=== PATIENT | male | born 1950 | race Hispanic/Latino ===

== ENCOUNTER 2017-02-20 15:41 | Emergency (ER) | payer MEDICARE | END 2017-02-20 16:15 | disposition home or self-care (01) | LOC: ERS 15:41 | DX: M62.830 Muscle spasm of back (principal); E78.5 Hyperlipidemia, unspecified; E11.9 Type 2 diabetes mellitus without complications; I10 Essential (primary) hypertension; J45.909 Unspecified asthma, uncomplicated; F32.9 Major depressive disorder, single episode, unspecified | CPT/HCPCS: 99283 ==

== ENCOUNTER 2017-02-25 09:20 | Emergency (ER) | payer MEDICARE ==
[2017-02-25 10:00] LABS: #Eosinphils 0.4 thou/uL (0.0-0.7); #Lymphocytes 1.4 thou/uL (1.20-3.40); #Monocytes 0.5 thou/uL (0.11-0.59); %Basophils 0.5 % (0.0-1.0); %Eosinophils 6.8 % (0.0-10.0); %Lymphocytes 21.5 % (21.0-51.0); %Monocytes 8.3 % (0.0-10.0); Hematocrit 37.9 % (42.0-52.0); Mean Platelet Volume 6.2 fL (7.4-10.4); Red Blood Cell (RBC) Count 4.01 mill/uL (4.70-6.10); White Blood Cell (WBC) Count 6.4 thou/uL (4.8-10.8)
[2017-02-25 10:22] LABS: ALT (SGPT) 13 U/L (8-55); AST (SGOT) 13 U/L (5-34); Alkaline Phosphatase 75 U/L (40-150); Anion Gap 18 mmol/L (10-20); BUN (Urea Nitrogen) 37 mg/dL (8.4-25.7); Bilirubin, Total 0.8 mg/dL (0.2-1.2); CK (CPK) 151 U/L (30-200); Calc. Creatinine Clearance 0 mL/min (70-130); Calcium 9.3 mg/dL (7.8-10.44); Carbon Dioxide 23 mmol/L (23-31); Chloride 96 mmol/L (98-107); Estimated GFR-MDRD 6; Globulin 2.8 g/dL (2.4-3.5); Lipase 51 U/L (8-78)
[2017-02-25 10:24] LABS: Troponin I 0.068 ng/mL (< 0.028)
--- NOTE | 2017-02-25 10:25 | RAD ---
RADIOGRAPH CHEST 1 VIEW: HISTORY: 67-year-old male with acute chest pain and dyspnea. FINDINGS: There is no air space density, pulmonary edema, or pneumothorax. The lateral costophrenic angles ar e sharp. IMPRESSION: No acute pulmonary findings. jn [] POS: MARANDA
[2017-02-25] MEDS ORDERED: ALPRAZolam 0.5 MG TAB ONE (11:00)
[2017-02-25 12:16] LABS: Troponin I 0.069 ng/mL (< 0.028)
== END 2017-02-25 15:12 | disposition home or self-care (01) ==
LOC: ERS 09:20 → MERGE 09:20 → ERS 15:12
DX: I12.0 Hypertensive chronic kidney disease with stage 5 chronic kidney disease or end stage renal disease (principal); N18.6 End stage renal disease; F41.9 Anxiety disorder, unspecified; E11.22 Type 2 diabetes mellitus with diabetic chronic kidney disease; E78.5 Hyperlipidemia, unspecified; Z86.73 Personal history of transient ischemic attack (TIA), and cerebral infarction without residual deficits
CPT/HCPCS: 36415; 71010; 80053; 82553; 83690; 84484; 85025; 93005; 94760

== ENCOUNTER 2017-05-16 00:54 | Inpatient (IN) | payer MEDICARE ==
[2017-05-16] MEDS ORDERED: Lidocaine 1% w/Epinephrine 1:100K 20 ML VIAL ONE (01:36)
[2017-05-16 01:40] LABS: #Eosinphils 0.2 thou/uL (0.0-0.7); #Lymphocytes 1.3 thou/uL (1.20-3.40); #Monocytes 0.8 thou/uL (0.11-0.59); %Basophils 0.2 % (0.0-1.0); %Eosinophils 1.6 % (0.0-10.0); %Lymphocytes 11.2 % (21.0-51.0); %Monocytes 6.9 % (0.0-10.0); Hematocrit 27.3 % (42.0-52.0); Mean Platelet Volume 5.6 fL (7.4-10.4); Red Blood Cell (RBC) Count 3.01 mill/uL (4.70-6.10); White Blood Cell (WBC) Count 11.3 thou/uL (4.8-10.8)
[2017-05-16 01:47] LABS: PTT 37.5 SEC (22.9-36.1); Prothrombin Time 13.9 SEC (12.0-14.7)
[2017-05-16 02:03] LABS: ALT (SGPT) 9 U/L (8-55); AST (SGOT) 15 U/L (5-34); Alkaline Phosphatase 88 U/L (40-150); Anion Gap 20 mmol/L (10-20); BUN (Urea Nitrogen) 54 mg/dL (8.4-25.7); Bilirubin, Total 0.7 mg/dL (0.2-1.2); CK (CPK) 188 U/L (30-200); Calc. Creatinine Clearance 0 mL/min (70-130); Calcium 9.8 mg/dL (7.8-10.44); Carbon Dioxide 26 mmol/L (23-31); Chloride 97 mmol/L (98-107); Estimated GFR-MDRD 5; Globulin 3.5 g/dL (2.4-3.5); Lipase 87 U/L (8-78); Protein, Total 7.4 g/dL (5.8-8.1)
[2017-05-16 02:12] LABS: Troponin I 0.711 ng/mL (< 0.028)
[2017-05-16] MEDS ORDERED: Nitroglycerin 2% Ointment 1 INCH/1 GM Packet ONE (03:04)
[2017-05-16] MEDS ORDERED: Enoxaparin Sodium 80 MG/0.8 ML SYRINGE ONE (03:04)
[2017-05-16 04:44] LABS: Troponin I 0.744 ng/mL (< 0.028)
[2017-05-16] MEDS ORDERED: Acetaminophen 500 MG TAB ONE (05:20)
[2017-05-16] MEDS ORDERED: Senokot 8.6 MG TAB PO PRN (07:26)
[2017-05-16] MEDS ORDERED: Labetalol HCl 100 MG/20 ML VIAL SLOW IVP PRN (07:26)
[2017-05-16] MEDS ORDERED: Loperamide HCl 2 MG CAP PO PRN (07:26)
[2017-05-16] MEDS ORDERED: Nitroglycerin 0.4 MG TAB (25 Tab Bottle) SL PRN (07:26)
[2017-05-16] MEDS ORDERED: Eucerin (Mineral Oil/Petrolatum,White) 30 gm Jar TOP PRN (07:26)
[2017-05-16] MEDS ORDERED: Milk Of Magnesia 30 ML UDCUP PO PRN (07:26)
[2017-05-16] MEDS ORDERED: Acetaminophen 325 MG TAB PO PRN (07:26)
[2017-05-16] MEDS ORDERED: Ondansetron HCl/PF 4 MG/2 ML Vial IVP PRN (07:26)
[2017-05-16] MEDS ORDERED: Artificial Tears 18 DROP/0.9 ML EA EYE PRN (07:26)
[2017-05-16] MEDS ORDERED: Loratadine 10 MG TAB PO PRN (07:26)
[2017-05-16] MEDS ORDERED: Chloraseptic Spray 180 ml Bottle PO PRN (07:26)
[2017-05-16] MEDS ORDERED: Mag-Al 1200 mg/1200 mg/30 ML UDCUP PO PRN (07:26)
[2017-05-16] MEDS ORDERED: hydrALAZINE 20 MG/ML VIAL SLOW IVP PRN (07:26)
[2017-05-16] MEDS ORDERED: Sodium Chloride 0.65% Nasal 44 ML BOT EA NARE PRN (07:26)
[2017-05-16] MEDS ORDERED: Diabetic Tussin 200 MG/10 ML UDCUP PO PRN (07:26)
[2017-05-16] MEDS ORDERED: Ondansetron ODT 4 MG TAB PO PRN (07:26)
--- NOTE | 2017-05-16 07:31 | RAD ---
1 VIEW CHEST: Date: 05/16/17 HISTORY: Chest pain. COMPARISON: 02/25/17. FINDINGS: Portable upright chest radiograph demonstrates a normal cardiac silhouette. Pulmonary vessels are sli ghtly prominent. Costophrenic angles are clear. Patchy interstitial opacities, superimposed upon clinical nursing intern patrica change. No consolidation. No pneumothorax. IMPRESSION: Patchy interstitial opacities superimposed upon chronic change. Edema or infiltrate cannot be complet manny excluded. POS: PPP
[2017-05-16 08:06] LABS: Troponin I 0.964 ng/mL (< 0.028)
[2017-05-16] MEDS ORDERED: Heparin 5,000 UNITS/ML VIAL SC SCH (09:00)
--- NOTE | 2017-05-16 10:09 | CON ---
DATE OF CONSULTATION: 05/16/2017 NEPHROLOGY CONSULTATION REASON FOR CONSULTATION: End-stage renal disease, on maintenance hemodialysis. HISTORY OF PRESENT ILLNESS: This is a very pleasant 67-year-old gentleman with a history of noncompl iance and missing dialysis who presented to the hospital this morning with weakness and dyspnea. Aga in, the patient misses his dialysis on regular basis. The patient's potassium was 5. PAST MEDICAL HISTORY: Significant for end-stage renal disease, diabetes mellitus, hemodialysis, hist ory of CVA, depression, history of noncompliance, history of AV fistula placement, history of coronar y artery disease. ALLERGIES: Reviewed. SOCIAL HISTORY: No alcohol or drug use. FAMILY HISTORY: Negative for ESRD. REVIEW OF SYSTEMS: Fifteen point review of systems was performed and negative except positives noted above. General: Weakness-. Head: Headache-. Neck: No swelling or lumps. NOSE: No epistaxis o r discharge. Eyes: No diplopia or pain. Respiratory: Dyspnea-. Cardiovascular: Chest pain-. Ga strointestinal: Nausea-. Genitourinary/Gynecologic: Hematuria-. Musculoskeletal: No joint pain. Neuropsychiatric Systems: No suicidal ideation. No ideation. SKIN: Denies any rash or ulcer. Co nstitutional: No fever or chills. PHYSICAL EXAMINATION: GENERAL: Patient was awake, alert. VITAL SIGNS: Reviewed. GENERAL APPEARANCE AND MENTAL STATUS: Fair. HEAD/NECK: Normocephalic. Atraumatic. EYES: EOMI. No deformity. EARS: Clear. No ulcers. NOSE: Intact. No lesions. MOUTH: Clear. No discharge. THROAT: Clear. No exudate. LUNGS: Clear. No crackles. CARDIAC: S1, S2. No rub. ABDOMEN: Benign. BS+. GENITALIA/RECTUM: Singer absent. BACK/EXTREMITIES: Edema 0+ Ulcer-. NEUROLOGICAL: Alert and motor intact. SKIN: Rash- Bruise-. LYMPHATICS: Edema- Ulcer-. LABORATORY DATA: Potassium is 5. ASSESSMENT AND RECOMMENDATIONS: 1. Stage 6 chronic kidney disease with volume overload. We will plan hemodialysis. 2. Anemia, stable. 3. Hypertension, stable. 4. Medications based on glomerular filtration rate are appropriate. Overall, prognosis is extremely poor.
--- NOTE | 2017-05-16 13:49 | HP ---
PRIMARY CARE PHYSICIAN: [facility] in [place]. REASON FOR ADMISSION: [id number] myocardial infarction. HISTORY OF PRESENT ILLNESS: A 67-year-old male who has underlying history of end-stage renal disease on hemodialysis, who came to the emergency room last night with complaint of chest pain and generalized weakness. The patient reports that he missed dialysis on Monday as well as last Monday due to lack of transportation. His last dialysis was on last Monday. Patient was feeling more weak and yesterday evening, patient was having acute onset of chest pressure as if somebody seated on his chest, about 7/10 in intensity, without any radiation, without any association of palpitation, but he was feeling nausea, diaphoresis, and shortness of breath. He denies any vomiting. Patient's pain was very severe and pressure-like sensation and that is why he decided to come to the emergency room, because it was not improving at home. Patient denies any fever or chills. He denies any UTI symptoms. He denies any constipation, diarrhea, melena or hematochezia. The patient also reported that he got boil on his buttocks. This patient was evaluated in the Emergency Room and he was found with leukocytosis with a left shift and his troponin was significantly abnormal and his BNP was also very high. In the emergency room, he was given Tylenol 1 gram , nitropatch 1 inch, Lovenox 1 mg/kg and aspirin 325 mg. PAST MEDICAL HISTORY: End-stage renal disease, on hemodialysis Monday, Monday, Monday; diabetes type 2, hypertension, dyslipidemia, coronary artery disease, history of CVA, benign enlargement of prostate. PAST PSYCHIATRIC HISTORY: Anxiety and depression. PAST SURGICAL HISTORY: Left upper extremity AV fistula, cardiac catheterization , vascular access placement. SOCIAL HISTORY: Patient is and lives at home with his . No history of tobacco, alcohol or illicit drug abuse. FAMILY HISTORY: No strong family history of CAD, CVA or cancer. ALLERGIES: No known drug allergies. CURRENT HOME MEDICATIONS: Zoloft 50 mg p.o. daily, Lipitor 40 mg p.o. daily, methocarbamol 750 mg twice daily, hydralazine 50 mg 3 times daily, trazodone 100 mg p.o. at bedtime p.r.n., amlodipine 10 mg p.o. daily, lisinopril 5 mg p.o. b.i.d., clonidine 0.1 mg twice daily, sodium bicarbonate 650 mg twice daily , tramadol 50 mg twice daily, metoprolol 100 mg twice daily, Flomax 0.4 mg p.o. daily, Prozac 20 mg p.o. daily. REVIEW OF SYSTEMS: The following complete review of systems was negative, unless otherwise mentioned in the HPI or below: Constitutional: Weight loss or gain, ability to conduct usual activities. Skin: Rash, itching. Eyes: Double vision, pain. ENT/Mouth: Nose bleeding, neck stiffness, pain, tenderness. Cardiovascular: Palpitations, dyspnea on exertion, orthopnea. Respiratory: Shortness of breath, wheezing, cough, hemoptysis, fever or night sweats. Gastrointestinal: Poor appetite, abdominal pain, heartburn, nausea, vomiting, constipation, or diarrhea. Genitourinary: Urgency, frequency, dysuria, nocturia. Musculoskeletal: Pain, swelling. Neurologic/Psychiatric: Anxiety, depression. Allergy/Immunologic: Skin rash, bleeding tendency. Please see my HPI for pertinent positives and negative. All other review of systems reviewed and negative except as mentioned in the HPI. EMERGENCY ROOM COURSE: The patient is given Tylenol 1 gram, nitropatch 1 inch with Lovenox 1 mg/kg and aspirin 325 mg. PHYSICAL EXAMINATION: VITAL SIGNS: On arrival, blood pressure 181/106, pulse 110, respiratory rate 18 , temperature 98.4, saturation 95% on room air, weight 77.1 kilograms. GENERAL: Patient is currently alert, awake, no obvious acute distress. HEAD: Normocephalic, atraumatic. EYES: Pupils round, reactive to light. Extraocular muscles intact. ENT: Oropharynx within normal limits. Moist mucous membranes. No oral lesions. No pharyngeal erythema, no exudate. NECK: Supple, no JVD, no thyromegaly, no carotid bruits. No jugular venous distention. LUNGS: Clear to auscultation. Has coarse sound noted, but no obvious rales, wheezing or rhonchi. CARDIAC: S1, S2 regular, tachycardia, no murmur, no gallop, no rub. ABDOMEN: Soft, bowel sounds present, nontender, nondistended. No organomegaly , no mass, no suprapubic tenderness. BACK: Unremarkable, no CVA tenderness. EXTREMITIES: Upper extremity, passive movement of all joints are normal. Lower extremity, no edema, good peripheral pulsation. AV fistula in left upper extremity with palpable thrill. NEUROLOGIC: Nonfocal examination. SIGNIFICANT LABORATORY DATA AND IMAGIN. EKG based on my review, sinus tachycardia, LVH with repolarization changes. Chest x-ray based on my review, no acute cardiopulmonary process. 2. CBC: WBC 11.3, hemoglobin 9.2, platelet 223 with left shift. INR 1.1. BMP : Sodium 138, potassium 5.0, chloride 97, carbon dioxide 26, BUN 54, creatinine 10.96, glucose 182, calcium 9.8. 3. LFT: AST 15, ALT 9, alkaline phosphatase 88, albumin 3.9. CK 188, CK-MB 3.7, troponin I 0.711, lipase 87. BNP 51367.5. ASSESSMENT AND PLAN: 1. Non-ST elevation myocardial infarction. This patient has anginal pain yesterday and his troponin is significantly abnormal and his troponin is going up from 0.711-0.964. At this point, the patient's clinical picture is consistent with a non-ST elevation myocardial infarction. The patient will require cardiology consultation. We will continue with nitro patch 0.5 inch q.8 hours. We will give him Lovenox 1 mg per kg subcutaneous daily based on renal dose. We will continue aspirin 325 mg p.o. daily, Lipitor 40 mg p.o. at bedtime and Coreg 25 mg twice daily along with better blood pressure control. Further decisions will be deferred to Cardiology. 2. End-stage renal disease, on hemodialysis Monday, Monday, and Monday. The patient missed two hemodialysis session, because of lack of transportation. Nephrology will be consulted and patient will need dialysis today. 3. Hypertension. At this point, we will continue with amlodipine 10 mg p.o. daily, Coreg 25 mg twice daily, hydralazine 50 mg 3 times daily along with nitro patch q.8 hourly and we will titrate blood pressure medication as needed. 4. Anxiety and depression. We will continue Prozac 20 mg p.o. daily and Zoloft 50 mg p.o. daily. 5. Benign enlargement of prostate. We will continue Flomax 0.4 mg p.o. daily. 6. Anemia of renal disease. We will continue ferrous sulfate 325 mg p.o. daily and Nephro-Rigo one tablet p.o. daily. 7. Dyslipidemia. We will continue Lipitor 40 mg p.o. at bedtime and check lipid profile tomorrow morning. 8. Elevated BNP, likely related with renal failure. Patient already had echocardiography in the recent past, which showed systolic and diastolic dysfunction. No need of repeating echocardiography at this point. 9. Chronic systolic and diastolic dysfunction. The patient is not on ELISEO inhibitor or ARB with systolic and diastolic dysfunction, because of renal failure and risk of hyperkalemia, but instead the patient is on hydralazine and mononitrate regimen. 10. Deep venous thrombosis prophylaxis. Patient is already on Lovenox therapy. 11. Gastrointestinal prophylaxis. Pepcid 20 mg p.o. daily. 12. The patient has buttock abscess and required minor I&D in the emergency room. At this point, I will continue doxycycline 100 mg p.o. b.i.d. and Keflex 500 mg p.o. b.i.d. and will consider Wound Care team for evaluation if needed. CODE STATUS: The patient is FULL CODE. The patient's is surrogate decision maker. Disposition and plan based on clinical course and cardiology recommendation. We are expecting patient's stay in the hospital more than 2 midnights. Plan of care discussed with the patient and family member at bedside in the emergency room in detail. ARABELLA
[2017-05-16] MEDS: Nitroglycerin 2% Ointment 1 INCH/1 GM Packet TOP SCH ×4 (14:00→21:16)
[2017-05-16] MEDS: Carvedilol 25 MG TAB PO SCH ×2 (14:00→17:00)
[2017-05-16] MEDS: hydrALAZINE 25 MG TAB PO SCH ×2 (16:06→16:07)
[2017-05-16] MEDS: FLUoxetine HCl 20 MG CAP PO SCH (18:11)
[2017-05-16] MEDS: Amlodipine 10 MG TAB PO SCH (18:14)
[2017-05-16] MEDS: Tamsulosin HCl 0.4 MG CAP PO SCH (18:14)
[2017-05-16] MEDS: Famotidine 20 MG TAB PO SCH (18:14)
[2017-05-16] MEDS ORDERED: Carvedilol 25 MG TAB PO SCH (18:30)
[2017-05-16] MEDS: HYDROcodone/Acetaminophen 5/325 mg Tablet PO PRN (19:58)
--- NOTE | 2017-05-16 20:44 | CON ---
DATE OF CONSULTATION: 05/16/2017 REASON FOR CONSULTATION: Unstable angina, severe coronary disease. HISTORY OF PRESENT ILLNESS: Mr. Ramirez is a 67-year-old gentleman previously seen and underwent cardi ac catheterization by Dr. Anguiano. The patient now is admitted with unstable angina. The patient states for about the last month, he has had recurrent chest pain and pressure and low lev el activity in the evening at rest and finally came here to the emergency room where he has been admi tted. He is feeling progressively weaker and less energetic. Patient has also had infection of his left lower extremity and also a buttock abscess, which has been drained. PAST MEDICAL HISTORY: 1. End-stage renal disease. 2. Coronary artery disease, see below. PAST PSYCHIATRIC HISTORY: Anxiety and depression. PAST SURGICAL HISTORY: Previous left upper extremity AV fistula. SOCIAL HISTORY: He is , lives at home. No tobacco or alcohol. FAMILY HISTORY: No strong family history of coronary disease. MEDICATIONS AT HOME: 1. Lipitor 40 mg a day. 2. Lisinopril 5 mg twice daily. 3. Amlodipine 10 mg a day. 4. Clonidine. With some confusion about whether his cardiac medicines are the listed one is metoprolol, but there i s another list that says carvedilol. REVIEW OF SYSTEMS: CONSTITUTIONAL: No significant weight gain or loss. VISION: No changes. HEARING: No changes. PULMONARY: No cough or wheezing. GASTROINTESTINAL: No nausea, vomiting, diarrhea. SKIN: No rashes. NEUROLOGIC: No unilateral weakness or numbness. PSYCHIATRIC: No unusual depression or anxiety. HEMATOLOGIC: No unusual bruising. GENITOURINARY: No burning with urination. PHYSICAL EXAMINATION: GENERAL: It is a pleasant gentleman, currently pain free. VITAL SIGNS: Blood pressure 160/98, pulse 108, sinus tachycardia on the monitor. HEENT: Eyes: Sclerae nonicteric. Mouth mucous membranes moist. NECK: Supple, no lymphadenopathy. LUNGS: Clear, no wheezing, rales or rhonchi. CARDIAC: Tachycardic. There is no murmur, rub, or gallop. ABDOMEN: Soft, nontender. EXTREMITIES: There is no clubbing or cyanosis. There is no edema. SKIN: Warm and dry. Peripheral pulses has palpable, dorsalis pedis pulses bilaterally. PERTINENT LABORATORY DATA: Troponin level 0.964. X-RAY FINDINGS: EKG sinus rhythm with ST depression in the lateral leads. ASSESSMENT: 1. Unstable angina. 2. Coronary artery disease, severe, I reviewed the cardiac catheterization from 2015. He has a jeimy re stenosis and an ostial location just after diagonal branch and LAD beyond that looks nonbypassable , diffusely diseased, there is also disease in multiple other vessels distally, which do not look dre nable to percutaneous therapy. The right coronary is a calcified vessel, but no obstructive stenosis in the main segment. There is also calcified lesions in the circumflex. 3. End-stage renal disease. 4. Severe diffuse coronary artery disease, most recent ejection fraction 45% to 50%. PLAN: 1. Increase beta blockers. 2. Stop hydralazine for now, just continue him to follow with you, did not look like there would be any other intervention feasible in the clinical laboratory service teacher or for bypass surgery as the vessels are small distal ly. This LAD did not look bypassable, circumflex did not have a critical lesion in the main segment nor did the right coronary, this is just distal disease.
[2017-05-16] MEDS: Doxycycline 100 MG CAP PO SCH (21:13)
[2017-05-16] MEDS: Atorvastatin Calcium 40 MG TAB PO SCH (21:13)
[2017-05-16] MEDS: Zolpidem Tartrate 5 MG TAB PO PRN (21:13)
[2017-05-16] MEDS: Cephalexin 250 MG CAP PO SCH (21:13)
[2017-05-17] MEDS: Nitroglycerin 2% Ointment 1 INCH/1 GM Packet TOP SCH ×2 (05:32→14:00)
[2017-05-17 05:41] LABS: #Eosinphils 0.2 thou/uL (0.0-0.7); #Lymphocytes 1.6 thou/uL (1.20-3.40); #Monocytes 0.8 thou/uL (0.11-0.59); #Neutrophils 4.2 thou/uL (1.40-6.50); %Basophils 0.5 % (0.0-1.0); %Eosinophils 2.8 % (0.0-10.0); %Lymphocytes 23.2 % (21.0-51.0); %Monocytes 11.6 % (0.0-10.0); Red Blood Cell (RBC) Count 3.05 mill/uL (4.70-6.10); White Blood Cell (WBC) Count 6.7 thou/uL (4.8-10.8)
[2017-05-17 06:20] LABS: ALT (SGPT) 8 U/L (8-55); AST (SGOT) 19 U/L (5-34); Alkaline Phosphatase 72 U/L (40-150); Anion Gap 17 mmol/L (10-20); BUN (Urea Nitrogen) 22 mg/dL (8.4-25.7); Bilirubin, Total 0.8 mg/dL (0.2-1.2); Calc. Creatinine Clearance 11 mL/min (70-130); Calcium 9.6 mg/dL (7.8-10.44); Carbon Dioxide 31 mmol/L (23-31); Chloride 97 mmol/L (98-107); Cholesterol 153 mg/dl (< 200 Desired); Estimated GFR-MDRD 10; Globulin 3.3 g/dL (2.4-3.5); LDL Cholesterol, Calculated 83 mg/dL; Protein, Total 6.9 g/dL (5.8-8.1)
[2017-05-17] MEDS: Enoxaparin Sodium 60 MG/0.6 ML SYRINGE SC SCH (10:27)
[2017-05-17] MEDS: Amlodipine 10 MG TAB PO SCH (10:28)
[2017-05-17] MEDS: Doxycycline 100 MG CAP PO SCH ×2 (10:28→21:35)
[2017-05-17] MEDS: Ferrous Sulfate 325 MG TAB PO SCH (10:29)
[2017-05-17] MEDS: Tamsulosin HCl 0.4 MG CAP PO SCH (10:29)
[2017-05-17] MEDS: Folic Acid/Vit B Comp W-C PO SCH (10:30)
[2017-05-17] MEDS: Aspirin 325 MG TAB PO SCH (10:30)
[2017-05-17] MEDS: Carvedilol 25 MG TAB PO SCH ×2 (10:30→21:35)
[2017-05-17] MEDS: Cephalexin 250 MG CAP PO SCH ×2 (10:30→21:35)
[2017-05-17] MEDS: Famotidine 20 MG TAB PO SCH (10:30)
[2017-05-17] MEDS: FLUoxetine HCl 20 MG CAP PO SCH (10:30)
--- NOTE | 2017-05-17 12:20 | PDOC.PN ---
- Subjective Encounter Start Date: 05/17/17 Encounter Start Time: 09:30 -: old records requested/rev Patient seen and examined. No new complaints. No overnight events, no chest pain , no dyspnea - Objective Resuscitation Status: Resuscitation Status FULL:Full Resuscitation MAR Reviewed: Yes Vital Signs & Weight: Vital Signs (12 hours) Temp Pulse Resp BP BP Pulse Ox 05/17/17 12:00 97.9 F 78 18 143/70 H 94 L 05/17/17 10:28 75 121/57 L 05/17/17 08:00 97.7 F 75 18 121/57 L 96 05/17/17 04:00 98.1 F 88 18 146/72 H 94 L Weight Weight 144 lb 9.6 oz I&O: 05/16/17 05/17/17 05/18/17 06:59 06:59 06:59 Intake Total 960 360 Output Total 3000 Balance -2040 360 Result Diagrams: 05/17/17 04:30 05/17/17 04:30 Additional Labs: Accuchecks 05/17/17 05/16/17 06:09 20:41 POC Glucose 159 H 241 H EKG Reviewed by me: Yes (NSR) Phys Exam - Physical Examination Constitutional: NAD HEENT: PERRLA, moist MMs, sclera anicteric Neck: no JVD, supple Respiratory: no wheezing, no rales, no rhonchi Cardiovascular: RRR, no significant murmur, no rub Gastrointestinal: soft, non-tender, no distention, positive bowel sounds Musculoskeletal: no edema, pulses present Neurological: non-focal, normal sensation Psychiatric: normal affect Skin: no rash, normal turgor Dx/Plan (1) NSTEMI (non-ST elevated myocardial infarction) Code(s): I21.4 - NON-ST ELEVATION (NSTEMI) MYOCARDIAL INFARCTION Status: Acute (2) Abscess of buttock Code(s): L02.31 - CUTANEOUS ABSCESS OF BUTTOCK Status: Acute (3) Anemia of renal disease Code(s): D63.1 - ANEMIA IN CHRONIC KIDNEY DISEASE Status: Chronic (4) Anxiety and depression Code(s): F41.8 - OTHER SPECIFIED ANXIETY DISORDERS Status: Chronic (5) Asthma Code(s): J45.909 - UNSPECIFIED ASTHMA, UNCOMPLICATED Status: Chronic (6) BPH (benign prostatic hyperplasia) Code(s): N40.0 - BENIGN PROSTATIC HYPERPLASIA WITHOUT LOWER URINRY TRACT SYMP Status: Chronic (7) CAD (coronary artery disease), [place] coronary artery Code(s): I25.10 - ATHSCL HEART DISEASE OF [place] CORONARY ARTERY W/O ANG PCTRS Status: Chronic Qualifiers: (8) Chronic combined systolic and diastolic CHF (congestive heart failure) Code(s): I50.42 - CHRONIC COMBINED SYSTOLIC AND DIASTOLIC HRT FAIL Status: Chronic (9) Chronic low back pain Code(s): M54.5 - LOW BACK PAIN; G89.29 - OTHER CHRONIC PAIN Status: Chronic (10) Diabetes type 2, controlled Code(s): E11.9 - TYPE 2 DIABETES MELLITUS WITHOUT COMPLICATIONS Status: Chronic (11) ESRD (end stage renal disease) on dialysis Code(s): N18.6 - END STAGE RENAL DISEASE; Z99.2 - DEPENDENCE ON RENAL DIALYSIS Status: Chronic (12) Hyperlipidemia Code(s): E78.5 - HYPERLIPIDEMIA, UNSPECIFIED Status: Chronic Qualifiers: (13) Hypertension Code(s): I10 - ESSENTIAL (PRIMARY) HYPERTENSION Status: Chronic Qualifiers: (14) Noncompliance of patient with renal dialysis Code(s): Z91.15 - PATIENT'S NONCOMPLIANCE WITH RENAL DIALYSIS Status: Chronic (15) Secondary hyperparathyroidism of renal origin Code(s): N25.81 - SECONDARY HYPERPARATHYROIDISM OF RENAL ORIGIN Status: Chronic - Plan cont current plan of care, continue antibiotics * as per cardiology, only medical therapy is option * will add ranexa * continue keflex and doxy * HD as per nephrology * today will monitor and adjust his meds * will consider discharge tomorrow if he remains chest pain free with current medical treatment * medication reviewed as below * symptomatic treatment. Review of Systems - Review of Systems ENT: negative: Ear Pain, Ear Discharge, Nose Pain, Nose Discharge, Nose Congestion, Mouth Pain, Mouth Swelling, Throat Pain, Throat Swelling, Other Respiratory: negative: Cough, Dry, Shortness of Breath, Hemoptysis, SOB with Excertion, Pleuritic Pain, Sputum, Wheezing Cardiovascular: negative: chest pain, palpitations, orthopnea, paroxysmal nocturnal dyspnea, edema, light headedness, other Gastrointestinal: negative: Nausea, Vomiting, Abdominal Pain, Diarrhea, Constipation, Melena, Hematochezia, Other Genitourinary: negative: Dysuria, Frequency, Incontinence, Hematuria, Retention , Other Musculoskeletal: negative: Neck Pain, Shoulder Pain, Arm Pain, Back Pain, Hand Pain, Leg Pain, Foot Pain, Other Skin: negative: Rash, Lesions, Yov[place], Bruising, Other - Medications/Allergies Allergies/Adverse Reactions: Allergies Allergy/AdvReac Type Severity Reaction Status Date / Time No Known Drug Allergies Allergy Verified 02/03/17 00:56 Medications: Current Medications Acetaminophen (Tylenol) 650 mg PO Q4H PRN PRN Reason: Headache/Fever or Pain Hydrocodone Bitart/Acetaminophen ([place] 5/325) 1 tab PO Q4H PRN PRN Reason: Moderate Pain (4-6) Last Admin: 05/16/17 19:58 Dose: 1 tab Al Hydroxide/Mg Hydroxide (Maalox) 30 ml PO Q6H PRN PRN Reason: Heartburn or Indigestion Amlodipine Besylate (Norvasc) 10 mg PO DAILY [facility] Last Admin: 05/17/17 10:28 Dose: 10 mg Artificial Tears (Tears Naturale) 0 drop EA EYE PRN PRN PRN Reason: Dry Eyes Aspirin (Aspirin) 325 mg PO DAILY [facility] Last Admin: 05/17/17 10:30 Dose: 325 mg Atorvastatin Calcium (Lipitor) 40 mg PO HS [facility] Last Admin: 05/16/17 21:13 Dose: 40 mg Carvedilol (Coreg) 50 mg PO BID [facility] Last Admin: 05/17/17 10:30 Dose: 50 mg Cephalexin (Keflex) 500 mg PO BID [facility] Last Admin: 05/17/17 10:30 Dose: 500 mg Doxycycline Hyclate (Vibramycin) 100 mg PO BID [facility] Last Admin: 05/17/17 10:28 Dose: 100 mg Enoxaparin Sodium (Lovenox) 0 mg SC DAILY [facility] Last Admin: 05/17/17 10:27 Dose: 60 mg Famotidine (Pepcid) 20 mg PO DAILY [facility] Last Admin: 05/17/17 10:30 Dose: 20 mg Ferrous Sulfate (Feosol) 325 mg PO QA-[facility] Last Admin: 05/17/17 10:29 Dose: 325 mg Fluoxetine HCl (Prozac) 20 mg PO DAILY [facility] Last Admin: 05/17/17 10:30 Dose: 20 mg Guaifenesin (Robitussin Sf) 200 mg PO Q4H PRN PRN Reason: Cough Hydralazine HCl (Apresoline) 10 mg SLOW IVP Q4H PRN PRN Reason: Systolic BP > 180 Labetalol HCl (Normodyne) 20 mg SLOW IVP Q4H PRN PRN Reason: Systolic BP > 180 Loperamide HCl (Imodium) 2 mg PO PRN PRN PRN Reason: Diarrhea/Loose Stools Loratadine (Claritin) 10 mg PO DAILYPRN PRN PRN Reason: Sinus Symptoms Magnesium Hydroxide (Milk Of Magnesium) 30 ml PO DAILYPRN PRN PRN Reason: Constipation Mineral Oil/White Petrolatum (Eucerin Cream) 0 gm TOP BIDPRN PRN PRN Reason: Dry Skin Nitroglycerin (Nitrostat) 0.4 mg SL Q5MIN PRN PRN Reason: Chest Pain Nitroglycerin (Nitro-Bid 2% Ointment) 0.5 inch TOP Q8HR [facility] Last Admin: 05/17/17 05:32 Dose: 0.5 inch Ondansetron HCl (Zofran Odt) 4 mg PO Q6H PRN PRN Reason: Nausea/Vomiting Ondansetron HCl (Zofran) 4 mg IVP Q6H PRN PRN Reason: Nausea/Vomiting Phenol (Chloraseptic [place] 180 Ml Bot) 0 ml PO PRN PRN PRN Reason: Sore Throat Senna (Senokot) 2 tab PO HSPRN PRN PRN Reason: Constipation Sertraline HCl (Zoloft) 50 mg PO DAILY [facility] Last Admin: 05/17/17 10:29 Dose: 50 mg Sodium Chloride ([place] Nasal [place] 0.65%) 0 ml EA NARE QIDPRN PRN PRN Reason: Nasal Congestion Tamsulosin HCl (Flomax) 0.4 mg PO DAILY [facility] Last Admin: 05/17/17 10:29 Dose: 0.4 mg Vitamin B Complex/Vit C/Folic Acid (Nephro-Rigo Tablet) 1 tab PO DAILY [facility] Last Admin: 05/17/17 10:30 Dose: 1 tab Zolpidem Tartrate (Ambien) 5 mg PO HSPRN PRN PRN Reason: Insomnia Last Admin: 05/16/17 21:13 Dose: 5 mg
--- NOTE | 2017-05-17 14:14 | PRG ---
DATE OF SERVICE: 05/17/2017 SUBJECTIVE: This is a 67-year-old gentleman being seen for end-stage renal disease. Patient denies any nausea, vomiting or chest pain. PHYSICAL EXAMINATION: GENERAL: Patient is awake, alert. VITAL SIGNS: Afebrile, pulse 69, breathing at 16, blood pressure 143/70. HEAD/NECK: Normocephalic. Atraumatic. EYES: EOMI. No deformity. EARS: Clear. No ulcers. NOSE: Intact. No lesions. MOUTH: Clear. No discharge. THROAT: Clear. No exudate. LUNGS: Clear. No crackles. CARDIAC: S1, S2. No rub. ABDOMEN: Benign. BS+. GENITALIA/RECTUM: Singer absent. BACK/EXTREMITIES: Edema 0+ Ulcer- NEUROLOGICAL: Alert and motor intact. SKIN: Rash- Bruise- LYMPHATICS: Edema- Ulcer- LABORATORY DATA: Show potassium 4.6. ASSESSMENT AND RECOMMENDATIONS: 1. Stage 6 chronic kidney disease, continue hemodialysis. 2. Hypertension, stable. 3. Anemia, stable, noncompliance with dialysis is a major issue.
[2017-05-17] MEDS: HYDROcodone/Acetaminophen 5/325 mg Tablet PO PRN (18:37)
[2017-05-17] MEDS ORDERED: Dextrose 5% in Water 1,000 ML IV PRN (21:13)
[2017-05-17] MEDS ORDERED: Dextrose 50% Abboject 50 ML SYRINGE SLOW IVP PRN (21:13)
[2017-05-17] MEDS ORDERED: Insulin Regular 300 UNITS/3 ML VIAL SC PRN ×2 (21:13)
[2017-05-17] MEDS: Atorvastatin Calcium 40 MG TAB PO SCH (21:35)
[2017-05-17] MEDS: Zolpidem Tartrate 5 MG TAB PO PRN (21:35)
--- NOTE | 2017-05-17 22:56 | PRG ---
DATE OF SERVICE: 05/17/2017 SUBJECTIVE: Mr. Ramirez is feeling better today. He is improved. OBJECTIVE: VITAL SIGNS: Blood pressure is 143/70, pulse 78. GENERAL: He is having no chest pain or pressure. LUNGS: Clear. CARDIAC: Normal S1, normal S2. ASSESSMENT: 1. Coronary artery disease, inoperable distal atherosclerotic heart disease. 2. End-stage renal disease. 3. Tachycardia, better. PLAN: Okay to be released home on current medicine Carvedilol 50 mg twice a day, aspirin, atorvastat in, amlodipine, to try to keep his heart rate controlled as that is what seems to provoke his angina.
[2017-05-18 06:26] VITALS: BMI 23.1
[2017-05-18 07:39] VITALS: TEMP 98.4
[2017-05-18] MEDS: Amlodipine 10 MG TAB PO SCH (09:27)
[2017-05-18] MEDS: Ferrous Sulfate 325 MG TAB PO SCH (09:27)
[2017-05-18] MEDS: FLUoxetine HCl 20 MG CAP PO SCH (09:28)
[2017-05-18] MEDS: Carvedilol 25 MG TAB PO SCH (09:28)
[2017-05-18] MEDS: Tamsulosin HCl 0.4 MG CAP PO SCH (09:28)
[2017-05-18] MEDS: Famotidine 20 MG TAB PO SCH (09:28)
[2017-05-18] MEDS: Doxycycline 100 MG CAP PO SCH (09:28)
[2017-05-18] MEDS: Folic Acid/Vit B Comp W-C PO SCH (09:28)
[2017-05-18] MEDS: Aspirin 325 MG TAB PO SCH (09:28)
[2017-05-18] MEDS: Cephalexin 250 MG CAP PO SCH (09:28)
[2017-05-18] MEDS: Enoxaparin Sodium 60 MG/0.6 ML SYRINGE SC SCH (09:29)
--- NOTE | 2017-05-18 10:48 | PRG ---
DATE OF SERVICE: 05/18/2017. SUBJECTIVE: This 67-year-old male being seen for end-stage renal disease. Patient denies any nausea , vomiting or chest pain. PHYSICAL EXAMINATION: GENERAL: Patient is awake, alert. VITAL SIGNS: Afebrile, pulse 72, breathing at 16, blood pressure 144/64. OBJECTIVE: See above. Awake, alert, in no acute distress. GENERAL APPEARANCE AND MENTAL STATUS: Fair. HEAD/NECK: Normocephalic. Atraumatic. EYES: EOMI. No deformity. EARS: Clear. No ulcers. NOSE: Intact. No lesions. MOUTH: Clear. No discharge. THROAT: Clear. No exudate. LUNGS: Clear. No crackles. CARDIAC: S1, S2. No rub. ABDOMEN: Benign. BS+. GENITALIA/RECTUM: Singer absent. BACK/EXTREMITIES: Edema 0+ Ulcer- NEUROLOGICAL: Alert and motor intact. SKIN: Rash- Bruise- LYMPHATICS: Edema- Ulcer- LABORATORY: Reviewed. IMPRESSION AND PLAN: 1. Stage 6 chronic kidney disease. Continue dialysis. 2. Hypertension, stable. 3. Anemia, stable. 4. Medications based on glomerular filtration rate are appropriate.
--- NOTE | 2017-05-18 10:56 | DIS ---
PRIMARY CARE PHYSICIAN: [facility]. DATE OF ADMISSION: 05/16/2017 DATE OF DISCHARGE: 05/18/2017 DISCHARGE DISPOSITION: Home. PRIMARY DISCHARGE DIAGNOSES: 1. Non-ST elevation myocardial infarction. 2. Left buttock abscess, status post incision and drainage. SECONDARY DISCHARGE DIAGNOSES: Anemia of renal disease, anxiety and depression , asthma, benign prostatic hyperplasia, coronary artery disease, chronic combined systolic and diastolic heart failure, chronic low back pain, diabetes type 2, end-stage renal disease on hemodialysis, hypertension, dyslipidemia, secondary hyperparathyroidism of renal origin, noncompliance with medical treatment. PRIMARY PROCEDURE/OPERATION: Dialysis. RADIOLOGICAL INVESTIGATION: Chest x-ray on admission showed patchy interstitial opacity consistent with edema. SIGNIFICANT LABORATORY DATA: WBC 6.7, hemoglobin 9.3, and platelets 242. INR 1.1. Sodium 140, potassium 4.6, BUN 22, creatinine 5.79, glucose 156, calcium 9.6. Liver enzymes normal. LDL 83, triglyceride 125, cholesterol 153, HDL 45, troponin 0.964, and lipase 87. DISCHARGE MEDICATIONS: Proventil HFA 2 puffs q.4 hourly p.r.n., amlodipine 10 mg p.o. daily, aspirin 325 mg p.o. daily, Lipitor 20 mg p.o. daily, Coreg 50 mg p.o. b.i.d., Keflex 250 mg p.o. t.i.d. for 7 days, clonidine 0.1 mg p.o. b.i.d. , doxycycline 100 mg p.o. b.i.d. for 7 days, Pepcid 20 mg p.o. daily, ferrous sulfate 325 mg p.o. daily, Prozac 40 mg p.o. daily, Nephro-Rigo 1 tablet p.o. daily, hydralazine 50 mg t.i.d., Imdur 30 mg p.o. daily, lisinopril 5 mg p.o. b.i.d., methocarbamol 750 mg p.o. b.i.d., Ranexa 500 mg p.o. b.i.d., Flomax 0.4 mg p.o. daily, tramadol 50 mg p.o. b.i.d., and trazodone 200 mg p.o. at bedtime p.r.n. CONTRAINDICATIONS: None. CODE STATUS: FULL CODE. INPATIENT CONSULTANTS: Dr. Thorpe was consulted for non-STEMI and based on his assessment, this patient has pretty much nonoperable coronary artery disease and distal disease, and he recommended medical therapy. Dr. Morales was consulted for dialysis. TEST RESULTS PENDING ON DISCHARGE: None. ALLERGIES: No known drug allergy. DISCHARGE PLAN: Post hospital, the patient will follow up with primary care physician as well as Dr. Thorpe on 06/15/2017 at 1:30 p.m. HOSPITAL COURSE: A 67-year-old male with above-mentioned medical problem, who missed couple of hemodialysis and he came to the emergency room because he was having chest pain and shortness of breath. His history was consistent with angina and he has pretty much advanced coronary artery disease, which is nonoperable. The patient had significantly abnormal troponin and he was diagnosed with non-ST elevation NM. He was given Lovenox 1 mg per kg in the emergency room. The patient was admitted to telemetry floor. We did not do echocardiography during this admission because the patient had recently echocardiography done. We consulted Cardiology and Cardiology recommended to treat medically. During this admission, we increased Coreg to 50 mg twice daily. The rest of medication was continued as per previous. In the emergency room, the patient also had minor left buttock abscess that was done I&D in the emergency room, and we prescribed Keflex and doxycycline while in hospital. On discharge, we prescribed 7 more days of antibiotic therapy. The patient is medically stable. He is given above-mentioned new medication prescription to his pharmacy. Cardiology cleared him for discharge. PHYSICAL EXAMINATION: The patient is seen and examined at bedside today. VITAL SIGNS: Currently, temperature 98.4, pulse 72, respiratory rate 18, saturation 96% on room air, blood pressure 148/71, and weight 147 pounds. GENERAL: The patient is currently alert, oriented, in no acute distress. HEAD: Normocephalic, atraumatic. LUNGS: Clear to auscultation without any rhonchi or rales. CARDIAC: S1 and S2 regular. No murmur, no gallop, no rub. ABDOMEN: Soft and benign without any tenderness. EXTREMITIES: No edema. NEUROLOGIC: Nonfocal examination. All other review of systems was reviewed with him and negative. All new medication prescriptions sent to his pharmacy. Dr. Morales was doing maintenance hemodialysis while in hospital. Total time spent on discharge day more than 30 minutes ARABELLA
[2017-05-18 11:55] VITALS: BP 136/62
--- NOTE | 2017-05-18 12:16 | PDOC.PN ---
- Subjective Encounter Start Date: 05/18/17 Encounter Start Time: 10:20 Patient seen and examined. No new complaints. No overnight events - Objective Resuscitation Status: Resuscitation Status FULL:Full Resuscitation MAR Reviewed: Yes Vital Signs & Weight: Vital Signs (12 hours) Temp Pulse Resp BP BP BP Pulse Ox 05/18/17 10:50 98.4 F 69 12 136/62 96 05/18/17 09:27 72 148/71 H 05/18/17 07:37 98.4 F 72 18 148/71 H 96 05/18/17 07:25 98.4 F 72 18 96 05/18/17 04:00 98.1 F 70 18 144/64 H 96 05/18/17 01:32 97 Weight Weight 147 lb 7.828 oz I&O: 05/17/17 05/18/17 05/19/17 06:59 06:59 06:59 Intake Total 960 840 Output Total 3000 1000 Balance -2040 -160 Result Diagrams: 05/17/17 04:30 05/17/17 04:30 Additional Labs: Accuchecks 05/18/17 05/18/17 05/17/17 11:36 05:47 20:51 POC Glucose 266 H 185 H 336 H 05/17/17 05/17/17 05/17/17 17:21 12:52 11:16 POC Glucose 181 H 175 H 243 H EKG Reviewed by me: Yes (nsr) Phys Exam - Physical Examination Constitutional: NAD HEENT: PERRLA, moist MMs, sclera anicteric Neck: no JVD, supple Respiratory: no wheezing, no rales, no rhonchi Cardiovascular: RRR, no significant murmur, no rub Gastrointestinal: soft, non-tender, no distention, positive bowel sounds Musculoskeletal: no edema, pulses present Neurological: non-focal, normal sensation, moves all 4 limbs Psychiatric: normal affect, A&O x 3 Skin: no rash, normal turgor Dx/Plan (1) NSTEMI (non-ST elevated myocardial infarction) Code(s): I21.4 - NON-ST ELEVATION (NSTEMI) MYOCARDIAL INFARCTION Status: Acute (2) Abscess of buttock Code(s): L02.31 - CUTANEOUS ABSCESS OF BUTTOCK Status: Acute (3) Anemia of renal disease Code(s): D63.1 - ANEMIA IN CHRONIC KIDNEY DISEASE Status: Chronic (4) Anxiety and depression Code(s): F41.8 - OTHER SPECIFIED ANXIETY DISORDERS Status: Chronic (5) Asthma Code(s): J45.909 - UNSPECIFIED ASTHMA, UNCOMPLICATED Status: Chronic (6) BPH (benign prostatic hyperplasia) Code(s): N40.0 - BENIGN PROSTATIC HYPERPLASIA WITHOUT LOWER URINRY TRACT SYMP Status: Chronic (7) CAD (coronary artery disease), [place] coronary artery Code(s): I25.10 - ATHSCL HEART DISEASE OF [place] CORONARY ARTERY W/O ANG PCTRS Status: Chronic Qualifiers: (8) Chronic combined systolic and diastolic CHF (congestive heart failure) Code(s): I50.42 - CHRONIC COMBINED SYSTOLIC AND DIASTOLIC HRT FAIL Status: Chronic (9) Chronic low back pain Code(s): M54.5 - LOW BACK PAIN; G89.29 - OTHER CHRONIC PAIN Status: Chronic (10) Diabetes type 2, controlled Code(s): E11.9 - TYPE 2 DIABETES MELLITUS WITHOUT COMPLICATIONS Status: Chronic (11) ESRD (end stage renal disease) on dialysis Code(s): N18.6 - END STAGE RENAL DISEASE; Z99.2 - DEPENDENCE ON RENAL DIALYSIS Status: Chronic (12) Hyperlipidemia Code(s): E78.5 - HYPERLIPIDEMIA, UNSPECIFIED Status: Chronic Qualifiers: (13) Hypertension Code(s): I10 - ESSENTIAL (PRIMARY) HYPERTENSION Status: Chronic Qualifiers: (14) Noncompliance of patient with renal dialysis Code(s): Z91.15 - PATIENT'S NONCOMPLIANCE WITH RENAL DIALYSIS Status: Chronic (15) Secondary hyperparathyroidism of renal origin Code(s): N25.81 - SECONDARY HYPERPARATHYROIDISM OF RENAL ORIGIN Status: Chronic - Plan cont current plan of care * medication reviewed as below * symptomatic treatment * see discharge summery * medically stable for discharge.. Review of Systems - Review of Systems ENT: negative: Ear Pain, Ear Discharge, Nose Pain, Nose Discharge, Nose Congestion, Mouth Pain, Mouth Swelling, Throat Pain, Throat Swelling, Other Respiratory: negative: Cough, Dry, Shortness of Breath, Hemoptysis, SOB with Excertion, Pleuritic Pain, Sputum, Wheezing Cardiovascular: negative: chest pain, palpitations, orthopnea, paroxysmal nocturnal dyspnea, edema, light headedness, other Gastrointestinal: negative: Nausea, Vomiting, Abdominal Pain, Diarrhea, Constipation, Melena, Hematochezia, Other Genitourinary: negative: Dysuria, Frequency, Incontinence, Hematuria, Retention , Other Musculoskeletal: negative: Neck Pain, Shoulder Pain, Arm Pain, Back Pain, Hand Pain, Leg Pain, Foot Pain, Other Skin: negative: Rash, Lesions, Yovani, Bruising, Other - Medications/Allergies Allergies/Adverse Reactions: Allergies Allergy/AdvReac Type Severity Reaction Status Date / Time No Known Drug Allergies Allergy Verified 02/03/17 00:56 Medications: Current Medications Acetaminophen (Tylenol) 650 mg PO Q4H PRN PRN Reason: Headache/Fever or Pain Hydrocodone Bitart/Acetaminophen ([place] 5/325) 1 tab PO Q4H PRN PRN Reason: Moderate Pain (4-6) Last Admin: 05/17/17 18:37 Dose: 1 tab Al Hydroxide/Mg Hydroxide (Maalox) 30 ml PO Q6H PRN PRN Reason: Heartburn or Indigestion Amlodipine Besylate (Norvasc) 10 mg PO DAILY [facility] Last Admin: 05/18/17 09:27 Dose: 10 mg Artificial Tears (Tears Naturale) 0 drop EA EYE PRN PRN PRN Reason: Dry Eyes Aspirin (Aspirin) 325 mg PO DAILY [facility] Last Admin: 05/18/17 09:28 Dose: 325 mg Atorvastatin Calcium (Lipitor) 40 mg PO HS [facility] Last Admin: 05/17/17 21:35 Dose: 40 mg Carvedilol (Coreg) 50 mg PO BID [facility] Last Admin: 05/18/17 09:28 Dose: 50 mg Cephalexin (Keflex) 500 mg PO BID [facility] Last Admin: 05/18/17 09:28 Dose: 500 mg Dextrose/Water (Dextrose 50%) 25 gm SLOW IVP PRN PRN PRN Reason: Hypoglycemia Doxycycline Hyclate (Vibramycin) 100 mg PO BID [facility] Last Admin: 05/18/17 09:28 Dose: 100 mg Enoxaparin Sodium (Lovenox) 0 mg SC DAILY [facility] Last Admin: 05/18/17 09:29 Dose: 60 mg Famotidine (Pepcid) 20 mg PO DAILY [facility] Last Admin: 05/18/17 09:28 Dose: 20 mg Ferrous Sulfate (Feosol) 325 mg PO [facility] Last Admin: 05/18/17 09:27 Dose: 325 mg Fluoxetine HCl (Prozac) 20 mg PO DAILY [facility] Last Admin: 05/18/17 09:28 Dose: 20 mg Glucagon (Glucagon) 1 mg IM PRN PRN PRN Reason: Hypoglycemia Guaifenesin (Robitussin Sf) 200 mg PO Q4H PRN PRN Reason: Cough Hydralazine HCl (Apresoline) 10 mg SLOW IVP Q4H PRN PRN Reason: Systolic BP > 180 Dextrose/Water (D5w) 1,000 mls @ 0 mls/hr IV .Q0M PRN; As Directed PRN Reason: Hypoglycemia Insulin Human Regular (Humulin R) 0 units SC .MILD SLIDING SCALE PRN PRN Reason: Mild Correctional Scale Insulin Human Regular (Humulin R) 0 units SC .BEDTIME SLIDING SC PRN PRN Reason: Bedtime Correctional Scale Last Admin: 05/17/17 21:36 Dose: 4 unit Labetalol HCl (Normodyne) 20 mg SLOW IVP Q4H PRN PRN Reason: Systolic BP > 180 Loperamide HCl (Imodium) 2 mg PO PRN PRN PRN Reason: Diarrhea/Loose Stools Loratadine (Claritin) 10 mg PO DAILYPRN PRN PRN Reason: Sinus Symptoms Magnesium Hydroxide (Milk Of Magnesium) 30 ml PO DAILYPRN PRN PRN Reason: Constipation Mineral Oil/White Petrolatum (Eucerin Cream) 0 gm TOP BIDPRN PRN PRN Reason: Dry Skin Nitroglycerin (Nitrostat) 0.4 mg SL Q5MIN PRN PRN Reason: Chest Pain Ondansetron HCl (Zofran Odt) 4 mg PO Q6H PRN PRN Reason: Nausea/Vomiting Ondansetron HCl (Zofran) 4 mg IVP Q6H PRN PRN Reason: Nausea/Vomiting Phenol (Chloraseptic [place] 180 Ml Bot) 0 ml PO PRN PRN PRN Reason: Sore Throat Senna (Senokot) 2 tab PO HSPRN PRN PRN Reason: Constipation Sertraline HCl (Zoloft) 50 mg PO DAILY [facility] Last Admin: 05/18/17 09:28 Dose: 50 mg Sodium Chloride ([place] Nasal [place] 0.65%) 0 ml EA NARE QIDPRN PRN PRN Reason: Nasal Congestion Tamsulosin HCl (Flomax) 0.4 mg PO DAILY [facility] Last Admin: 05/18/17 09:28 Dose: 0.4 mg Vitamin B Complex/Vit C/Folic Acid (Nephro-Rigo Tablet) 1 tab PO DAILY [facility] Last Admin: 05/18/17 09:28 Dose: 1 tab Zolpidem Tartrate (Ambien) 5 mg PO HSPRN PRN PRN Reason: Insomnia Last Admin: 05/17/17 21:35 Dose: 5 mg
== END 2017-05-18 12:25 | disposition home or self-care (01) | DRG 987 ==
LOC: ERS 00:54 → ERHOLD 02:41 → 2NO 12:58
PROVIDERS: ADMIT Internal Medicine Addiction Medicine; ATTEND Internal Medicine Addiction Medicine
PROC: 0J990ZZ Drainage of Buttock Subcutaneous Tissue and Fascia, Open Approach (ICD-10-PCS; principal; 2017-05-16)
PROC: 5A1D70Z Performance of Urinary Filtration, Intermittent, Less than 6 Hours Per Day (ICD-10-PCS; 2017-05-16)
DX: I21.4 Non-ST elevation (NSTEMI) myocardial infarction (principal); N18.6 End stage renal disease; I13.2 Hypertensive heart and chronic kidney disease with heart failure and with stage 5 chronic kidney disease, or end stage renal disease; E11.22 Type 2 diabetes mellitus with diabetic chronic kidney disease; L02.31 Cutaneous abscess of buttock; N25.81 Secondary hyperparathyroidism of renal origin; I50.42 Chronic combined systolic (congestive) and diastolic (congestive) heart failure; E78.5 Hyperlipidemia, unspecified; D63.1 Anemia in chronic kidney disease; F41.8 Other specified anxiety disorders; L02.32 Furuncle of buttock; Z86.73 Personal history of transient ischemic attack (TIA), and cerebral infarction without residual deficits; N40.0 Benign prostatic hyperplasia without lower urinary tract symptoms; R00.0 Tachycardia, unspecified; J45.909 Unspecified asthma, uncomplicated; G89.29 Other chronic pain; M54.5 Low back pain; Z91.19 Patient's noncompliance with other medical treatment and regimen; I25.110 Atherosclerotic heart disease of native coronary artery with unstable angina pectoris; E87.70 Fluid overload, unspecified; Z91.15 Patient's noncompliance with renal dialysis; Z99.2 Dependence on renal dialysis
CPT/HCPCS: 10060; 36415; 36416; 71010; 80053; 80061; 82553; 83690; 83880; 84484; 85025; 85610; 85730; 90935; 93005; 96372; G0257; J1650; J1815; J2001

== ENCOUNTER 2017-05-29 14:56 | Inpatient (IN) | payer MEDICARE ==
[2017-05-29] MEDS ORDERED: Nitroglycerin 0.4 MG TAB (25 Tab Bottle) ONE (16:26)
[2017-05-29 16:50] LABS: #Lymphocytes 0.8 thou/uL (1.20-3.40); #Monocytes 0.4 thou/uL (0.11-0.59); #Neutrophils 7.6 thou/uL (1.40-6.50); %Basophils 0.2 % (0.0-1.0); %Eosinophils 0.5 % (0.0-10.0); %Lymphocytes 9.5 % (21.0-51.0); %Monocytes 4.1 % (0.0-10.0); %Neutrophils 85.7 % (42.0-75.0); Mean Corpuscular HGB CONC 33.4 g/dL (32.0-36.0); Mean Corpuscular Volume 92.8 fl (80.0-94.0); Mean Platelet Volume 7.5 fL (7.4-10.4); Platelet Count 266 thou/uL (130-400); RBC Distribution Width 14.5 % (11.5-14.5); White Blood Cell (WBC) Count 8.8 thou/uL (4.8-10.8)
[2017-05-29 17:13] LABS: ALT (SGPT) 10 U/L (8-55); AST (SGOT) 17 U/L (5-34); Albumin 3.8 g/dL (3.4-4.8); Alkaline Phosphatase 68 U/L (40-150); Anion Gap 24 mmol/L (10-20); BUN (Urea Nitrogen) 72 mg/dL (8.4-25.7); Bilirubin, Total 0.6 mg/dL (0.2-1.2); CK (CPK) 75 U/L (30-200); Calc. Creatinine Clearance 0 mL/min (70-130); Calcium 9.3 mg/dL (7.8-10.44); Carbon Dioxide 22 mmol/L (23-31); Chloride 93 mmol/L (98-107); Estimated GFR-MDRD 5; Globulin 3.8 g/dL (2.4-3.5); Glucose 243 mg/dL (80-115); Potassium 5.3 mmol/L (3.5-5.1); Protein, Total 7.6 g/dL (5.8-8.1); Sodium 134 mmol/L (136-145)
[2017-05-29 17:21] LABS: CKMB 2.1 ng/mL (0-6.6); Troponin I 0.213 ng/mL (< 0.028)
--- NOTE | 2017-05-29 17:49 | RAD ---
RADIOGRAPH CHEST 1 VIEW: Date: 05-29-2017 Time: 4:26 p.m. HISTORY: 67-year-old male with dyspnea. COMPARISON: 05-16-17 FINDINGS: There are new bilateral interstitial densities, predominately centrally located and at the bases, pro bably representing pulmonary interstitial edema. The cardiac size appears to be slightly larger on th e current study compared to the previous. New finding of mild blunting of the lateral costophrenic an gles bilaterally representing small pleural effusions. No pneumothorax. IMPRESSION: Evidence for congestive heart failure: pulmonary interstitial edema, cardiomegaly, and small bilatera l pleural effusions. BRADLEY POS: MARANDA
[2017-05-29] MEDS ORDERED: Furosemide 40 MG/4 ML VIAL ONE (19:08)
[2017-05-29] MEDS ORDERED: Acetaminophen 325 MG TAB PO PRN (19:48)
[2017-05-29] MEDS ORDERED: Guaifenesin DM 100-10/5 ML UDCUP PO PRN (19:48)
[2017-05-29] MEDS ORDERED: PROVENTIL INHALER 6.7 G (200 INHALATIONS) INH PRN (19:48)
[2017-05-29] MEDS ORDERED: Dextrose 5% in Water 1,000 ML IV PRN (19:48)
[2017-05-29] MEDS ORDERED: Dextrose 50% Abboject 50 ML SYRINGE SLOW IVP PRN (19:48)
--- NOTE | 2017-05-29 21:30 | HP ---
REASON FOR ADMISSION: Volume overload, hyperkalemia and congestive heart failure exacerbation. HISTORY OF PRESENTING ILLNESS: The patient gives history of waking up with chest pain this morning. He is also complaining of low back pain. His last dialysis was on Monday. His dialysis center was closed today. He gets dialyzed on Monday, Monday, and Monday. He complains of cough with expecto ration of white sputum. Mr. Ramirez states he ambulates only inside the house as he gets exertional sh ortness of breath. Looking at prior records, the patient has had recurrent hospitalizations here. PAST MEDICAL AND SURGICAL HISTORY: End-stage renal disease on hemodialysis, history of CHF with ejec tion fraction of around 45%, hypertension, dyslipidemia, depression, insomnia, left upper extremity h emodialysis access procedures, history of CVA, benign enlargement of prostate. CURRENT MEDICATIONS: The patient is on Norvasc 10 mg p.o. daily, Lipitor 40 mg p.o. daily, clonidine 0.1 mg p.o. twice daily, fluoxetine 20 mg daily, lisinopril 5 mg p.o. twice daily, Soma 750 mg p.o. twice daily, Lopressor 100 mg p.o. twice daily, sertraline 50 mg p.o. daily, sodium bicarbonate 650 m g p.o. twice daily, Flomax 0.4 mg p.o. daily, trazodone 100 mg p.o. at bedtime, Ultram p.r.n. for amy n. ALLERGIES: No known drug allergies. PERSONAL HISTORY: Denies substance abuse or alcohol abuse. No history of smoking. Lives with his w alondra. FAMILY HISTORY: Mom in her 70s. She did not have any renal failure or heart disease that he kn ows of. He did not know much about his father. Code status is FULL. Power of estate planning attorney is his , Ms. Bravo. REVIEW OF SYSTEMS: The following complete review of systems was negative, unless otherwise mentioned in the HPI or below: Constitutional: Weight loss or gain, ability to conduct usual activities. Sk in: Rash, itching. Eyes: Double vision, pain. ENT/Mouth: Nose bleeding, neck stiffness, pain, te nderness. Cardiovascular: Palpitations, dyspnea on exertion, orthopnea. Respiratory: Shortness of breath, wheezing, cough, hemoptysis, fever or night sweats. Gastrointestinal: Poor appetite, abdom inal pain, heartburn, nausea, vomiting, constipation, or diarrhea. Genitourinary: Urgency, frequenc y, dysuria, nocturia. Musculoskeletal: Pain, swelling. Neurologic/Psychiatric: Anxiety, depressio n. Allergy/Immunologic: Skin rash, bleeding tendency. PHYSICAL EXAMINATION: GENERAL: The patient is a 67-year-old male who is currently in mild respiratory distress from volume overload. VITAL SIGNS: Blood pressure 160/68, pulse 90 per minute, respiratory rate 20 per minute, temperature 97.9 degrees Fahrenheit, saturating 89% on room air and 92% on 2 L nasal cannula. NECK: Supple. There is elevated JVD. HEENT: Eyes, extraocular muscles intact. Pupils are reacting to light. Oral cavity, mucous membran es are moist. No exudates or congestion. CARDIOVASCULAR SYSTEM: S1, S2 heard. S3 plus. Regular rhythm. RESPIRATORY SYSTEM: Air entry 1+ bilateral. Scattered rales in the infrascapular area. Rhonchi plu s bilateral. ABDOMEN: Soft, bowel sounds heard. No tenderness, rigidity or guarding. EXTREMITIES: No peripheral edema or calf tenderness. VASCULAR SYSTEM: Peripheral pulses 1+ bilateral, no ischemic ulcerations or gangrene. CENTRAL NERVOUS SYSTEM: No gross focal deficits seen. The patient is alert, awake, oriented well. PSYCHIATRIC SYSTEM: The patient's mood is euthymic. No hallucinations or delusions. LABORATORY AND X-RAY FINDINGS: White count of 8.8, H and H 8 and 24, platelet count 266, MCV is 92 w ith 85% neutrophils. Sodium 134, potassium 5.3, serum bicarbonate 22, BUN 72, creatinine 11.2, serum glucose 243. Liver enzymes are within normal limits. BNP is 10,969. Troponin I 0.2. CK-MB is 2.1 , albumin is 3.8. Chest x-ray done shows pulmonary vascular congestion with cardiomegaly. EKG shows normal sinus rhythm at 95 beats per minute. There is poor R-wave progression. There is also T-wave inversions seen in V4, V5, V6. CLINICAL IMPRESSION AND PLAN: The patient will be admitted to telemetry for volume overload with end -stage renal disease on hemodialysis. I spoke to Dr. Anna, who will be emergently dialyzing patiyulisa nt for a 4-hour session now. He will also need a 2-hour session in the morning. The patient has ext remely elevated BNP, which is more than 10,000. He will be on aspirin, Norvasc, Lipitor, clonidine, ferrous sulfate, Prozac, hydralazine, Imdur, lisinopril, trazodone, Flomax and Soma as before. The p lux is to get him dialyzed tonight and in the morning. We will trend his troponin and most likely th e indeterminate range is due to his end-stage renal disease. He will be on oxygen until he gets dial yzed. The patient also has known history of mild systolic dysfunction with ejection fraction of arou nd 45%. When I spoke to Dr. Anna, he did mention that the patient is not very compliant with his hemodialysis either.
[2017-05-29 22:09] LABS: Troponin I 0.241 ng/mL (< 0.028)
[2017-05-29] MEDS ORDERED: Epoetin (ESRD) 10,000 UNITS/ML VIAL IVP SCH (22:15)
--- NOTE | 2017-05-29 22:41 | CON ---
DATE OF CONSULTATION: 05/29/2017 CONSULTING PHYSICIAN: David Huang M.D. REASON FOR CONSULTATION: End-stage renal disease and volume overload. REASON FOR ADMISSION: Shortness of breath. HISTORY OF PRESENT ILLNESS: A 67-year-old male with history of end-stage renal disease, CHF, hyperte nsion, hyperlipidemia, depression, came to the hospital with shortness of breath. He missed his dial ysis a lot, but had one session of dialysis last week and he started having shortness of breath, he i s noncompliant with fluid restriction and also no fever or chills, no cough reported. No skin rash. PAST MEDICAL HISTORY: Positive for end-stage renal disease, CHF, hypertension, hyperlipidemia, depre ssion, insomnia, CVA, and BPH. PAST SURGICAL HISTORY: Hemodialysis access placement. HOME MEDICATIONS: Norvasc, Lipitor, clonidine, fluoxetine, lisinopril, Soma, Lopressor, sertraline, sodium bicarbonate, Flomax, trazodone, and Ultram. ALLERGIES: No known drug allergies. SOCIAL HISTORY: No smoking, alcohol or illicit drug abuse. FAMILY HISTORY: Positive for heart disease. REVIEW OF SYSTEMS: The following complete review of systems was negative, unless otherwise mentioned in the HPI or below: Constitutional: Weight loss or gain, ability to conduct usual activities. Skin: Rash, itching. Eyes: Double vision, pain. ENT/Mouth: Nose bleeding, neck stiffness, pain, tenderness. Cardiovascular: Palpitations, dyspnea on exertion, orthopnea. Respiratory: Shortness of breath, wheezing, cough, hemoptysis, fever or night sweats. Gastrointestinal: Poor appetite, abdominal pain, heartburn, nausea, vomiting, constipation, or diarr hea. Genitourinary: Urgency, frequency, dysuria, nocturia. Musculoskeletal: Pain, swelling. Neurologic/Psychiatric: Anxiety, depression. Allergy/Immunologic: Skin rash, bleeding tendency. PHYSICAL EXAMINATION: GENERAL: This is a thin well-built male in no apparent distress. VITAL SIGNS: Temperature 97.9, pulse 90, respiratory rate 20, blood pressure 160/60. HEENT: Atraumatic, normocephalic. Oral mucosa moist. NECK: Supple, no masses. CARDIOVASCULAR: S1, S2 heard. Rate and rhythm regular. RESPIRATORY: Clear. GASTROINTESTINAL: Abdomen is soft. MUSCULOSKELETAL: 1+ edema. DERMATOLOGIC: No skin rash. NEUROLOGIC: Alert and awake. PSYCHIATRIC: Mood and affect normal. LABORATORY DATA: Hemoglobin is 8.0, potassium is 5.3, BUN is 22, and creatinine is 11.23. ASSESSMENT AND PLAN: 1. End-stage renal disease. Plan is to have emergent dialysis. 2. Hyperkalemia. We will have dialysis and the patient was seen and evaluated during dialysis. 3. Hyponatremia, limit fluid intake. 4. Acidosis. 5. Hypoalbuminemia. 6. Anemia. We will give Epogen with dialysis. Plan is to have dialysis and remove fluid with dialysis. The patient was counseled to be compliant w ith dialysis. Thank you for the consultation.
[2017-05-29 23:32] LABS: Hep B Surf Ag Non-Reactive S/CO (NonReactive)
[2017-05-29 23:58] LABS: Troponin I 0.263 ng/mL (< 0.028)
[2017-05-30] MEDS: Atorvastatin Calcium 20 MG TAB PO SCH ×2 (00:52→20:01)
[2017-05-30] MEDS: Docusate 100 MG CAP PO SCH ×3 (00:56→20:02)
[2017-05-30] MEDS: cloNIDine 0.1 MG TAB PO SCH ×3 (00:56→20:03)
[2017-05-30] MEDS: hydrALAZINE 25 MG TAB PO SCH ×3 (00:57→15:17)
[2017-05-30] MEDS: Heparin 5,000 UNITS/ML VIAL SC SCH ×3 (00:57→20:02)
[2017-05-30] MEDS: Famotidine 20 MG TAB PO SCH ×2 (00:57→20:02)
[2017-05-30] MEDS: Lisinopril 5 MG TAB PO SCH ×2 (00:58→09:22)
[2017-05-30] MEDS: Methocarbamol 500 MG TAB PO SCH ×3 (00:58→20:02)
[2017-05-30] MEDS: traMADol HCl 50 MG TAB PO SCH ×3 (00:59→20:03)
[2017-05-30 05:30] LABS: #Eosinphils 0.2 thou/uL (0.0-0.7); #Monocytes 0.4 thou/uL (0.11-0.59); #Neutrophils 5.7 thou/uL (1.40-6.50); %Basophils 0.5 % (0.0-1.0); %Eosinophils 2.6 % (0.0-10.0); %Lymphocytes 13.2 % (21.0-51.0); %Neutrophils 77.7 % (42.0-75.0); Hemoglobin 7.8 g/dL (14.0-18.0); Mean Corpuscular HGB CONC 33.6 g/dL (32.0-36.0); Mean Corpuscular Volume 92.5 fl (80.0-94.0); Mean Platelet Volume 6.5 fL (7.4-10.4); Platelet Count 253 thou/uL (130-400); RBC Distribution Width 14.7 % (11.5-14.5); Red Blood Cell (RBC) Count 2.52 mill/uL (4.70-6.10); White Blood Cell (WBC) Count 7.3 thou/uL (4.8-10.8)
[2017-05-30 05:45] LABS: Albumin 3.6 g/dL (3.4-4.8); Anion Gap 17 mmol/L (10-20); BUN (Urea Nitrogen) 32 mg/dL (8.4-25.7); BUN/Creatinine Ratio 5.04; Calc. Creatinine Clearance 0 mL/min (70-130); Calcium 9.4 mg/dL (7.8-10.44); Carbon Dioxide 31 mmol/L (23-31); Chloride 94 mmol/L (98-107); Estimated GFR-MDRD 9; Glucose 203 mg/dL (80-115); Phosphorus 4.5 mg/dL (2.3-4.7); Sodium 138 mmol/L (136-145)
[2017-05-30] MEDS ORDERED: Nitroglycerin 0.4 MG TAB (25 Tab Bottle) ONE (06:14)
[2017-05-30 06:20] VITALS: BMI 24.7
[2017-05-30] MEDS ORDERED: Lorazepam 2 MG/ML VIAL SLOW IVP SCH (06:40)
[2017-05-30] MEDS ORDERED: Lorazepam 2 MG/ML VIAL ONE (06:41)
[2017-05-30] MEDS ORDERED: Amlodipine 10 MG TAB PO SCH (09:00)
[2017-05-30] MEDS: Ferrous Sulfate 325 MG TAB PO SCH (09:21)
[2017-05-30] MEDS: FLUoxetine HCl 20 MG CAP PO SCH (09:21)
[2017-05-30] MEDS: Tamsulosin HCl 0.4 MG CAP PO SCH (09:22)
[2017-05-30] MEDS: HumaLOG 300 UNITS/3 ML VIAL SC PRN (13:12)
[2017-05-30] MEDS ORDERED: Labetalol HCl 100 MG/20 ML VIAL SLOW IVP PRN (16:20)
[2017-05-30] MEDS: Carvedilol 6.25 MG TAB PO SCH (17:34)
--- NOTE | 2017-05-30 18:51 | PRG ---
DATE OF SERVICE: 05/30/2017 SUBJECTIVE: Patient was seen and examined at bedside and overnight events noted. Patient denies any shortness of breath or chest pain or palpitation. No history of nausea or vomiting or diarrhea or f ever or chills or cramps. OBJECTIVE: GENERAL: This is a well-built male in no apparent distress. VITAL SIGNS: Temperature 98.4, pulse 84, respirations 17, and blood pressure 103/59. HEENT: Atraumatic, normocephalic. Oral mucosa is moist. NECK: Supple. CARDIOVASCULAR: S1, S2 heard. Rate and rhythm regular. RESPIRATORY: Clear to auscultation. GASTROINTESTINAL: Abdomen is soft. MUSCULOSKELETAL: No tenderness. No edema. DERMATOLOGIC: No skin rash. NEUROLOGIC: Alert and awake and oriented x3. No focal neurologic deficits. Moving all the extremiti es. PSYCHIATRIC: Mood and affect normal. LABORATORY DATA: Potassium is 4.7, BUN is 32, creatinine is 6.3. ASSESSMENT AND PLAN: 1. End-stage renal disease, continue on dialysis Monday, Monday, and Monday. 2. Hyperkalemia, better. 3. Acidosis. 4. Hypoalbuminemia. 5. Anemia. 6. Hyponatremia, limit fluid intake. Plan is to continue on dialysis as tolerated.
--- NOTE | 2017-05-30 22:21 | PDOC.PN ---
- Subjective Encounter Start Date: 05/30/17 Encounter Start Time: 12:00 Patient seen and examined. No new complaints. No overnight events. SOB improving. - Objective Resuscitation Status: Resuscitation Status FULL:Full Resuscitation MAR Reviewed: Yes Vital Signs & Weight: Vital Signs (12 hours) Temp Pulse Resp BP BP Pulse Ox 05/30/17 20:03 100/55 L 05/30/17 17:34 122/63 05/30/17 15:58 98.4 F 84 17 103/59 L 91 L 05/30/17 15:17 84 103/59 L 05/30/17 12:00 97.9 F 81 16 94/53 L 90 L I&O: 05/29/17 05/30/17 05/31/17 06:59 06:59 06:59 Intake Total 1210 Output Total 720 Balance 490 Result Diagrams: 05/31/17 07:05 05/31/17 04:24 Additional Labs: Accuchecks 05/30/17 05/30/17 05/30/17 20:21 16:48 11:40 POC Glucose 266 H 109 263 H 05/30/17 06:03 POC Glucose 186 H EKG Reviewed by me: Yes (Tele SR) Phys Exam - Physical Examination Constitutional: NAD Respiratory: no wheezing, no rhonchi Cardiovascular: RRR, no rub Gastrointestinal: soft, non-tender, positive bowel sounds Neurological: moves all 4 limbs Dx/Plan - Plan DVT proph w/heparin, DVT proph w/SCDs IMPRESSION: 1. 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 Hyperkalemia 3. Chronic Anemia due to renal disease 4. HTN 5. ESRD on HD - noncompliant/Elevated troponins due to demand ischemia 6. Other issues per H&P PLAN: * Dialysis per Nephrology * Minimize home BP meds - BP running low on his home meds * AM labs * Nephrology following Review of Systems - Review of Systems Respiratory: negative: Cough, Dry, Shortness of Breath, Hemoptysis, SOB with Excertion, Pleuritic Pain, Sputum, Wheezing Cardiovascular: negative: chest pain, palpitations, orthopnea, paroxysmal nocturnal dyspnea, edema, light headedness - Medications/Allergies Allergies/Adverse Reactions: Allergies Allergy/AdvReac Type Severity Reaction Status Date / Time No Known Drug Allergies Allergy Verified 05/30/17 03:42 Medications: Current Medications Acetaminophen (Tylenol) 650 mg PO Q4H PRN PRN Reason: Headache/Fever or Pain Albuterol Sulfate (Proventil Hfa) 2 puff INH Q4H PRN PRN Reason: SOB &/or Wheezing Last Admin: 05/30/17 04:45 Dose: 2 puff Alprazolam (Xanax) 0.25 mg PO BIDPRN PRN PRN Reason: Anxiety Aspirin (Aspirin Chewable) 81 mg PO DAILY [facility] Last Admin: 05/30/17 09:22 Dose: 81 mg Atorvastatin Calcium (Lipitor) 20 mg PO HS [facility] Last Admin: 05/30/17 20:01 Dose: 20 mg Carvedilol (Coreg) 6.25 mg PO BID-[facility] Last Admin: 05/30/17 17:34 Dose: 6.25 mg Clonidine (Catapres) 0.1 mg PO BID [facility] Last Admin: 05/30/17 20:03 Dose: Not Given Dextrose/Water (Dextrose 50%) 25 gm SLOW IVP PRN PRN PRN Reason: Hypoglycemia Docusate Sodium (Colace) 100 mg PO BID [facility] Last Admin: 05/30/17 20:02 Dose: 100 mg Epoetin Arthur (Procrit) [facility] Famotidine (Pepcid) 20 mg PO QPM [facility] Last Admin: 05/30/17 20:02 Dose: 20 mg Ferrous Sulfate (Feosol) 325 mg PO QAM-[facility] Last Admin: 05/30/17 09:21 Dose: 325 mg Fluoxetine HCl (Prozac) 40 mg PO DAILY [facility] Last Admin: 05/30/17 09:21 Dose: 40 mg Glucagon (Glucagon) 1 mg IM PRN PRN PRN Reason: Hypoglycemia Guaifenesin/Dextromethorphan (Robitussin Dm) 15 ml PO Q4H PRN PRN Reason: Cough Heparin Sodium (Porcine) (Heparin) 5,000 units SC BID [facility] Last Admin: 05/30/17 20:02 Dose: 5,000 units Dextrose/Water (D5w) 1,000 mls @ 0 mls/hr IV .Q0M PRN; As Directed PRN Reason: Hypoglycemia Insulin Human Lispro (Humalog) 0 units SC .MODERATE SLIDING SC PRN PRN Reason: Moderate Correctional Scale Last Admin: 05/30/17 13:12 Dose: 6 unit Isosorbide Mononitrate (Imdur Er) 30 mg PO DAILY [facility] Last Admin: 05/30/17 09:20 Dose: 30 mg Labetalol HCl (Normodyne) 10 mg SLOW IVP Q4H PRN PRN Reason: Systolic BP > 180 Methocarbamol (Robaxin) 750 mg PO BID [facility] Last Admin: 05/30/17 20:02 Dose: 750 mg Tamsulosin HCl (Flomax) 0.4 mg PO DAILY [facility] Last Admin: 05/30/17 09:22 Dose: 0.4 mg Tramadol HCl (Ultram) 50 mg PO BID [facility] Last Admin: 05/30/17 20:03 Dose: 50 mg Trazodone HCl (Desyrel) 100 mg PO HS PRN PRN Reason: Insomnia
[2017-05-31] MEDS: traZODone HCl 50 MG TAB PO PRN (02:11)
[2017-05-31 05:28] LABS: #Eosinphils 0.4 thou/uL (0.0-0.7); #Lymphocytes 1.4 thou/uL (1.20-3.40); #Monocytes 0.6 thou/uL (0.11-0.59); #Neutrophils 3.1 thou/uL (1.40-6.50); %Basophils 0.6 % (0.0-1.0); %Eosinophils 7.7 % (0.0-10.0); %Lymphocytes 25.1 % (21.0-51.0); %Monocytes 10.4 % (0.0-10.0); %Neutrophils 56.3 % (42.0-75.0); Hemoglobin 6.4 g/dL (14.0-18.0); Mean Corpuscular HGB CONC 32.6 g/dL (32.0-36.0); Mean Corpuscular Volume 94.9 fl (80.0-94.0); Mean Platelet Volume 6.3 fL (7.4-10.4); Platelet Count 212 thou/uL (130-400); RBC Distribution Width 15.3 % (11.5-14.5); Red Blood Cell (RBC) Count 2.07 mill/uL (4.70-6.10); White Blood Cell (WBC) Count 5.4 thou/uL (4.8-10.8)
[2017-05-31 05:29] LABS: Albumin 3.1 g/dL (3.4-4.8); Anion Gap 16 mmol/L (10-20); BUN (Urea Nitrogen) 46 mg/dL (8.4-25.7); BUN/Creatinine Ratio 5.87; Calc. Creatinine Clearance 9 mL/min (70-130); Calcium 8.4 mg/dL (7.8-10.44); Carbon Dioxide 29 mmol/L (23-31); Chloride 96 mmol/L (98-107); Estimated GFR-MDRD 7; Glucose 182 mg/dL (80-115); Phosphorus 5.8 mg/dL (2.3-4.7); Potassium 4.2 mmol/L (3.5-5.1); Sodium 137 mmol/L (136-145)
[2017-05-31 07:33] LABS: Hemoglobin 7.5 g/dL (14.0-18.0)
[2017-05-31 07:34] LABS: Reticulocyte Count 4.8 % (0.5-1.5)
[2017-05-31] MEDS: Carvedilol 6.25 MG TAB PO SCH ×2 (09:10→17:45)
[2017-05-31] MEDS: cloNIDine 0.1 MG TAB PO SCH ×2 (09:10→20:16)
[2017-05-31] MEDS: Docusate 100 MG CAP PO SCH ×2 (09:10→20:16)
[2017-05-31] MEDS: FLUoxetine HCl 20 MG CAP PO SCH (09:10)
[2017-05-31] MEDS: Ferrous Sulfate 325 MG TAB PO SCH (09:11)
[2017-05-31] MEDS: Aspirin 81 mg Enteric Coated Tablet PO SCH (09:11)
[2017-05-31] MEDS: traMADol HCl 50 MG TAB PO SCH ×2 (09:11→20:16)
[2017-05-31] MEDS: Methocarbamol 500 MG TAB PO SCH ×2 (09:11→20:16)
[2017-05-31] MEDS: Tamsulosin HCl 0.4 MG CAP PO SCH (09:11)
[2017-05-31] MEDS: Epoetin (ESRD) 10,000 UNITS/ML VIAL IVP SCH (10:19)
[2017-05-31] MEDS: HumaLOG 300 UNITS/3 ML VIAL SC PRN (11:45)
[2017-05-31] MEDS: Atorvastatin Calcium 20 MG TAB PO SCH (20:17)
--- NOTE | 2017-05-31 20:43 | PRG ---
DATE OF SERVICE: 05/31/2017 SUBJECTIVE: Patient was seen and examined at bedside and overnight events noted. Patient denies any shortness of breath or chest pain or palpitation. No history of nausea or vomitin g or diarrhea or fever or chills or cramps. OBJECTIVE: GENERAL: This is a well-built male, in no apparent distress. VITAL SIGNS: Temperature 97.5, pulse 80, respiratory rate 16, blood pressure 116/61. HEENT: Atraumatic, normocephalic. Oral mucosa is moist NECK: Supple. CARDIOVASCULAR: S1 and S2 heard. Rate and rhythm regular. RESPIRATORY: Clear to auscultation. GASTROINTESTINAL: Abdomen is soft. MUSCULOSKELETAL: No tenderness. No edema. DERMATOLOGIC: No skin rash. NEUROLOGIC: Alert and awake and oriented X3, No focal neurologic deficits. Moving all the extremitie s. PSYCHIATRIC: Mood and affect normal. LABORATORY DATA: Potassium is 4.2, BUN 46, creatinine 7.8. ASSESSMENT AND PLAN: 1. End-stage renal disease, currently on hemodialysis. 2. Hyperkalemia, better. 3. Acidosis. 4. Hypoalbuminemia. 5. Anemia. 6. Hyponatremia. Plan is to continue on dialysis as tolerated.
--- NOTE | 2017-05-31 21:06 | PDOC.PN ---
- Subjective Encounter Start Date: 05/31/17 Encounter Start Time: 11:15 Patient seen and examined. No new complaints. No overnight events. Feels weak. - Objective Resuscitation Status: Resuscitation Status FULL:Full Resuscitation MAR Reviewed: Yes Vital Signs & Weight: Vital Signs (12 hours) Temp Pulse Pulse Pulse Resp BP BP 05/31/17 20:16 130/68 05/31/17 16:00 97.4 F L 84 17 05/31/17 12:21 97.5 F L 80 16 05/31/17 11:39 82 90 137/69 BP BP Pulse Ox Pulse Ox Pulse Ox 05/31/17 20:16 05/31/17 16:00 147/83 H 92 L 05/31/17 12:21 116/61 94 L 05/31/17 11:39 155/75 H 92 L 92 L Weight Weight 159 lb 12.8 oz I&O: 05/30/17 05/31/17 06/01/17 06:59 06:59 06:59 Intake Total 1570 1200 Output Total 720 2100 Balance 850 -900 Result Diagrams: 06/01/17 08:39 05/31/17 04:24 Additional Labs: Accuchecks 05/31/17 05/31/17 05/31/17 17:48 11:42 05:59 POC Glucose 127 H 231 H 167 H EKG Reviewed by me: Yes (Tele SR) Phys Exam - Physical Examination Constitutional: NAD Respiratory: no wheezing, no rhonchi Cardiovascular: RRR, no rub Gastrointestinal: soft, non-tender, positive bowel sounds Neurological: moves all 4 limbs Dx/Plan - Plan DVT proph w/SCDs IMPRESSION: 1. 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 Hyperkalemia 3. Chronic Anemia due to renal disease 4. HTN 5. ESRD on HD - noncompliant/Elevated troponins due to demand ischemia 6. Other issues per H&P PLAN: * 1 unit PRBC * No melena/hematochezia * DC Heparin due to anemia * Cont current meds as below * Dialysis per Nephrology. * DC planning in 24 hr if stable Review of Systems - Review of Systems Respiratory: SOB with Excertion. negative: Cough, Dry, Shortness of Breath, Hemoptysis, Pleuritic Pain, Sputum, Wheezing Cardiovascular: negative: chest pain, palpitations, orthopnea, paroxysmal nocturnal dyspnea, edema, light headedness Gastrointestinal: negative: Nausea, Vomiting, Abdominal Pain, Diarrhea, Constipation, Melena, Hematochezia - Medications/Allergies Allergies/Adverse Reactions: Allergies Allergy/AdvReac Type Severity Reaction Status Date / Time No Known Drug Allergies Allergy Verified 05/30/17 03:42 Medications: Current Medications Acetaminophen (Tylenol) 650 mg PO Q4H PRN PRN Reason: Headache/Fever or Pain Albuterol Sulfate (Proventil Hfa) 2 puff INH Q4H PRN PRN Reason: SOB &/or Wheezing Last Admin: 05/30/17 04:45 Dose: 2 puff Alprazolam (Xanax) 0.25 mg PO BIDPRN PRN PRN Reason: Anxiety Aspirin (Ecotrin) 81 mg PO DAILY [facility] Last Admin: 05/31/17 09:11 Dose: 81 mg Atorvastatin Calcium (Lipitor) 20 mg PO [facility] Last Admin: 05/31/17 20:17 Dose: 20 mg Carvedilol (Coreg) 6.25 mg PO BID-[facility] Last Admin: 05/31/17 17:45 Dose: 6.25 mg Clonidine (Catapres) 0.1 mg PO BID [facility] Last Admin: 05/31/17 20:16 Dose: 0.1 mg Dextrose/Water (Dextrose 50%) 25 gm SLOW IVP PRN PRN PRN Reason: Hypoglycemia Docusate Sodium (Colace) 100 mg PO BID [facility] Last Admin: 05/31/17 20:16 Dose: 100 mg Epoetin Arthur (Procrit) 10,000 units IVP MoWe[facility] Last Admin: 05/31/17 10:19 Dose: 10,000 units Ferrous Sulfate (Feosol) 325 mg PO QAM-[facility] Last Admin: 05/31/17 09:11 Dose: 325 mg Fluoxetine HCl (Prozac) 40 mg PO DAILY [facility] Last Admin: 05/31/17 09:10 Dose: 40 mg Glucagon (Glucagon) 1 mg IM PRN PRN PRN Reason: Hypoglycemia Guaifenesin/Dextromethorphan (Robitussin Dm) 15 ml PO Q4H PRN PRN Reason: Cough Last Admin: 05/31/17 02:13 Dose: 15 ml Dextrose/Water (D5w) 1,000 mls @ 0 mls/hr IV .Q0M PRN; As Directed PRN Reason: Hypoglycemia Insulin Human Lispro (Humalog) 0 units SC .MODERATE SLIDING SC PRN PRN Reason: Moderate Correctional Scale Last Admin: 05/31/17 11:45 Dose: 4 unit Isosorbide Mononitrate (Imdur Er) 30 mg PO DAILY [facility] Last Admin: 05/31/17 09:10 Dose: 30 mg Labetalol HCl (Normodyne) 10 mg SLOW IVP Q4H PRN PRN Reason: Systolic BP > 180 Methocarbamol (Robaxin) 750 mg PO BID [facility] Last Admin: 05/31/17 20:16 Dose: 750 mg Pantoprazole Sodium (Protonix) 40 mg PO DAILY [facility] Last Admin: 05/31/17 09:10 Dose: 40 mg Tamsulosin HCl (Flomax) 0.4 mg PO DAILY [facility] Last Admin: 05/31/17 09:11 Dose: 0.4 mg Tramadol HCl (Ultram) 50 mg PO BID [facility] Last Admin: 05/31/17 20:16 Dose: 50 mg Trazodone HCl (Desyrel) 100 mg PO HS PRN PRN Reason: Insomnia Last Admin: 05/31/17 02:11 Dose: 100 mg
[2017-06-01] MEDS: Nitroglycerin 0.4 MG TAB (25 Tab Bottle) PO PRN ×2 (08:50→09:00)
[2017-06-01 09:01] LABS: Hemoglobin 7.5 g/dL (14.0-18.0); Platelet Count 212 thou/uL (130-400)
[2017-06-01] MEDS: ALPRAZolam 0.25 MG TAB PO PRN (09:02)
[2017-06-01] MEDS: Docusate 100 MG CAP PO SCH ×2 (09:03→20:40)
[2017-06-01] MEDS: Tamsulosin HCl 0.4 MG CAP PO SCH (09:03)
[2017-06-01] MEDS: FLUoxetine HCl 20 MG CAP PO SCH (09:03)
[2017-06-01] MEDS: Aspirin 81 mg Enteric Coated Tablet PO SCH (09:03)
[2017-06-01] MEDS: Carvedilol 6.25 MG TAB PO SCH ×2 (09:03→16:32)
[2017-06-01] MEDS: Methocarbamol 500 MG TAB PO SCH (09:03)
[2017-06-01] MEDS: cloNIDine 0.1 MG TAB PO SCH ×2 (09:04→20:39)
[2017-06-01] MEDS: Ferrous Sulfate 325 MG TAB PO SCH (09:04)
[2017-06-01] MEDS: traMADol HCl 50 MG TAB PO SCH ×2 (09:04→20:39)
[2017-06-01 09:21] LABS: Anion Gap 15 mmol/L (10-20); BUN (Urea Nitrogen) 24 mg/dL (8.4-25.7); Calc. Creatinine Clearance 13 mL/min (70-130); Calcium 8.6 mg/dL (7.8-10.44); Carbon Dioxide 28 mmol/L (23-31); Chloride 97 mmol/L (98-107); Estimated GFR-MDRD 10; Glucose 258 mg/dL (80-115); Potassium 3.8 mmol/L (3.5-5.1); Sodium 136 mmol/L (136-145)
[2017-06-01 09:27] LABS: Troponin I 0.266 ng/mL (< 0.028)
--- NOTE | 2017-06-01 10:42 | PDOC.PN ---
- Subjective Encounter Start Date: 06/01/17 Encounter Start Time: 10:00 Patient seen and examined. Substernal PC with diaphoresis earlier today. No overnight events - Objective Resuscitation Status: Resuscitation Status FULL:Full Resuscitation MAR Reviewed: Yes Vital Signs & Weight: Vital Signs (12 hours) Temp Pulse Resp BP BP Pulse Ox 06/01/17 09:03 144/69 H 06/01/17 08:00 97.9 F 75 17 147/71 H 94 L 06/01/17 04:00 98.7 F 80 18 131/60 93 L Weight Weight 157 lb 3.033 oz I&O: 05/31/17 06/01/17 06/02/17 06:59 06:59 06:59 Intake Total 1570 1320 Output Total 720 2100 Balance 850 -780 Result Diagrams: 06/01/17 08:39 06/01/17 08:39 Additional Labs: Accuchecks 06/01/17 05/31/17 05/31/17 06:14 20:51 17:48 POC Glucose 190 H 279 H 127 H 05/31/17 11:42 POC Glucose 231 H EKG Reviewed by me: Yes (Tele SR, EKG - T wave inversion in lat leads) Phys Exam - Physical Examination Constitutional: NAD Respiratory: no wheezing, no rhonchi Cardiovascular: RRR, no rub Gastrointestinal: soft, non-tender, positive bowel sounds Musculoskeletal: no edema Neurological: moves all 4 limbs Psychiatric: A&O x 3 Dx/Plan - Plan cont current plan of care, DVT proph w/SCDs IMPRESSION: 1. 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 Chest pain/Diffuse CAD - Cath in 2014 3. Chronic Anemia due to renal disease 4. HTN 5. ESRD on HD - noncompliant/Elevated troponins due to demand ischemia/ Hyperkalemia - resolved. 6. Other issues per H&P PLAN: * Consult Cardiology due to CP * Repeat troponins * Cont low dose ASA * s/p 1 unit PRBC * Cont current meds as below * Dialysis per Nephro Review of Systems - Review of Systems Respiratory: negative: Cough, Dry, Shortness of Breath, Hemoptysis, SOB with Excertion, Pleuritic Pain, Sputum, Wheezing Gastrointestinal: negative: Nausea, Vomiting, Abdominal Pain, Diarrhea, Constipation, Melena, Hematochezia - Medications/Allergies Allergies/Adverse Reactions: Allergies Allergy/AdvReac Type Severity Reaction Status Date / Time No Known Drug Allergies Allergy Verified 05/30/17 03:42 Medications: Current Medications Acetaminophen (Tylenol) 650 mg PO Q4H PRN PRN Reason: Headache/Fever or Pain Albuterol Sulfate (Proventil Hfa) 2 puff INH Q4H PRN PRN Reason: SOB &/or Wheezing Last Admin: 05/30/17 04:45 Dose: 2 puff Alprazolam (Xanax) 0.25 mg PO BIDPRN PRN PRN Reason: Anxiety Last Admin: 06/01/17 09:02 Dose: 0.25 mg Aspirin (Ecotrin) 81 mg PO DAILY [facility] Last Admin: 06/01/17 09:03 Dose: 81 mg Atorvastatin Calcium (Lipitor) 20 mg PO [facility] Last Admin: 05/31/17 20:17 Dose: 20 mg Carvedilol (Coreg) 6.25 mg PO BID-[facility] Last Admin: 06/01/17 09:03 Dose: 6.25 mg Clonidine (Catapres) 0.1 mg PO BID [facility] Last Admin: 06/01/17 09:04 Dose: 0.1 mg Dextrose/Water (Dextrose 50%) 25 gm SLOW IVP PRN PRN PRN Reason: Hypoglycemia Docusate Sodium (Colace) 100 mg PO BID [facility] Last Admin: 06/01/17 09:03 Dose: 100 mg Epoetin Arthur (Procrit) 10,000 units IVP MoWeFr [facility] Last Admin: 05/31/17 10:19 Dose: 10,000 units Ferrous Sulfate (Feosol) 325 mg PO QAM-[facility] Last Admin: 06/01/17 09:04 Dose: 325 mg Glucagon (Glucagon) 1 mg IM PRN PRN PRN Reason: Hypoglycemia Guaifenesin/Dextromethorphan (Robitussin Dm) 15 ml PO Q4H PRN PRN Reason: Cough Last Admin: 05/31/17 02:13 Dose: 15 ml Dextrose/Water (D5w) 1,000 mls @ 0 mls/hr IV .Q0M PRN; As Directed PRN Reason: Hypoglycemia Insulin Human Lispro (Humalog) 0 units SC .MODERATE SLIDING SC PRN PRN Reason: Moderate Correctional Scale Last Admin: 05/31/17 11:45 Dose: 4 unit Isosorbide Mononitrate (Imdur Er) 30 mg PO DAILY [facility] Last Admin: 06/01/17 09:04 Dose: 30 mg Labetalol HCl (Normodyne) 10 mg SLOW IVP Q4H PRN PRN Reason: Systolic BP > 180 Nitroglycerin (Nitrostat) 0.4 mg PO Q5MIN PRN PRN Reason: Chest Pain Last Admin: 06/01/17 09:00 Dose: 0.4 mg Pantoprazole Sodium (Protonix) 40 mg PO DAILY [facility] Last Admin: 06/01/17 09:03 Dose: 40 mg Sodium Chloride (Flush - Normal Saline) 10 ml IVF PRN PRN PRN Reason: Saline Flush Tamsulosin HCl (Flomax) 0.4 mg PO DAILY [facility] Last Admin: 06/01/17 09:03 Dose: 0.4 mg Tramadol HCl (Ultram) 50 mg PO BID [facility] Last Admin: 06/01/17 09:04 Dose: 50 mg Trazodone HCl (Desyrel) 100 mg PO HS PRN PRN Reason: Insomnia Last Admin: 05/31/17 02:11 Dose: 100 mg
[2017-06-01 13:01] LABS: Troponin I 0.322 ng/mL (< 0.028)
[2017-06-01] MEDS: HumaLOG 300 UNITS/3 ML VIAL SC PRN (13:24)
[2017-06-01 16:39] LABS: Troponin I 0.341 ng/mL (< 0.028)
--- NOTE | 2017-06-01 18:35 | CON ---
DATE OF CONSULTATION: 06/01/2017 REASON FOR CONSULTATION: Heart failure. [employer] HELPER: Edilson Thorpe MD HISTORY OF PRESENT ILLNESS: Mr. Ramirez is a very pleasant 67-year-old gentleman who comes t o the hospital for shortness of breath and chest tightness. He apparently missed the day of dialysis , came in for increased shortness of breath and tightness. He was dialyzed emergently and his sympto ms got much better. He does have a significant history of coronary disease with severely diffused LA D, which is not amenable to intervention. He also has several diseased OM branches, which were also not amenable to any intervention. This is from a heart catheterization back in [address] Anguiano . He currently is pain-free, his breathing is much better, and he is lying comfortably on the bed. PAST MEDICAL HISTORY: 1. End-stage renal disease; on hemodialysis Monday, Monday, Monday. 2. Ischemic systolic heart failure with an EF around 45%. 3. Hypertension. 4. Hyperlipidemia. 5. Insomnia. 6. Hemodialysis access on the left upper extremity. 7. Cerebrovascular accident. 8. Benign prostatic hypertrophy. OUTPATIENT MEDICATIONS: 1. Norvasc 10 mg daily. 2. Lipitor 40 mg at bedtime. 3. Clonidine. 4. Fluoxetine. 5. Lisinopril 5 mg twice a day. 6. Soma. 7. Lopressor 100 mg twice a day. 8. Sertraline. 9. Sodium bicarbonate. 10. Flomax. 11. Trazodone. 12. Ultram p.r.n. ALLERGIES: No known drug allergies. SOCIAL HISTORY: No alcohol, tobacco, or drugs. FAMILY HISTORY: Noncontributory. REVIEW OF SYSTEMS: Twelve-point review of systems was done and is all negative unless stated in the history of present illness. PHYSICAL EXAMINATION: VITAL SIGNS: Temperature 98, pulse 68, respiratory rate 16, saturating 94% on room air, blood pressu re 96/52. GENERAL: Awake, alert, oriented x3, in no distress. HEENT: Normocephalic, atraumatic. NECK: Supple. LUNGS: Clear. CARDIOVASCULAR: S1, S2. There is a grade 3/6 systolic murmur in the right upper sternal border. ABDOMEN: Soft with positive bowel sounds. EXTREMITIES: No edema. SKIN: Warm and dry. LABORATORY WORK: Reviewed. CBC with a hemoglobin of 6.4, this was yesterday, up to 7.5 today; white count of 5.4; platelets of 212. Chemistry showed a creatinine of 5.5, a BUN of 24, glucose was 258. Lactic acid was normal on admission. Troponin has been 0.2, 0.2, 0.2, and 0.3. BNP was 10,969. A lbumin of 3.6. EKG was reviewed. Chest x-ray was reviewed. ASSESSMENT: 1. Acute on chronic systolic heart failure. 2. Coronary artery disease. 3. Ischemic cardiomyopathy. 4. End-stage renal disease. 5. Noncompliance. PLAN: 1. Already more euvolemic after emergent dialysis. 2. No evidence of an acute ACS. Most likely his mild troponin bump is from his end-stage renal dise ase as well as his chronic coronary disease and chronic angina. Continue medical therapy for now as there were no good revascularization options on his last angiogram 2 years ago. 3. We will repeat echocardiogram. 4. Thank you for letting us participate in the care of your patient. We will follow.
[2017-06-01] MEDS: Atorvastatin Calcium 20 MG TAB PO SCH (20:39)
[2017-06-02 05:41] LABS: Critical Call Chem Troponin I RESULT DECREASING; Troponin I 0.303 ng/mL (< 0.028)
--- NOTE | 2017-06-02 05:52 | PRG ---
DATE OF SERVICE: 06/01/2017 SUBJECTIVE: Patient was seen and examined at bedside and overnight events noted. Patient denies any shortness of breath or chest pain or palpitation. No history of nausea or vomitin g or diarrhea or fever or chills or cramps. OBJECTIVE: GENERAL: This is a well-built male, in no apparent distress. VITAL SIGNS: Temperature 97.7, pulse 74, respiratory rate , blood pressure 121/67. HEENT: Atraumatic, normocephalic. Oral mucosa is moist NECK: Supple. CARDIOVASCULAR: S1 and S2 heard. Rate and rhythm regular. RESPIRATORY: Clear to auscultation. GASTROINTESTINAL: Abdomen is soft. MUSCULOSKELETAL: No tenderness. No edema. DERMATOLOGIC: No skin rash. NEUROLOGIC: Alert and awake and oriented X3, No focal neurologic deficits. Moving all the extremitie s. PSYCHIATRIC: Mood and affect normal. LABORATORY DATA: Potassium is 3.8, BUN 24, creatinine is 5.5. ASSESSMENT AND PLAN: 1. End-stage renal disease. We will continue on dialysis Monday, Monday, and Monday. 2. Edema, controlled. 3. Hypertension. 4. Anemia. Plan is to continue on dialysis as tolerated.
[2017-06-02] MEDS: Epoetin (ESRD) 10,000 UNITS/ML VIAL IVP SCH (09:13)
--- NOTE | 2017-06-02 09:21 | PRG ---
DATE OF SERVICE: 06/02/2017 SUBJECTIVE: This 67-year-old gentleman being seen for end-stage renal disease. Patient denies any n ausea, vomiting or chest pain. PHYSICAL EXAMINATION: GENERAL: Patient is awake, alert. GENERAL APPEARANCE AND MENTAL STATUS: Fair. HEAD/NECK: Normocephalic. Atraumatic. EYES: EOMI. No deformity. EARS: Clear. No ulcers. NOSE: Intact. No lesions. MOUTH: Clear. No discharge. THROAT: Clear. No exudate. LUNGS: Clear. No crackles. CARDIAC: S1, S2. No rub. ABDOMEN: Benign. BS+. GENITALIA/RECTUM: Singer absent. BACK/EXTREMITIES: Edema 0+ Ulcer- NEUROLOGICAL: Alert and motor intact. SKIN: Rash- Bruise- LYMPHATICS: Edema- Ulcer- LABORATORY DATA: Show hemoglobin 7.5. ASSESSMENT AND PLAN: 1. Stage 6 chronic kidney disease, continue hemodialysis. 2. Hypertension, stable. 3. Anemia, would recommend transfusion. 4. Medications based on glomerular filtration rate are appropriate.
[2017-06-02] MEDS: traMADol HCl 50 MG TAB PO SCH ×2 (11:22→20:30)
[2017-06-02] MEDS: Aspirin 81 mg Enteric Coated Tablet PO SCH (11:22)
[2017-06-02] MEDS: Docusate 100 MG CAP PO SCH ×2 (11:23→20:30)
[2017-06-02] MEDS: Tamsulosin HCl 0.4 MG CAP PO SCH (11:24)
[2017-06-02] MEDS: cloNIDine 0.1 MG TAB PO SCH ×2 (11:24→20:30)
[2017-06-02] MEDS: Carvedilol 6.25 MG TAB PO SCH ×2 (11:27→17:06)
[2017-06-02] MEDS: Ferrous Sulfate 325 MG TAB PO SCH (11:27)
[2017-06-02] MEDS: HumaLOG 300 UNITS/3 ML VIAL SC PRN ×2 (12:38→18:03)
--- NOTE | 2017-06-02 16:08 | PDOC.CTH ---
Cardiology Progress Note - Subjective He continues to feel very weak. His breathing is at baseline and he is lying flat on his bed comfortably. - Objective Vital Signs Temp Pulse Resp BP Pulse Ox 06/02/17 12:00 97.7 F 79 18 96 06/02/17 11:20 97.7 F 79 18 129/61 96 Weight 157 lb 3 oz 06/01/17 06/02/17 06/03/17 06:59 06:59 06:59 Intake Total 1320 1210 Output Total 2100 2940 Balance -780 -1730 - Physical Examination General/Neuro: alert & oriented x3 Neck: no JVD present Lungs: unlabored respirations Heart: RRR Abdomen: NT/ND Extremities: other: (no edema.) - Telemetry Telemetry Rhythm: NSR - Labs Result Diagrams: 06/01/17 08:39 06/01/17 08:39 Troponin/CKMB CK-MB (CK-2) 2.1 ng/mL (0-6.6) 05/29/17 16:41 Troponin I 0.303 ng/mL (< 0.028) H* 06/02/17 04:21 - Assessment/Plan 1. Acute on chronic systolic heart failure 2. Severely reduced LV function. 3. Ischemic CM 4. Non revascularizable CAD. 5. ESRD PLAN: - Continue medical therapy. - Will start low dose Entresto - Will need lifevest before discharge.
[2017-06-02] MEDS: Atorvastatin Calcium 20 MG TAB PO SCH (20:30)
[2017-06-02] MEDS: Sacubitril 24.5 MG/Valsartan 25.5 MG TABLET PO SCH (20:30)
--- NOTE | 2017-06-02 21:47 | PDOC.PN ---
- Subjective Encounter Start Date: 06/02/17 Encounter Start Time: 17:30 Patient seen and examined. No new complaints. No overnight events - Objective Resuscitation Status: Resuscitation Status FULL:Full Resuscitation MAR Reviewed: Yes Vital Signs & Weight: Vital Signs (12 hours) Temp Pulse Resp BP Pulse Ox 06/02/17 19:00 97.8 F 81 18 100/62 97 06/02/17 17:03 98 F 73 16 125/69 97 06/02/17 12:00 97.7 F 79 18 96 06/02/17 11:20 97.7 F 79 18 129/61 96 Weight Weight 157 lb 3 oz I&O: 06/01/17 06/02/17 06/03/17 06:59 06:59 06:59 Intake Total 1320 1210 480 Output Total 2100 2940 Balance -780 -1730 480 Result Diagrams: 06/01/17 08:39 06/01/17 08:39 Additional Labs: Accuchecks 06/02/17 06/02/17 06/02/17 20:14 17:37 11:28 POC Glucose 155 H 221 H 183 H 06/02/17 06:02 POC Glucose 179 H EKG Reviewed by me: Yes (Tele SR) Phys Exam - Physical Examination Constitutional: NAD Respiratory: no wheezing, no rhonchi Cardiovascular: RRR, no rub Gastrointestinal: soft, non-tender, positive bowel sounds Musculoskeletal: no edema Neurological: moves all 4 limbs Dx/Plan - Plan DVT proph w/SCDs IMPRESSION: 1. 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 Chest pain/Diffuse CAD - Cath in 2014 - no new episodes of CP 3. Chronic Anemia due to renal disease 4. HTN 5. ESRD on HD - noncompliant/Elevated troponins due to demand ischemia/ Hyperkalemia - resolved. 6. Other issues per H&P PLAN: * Cardiology following * on low dose ASA * s/p 1 unit PRBC * Cont current meds as below * Dialysis per Nephro * DC in 1-2 days if stable Review of Systems - Review of Systems Cardiovascular: negative: chest pain, palpitations, orthopnea, paroxysmal nocturnal dyspnea, edema, light headedness Gastrointestinal: negative: Nausea, Vomiting, Abdominal Pain, Diarrhea, Constipation, Melena, Hematochezia - Medications/Allergies Allergies/Adverse Reactions: Allergies Allergy/AdvReac Type Severity Reaction Status Date / Time No Known Drug Allergies Allergy Verified 05/30/17 03:42 Medications: Current Medications Acetaminophen (Tylenol) 650 mg PO Q4H PRN PRN Reason: Headache/Fever or Pain Albuterol Sulfate (Proventil Hfa) 2 puff INH Q4H PRN PRN Reason: SOB &/or Wheezing Last Admin: 05/30/17 04:45 Dose: 2 puff Alprazolam (Xanax) 0.25 mg PO BIDPRN PRN PRN Reason: Anxiety Last Admin: 06/01/17 09:02 Dose: 0.25 mg Aspirin (Ecotrin) 81 mg PO DAILY [facility] Last Admin: 06/02/17 11:22 Dose: 81 mg Atorvastatin Calcium (Lipitor) 20 mg PO [facility] Last Admin: 06/02/17 20:30 Dose: 20 mg Carvedilol (Coreg) 6.25 mg PO BID-[facility] Last Admin: 06/02/17 17:06 Dose: 6.25 mg Clonidine (Catapres) 0.1 mg PO BID [facility] Last Admin: 06/02/17 20:30 Dose: Not Given Dextrose/Water (Dextrose 50%) 25 gm SLOW IVP PRN PRN PRN Reason: Hypoglycemia Docusate Sodium (Colace) 100 mg PO BID [facility] Last Admin: 06/02/17 20:30 Dose: 100 mg Epoetin Arthur (Procrit) 10,000 units IVP MoWeFr [facility] Last Admin: 06/02/17 09:13 Dose: 10,000 units Ferrous Sulfate (Feosol) 325 mg PO QAM-[facility] Last Admin: 06/02/17 11:27 Dose: 325 mg Glucagon (Glucagon) 1 mg IM PRN PRN PRN Reason: Hypoglycemia Guaifenesin/Dextromethorphan (Robitussin Dm) 15 ml PO Q4H PRN PRN Reason: Cough Last Admin: 05/31/17 02:13 Dose: 15 ml Dextrose/Water (D5w) 1,000 mls @ 0 mls/hr IV .Q0M PRN; As Directed PRN Reason: Hypoglycemia Insulin Human Lispro (Humalog) 0 units SC .MODERATE SLIDING SC PRN PRN Reason: Moderate Correctional Scale Last Admin: 06/02/17 18:03 Dose: 4 unit Isosorbide Mononitrate (Imdur Er) 30 mg PO DAILY [facility] Last Admin: 06/02/17 11:23 Dose: 30 mg Labetalol HCl (Normodyne) 10 mg SLOW IVP Q4H PRN PRN Reason: Systolic BP > 180 Nitroglycerin (Nitrostat) 0.4 mg PO Q5MIN PRN PRN Reason: Chest Pain Last Admin: 06/01/17 09:00 Dose: 0.4 mg Pantoprazole Sodium (Protonix) 40 mg PO DAILY [facility] Last Admin: 06/02/17 11:23 Dose: 40 mg Sacubitril/Valsartan (Entresto 24.5 Mg-25.5 Mg Tablet) 1 tab PO BID [facility] Last Admin: 06/02/17 20:30 Dose: 1 tab Sodium Chloride (Flush - Normal Saline) 10 ml IVF PRN PRN PRN Reason: Saline Flush Tamsulosin HCl (Flomax) 0.4 mg PO DAILY [facility] Last Admin: 06/02/17 11:24 Dose: 0.4 mg Tramadol HCl (Ultram) 50 mg PO BID [facility] Last Admin: 06/02/17 20:30 Dose: 50 mg Trazodone HCl (Desyrel) 100 mg PO HS PRN PRN Reason: Insomnia Last Admin: 05/31/17 02:11 Dose: 100 mg
[2017-06-03] MEDS: ALPRAZolam 0.25 MG TAB PO PRN (01:05)
[2017-06-03] MEDS: cloNIDine 0.1 MG TAB PO SCH (09:03)
[2017-06-03] MEDS: Docusate 100 MG CAP PO SCH ×2 (09:03→20:11)
[2017-06-03] MEDS: Ferrous Sulfate 325 MG TAB PO SCH (09:03)
[2017-06-03] MEDS: Carvedilol 6.25 MG TAB PO SCH ×2 (09:03→16:45)
[2017-06-03] MEDS: Aspirin 81 mg Enteric Coated Tablet PO SCH (09:03)
[2017-06-03] MEDS: Tamsulosin HCl 0.4 MG CAP PO SCH (09:04)
[2017-06-03] MEDS: traMADol HCl 50 MG TAB PO SCH ×2 (09:04→20:11)
[2017-06-03] MEDS: Sacubitril 24.5 MG/Valsartan 25.5 MG TABLET PO SCH ×2 (09:04→20:11)
--- NOTE | 2017-06-03 10:23 | PDOC.PN ---
- Subjective Encounter Start Date: 06/03/17 Encounter Start Time: 08:30 Patient seen and examined. No new complaints. No overnight events - Objective Resuscitation Status: Resuscitation Status FULL:Full Resuscitation MAR Reviewed: Yes Vital Signs & Weight: Vital Signs (12 hours) Temp Pulse Resp BP Pulse Ox 06/03/17 07:46 97.8 F 77 18 142/68 H 94 L 06/03/17 04:00 98.2 F 74 18 144/65 H 96 06/03/17 00:00 98.3 F 76 18 122/61 97 Weight Weight 149 lb 4.8 oz I&O: 06/02/17 06/03/17 06/04/17 06:59 06:59 06:59 Intake Total 1210 720 Output Total 2940 Balance -1730 720 Result Diagrams: 06/01/17 08:39 06/01/17 08:39 Additional Labs: Accuchecks 06/03/17 06/02/17 06/02/17 05:57 20:14 17:37 POC Glucose 175 H 155 H 221 H 06/02/17 11:28 POC Glucose 183 H EKG Reviewed by me: Yes (Tele SR) Phys Exam - Physical Examination Constitutional: NAD Respiratory: no wheezing, no rhonchi Cardiovascular: RRR, no rub Gastrointestinal: soft, non-tender, positive bowel sounds Musculoskeletal: no edema Neurological: moves all 4 limbs Dx/Plan - Plan DVT proph w/SCDs IMPRESSION: 1. 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 Chest pain/Diffuse CAD - Cath in 2014 - no new episodes of CP 3. Chronic Anemia due to renal disease 4. HTN 5. ESRD on HD - noncompliant/Elevated troponins due to demand ischemia/ Hyperkalemia - resolved. 6. Other issues per H&P PLAN: * DC today after lifevest * Med rec completed. Review of Systems - Review of Systems Cardiovascular: negative: chest pain, palpitations, orthopnea, paroxysmal nocturnal dyspnea, edema, light headedness Gastrointestinal: negative: Nausea, Vomiting, Abdominal Pain, Diarrhea, Constipation, Melena, Hematochezia - Medications/Allergies Allergies/Adverse Reactions: Allergies Allergy/AdvReac Type Severity Reaction Status Date / Time No Known Drug Allergies Allergy Verified 05/30/17 03:42 Medications: Current Medications Acetaminophen (Tylenol) 650 mg PO Q4H PRN PRN Reason: Headache/Fever or Pain Albuterol Sulfate (Proventil Hfa) 2 puff INH Q4H PRN PRN Reason: SOB &/or Wheezing Last Admin: 05/30/17 04:45 Dose: 2 puff Alprazolam (Xanax) 0.25 mg PO BIDPRN PRN PRN Reason: Anxiety Last Admin: 06/03/17 01:05 Dose: 0.25 mg Aspirin (Ecotrin) 81 mg PO DAILY [facility] Last Admin: 06/03/17 09:03 Dose: 81 mg Atorvastatin Calcium (Lipitor) 20 mg PO HS [facility] Last Admin: 06/02/17 20:30 Dose: 20 mg Carvedilol (Coreg) 6.25 mg PO BID[facility] Last Admin: 06/03/17 09:03 Dose: 6.25 mg Clonidine (Catapres) 0.1 mg PO BID [facility] Last Admin: 06/03/17 09:03 Dose: 0.1 mg Dextrose/Water (Dextrose 50%) 25 gm SLOW IVP PRN PRN PRN Reason: Hypoglycemia Docusate Sodium (Colace) 100 mg PO BID [facility] Last Admin: 06/03/17 09:03 Dose: 100 mg Epoetin Arthur (Procrit) 10,000 units IVP MoWeFr [facility] Last Admin: 06/02/17 09:13 Dose: 10,000 units Ferrous Sulfate (Feosol) 325 mg PO QAM-[facility] Last Admin: 06/03/17 09:03 Dose: 325 mg Glucagon (Glucagon) 1 mg IM PRN PRN PRN Reason: Hypoglycemia Guaifenesin/Dextromethorphan (Robitussin Dm) 15 ml PO Q4H PRN PRN Reason: Cough Last Admin: 05/31/17 02:13 Dose: 15 ml Dextrose/Water (D5w) 1,000 mls @ 0 mls/hr IV .Q0M PRN; As Directed PRN Reason: Hypoglycemia Insulin Human Lispro (Humalog) 0 units SC .MODERATE SLIDING SC PRN PRN Reason: Moderate Correctional Scale Last Admin: 06/02/17 18:03 Dose: 4 unit Isosorbide Mononitrate (Imdur Er) 30 mg PO DAILY [facility] Last Admin: 06/03/17 09:03 Dose: 30 mg Labetalol HCl (Normodyne) 10 mg SLOW IVP Q4H PRN PRN Reason: Systolic BP > 180 Nitroglycerin (Nitrostat) 0.4 mg PO Q5MIN PRN PRN Reason: Chest Pain Last Admin: 06/01/17 09:00 Dose: 0.4 mg Pantoprazole Sodium (Protonix) 40 mg PO DAILY [facility] Last Admin: 06/03/17 09:03 Dose: 40 mg Sacubitril/Valsartan (Entresto 24.5 Mg-25.5 Mg Tablet) 1 tab PO BID [facility] Last Admin: 06/03/17 09:04 Dose: 1 tab Sodium Chloride (Flush - Normal Saline) 10 ml IVF PRN PRN PRN Reason: Saline Flush Tamsulosin HCl (Flomax) 0.4 mg PO DAILY [facility] Last Admin: 06/03/17 09:04 Dose: 0.4 mg Tramadol HCl (Ultram) 50 mg PO BID [facility] Last Admin: 06/03/17 09:04 Dose: 50 mg Trazodone HCl (Desyrel) 100 mg PO HS PRN PRN Reason: Insomnia Last Admin: 05/31/17 02:11 Dose: 100 mg
--- NOTE | 2017-06-03 10:51 | DIS ---
DATE OF ADMISSION: 05/29/2017 DATE OF DISCHARGE: 06/03/2017 The patient will be discharged later today after LifeVest. DISCHARGE DISPOSITION: Home. FOLLOWUP: 1. Follow up with primary care physician at [facility] in 1 week. 2. Follow up with Cardiology, Dr. Bush in one week. ALLERGIES: No known drug allergies. DISCHARGE MEDICATIONS: 1. Entresto 24.5/25.5 one tablet b.i.d. (new medication). 2. Carvedilol 6.25 mg b.i.d. (dose reduced). 3. Aspirin 325 mg daily. 4. Albuterol inhaler as needed. 5. Lipitor 20 mg daily. 6. Clonidine 0.1 mg b.i.d. 7. Pepcid 20 mg daily. 8. Ferrous sulfate 325 mg daily. 9. Prozac 40 mg daily. 10. Folic acid with vitamin B complex daily. 11. Imdur ER 30 mg daily. 12. Methocarbamol 750 mg b.i.d. 13. Sublingual nitroglycerin as needed. 14. Flomax 0.4 mg daily. 15. Tramadol 50 mg b.i.d. 16. Trazodone 200 mg at bedtime p.r.n. INPATIENT CONSULTANTS: Cardiology, Dr. Bush, and Nephrology, Dr. Anna. BRIEF HOSPITAL COURSE: Patient is a 67-year-old male with diffuse coronary artery disease, chronic s ystolic heart failure, ejection fraction 35%-40% range, end-stage renal disease on hemodialysis, hype rtension, and medication noncompliance who presented to the hospital with shortness of breath. Myrna márquez refer to the history and physical dated 05/29/[address] Huang for further details. The patient was admitted to the telemetry unit with diagnosis of congestive heart failure exacerbatio n, volume overload. His creatinine on admission was 11.23 with BUN 72, potassium of 5.3 with bicarbo aileen of 22. His troponin initially was 0.213 with BNP around 11,000. He underwent emergent hemodial ysis per Nephrology. During this hospitalization, repeat troponin was done due to chest discomfort t hat was 0.341. Patient was evaluated by Cardiology, Dr. Bush. Dr. Bush has optimized his medica tions. His troponin elevation is probably from congestive heart failure exacerbation. There was no evidence of acute coronary syndrome per Cardiology. A repeat echocardiogram was done that showed eje ction fraction of 20%-25% with grade 1/3 diastolic dysfunction, mild mitral, aortic, and tricuspid re gurgitation. LifeVest will be arranged. He has been started on Entresto. His medications have been optimized. He appears stable for discharge. BMP in 1 week is recommended. Primary care physician to follow. The patient was extensively counseled on medication as well as dialysis compliance. Daily weight was emphasized. FINAL DIAGNOSES: 1. Acute on chronic systolic and diastolic heart failure exacerbation. 2. Acute hypoxic respiratory failure secondary to volume overload/congestive heart failure due to no ncompliance with hemodialysis. 3. Diffuse coronary artery disease with last cardiac catheterization in 2014. 4. Chronic anemia due to renal disease. There was no evidence of gastrointestinal bleeding. He rec eived Epogen. His hemoglobin and hematocrit last was 7.5. Primary care physician is advised to foll ow. 5. Hypertension. 6. End-stage renal disease on hemodialysis (noncompliant). 7. Elevated troponin secondary to demand ischemia. 8. Hyperkalemia. 9. Metabolic acidosis. 10. Diabetes mellitus type 2. 11. Depression. 12. History of cerebrovascular accident. 13. Benign prostatic hypertrophy. 14. Chronic insomnia. Total time coordinating the discharge of this patient was 33 minutes.
[2017-06-03] MEDS: HumaLOG 300 UNITS/3 ML VIAL SC PRN ×2 (13:07→17:53)
--- NOTE | 2017-06-03 13:42 | PRG ---
DATE OF SERVICE: 06/03/2017 SUBJECTIVE: A 67-year-old gentleman being seen for end-stage renal disease. Patient denies any naus ea, vomiting or chest pain. PHYSICAL EXAMINATION: GENERAL: Patient is awake, alert. VITAL SIGNS: Afebrile, pulse 77, breathing at 16, blood pressure 122/61. HEAD/NECK: Normocephalic. Atraumatic. EYES: EOMI. No deformity. EARS: Clear. No ulcers. NOSE: Intact. No lesions. MOUTH: Clear. No discharge. THROAT: Clear. No exudate. LUNGS: Clear. No crackles. CARDIAC: S1, S2. No rub. ABDOMEN: Benign. BS+. GENITALIA/RECTUM: Singer absent. BACK/EXTREMITIES: Edema 0+ Ulcer- NEUROLOGICAL: Alert and motor intact. SKIN: Rash- Bruise- LYMPHATICS: Edema- Ulcer- LABORATORY DATA: Show hemoglobin 7.5. ASSESSMENT AND RECOMMENDATIONS: 1. Stage 6 chronic kidney disease. Continue hemodialysis. 2. Hypertension, stable. 3. Anemia. Check hemoglobin again. We will trend dialysis physically.
[2017-06-03] MEDS: Atorvastatin Calcium 20 MG TAB PO SCH (20:11)
[2017-06-03] MEDS: traZODone HCl 50 MG TAB PO PRN (23:49)
[2017-06-04] MEDS: Docusate 100 MG CAP PO SCH ×2 (08:50→21:23)
[2017-06-04] MEDS: Tamsulosin HCl 0.4 MG CAP PO SCH (08:50)
[2017-06-04] MEDS: Ferrous Sulfate 325 MG TAB PO SCH (08:50)
[2017-06-04] MEDS: Sacubitril 24.5 MG/Valsartan 25.5 MG TABLET PO SCH ×2 (08:50→21:23)
[2017-06-04] MEDS: Aspirin 81 mg Enteric Coated Tablet PO SCH (08:50)
[2017-06-04] MEDS: Carvedilol 6.25 MG TAB PO SCH ×2 (08:50→16:58)
[2017-06-04] MEDS: traMADol HCl 50 MG TAB PO SCH ×2 (08:50→21:23)
[2017-06-04] MEDS: HumaLOG 300 UNITS/3 ML VIAL SC PRN ×2 (12:08→17:01)
--- NOTE | 2017-06-04 14:30 | PRG ---
DATE OF SERVICE: 06/04/2017 SUBJECTIVE: This is a 67-year-old gentleman being seen for end-stage renal disease. Patient denies any nausea, vomiting or chest pain. PHYSICAL EXAMINATION: GENERAL: Patient is awake, alert. VITAL SIGNS: Afebrile, pulse 75, breathing at 16, blood pressure 123/61. HEAD/NECK: Normocephalic, atraumatic. EYES: EOMI. No deformity. EARS: Clear. No ulcers. NOSE: Intact. No lesions. MOUTH: Clear. No discharge. THROAT: Clear. No exudate. LUNGS: Clear. No crackles. CARDIAC: S1, S2. No rub. ABDOMEN: Benign. BS+. GENITALIA/RECTUM: Singer absent. BACK/EXTREMITIES: Edema 0+ Ulcer-. NEUROLOGICAL: Alert and motor intact. SKIN: Rash- Bruise- LYMPHATICS: Edema- Ulcer-. LABORATORY DATA: Show hemoglobin 7.5. ASSESSMENT AND PLAN: 1. Stage 6 chronic kidney disease, continue hemodialysis. 2. Hypertension, stable. 3. Anemia. Continue Epogen and we will follow hemoglobin. 4. Medications based on glomerular filtration rate are appropriate.
--- NOTE | 2017-06-04 14:31 | PDOC.PN ---
- Subjective Encounter Start Date: 06/04/17 Encounter Start Time: 14:29 Patient seen at bedside. No overnight events, no new complaints. - Objective Resuscitation Status: Resuscitation Status FULL:Full Resuscitation MAR Reviewed: Yes Vital Signs & Weight: Vital Signs (12 hours) Temp Pulse Resp BP BP Pulse Ox 06/04/17 12:05 98 F 75 18 123/61 95 06/04/17 08:46 97.9 F 73 18 124/64 95 06/04/17 08:00 97.9 F 73 18 95 06/04/17 04:00 98.1 F 69 18 126/58 L 95 Weight Weight 151 lb 14.4 oz I&O: 06/03/17 06/04/17 06/05/17 06:59 06:59 06:59 Intake Total 720 720 Balance 720 720 Result Diagrams: 06/01/17 08:39 06/01/17 08:39 Additional Labs: Accuchecks 06/04/17 06/04/17 06/03/17 11:52 06:05 20:21 POC Glucose 303 H 176 H 251 H 06/03/17 16:59 POC Glucose 180 H Phys Exam - Physical Examination Constitutional: NAD HEENT: moist MMs Neck: no nodes Respiratory: clear to auscultation bilateral Cardiovascular: RRR Gastrointestinal: soft Musculoskeletal: pulses present Neurological: moves all 4 limbs Psychiatric: A&O x 3 Dx/Plan (1) CHF (congestive heart failure) Code(s): I50.9 - HEART FAILURE, UNSPECIFIED Status: Acute (2) Anemia of renal disease Code(s): D63.1 - ANEMIA IN CHRONIC KIDNEY DISEASE Status: Chronic (3) CAD (coronary artery disease), [place] coronary artery Code(s): I25.10 - ATHSCL HEART DISEASE OF [place] CORONARY ARTERY W/O ANG PCTRS Status: Chronic Qualifiers: (4) ESRD (end stage renal disease) on dialysis Code(s): N18.6 - END STAGE RENAL DISEASE; Z99.2 - DEPENDENCE ON RENAL DIALYSIS Status: Chronic (5) Hyperlipidemia Code(s): E78.5 - HYPERLIPIDEMIA, UNSPECIFIED Status: Chronic Qualifiers: (6) Hypertension Code(s): I10 - ESSENTIAL (PRIMARY) HYPERTENSION Status: Chronic Qualifiers: - Plan cont current plan of care, plan discussed w/ family, DVT proph w/SCDs * Continue with current medications. * HD per Nephrology * Awaiting Lifevest. D/C Home thereafter
[2017-06-04] MEDS: Atorvastatin Calcium 20 MG TAB PO SCH (21:23)
[2017-06-04] MEDS: traZODone HCl 50 MG TAB PO PRN (21:24)
--- NOTE | 2017-06-05 09:47 | PRG ---
Patient Name: HO WEAVER Date of service: 06/05/2017 Subjective: Patient was seen and examined at bedside and overnight events noted. Patient denies any shortness of breath or chest pain or palpitation. No history of nausea or vomiting or diarrhea or fever or chills or cramps. Objective: General: This is a well-built white male in no apparent distress. Vital signs: Temperature 98.1, pulse 75, respiratory rate 16, blood pressure 146/70. HEENT: Atraumatic, normocephalic. Oral mucosa is moist. Neck: Supple. Cardiovascular: S1 S2 heard. Rate and rhythm regular. Respiratory: Clear to auscultation. Gastrointestinal: Abdomen is soft. Musculoskeletal: No tenderness. No edema. Dermatologic: No skin rash. Neurologic: Alert and awake and oriented X3. No focal neurologic deficits. Moving all the extremities. Psychiatric: Mood and affect normal. LABORATORY: None done today. ASSESSMENT AND PLAN: 1. End-stage renal disease. Continue on hemodialysis. 2. Hypertension. 3. Anemia. 4. Edema. Overall, plan is to continue on dialysis as tolerated.
--- NOTE | 2017-06-05 12:30 | PDOC.PN ---
- Subjective Encounter Start Date: 06/05/17 Encounter Start Time: 12:00 Patient seen and examined during dialysis. No new complaints. No overnight events. - Objective Resuscitation Status: Resuscitation Status FULL:Full Resuscitation MAR Reviewed: Yes Vital Signs & Weight: Vital Signs (12 hours) Temp Pulse Resp BP Pulse Ox 06/05/17 04:00 98.1 F 75 18 146/70 H 96 Weight Weight 153 lb 9.6 oz I&O: 06/04/17 06/05/17 06/06/17 06:59 06:59 06:59 Intake Total 720 1200 Balance 720 1200 Result Diagrams: 06/01/17 08:39 06/01/17 08:39 Additional Labs: Accuchecks 06/05/17 06/04/17 06/04/17 05:42 19:58 17:00 POC Glucose 218 H 198 H 237 H 06/04/17 11:52 POC Glucose 303 H EKG Reviewed by me: Yes (Tele ST) Phys Exam - Physical Examination Constitutional: NAD Respiratory: no wheezing, no rhonchi Cardiovascular: RRR, no rub Gastrointestinal: soft, positive bowel sounds Neurological: moves all 4 limbs Dx/Plan - Plan DVT proph w/SCDs IMPRESSION: 1. 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 Chest pain/Diffuse CAD - Cath in 2014 - no new episodes of CP 3. Chronic Anemia due to renal disease 4. HTN 5. ESRD on HD - noncompliant/Elevated troponins due to demand ischemia/ Hyperkalemia - resolved. 6. DM 2 - uncontrolled 7. Other issues per H&P PLAN: * DC after lifevest * Cont current meds as below. * Add NPH 10 units daily Review of Systems - Review of Systems Respiratory: negative: Cough, Dry, Shortness of Breath, Hemoptysis, SOB with Excertion, Pleuritic Pain, Sputum, Wheezing Cardiovascular: negative: chest pain, palpitations, orthopnea, paroxysmal nocturnal dyspnea, edema, light headedness - Medications/Allergies Allergies/Adverse Reactions: Allergies Allergy/AdvReac Type Severity Reaction Status Date / Time No Known Drug Allergies Allergy Verified 05/30/17 03:42 Medications: Current Medications Acetaminophen (Tylenol) 650 mg PO Q4H PRN PRN Reason: Headache/Fever or Pain Albuterol Sulfate (Proventil Hfa) 2 puff INH Q4H PRN PRN Reason: SOB &/or Wheezing Last Admin: 05/30/17 04:45 Dose: 2 puff Alprazolam (Xanax) 0.25 mg PO BIDPRN PRN PRN Reason: Anxiety Last Admin: 06/03/17 01:05 Dose: 0.25 mg Aspirin (Ecotrin) 81 mg PO DAILY [facility] Last Admin: 06/04/17 08:50 Dose: 81 mg Atorvastatin Calcium (Lipitor) 40 mg PO [facility] Last Admin: 06/04/17 21:23 Dose: 40 mg Carvedilol (Coreg) 12.5 mg PO BID-[facility] Last Admin: 06/04/17 16:58 Dose: 12.5 mg Dextrose/Water (Dextrose 50%) 25 gm SLOW IVP PRN PRN PRN Reason: Hypoglycemia Docusate Sodium (Colace) 100 mg PO BID [facility] Last Admin: 06/04/17 21:23 Dose: Not Given Epoetin Arthur (Procrit) 10,000 [facility] Last Admin: 06/02/17 09:13 Dose: 10,000 units Ferrous Sulfate (Feosol) 325 mg PO QAM-[facility] Last Admin: 06/04/17 08:50 Dose: 325 mg Glucagon (Glucagon) 1 mg IM PRN PRN PRN Reason: Hypoglycemia Guaifenesin/Dextromethorphan (Robitussin Dm) 15 ml PO Q4H PRN PRN Reason: Cough Last Admin: 05/31/17 02:13 Dose: 15 ml Dextrose/Water (D5w) 1,000 mls @ 0 mls/hr IV .Q0M PRN; As Directed PRN Reason: Hypoglycemia Insulin Human Lispro (Humalog) 0 units SC .MODERATE SLIDING SC PRN PRN Reason: Moderate Correctional Scale Last Admin: 06/04/17 17:01 Dose: 4 unit Isosorbide Mononitrate (Imdur Er) 30 mg PO DAILY [facility] Last Admin: 06/04/17 08:50 Dose: 30 mg Labetalol HCl (Normodyne) 10 mg SLOW IVP Q4H PRN PRN Reason: Systolic BP > 180 Nitroglycerin (Nitrostat) 0.4 mg PO Q5MIN PRN PRN Reason: Chest Pain Last Admin: 06/01/17 09:00 Dose: 0.4 mg Pantoprazole Sodium (Protonix) 40 mg PO DAILY [facility] Last Admin: 06/04/17 08:50 Dose: 40 mg Sacubitril/Valsartan (Entresto 24.5 Mg-25.5 Mg Tablet) 1 tab PO BID [facility] Last Admin: 06/04/17 21:23 Dose: 1 tab Sodium Chloride (Flush - Normal Saline) 10 ml IVF PRN PRN PRN Reason: Saline Flush Tamsulosin HCl (Flomax) 0.4 mg PO DAILY [facility] Last Admin: 06/04/17 08:50 Dose: 0.4 mg Tramadol HCl (Ultram) 50 mg PO BID [facility] Last Admin: 06/04/17 21:23 Dose: 50 mg Trazodone HCl (Desyrel) 100 mg PO HS PRN PRN Reason: Insomnia Last Admin: 06/04/17 21:24 Dose: 100 mg
[2017-06-05] MEDS ORDERED: cloNIDine 0.1 MG TAB PO PRN (12:31)
[2017-06-05] MEDS: Carvedilol 6.25 MG TAB PO SCH ×2 (12:51→17:20)
[2017-06-05] MEDS: Ferrous Sulfate 325 MG TAB PO SCH (12:52)
[2017-06-05] MEDS: Aspirin 81 mg Enteric Coated Tablet PO SCH (12:52)
[2017-06-05] MEDS: Docusate 100 MG CAP PO SCH ×2 (12:52→21:02)
[2017-06-05] MEDS: Sacubitril 24.5 MG/Valsartan 25.5 MG TABLET PO SCH ×2 (12:53→21:02)
[2017-06-05] MEDS: Tamsulosin HCl 0.4 MG CAP PO SCH (12:54)
[2017-06-05] MEDS: traMADol HCl 50 MG TAB PO SCH ×2 (12:54→21:02)
[2017-06-05] MEDS: HumaLOG 300 UNITS/3 ML VIAL SC PRN ×2 (13:04→17:47)
--- NOTE | 2017-06-05 14:24 | PRG ---
DATE OF SERVICE: 06/05/2017 SUBJECTIVE: Mr. Ramirez is doing well. He is asymptomatic, no complaints. PHYSICAL EXAMINATION VITAL SIGNS: Blood pressure 136/63, pulse 70. LUNGS: Clear. CARDIAC: Normal S1, S2. ABDOMEN: Soft, nontender. EXTREMITIES: There is no edema. ASSESSMENT: 1. End-stage renal disease. 2. Congestive heart failure, systolic, acute on chronic, improved. 3. Anemia. PLAN: 1. Check iron levels tomorrow. 2. The patient has been started on Entresto. 3. Apparently, the decision has been made about LifeVest.
[2017-06-05] MEDS: Epoetin (ESRD) 10,000 UNITS/ML VIAL IVP SCH (16:27)
[2017-06-05] MEDS: Atorvastatin Calcium 20 MG TAB PO SCH (21:01)
[2017-06-06] MEDS: traZODone HCl 50 MG TAB PO PRN (01:24)
[2017-06-06 05:42] LABS: Anion Gap 17 mmol/L (10-20); BUN (Urea Nitrogen) 39 mg/dL (8.4-25.7); Calc. Creatinine Clearance 10 mL/min (70-130); Calcium 8.6 mg/dL (7.8-10.44); Carbon Dioxide 25 mmol/L (23-31); Chloride 98 mmol/L (98-107); Estimated GFR-MDRD 8; Glucose 215 mg/dL (80-115); Iron 47 ug/dL (65-175); Iron Binding Capacity, Total 186 mcg/dL (261-462); Potassium 4.1 mmol/L (3.5-5.1); Sodium 136 mmol/L (136-145)
[2017-06-06] MEDS: Carvedilol 6.25 MG TAB PO SCH (08:16)
[2017-06-06] MEDS: Ferrous Sulfate 325 MG TAB PO SCH (08:17)
[2017-06-06] MEDS: Aspirin 81 mg Enteric Coated Tablet PO SCH (08:18)
[2017-06-06] MEDS: Sacubitril 24.5 MG/Valsartan 25.5 MG TABLET PO SCH (08:18)
[2017-06-06] MEDS: Docusate 100 MG CAP PO SCH (08:18)
[2017-06-06] MEDS: Tamsulosin HCl 0.4 MG CAP PO SCH (08:19)
[2017-06-06] MEDS: traMADol HCl 50 MG TAB PO SCH (08:19)
[2017-06-06] MEDS ORDERED: NPH, Human Insulin Isophane 300 UNIT/3 ML VIAL SC SCH (09:00)
[2017-06-06] MEDS: HumaLOG 300 UNITS/3 ML VIAL SC PRN (12:23)
[2017-06-06 12:42] VITALS: BP 114/59; TEMP 98.1
--- NOTE | 2017-06-06 14:16 | PRG ---
DATE OF SERVICE: 06/06/2016 SUBJECTIVE: Patient was seen and examined at bedside and overnight events noted. Patient denies any shortness of breath or chest pain or palpitation. No history of nausea or vomiting or diarrhea or f ever or chills or cramps. OBJECTIVE: GENERAL: This is a well-built male in no apparent distress. VITAL SIGNS: Temperature 98.5, pulse 78, respiratory rate 16, blood pressure 112/58. HEENT: Atraumatic, normocephalic. Oral mucosa is moist. NECK: Supple. CARDIOVASCULAR: S1, S2 heard. Rate and rhythm regular. RESPIRATORY: Clear to auscultation. GASTROINTESTINAL: Abdomen is soft. MUSCULOSKELETAL: No tenderness. No edema. DERMATOLOGIC: No skin rash. NEUROLOGIC: Alert and awake and oriented x3. No focal neurologic deficits. Moving all the extremiti es. PSYCHIATRIC: Mood and affect normal. LABORATORY DATA: Potassium is 4.1, BUN is 39, creatinine 6.7. ASSESSMENT AND PLAN: 1. End-stage renal disease. Continue on hemodialysis Monday, Monday, and Monday. 2. Hypertension, remove fluid. 3. Edema, remove fluid, dialysis. 4. Anemia, stable. 5. Cardiorenal syndrome, follow with cardiology. Plan is to continue on dialysis as tolerated on Monday, Monday, and Monday.
--- NOTE | 2017-06-06 17:32 | DIS ---
DATE OF DISCHARGE: 06/06/2017 DISCHARGE DISPOSITION: Home. BRIEF HOSPITAL COURSE: The patient was seen and examined on the day of discharge, denies any new com plaints. No chest pain, shortness of breath or palpitations. Please refer to the discharge summary dictated on 06/03/2017 for details on this hospitalization. The patient received his LifeVest yester day evening. He appears stable for discharge. He has been cleared by Cardiology. FINAL DIAGNOSIS: Per discharge summary dictated on 06/03/2017.
--- NOTE | 2017-06-08 19:27 | EKG ---
Test Reason : C/P Blood Pressure : / mmHG Vent. Rate : 090 BPM Atrial Rate : 090 BPM P-R Int : 170 ms QRS Dur : 086 ms QT Int : 400 ms P-R-T Axes : 049 012 235 degrees QTc Int : 489 ms Normal sinus rhythm Left ventricular hypertrophy with repolarization abnormality Prolonged QT Abnormal ECG When compared with ECG of 29-MAY-2017 15:14, (Unconfirmed) Significant changes have occurred Confirmed by LACEY LY (2) on 06/08/2017 7:26:54 PM Referred By: SUSI Confirmed By:LACEY LY
--- NOTE | 2017-06-08 19:35 | EKG ---
Test Reason : Blood Pressure : / mmHG Vent. Rate : 078 BPM Atrial Rate : 078 BPM P-R Int : 182 ms QRS Dur : 092 ms QT Int : 444 ms P-R-T Axes : 062 -17 206 degrees QTc Int : 506 ms Normal sinus rhythm Left ventricular hypertrophy with repolarization abnormality Prolonged QT Abnormal ECG When compared with ECG of 30-MAY-2017 06:19, (Unconfirmed) ST now depressed in Anterior leads Nonspecific T wave abnormality has replaced inverted T waves in Inferior leads T wave inversion more evident in Anterior leads Confirmed by LACEY LY (2) on 06/08/2017 7:35:28 PM Referred By: DANIEL Confirmed By:LACEY LY
== END 2017-06-06 13:42 | disposition home or self-care (01) | DRG 291 ==
LOC: ERS 14:56 → 2NO 18:36
PROVIDERS: ADMIT Internal Medicine; ATTEND Internal Medicine
PROC: 5A1D70Z Performance of Urinary Filtration, Intermittent, Less than 6 Hours Per Day (ICD-10-PCS; principal; 2017-05-29)
PROC: 5A1D70Z Performance of Urinary Filtration, Intermittent, Less than 6 Hours Per Day (ICD-10-PCS; 2017-05-31)
PROC: 30233N1 Transfusion of Nonautologous Red Blood Cells into Peripheral Vein, Percutaneous Approach (ICD-10-PCS; 2017-05-31)
PROC: 5A1D70Z Performance of Urinary Filtration, Intermittent, Less than 6 Hours Per Day (ICD-10-PCS; 2017-06-01)
PROC: 5A1D70Z Performance of Urinary Filtration, Intermittent, Less than 6 Hours Per Day (ICD-10-PCS; 2017-06-02)
PROC: 5A1D70Z Performance of Urinary Filtration, Intermittent, Less than 6 Hours Per Day (ICD-10-PCS; 2017-06-05)
DX: I13.2 Hypertensive heart and chronic kidney disease with heart failure and with stage 5 chronic kidney disease, or end stage renal disease (principal); J96.01 Acute respiratory failure with hypoxia; E87.2 Acidosis; E88.09 Other disorders of plasma-protein metabolism, not elsewhere classified; I08.2 Rheumatic disorders of both aortic and tricuspid valves; E11.22 Type 2 diabetes mellitus with diabetic chronic kidney disease; E11.65 Type 2 diabetes mellitus with hyperglycemia; N18.6 End stage renal disease; I50.43 Acute on chronic combined systolic (congestive) and diastolic (congestive) heart failure; E87.1 Hypo-osmolality and hyponatremia; I24.8 Other forms of acute ischemic heart disease; E87.5 Hyperkalemia; E78.5 Hyperlipidemia, unspecified; F32.9 Major depressive disorder, single episode, unspecified; G47.00 Insomnia, unspecified; Z86.73 Personal history of transient ischemic attack (TIA), and cerebral infarction without residual deficits; N40.0 Benign prostatic hyperplasia without lower urinary tract symptoms; Z91.15 Patient's noncompliance with renal dialysis; D63.1 Anemia in chronic kidney disease; Z99.2 Dependence on renal dialysis; I25.10 Atherosclerotic heart disease of native coronary artery without angina pectoris; I25.5 Ischemic cardiomyopathy
CPT/HCPCS: 36415; 36416; 36430; 71045; 80048; 80053; 80069; 82550; 82553; 82728; 83540; 83550; 83605; 83880; 84484; 85014; 85018; 85025; 85046; 85049; 86850; 86900; 86901; 87340; 90935; 93005; 93010; 93306; 93798; 94760; 96374; G0257; J1644; J1815; J1940; J2060; P9016; Q4081

== ENCOUNTER 2017-06-11 09:01 | Observation (INO) | payer MEDICARE, OTHER, SELFPAY ==
[2017-06-11 09:44] LABS: #Lymphocytes 0.7 thou/uL (1.20-3.40); #Monocytes 0.2 thou/uL (0.11-0.59); #Neutrophils 5.9 thou/uL (1.40-6.50); %Basophils 0.4 % (0.0-1.0); %Eosinophils 0.5 % (0.0-10.0); %Lymphocytes 10.1 % (21.0-51.0); %Monocytes 3.5 % (0.0-10.0); %Neutrophils 85.5 % (42.0-75.0); Hemoglobin 10.8 g/dL (14.0-18.0); Mean Corpuscular HGB CONC 33.2 g/dL (32.0-36.0); Mean Corpuscular Hemoglobin 31.6 pg (27.0-31.0); Mean Corpuscular Volume 95.2 fl (80.0-94.0); Mean Platelet Volume 6.3 fL (7.4-10.4); Platelet Count 216 thou/uL (130-400); RBC Distribution Width 16.3 % (11.5-14.5); White Blood Cell (WBC) Count 6.9 thou/uL (4.8-10.8)
[2017-06-11 10:03] LABS: Troponin I 0.127 ng/mL (< 0.028)
[2017-06-11 10:07] LABS: ALT (SGPT) 8 U/L (8-55); AST (SGOT) 9 U/L (5-34); Albumin 4.1 g/dL (3.4-4.8); Alkaline Phosphatase 84 U/L (40-150); Anion Gap 23 mmol/L (10-20); BUN (Urea Nitrogen) 92 mg/dL (8.4-25.7); Bilirubin, Total 0.9 mg/dL (0.2-1.2); CK (CPK) 68 U/L (30-200); Calc. Creatinine Clearance 0 mL/min (70-130); Calcium 9.3 mg/dL (7.8-10.44); Carbon Dioxide 18 mmol/L (23-31); Chloride 99 mmol/L (98-107); Estimated GFR-MDRD 4; Globulin 3.1 g/dL (2.4-3.5); Glucose 327 mg/dL (80-115); Lipase 94 U/L (8-78); Magnesium 2.4 mg/dL (1.6-2.6); Phosphorus 7.5 mg/dL (2.3-4.7); Potassium 6.1 mmol/L (3.5-5.1); Protein, Total 7.2 g/dL (5.8-8.1); Sodium 134 mmol/L (136-145)
--- NOTE | 2017-06-11 10:40 | RAD ---
CHEST 1 VIEW: Date: 06/11/17 HISTORY: 67-year-old male with history of nausea and vomiting. Missed dialysis on Monday. FINDINGS: Minimal cardiomegaly with bilateral vascular congestion and interstitial edema and small pleural effu sions. No confluent pneumonia or overt edema. IMPRESSION: Bilateral pulmonary edema with minimal cardiomegaly and small pleural effusions, with little change f rom prior study of 05/29/17. POS: MARANDA
[2017-06-11] MEDS ORDERED: cloNIDine 0.1 MG TAB PO PRN (10:53)
[2017-06-11] MEDS ORDERED: traZODone HCl 50 MG TAB PO PRN (10:53)
[2017-06-11] MEDS ORDERED: Heparin 1,000 UNITS/ML VIAL ONE (11:11)
[2017-06-11] MEDS ORDERED: Ondansetron HCl/PF 4 MG/2 ML Vial ONE (11:17)
[2017-06-11] MEDS ORDERED: Promethazine HCl 25 MG/ML VIAL ONE (11:48)
[2017-06-11] MEDS ORDERED: Zolpidem Tartrate 5 MG TAB PO PRN (12:27)
[2017-06-11] MEDS ORDERED: Dextrose 5% in Water 1,000 ML IV PRN (12:27)
[2017-06-11] MEDS ORDERED: Dextrose 50% Abboject 50 ML SYRINGE SLOW IVP PRN (12:27)
[2017-06-11] MEDS ORDERED: Insulin Regular 300 UNITS/3 ML VIAL SC PRN (12:27)
[2017-06-11] MEDS ORDERED: Bisacodyl 5 MG TAB PO PRN (12:27)
[2017-06-11] MEDS ORDERED: Acetaminophen 325 MG TAB PO PRN (12:27)
[2017-06-11] MEDS ORDERED: Ondansetron ODT 4 MG TAB PO PRN (12:27)
[2017-06-11] MEDS ORDERED: HYDROcodone/Acetaminophen 5/325 mg Tablet PO PRN (12:27)
--- NOTE | 2017-06-11 14:28 | CON ---
NEPHROLOGY CONSULTATION NOTE DATE OF CONSULTATION: 06/11/2017 CONSULTING PHYSICIAN: Dr. Becerra. REASON FOR CONSULTATION: End-stage renal disease. REASON FOR ADMISSION: Abdominal pain. HISTORY OF PRESENT ILLNESS: This is a 67-year-old male who recently discharged from the hospital with history of end-stage renal disease, noncompliance, hypertension and coronary artery disease, who cam e to the hospital with abdominal pain. The patient was recently discharged from the hospital. He do es not go to his dialysis. He gets only dialysis 1 or 2 times, mostly likely he get his dialysis in the hospital with noncompliance due to the transportation issues. His reports that he is on a g ood recovery this week and was at the bedside. Patient complains of abdominal pain, nausea, vom iting, no chest pain, no shortness of breath. The patient was found to have fluid overload and hyper kalemic and Nephrology is consulted for emergent dialysis. PAST MEDICAL HISTORY: Positive for end-stage renal disease, CHF, hypertension, hyperlipidemia, depre ssion, insomnia, noncompliance, CVA. PAST SURGICAL HISTORY: Dialysis access surgery. HOME MEDICATIONS: Norvasc, Lipitor, clonidine, fluoxetine, lisinopril, esomeprazole, sertraline, and Flomax, Restoril, Ultram. ALLERGIES: No known drug allergies. SOCIAL HISTORY: No smoking, alcohol or drug abuse. FAMILY HISTORY: Positive for heart disease. REVIEW OF SYSTEMS: The following complete review of systems was negative, unless otherwise mentioned in the HPI or below: Constitutional: Weight loss or gain, ability to conduct usual activities. Skin: Rash, itching. Eyes: Double vision, pain. ENT/Mouth: Nose bleeding, neck stiffness, pain, tenderness. Cardiovascular: Palpitations, dyspnea on exertion, orthopnea. Respiratory: Shortness of breath, wheezing, cough, hemoptysis, fever or night sweats. Gastrointestinal: Poor appetite, abdominal pain, heartburn, nausea, vomiting, constipation, or diarr hea. Genitourinary: Urgency, frequency, dysuria, nocturia. Musculoskeletal: Pain, swelling. Neurologic/Psychiatric: Anxiety, depression. Allergy/Immunologic: Skin rash, bleeding tendency. PHYSICAL EXAMINATION: GENERAL: This is a well-built, thin built male in mild distress. VITAL SIGNS: Temperature 98.6, pulse 70, respiratory 20, blood pressure 172/78. HEENT: Atraumatic, normocephalic. Oral mucosa is moist. NECK: Supple, no masses. CARDIOVASCULAR: S1, S2 heard. Rate and rhythm regular. RESPIRATORY: Clear. ABDOMEN: Soft. MUSCULOSKELETAL: 1+ edema. DERMATOLOGIC: No skin rash. NEUROLOGIC: Alert, awake. PSYCHIATRIC: Mood and affect normal. LABORATORY AND X-RAY FINDINGS: Hemoglobin is 10.8, potassium 6.1, BUN 92, creatinine is 2.1. ASSESSMENT AND PLAN: 1. End-stage renal disease. Plan is to have emergent dialysis for hyperkalemia and fluid overload. 2. Hyperkalemia. We will have emergent dialysis. 3. Acidosis. 4. Elevated BNP with fluid overload. BNP is more than 24 500. 5. 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 6. Anemia, mild. 7. Edema. 8. Hypertension. Plan is to have emergent dialysis, fluid removal and we will use 2K bath for hyperkalemia. Prognosis guarded. Patient was advised to have regular sessions of dialysis. The family is also at the [facility] and reported to me that they are going to get a car this next week. We will follow.
--- NOTE | 2017-06-11 14:30 | HP ---
HISTORY OF PRESENT ILLNESS: Mr. Ramirez is a 67-year-old man. He came to this facility anand ier today with complaint of nausea, vomiting, and increasing shortness of breath. He was evaluated a nd was found to be fluid overloaded and according to the patient, his problem started yesterday. He is being admitted for management. He is known to have end-stage renal disease and hypertension. He has severe cardiomyopathy, COPD, an d previous CVA. SURGICAL HISTORY: Remarkable for dialysis access placement. ALLERGIES: Does not have any known allergy. SOCIAL HISTORY: He denies any history of cigarette smoking. Denies ETOH abuse. Denies drug abuse. FAMILY HISTORY: Reviewed and is noncontributory. REVIEW OF SYSTEMS: Remarkable for shortness of breath, abdominal pain, nausea, and vomiting. All ot her systems were reviewed and are negative. PHYSICAL EXAMINATION: GENERAL: At the current time, he is alert, responsive, cooperative, and dyspneic at rest. VITAL SIGNS: Show temperature of 98.2, pulse rate 97, respiratory rate 20, and blood pressure 183/11 0. HEENT: His head is normocephalic and atraumatic. Both of his pupils are equally reactive. Ears and nose are normal. Oral mucosa is moist. Pharyngeal area is clear. NECK: Supple. There is no distention of the jugular vein. No lymphadenopathy felt. Thyroid gland not palpable. There is no carotid bruit. CHEST: Symmetrical with regular S1 and S2. LUNGS: Show some rales at both bases. ABDOMEN: Soft. Bowel sounds heard. I could not appreciate any organomegaly. There is no focal are a of tenderness. LYMPHATICS: Shows +1 edema. NEUROLOGIC: He moves all extremities. IMAGING DATA AND LABORATORY DATA: His chest x-ray was reported to show mild cardiomegaly, bilateral pulmonary edema, and small pleural effusion. CBC showed WBC of 6.9, hemoglobin of 10.8, hematocrit o f 32.4, MCV of 95.2, and platelet of 216. Chemistry and electrolytes show sodium of 134, potassium 6 .1, chloride 99, CO2 18, BUN 92, creatinine 12.4, glucose 327, calcium 9.3, and phosphorus 7.5. ASSESSMENT AND PLAN: This is a 67-year-old man with history of hypertension, diabetes melli tus, coronary artery disease, cardiomyopathy, chronic obstructive pulmonary disease, who is being adm itted with fluid overload. His director corporate sales, Dr. Anna, was consulted and he is going to arrange f or dialysis therapy. The patient will be admitted for observation.
[2017-06-11 18:03] VITALS: BMI 22.8
[2017-06-11] MEDS: Sacubitril 24.5 MG/Valsartan 25.5 MG TABLET PO SCH (20:00)
[2017-06-11] MEDS: Carvedilol 25 MG TAB PO SCH (20:00)
[2017-06-11] MEDS ORDERED: Famotidine/PF 20 mg/2ml Vial SLOW IVP SCH (21:00)
[2017-06-12 05:26] LABS: Anion Gap 17 mmol/L (10-20); BUN (Urea Nitrogen) 37 mg/dL (8.4-25.7); Calc. Creatinine Clearance 9 mL/min (70-130); Calcium 9.4 mg/dL (7.8-10.44); Carbon Dioxide 27 mmol/L (23-31); Chloride 98 mmol/L (98-107); Estimated GFR-MDRD 7; Glucose 177 mg/dL (80-115); Potassium 4.8 mmol/L (3.5-5.1); Sodium 137 mmol/L (136-145)
[2017-06-12] MEDS ORDERED: NPH, Human Insulin Isophane 300 UNIT/3 ML VIAL SC SCH (09:00)
[2017-06-12] MEDS ORDERED: Enoxaparin Sodium 30 MG/0.3 ML SYRINGE SC SCH (09:00)
[2017-06-12] MEDS ORDERED: Aspirin 325 MG TAB PO SCH (09:00)
[2017-06-12] MEDS ORDERED: Folic Acid/Vit B Comp W-C PO SCH (09:00)
[2017-06-12] MEDS ORDERED: Tamsulosin HCl 0.4 MG CAP PO SCH (09:00)
--- NOTE | 2017-06-12 09:22 | PRG ---
DATE OF SERVICE: 06/12/2017 SUBJECTIVE: This 67-year-old gentleman being seen for end-stage renal disease. Patient denies any n ausea, vomiting or chest pain. PHYSICAL EXAMINATION: GENERAL: Patient is awake, alert. VITAL SIGNS: Afebrile, pulse 80, breathing at 16, blood pressure 128/74. HEAD/NECK: Normocephalic. Atraumatic. EYES: EOMI. No deformity. EARS: Clear. No ulcers. NOSE: Intact. No lesions. MOUTH: Clear. No discharge. THROAT: Clear. No exudate. LUNGS: Clear. No crackles. CARDIAC: S1, S2. No rub. ABDOMEN: Benign. BS+. GENITALIA/RECTUM: Singer absent. BACK/EXTREMITIES: Edema 0+ Ulcer- NEUROLOGICAL: Alert and motor intact. SKIN: Rash- Bruise- LYMPHATICS: Edema- Ulcer- LABORATORY DATA: None today. ASSESSMENT AND PLAN: 1. Stage 6 chronic kidney disease. Continue hemodialysis per schedule. 2. Hypertension, stable. 3. Anemia, stable. 4. Medications based on glomerular filtration rate are appropriate.
--- NOTE | 2017-06-12 10:42 | PDOC.PN ---
- Subjective Encounter Start Date: 06/12/17 Encounter Start Time: 07:10 -: old records requested/rev Patient seen and examined. No new complaints. No overnight events - Objective MAR Reviewed: Yes Vital Signs & Weight: Vital Signs (12 hours) Temp Pulse Resp BP BP Pulse Ox 06/12/17 07:16 98.6 F 80 16 128/74 94 L 06/12/17 07:10 98.4 F 84 16 06/12/17 04:57 98.4 F 84 16 117/69 93 L Weight Weight 144 lb 3.2 oz Result Diagrams: 06/11/17 09:30 06/12/17 04:57 Additional Labs: Accuchecks 06/12/17 06/11/17 06/11/17 04:57 20:00 18:19 POC Glucose 165 H 336 H 173 H Radiology Reviewed by me: Yes EKG Reviewed by me: Yes Phys Exam - Physical Examination Constitutional: NAD HEENT: PERRLA, moist MMs, sclera anicteric Neck: no JVD, supple Respiratory: no wheezing, no rales, no rhonchi Cardiovascular: RRR, no significant murmur, no rub Gastrointestinal: soft, non-tender, no distention, positive bowel sounds Musculoskeletal: no edema, pulses present Neurological: non-focal, normal sensation Lymphatic: no nodes Psychiatric: normal affect, A&O x 3 Skin: no rash, normal turgor Dx/Plan (1) Fluid overload Code(s): E87.70 - FLUID OVERLOAD, UNSPECIFIED Status: Resolved Qualifiers: Hypervolemia type: other Qualified Code(s): E87.79 - Other fluid overload (2) Hyperkalemia, diminished renal excretion Code(s): E87.5 - HYPERKALEMIA Status: Resolved (3) Anemia of renal disease Code(s): D63.1 - ANEMIA IN CHRONIC KIDNEY DISEASE Status: Chronic (4) Anxiety and depression Code(s): F41.8 - OTHER SPECIFIED ANXIETY DISORDERS Status: Chronic (5) Asthma Code(s): J45.909 - UNSPECIFIED ASTHMA, UNCOMPLICATED Status: Chronic (6) BPH (benign prostatic hyperplasia) Code(s): N40.0 - BENIGN PROSTATIC HYPERPLASIA WITHOUT LOWER URINRY TRACT SYMP Status: Chronic (7) CAD (coronary artery disease), [place] coronary artery Code(s): I25.10 - ATHSCL HEART DISEASE OF [place] CORONARY ARTERY W/O ANG PCTRS Status: Chronic Qualifiers: (8) Chronic combined systolic and diastolic CHF (congestive heart failure) Code(s): I50.42 - CHRONIC COMBINED SYSTOLIC AND DIASTOLIC HRT FAIL Status: Chronic (9) Chronic low back pain Code(s): M54.5 - LOW BACK PAIN; G89.29 - OTHER CHRONIC PAIN Status: Chronic (10) Diabetes type 2, controlled Code(s): E11.9 - TYPE 2 DIABETES MELLITUS WITHOUT COMPLICATIONS Status: Chronic (11) ESRD (end stage renal disease) on dialysis Code(s): N18.6 - END STAGE RENAL DISEASE; Z99.2 - DEPENDENCE ON RENAL DIALYSIS Status: Chronic (12) Hyperlipidemia Code(s): E78.5 - HYPERLIPIDEMIA, UNSPECIFIED Status: Chronic Qualifiers: (13) Hypertension Code(s): I10 - ESSENTIAL (PRIMARY) HYPERTENSION Status: Chronic Qualifiers: (14) Noncompliance of patient with renal dialysis Code(s): Z91.15 - PATIENT'S NONCOMPLIANCE WITH RENAL DIALYSIS Status: Chronic (15) Secondary hyperparathyroidism of renal origin Code(s): N25.81 - SECONDARY HYPERPARATHYROIDISM OF RENAL ORIGIN Status: Chronic - Plan cont current plan of care * medication reviewed as below * symptomatic treatment * dc to home after dialysis * pt is not on ACEI or ARB due to ESRD and hyperkalemia risk. Review of Systems - Review of Systems ENT: negative: Ear Pain, Ear Discharge, Nose Pain, Nose Discharge, Nose Congestion, Mouth Pain, Mouth Swelling, Throat Pain, Throat Swelling, Other Respiratory: negative: Cough, Dry, Shortness of Breath, Hemoptysis, SOB with Excertion, Pleuritic Pain, Sputum, Wheezing Cardiovascular: negative: chest pain, palpitations, orthopnea, paroxysmal nocturnal dyspnea, edema, light headedness, other Gastrointestinal: negative: Nausea, Vomiting, Abdominal Pain, Diarrhea, Constipation, Melena, Hematochezia, Other Genitourinary: negative: Dysuria, Frequency, Incontinence, Hematuria, Retention , Other Musculoskeletal: negative: Neck Pain, Shoulder Pain, Arm Pain, Back Pain, Hand Pain, Leg Pain, Foot Pain, Other - Medications/Allergies Allergies/Adverse Reactions: Allergies Allergy/AdvReac Type Severity Reaction Status Date / Time No Known Drug Allergies Allergy Verified 05/30/17 03:42 Medications: Current Medications Acetaminophen (Tylenol) 650 mg PO Q4H PRN PRN Reason: Headache/Fever or Pain Hydrocodone Bitart/Acetaminophen (Kingsland 5/325) 1 tab PO Q4H PRN PRN Reason: Moderate Pain (4-6) Last Admin: 06/11/17 19:13 Dose: 1 tab Aspirin (Aspirin) 325 mg PO DAILY FOR[facility], [facility] Bisacodyl (Dulcolax) 10 mg PO DAILYPRN PRN PRN Reason: Constipation Carvedilol (Coreg) 12.5 mg PO BID [facility], [facility] Last Admin: 06/11/17 20:00 Dose: 12.5 mg Clonidine (Catapres) 0.1 mg PO BID PRN PRN Reason: SBP Greater Than 180 Dextrose/Water (Dextrose 50%) 25 gm SLOW IVP PRN PRN PRN Reason: Hypoglycemia Enoxaparin Sodium (Lovenox) 30 mg SC 0900 [facility]1983 Famotidine (Pepcid) 20 mg SLOW IVP Q24HR [facility] Last Admin: 06/11/17 20:00 Dose: 20 mg Glucagon (Glucagon) 1 mg IM PRN PRN PRN Reason: Hypoglycemia Dextrose/Water (D5w) 1,000 mls @ 0 mls/hr IV .Q0M PRN; As Directed PRN Reason: Hypoglycemia Insulin Human NPH (Humulin N) 10 unit SC DAILY [facility]1983 Insulin Human Regular (Humulin R) 0 units SC .MILD SLIDING SCALE PRN PRN Reason: Mild Correctional Scale Isosorbide Mononitrate (Imdur Er) 30 mg PO DAILY [facility]1983 Ondansetron HCl (Zofran Odt) 4 mg PO Q6H PRN PRN Reason: Nausea/Vomiting Last Admin: 06/11/17 19:13 Dose: 4 mg Sacubitril/Valsartan (Entresto 24.5 Mg-25.5 Mg Tablet) 1 tab PO BID [facility] Last Admin: 06/11/17 20:00 Dose: 1 tab Tamsulosin HCl (Flomax) 0.4 mg PO DAILY [facility] Trazodone HCl (Desyrel) 200 mg PO HS PRN PRN Reason: Insomnia Vitamin B Complex/Vit C/Folic Acid (Nephro-Rigo Tablet) 1 tab PO DAILY [facility] Zolpidem Tartrate (Ambien) 5 mg PO HSPRN PRN PRN Reason: Insomnia
--- NOTE | 2017-06-12 11:47 | DIS ---
PRIMARY CARE PHYSICIAN: [facility] DATE OF ADMISSION: 06/11/2017 DATE OF DISCHARGE: 06/12/2017 DISCHARGE DISPOSITION: Home. PRIMARY DISCHARGE DIAGNOSES: 1. Volume overload due to noncompliance with dialysis, improved. 2. Hyperkalemia, resolved. SECONDARY DISCHARGE DIAGNOSES: Anemia of renal disease, secondary hyperparathyroidism of renal origi n, end-stage renal disease on hemodialysis, anxiety and depression, asthma, benign enlargement of pro state, coronary artery disease, chronic systolic and diastolic heart failure, chronic low back pain, diabetes type 2, dyslipidemia, noncompliance with dialysis. PRIMARY PROCEDURE/OPERATION: Maintenance hemodialysis x2. RADIOLOGICAL INVESTIGATION: Chest x-ray showed fluid overload. SIGNIFICANT LABS: Hemoglobin 10.8, creatinine 7.3, potassium 4.8, troponin 0.127. DISCHARGE MEDICATIONS: Proventil HFA 2 puffs q.4 hours p.r.n., aspirin 325 mg p.o. daily, Lipitor 20 mg p.o. daily, Coreg 12.5 mg p.o. b.i.d., clonidine 0.1 mg p.o. b.i.d., Pepcid 20 mg p.o. daily, dulce henok sulfate 325 mg p.o. daily, Prozac 40 mg p.o. daily, Nephro-Rigo 1 tablet p.o. daily, Humalog ins ulin as per sliding scale, Imdur 30 mL p.o. daily, methocarbamol 750 mg p.o. b.i.d., nitroglycerin p. r.n. basis, Entresto 1 tablet twice daily, Flomax 0.4 mg p.o. daily, tramadol 50 mg p.o. b.i.d. p.r.n ., trazodone 200 mg p.o. at bedtime p.r.n. CONTRAINDICATIONS: None. CODE STATUS: FULL CODE. INPATIENT CONSULTANTS: Dr. Anna was consulted for dialysis. TEST RESULTS PENDING ON DISCHARGE: None. ALLERGIES: No known drug allergy. DISCHARGE PLAN: Post hospital, the patient will follow up with primary care physician and he will re sume his maintenance hemodialysis. HOSPITAL COURSE: A 67-year-old male who has ESRD. He is noncompliant with dialysis. This time he w as admitted by Dr. Benitez. Please see his H&P for further details. He was having increasing shortne ss of breath. He was found with volume overload. He missed his hemodialysis. This patient has set up for outpatient dialysis, but he has problem with a ride. Sometimes he does not get ride and that is why he misses hemodialysis and after that he recurrently gets admitted for volume overload in our hospital. This time Dr. Anna did back to back 2 day dialysis and his fluid overload status as wel l as hyperkalemia improved. At this point the patient is on room air. He is hemodynamically stable, we provided patient education about compliance with dialysis. The patient is medically stable for d ischarge. PHYSICAL EXAMINATION: The patient seen and examined at bedside today. Please see my progress note f rom today for further details.
[2017-06-12] MEDS: Carvedilol 25 MG TAB PO SCH (12:53)
[2017-06-12] MEDS: Sacubitril 24.5 MG/Valsartan 25.5 MG TABLET PO SCH (13:02)
[2017-06-12 15:29] VITALS: BP 90/57; TEMP 97.7
== END 2017-06-12 16:02 | disposition home or self-care (01) ==
LOC: ERS 09:01 → 2SW 10:38
PROVIDERS: ADMIT Hospitalist; ATTEND Hospitalist
DX: E87.70 Fluid overload, unspecified (principal); E87.5 Hyperkalemia; F41.9 Anxiety disorder, unspecified; F32.9 Major depressive disorder, single episode, unspecified; I13.2 Hypertensive heart and chronic kidney disease with heart failure and with stage 5 chronic kidney disease, or end stage renal disease; E11.22 Type 2 diabetes mellitus with diabetic chronic kidney disease; N18.6 End stage renal disease; I50.42 Chronic combined systolic (congestive) and diastolic (congestive) heart failure; D63.1 Anemia in chronic kidney disease; N25.81 Secondary hyperparathyroidism of renal origin; E78.5 Hyperlipidemia, unspecified; N40.0 Benign prostatic hyperplasia without lower urinary tract symptoms; G89.29 Other chronic pain; M54.9 Dorsalgia, unspecified; I42.9 Cardiomyopathy, unspecified; J44.9 Chronic obstructive pulmonary disease, unspecified; I25.10 Atherosclerotic heart disease of native coronary artery without angina pectoris; E22.2 Syndrome of inappropriate secretion of antidiuretic hormone; E78.00 Pure hypercholesterolemia, unspecified; Z99.2 Dependence on renal dialysis; Z91.15 Patient's noncompliance with renal dialysis; Z86.73 Personal history of transient ischemic attack (TIA), and cerebral infarction without residual deficits; Z79.84 Long term (current) use of oral hypoglycemic drugs; Z79.899 Other long term (current) drug therapy
CPT/HCPCS: 36415; 36416; 71045; 80048; 80053; 82010; 82550; 82553; 83690; 83735; 83880; 84100; 84484; 85025; 90935; 93005; 96372; 96374; 96375; G0257; G0378; J1644; J1650; J1815; J2405; J2550; Q0162; S0028

== ENCOUNTER 2017-06-23 05:53 | Observation (INO) | payer MEDICARE, SELFPAY ==
[2017-06-23 06:20] LABS: #Eosinphils 0.4 thou/uL (0.0-0.7); #Lymphocytes 1.2 thou/uL (1.20-3.40); #Monocytes 0.5 thou/uL (0.11-0.59); #Neutrophils 5.8 thou/uL (1.40-6.50); %Basophils 0.2 % (0.0-1.0); %Eosinophils 5.7 % (0.0-10.0); %Lymphocytes 14.7 % (21.0-51.0); %Monocytes 5.7 % (0.0-10.0); %Neutrophils 73.7 % (42.0-75.0); Hemoglobin 10.6 g/dL (14.0-18.0); Mean Corpuscular HGB CONC 32.6 g/dL (32.0-36.0); Mean Corpuscular Hemoglobin 31.8 pg (27.0-31.0); Mean Corpuscular Volume 97.5 fl (80.0-94.0); Mean Platelet Volume 6.6 fL (7.4-10.4); Platelet Count 238 thou/uL (130-400); RBC Distribution Width 16.7 % (11.5-14.5); Red Blood Cell (RBC) Count 3.32 mill/uL (4.70-6.10); White Blood Cell (WBC) Count 7.9 thou/uL (4.8-10.8)
[2017-06-23 06:40] LABS: ALT (SGPT) 10 U/L (8-55); AST (SGOT) 15 U/L (5-34); Albumin 4.2 g/dL (3.4-4.8); Alkaline Phosphatase 93 U/L (40-150); Anion Gap 20 mmol/L (10-20); BUN (Urea Nitrogen) 46 mg/dL (8.4-25.7); Bilirubin, Total 0.8 mg/dL (0.2-1.2); CK (CPK) 75 U/L (30-200); Calc. Creatinine Clearance 0 mL/min (70-130); Carbon Dioxide 27 mmol/L (23-31); Chloride 99 mmol/L (98-107); Estimated GFR-MDRD 5; Globulin 3.3 g/dL (2.4-3.5); Glucose 161 mg/dL (80-115); Potassium 4.6 mmol/L (3.5-5.1); Protein, Total 7.5 g/dL (5.8-8.1); Sodium 141 mmol/L (136-145)
[2017-06-23 06:44] LABS: CKMB 1.9 ng/mL (0-6.6); Troponin I 0.285 ng/mL (< 0.028)
[2017-06-23] MEDS ORDERED: Acetaminophen 325 MG TAB PO PRN (07:31)
[2017-06-23] MEDS ORDERED: Ondansetron ODT 4 MG TAB PO PRN (07:31)
[2017-06-23] MEDS ORDERED: Milk Of Magnesia 30 ML UDCUP PO PRN (07:31)
[2017-06-23] MEDS ORDERED: Bisacodyl 5 MG TAB PO PRN (07:31)
[2017-06-23] MEDS ORDERED: Nitroglycerin 0.4 MG TAB (25 Tab Bottle) SL PRN (07:33)
[2017-06-23] MEDS ORDERED: Nitroglycerin 2% Ointment 1 INCH/1 GM Packet ONE (07:39)
--- NOTE | 2017-06-23 07:55 | CT ---
PRELIMINARY REPORT/[facility]/EMERGENCY AFTER HOURS PROCEDURE: EXAM: CT Abdomen and Pelvis With Intravenous Contrast CLINICAL HISTORY: 67 years old, male; Pain; Abdominal pain; Generalized; Patient HX: Dialysis pt; Additional info: M67 presents to ed for abdominal pain. Pt reports luq abdominal pain x2 hours. Pt denies nausea, vomiting , diarrhea, or fever. Pt reports he last went to dialysis on monday TECHNIQUE: Axial computed tomography images of the abdomen and pelvis with intravenous contrast. Coronal reformatted images were created and reviewed. CONTRAST: 77 mL of isovue administered intravenously. COMPARISON: No relevant prior studies available. FINDINGS: Lower thorax: There are widespread coronary artery calcifications. The heart is enlarged. There are s mall bilateral pleural effusions. Increased opacity of the lung bases is consistent with edema. There is evidence of vascular congestion in the lung bases. ABDOMEN: Liver: Unremarkable. Gallbladder and bile ducts: The gallbladder is contracted. No calcified stones. No ductal dilation. Pancreas: Unremarkable. Spleen: The spleen size is prominent. Adrenals: Unremarkable. Kidneys and ureters: There is an area or cysts the right kidney. There is no mild bilateral renal atr ophy. Stomach and bowel: Diverticulosis is identified in the colon. Appendix: The appendix is unremarkable. PELVIS: Bladder: Unremarkable. No mass. Reproductive: Unremarkable as visualized. ABDOMEN and PELVIS: Intraperitoneal space: No free fluid. No free air. Bones/joints: There are degenerative changes in the spine. No acute fracture. No dislocation. Soft tissues: A small hernia in the umbilical area contains fat. Vasculature: Calcifications in the manzo of the aorta and other arteries are consistent with atherosc lerosis. No abdominal aortic aneurysm or dissection is identified. Lymph nodes: Unremarkable. No enlarged lymph nodes. IMPRESSION: 1. Pleural effusions. Evidence of pulmonary vascular congestion and edema. 2. No acute abnormality is identified in the abdomen. 3. Additional findings as above. Thank you for allowing us to participate in the care of your patient. Dictated and Authenticated by: Jaziel Garnett MD 06/23/2017 7:27 AM Central Time ([place] & [place]) FINAL REPORT AB AND PELVIC CT SCAN WITH IV CONTRAST: EMERGENT AFTER HOURS EXAM TIME: 6:35 a.m. DATE: 06/23/17. COMPARISON: 10/10/16. Bilateral pleural effusions and evidence for vascular congestion, cardiomegaly, and findings of conge stive heart failure. Small kidneys bilaterally with bilateral renal cysts without evidence for renal calculus or acute obstruction. Normal-appearing appendix. Somewhat small contracted gallbladder . Small fat-containing umbilical hernia. Other findings as above. POS: MARANDA
--- NOTE | 2017-06-23 07:56 | RAD ---
SINGLE VIEW OF THE CHEST: COMPARISON: 06/11/17. HISTORY: Diffuse abdominal pain for 4 hours and dyspnea. FINDINGS: A single view of the chest shows a normal-size cardiomediastinal silhouette. Bilateral perihilar opa cities are normal pulmonary vasculature. Increased interstitial lung markings are present. There is no evidence of consolidation, mass, or pleural effusion. Degenerative changes are seen in the spine . IMPRESSION: Chronic interstitial lung disease without acute cardiopulmonary process. POS: OFF
[2017-06-23] MEDS ORDERED: Heparin 5,000 UNITS/ML VIAL SC SCH (09:00)
[2017-06-23 10:03] LABS: Troponin I 0.304 ng/mL (< 0.028)
[2017-06-23] MEDS ORDERED: cloNIDine 0.1 MG TAB PO PRN (11:05)
[2017-06-23 11:54] VITALS: BP 155/85; TEMP 98.4
[2017-06-23 13:15] LABS: Troponin I 0.296 ng/mL (< 0.028)
[2017-06-23] MEDS ORDERED: ISOVUE-370 76%-LOCM 1 ML ONE (14:10)
--- NOTE | 2017-06-23 14:32 | HP ---
DATE OF ADMISSION: 06/23/2017 PRESENTING COMPLAINT: Shortness of breath. HISTORY OF PRESENT ILLNESS: A 67-year-old male with a past medical history of end-stage renal diseas e, on hemodialysis; BPH; asthma;, anxiety and depression; type 2 diabetes mellitus; anemia of chronic disease; secondary hyperparathyroidism; CAD; hypertension; hyperlipidemia; and chronic combined syst olic and diastolic heart failure; who presented to the emergency room this morning complaining of kwame rtness of breath. He reports shortness of breath started earlier this morning and progressively got worse. So, he presented to the emergency room. He denies chest pain, nausea, vomiting. He has no P ND, orthopnea, or lower extremity edema. He also has no abdominal or urinary symptoms, as well as no fever, chills, cough. PAST MEDICAL HISTORY: As above. PAST SURGICAL HISTORY: None. ALLERGIES: No known drug allergies. FAMILY HISTORY: Reviewed and noncontributory. SOCIAL HISTORY: He denies smoking cigarettes, alcohol use, also denies illicit drug use. REVIEW OF SYSTEMS: Constitutional: Denies fevers, chills, headaches. Respiratory: Positive for sh ortness of breath. CVS: Negative. Abdomen: Negative. Genitourinary: Negative. Hematology: Den ies easy bruising. Neurological: Denies headaches, dizziness, loss of consciousness. All other sys tems reviewed and were negative. PHYSICAL EXAMINATION: VITAL SIGNS: Temperature of 98.5, pulse 96, respirations 22, blood pressure 184/92. LABORATORY DATA: CBC largely unremarkable. Troponin also largely unremarkable apart from his end-st age renal disease. BUN 46, creatinine 9.8. Troponin 0.285 and around his baseline. IMAGING: Chest x-ray showed chronic interstitial lung disease without an acute cardiopulmonary proce ss. CT abdomen/pelvis showed pleural effusions with evidence of vascular congestion and edema, but n o other acute findings. ASSESSMENT AND PLAN: Shortness of breath, likely secondary to his end-stage renal disease, requiring hemodialysis. He is volume overloaded as seen by imaging. Last hemodialysis was on Monday. The breana philip reports he has been compliant with his dialysis schedule. His access is his left forearm. Nep hrology will be consulted and the patient will be scheduled for hemodialysis, likely at his clinic. All other medical conditions were stable and the patient seems to be at his baseline. He was sitting comfortably in bed and at time of examination states that he had no complaints and felt he was back to his baseline.
--- NOTE | 2017-06-23 15:24 | CON ---
NEPHROLOGY CONSULTATION NOTE DATE OF CONSULTATION: 06/23/2017 CONSULTING PHYSICIAN: Dr. Morgan. REASON FOR CONSULTATION: End-stage renal disease evaluation blood pressure and abdominal pain. HISTORY OF PRESENT ILLNESS: This is a 67-year-old male who is a frequent flyer to the [facility] with a history of end-stage renal disease, hypertension, noncompliance, cardiomyopathy and chroni c obstructive pulmonary disease, who came to the hospital with abdominal pain. Nephrology was consul thanh for maintenance hemodialysis. He gets dialysis on Monday, Monday and Monday. Last dialysis was on Monday, 2 days due for dialysis. No fever or chills. No nausea, vomiting, pain. PAST MEDICAL HISTORY: Positive for end-stage renal disease, hypertension, cardiomyopathy, COPD and C HF. PAST SURGICAL HISTORY: Dialysis access placement. HOME MEDICATIONS: On review of the list include trazodone, tramadol, insulin, Entresto, Imdur, Novol in, Nephro-Rigo, Feosol, Pepcid, Prozac, Coreg and Lipitor eyedrops. ALLERGIES: No known drug allergies. SOCIAL HISTORY: He denies any smoking, alcohol or illicit drug abuse. FAMILY HISTORY: No history of kidney disease. REVIEW OF SYSTEMS: The following complete review of systems was negative, unless otherwise mentioned in the HPI or below: Constitutional: Weight loss or gain, ability to conduct usual activities. Skin: Rash, itching. Eyes: Double vision, pain. ENT/Mouth: Nose bleeding, neck stiffness, pain, tenderness. Cardiovascular: Palpitations, dyspnea on exertion, orthopnea. Respiratory: Shortness of breath, wheezing, cough, hemoptysis, fever or night sweats. Gastrointestinal: Poor appetite, abdominal pain, heartburn, nausea, vomiting, constipation or diarrh ea. Genitourinary: Urgency, frequency, dysuria, nocturia. Musculoskeletal: Pain, swelling. Neurologic/Psychiatric: Anxiety, depression. Allergy/Immunologic: Skin rash, bleeding tendency. PHYSICAL EXAMINATION: GENERAL: This is a thin-built white male in no apparent distress. VITAL SIGNS: Temperature 98.5, pulse 96, respiratory rate 18 and blood pressure . HEENT: Atraumatic, normocephalic. Oral mucosa is moist. NECK: Supple. No masses. CARDIOVASCULAR: S1 and S2. Rate and rhythm regular. RESPIRATORY: Clear. ABDOMEN: Soft. MUSCULOSKELETAL: No tenderness or edema. DERMATOLOGIC: No skin rash. NEUROLOGIC: Alert and awake. PSYCHIATRIC: Mood and affect are normal. LABORATORY DATA: Potassium is 4.6, BUN is 46 and creatinine is 9.8. ASSESSMENT AND PLAN: 1. End-stage renal disease, currently on dialysis Monday, Monday and Monday. 2. Hypertension. Titrate medications. Remove fluid with dialysis. 3. Anemia, mild. 4. Edema, controlled. 5. Noncompliance. The patient was counseled. 6. Psychosocial issues. Follow with the social workers and case management. The patient again has poor prognosis. He is missing dialysis a lot and patient was again counseled t o have regular treatment and we will follow.
[2017-06-23] MEDS ORDERED: Carvedilol 6.25 MG TAB PO SCH (17:00)
[2017-06-23] MEDS ORDERED: Atorvastatin Calcium 20 MG TAB PO SCH (21:00)
[2017-06-23] MEDS ORDERED: traZODone HCl 50 MG TAB PO PRN (21:00)
[2017-06-23] MEDS ORDERED: Methocarbamol 500 MG TAB PO SCH (21:00)
[2017-06-23] MEDS ORDERED: traMADol HCl 50 MG TAB PO SCH (21:00)
--- NOTE | 2017-06-23 22:42 | DIS ---
DATE OF ADMISSION: 06/23/2017 DATE OF DISCHARGE: 06/23/2017 DISCHARGE DIAGNOSES: Volume overload due to noncompliance with medications. SECONDARY DIAGNOSES: 1. End-stage renal disease on hemodialysis. 2. Anemia of renal disease. 3. Hyperparathyroidism of renal origin. 4. Anxiety/depression. 5. Asthma. 6. BPH. 7. Coronary artery disease. 8. Chronic systolic and diastolic heart failure. 9. Chronic lower back pain. 10. Type 2 diabetes mellitus. 11. Dyslipidemia. HOSPITAL COURSE: A 67-year-old patient who presented to the emergency room with shortness of breath and was found to be in volume overload. He was evaluated by the ER physician and recommended for adm ission. On my examination today, he seemed comfortable and was lying down in bed comfortably. Physi brook examination revealed bibasilar crackles, but the patient was saturating well on room air. Nephro logy was consulted and the patient's clinic will be called and he will have dialysis there today at 2 :00 p.m. CONSULTATIONS: Nephrology. PROCEDURES: Chest x-ray, chronic interstitial lung disease without acute cardiopulmonary process. A bdomen/pelvis CT, evidence of vascular congestion in the lung bases, but no other acute findings. DISCHARGE PHYSICAL EXAMINATION: Vital signs remained stable. For full physical examination, refer t o today's H&P. LABORATORIES: Refer to today's H&P. DISPOSITION: Home. ACTIVITY: To resume activities as tolerated. PLAN OF CARE: The patient was encouraged to take his medications as prescribed and to go for his hem odialysis on his assigned days (Mondays, Wednesdays, and Fridays). CODE STATUS: FULL CODE. DIET: Renal diet. DISCHARGE MEDICATIONS: Albuterol sulfate 2 puffs inhaled q.4 hours p.r.n. for shortness of breath, a spirin 325 mg p.o. daily, atorvastatin 20 mg p.o. daily, carvedilol 12.5 mg p.o. b.i.d., clonidine 0. 1 mg b.i.d. p.r.n. for systolic blood pressure greater than 180, famotidine 20 mg p.o. daily, ferrous sulfate 325 mg p.o. q.a.m., fluoxetine 40 mg p.o. daily, folic acid/vitamin B complex 1 tab p.o. felipe ly, insulin NPH 10 units subcu daily, isosorbide mononitrate 30 mg p.o. daily, methocarbamol 750 mg p .o. b.i.d., nitroglycerin 0.4 mg p.o. sublingually q.5 minutes for chest pain, sacubitril/valsartan 2 4.5/25.5 one tablet p.o. b.i.d., tamsulosin 0.4 mg p.o. daily, tramadol 50 mg p.o. b.i.d., trazodone 200 mg p.o. at bedtime p.r.n. for insomnia.
[2017-06-24] MEDS ORDERED: Ferrous Sulfate 325 MG TAB PO SCH (08:00)
[2017-06-24] MEDS ORDERED: FLUoxetine HCl 20 MG CAP PO SCH (09:00)
[2017-06-24] MEDS ORDERED: Tamsulosin HCl 0.4 MG CAP PO SCH (09:00)
[2017-06-24] MEDS ORDERED: Famotidine 20 MG TAB PO SCH (09:00)
[2017-06-24] MEDS ORDERED: Folic Acid/Vit B Comp W-C PO SCH (09:00)
[2017-06-24] MEDS ORDERED: NPH, Human Insulin Isophane 300 UNIT/3 ML VIAL SC SCH (09:00)
[2017-06-24] MEDS ORDERED: Aspirin 325 MG TAB PO SCH (09:00)
== END 2017-06-23 13:19 | disposition home or self-care (01) ==
LOC: ERS 05:53 → 2SW 07:31
PROVIDERS: ADMIT Internal Medicine; ATTEND Internal Medicine
DX: E87.79 Other fluid overload (principal); I13.2 Hypertensive heart and chronic kidney disease with heart failure and with stage 5 chronic kidney disease, or end stage renal disease; E11.22 Type 2 diabetes mellitus with diabetic chronic kidney disease; N18.6 End stage renal disease; I50.42 Chronic combined systolic (congestive) and diastolic (congestive) heart failure; D63.1 Anemia in chronic kidney disease; I25.10 Atherosclerotic heart disease of native coronary artery without angina pectoris; E78.5 Hyperlipidemia, unspecified; N25.81 Secondary hyperparathyroidism of renal origin; F32.9 Major depressive disorder, single episode, unspecified; F41.9 Anxiety disorder, unspecified; N40.0 Benign prostatic hyperplasia without lower urinary tract symptoms; G89.29 Other chronic pain; Z99.2 Dependence on renal dialysis; Z91.14 Patient's other noncompliance with medication regimen
CPT/HCPCS: 36415; 71045; 74177; 80053; 82553; 83880; 84484; 85025; 93005; 94760; G0378

== ENCOUNTER 2017-06-30 07:27 | Emergency (ER) | payer MEDICARE, SELFPAY ==
--- NOTE | 2017-06-30 07:58 | RAD ---
PORTABLE CHEST 1 VIEW: Date: 06/30/17 Time: 0747 hours HISTORY: Shortness of breath. FINDINGS/IMPRESSION: Comparison made with exam of 06/23/17. The heart size is normal. There are mild bibasilar infiltrates versus atelectatic changes with accomp anying small effusions. No pneumothoraces are seen. POS: [facility]
[2017-06-30 08:05] LABS: #Eosinphils 0.3 thou/uL (0.0-0.7); #Lymphocytes 0.9 thou/uL (1.20-3.40); #Monocytes 0.3 thou/uL (0.11-0.59); #Neutrophils 3.6 thou/uL (1.40-6.50); %Basophils 0.2 % (0.0-1.0); %Eosinophils 6.1 % (0.0-10.0); %Monocytes 6.2 % (0.0-10.0); %Neutrophils 70.5 % (42.0-75.0); Hemoglobin 10.5 g/dL (14.0-18.0); Mean Corpuscular HGB CONC 31.3 g/dL (32.0-36.0); Mean Corpuscular Hemoglobin 29.9 pg (27.0-31.0); Mean Corpuscular Volume 95.6 fl (80.0-94.0); Mean Platelet Volume 6.7 fL (7.4-10.4); Platelet Count 257 thou/uL (130-400); RBC Distribution Width 15.4 % (11.5-14.5); Red Blood Cell (RBC) Count 3.49 mill/uL (4.70-6.10); White Blood Cell (WBC) Count 5.1 thou/uL (4.8-10.8)
[2017-06-30] MEDS ORDERED: Nitroglycerin 2% Ointment 1 INCH/1 GM Packet ONE (08:05)
[2017-06-30 08:14] LABS: CKMB 2.5 ng/mL (0-6.6); Troponin I 0.176 ng/mL (< 0.028)
[2017-06-30 08:39] LABS: AST (SGOT) 15 U/L (5-34); Magnesium 2.5 mg/dL (1.6-2.6); Phosphorus 8.3 mg/dL (2.3-4.7); Potassium 5.3 mmol/L (3.5-5.1); Protein, Total 6.8 g/dL (5.8-8.1)
[2017-06-30 08:44] LABS: ALT (SGPT) 9 U/L (8-55); Alkaline Phosphatase 86 U/L (40-150); Anion Gap 24 mmol/L (10-20); BUN (Urea Nitrogen) 54 mg/dL (8.4-25.7); Bilirubin, Total 0.7 mg/dL (0.2-1.2); CK (CPK) 96 U/L (30-200); Calc. Creatinine Clearance 0 mL/min (70-130); Calcium 8.4 mg/dL (7.8-10.44); Carbon Dioxide 22 mmol/L (23-31); Chloride 99 mmol/L (98-107); Estimated GFR-MDRD 5; Globulin 3.6 g/dL (2.4-3.5); Glucose 180 mg/dL (80-115); Sodium 138 mmol/L (136-145)
== END 2017-06-30 09:23 | disposition home or self-care (01) ==
LOC: ERS 07:27
DX: I12.0 Hypertensive chronic kidney disease with stage 5 chronic kidney disease or end stage renal disease (principal); E11.22 Type 2 diabetes mellitus with diabetic chronic kidney disease; N18.6 End stage renal disease; E87.70 Fluid overload, unspecified; E78.5 Hyperlipidemia, unspecified; I25.10 Atherosclerotic heart disease of native coronary artery without angina pectoris; J45.909 Unspecified asthma, uncomplicated; I69.398 Other sequelae of cerebral infarction; F32.9 Major depressive disorder, single episode, unspecified; Z99.2 Dependence on renal dialysis
CPT/HCPCS: 71045; 80053; 82550; 82553; 83735; 83880; 84100; 84484; 85025; 93005; 94760

== ENCOUNTER 2017-07-07 18:08 | Inpatient (IN) | payer MEDICARE ==
[~2017-07-07 18:08] MED LIST: ISOVUE-370 76%-LOCM 1 ML ONE
--- NOTE | 2017-07-07 19:17 | RAD ---
PORTABLE CHEST: 07/07/17 HISTORY: Shortness of breath. Heart size is enlarged with mild vascular engorgement which could indicate some element of edema. Bib asilar lung changes appear improved as compared to the 06/30/17 study. IMPRESSION: Cardiomegaly with mild vascular engorgement. POS: [facility]
[2017-07-07 19:36] LABS: #Basophils 0.1 thou/uL (0.0-0.2); #Eosinphils 0.3 thou/uL (0.0-0.7); #Lymphocytes 1.5 thou/uL (1.20-3.40); #Monocytes 0.5 thou/uL (0.11-0.59); #Neutrophils 4.9 thou/uL (1.40-6.50); %Basophils 0.7 % (0.0-1.0); %Eosinophils 4.6 % (0.0-10.0); %Lymphocytes 20.7 % (21.0-51.0); %Monocytes 7.4 % (0.0-10.0); %Neutrophils 66.5 % (42.0-75.0); Hemoglobin 10.8 g/dL (14.0-18.0); Mean Corpuscular HGB CONC 31.9 g/dL (32.0-36.0); Mean Corpuscular Volume 97.2 fl (80.0-94.0); Mean Platelet Volume 6.3 fL (7.4-10.4); Platelet Count 230 thou/uL (130-400); RBC Distribution Width 16.8 % (11.5-14.5); Red Blood Cell (RBC) Count 3.47 mill/uL (4.70-6.10); White Blood Cell (WBC) Count 7.3 thou/uL (4.8-10.8)
[2017-07-07 20:01] LABS: ALT (SGPT) 7 U/L (8-55); AST (SGOT) 11 U/L (5-34); Albumin 3.7 g/dL (3.4-4.8); Alkaline Phosphatase 75 U/L (40-150); Anion Gap 20 mmol/L (10-20); BUN (Urea Nitrogen) 33 mg/dL (8.4-25.7); Bilirubin, Total 0.7 mg/dL (0.2-1.2); CK (CPK) 69 U/L (30-200); Calc. Creatinine Clearance 0 mL/min (70-130); Calcium 8.5 mg/dL (7.8-10.44); Carbon Dioxide 31 mmol/L (23-31); Chloride 95 mmol/L (98-107); Estimated GFR-MDRD 7; Globulin 2.7 g/dL (2.4-3.5); Glucose 127 mg/dL (80-115); Potassium 4.5 mmol/L (3.5-5.1); Protein, Total 6.4 g/dL (5.8-8.1); Sodium 141 mmol/L (136-145)
[2017-07-07 20:04] LABS: CKMB 1.7 ng/mL (0-6.6); Troponin I 0.103 ng/mL (< 0.028)
[2017-07-07] MEDS ORDERED: Nitroglycerin 0.4 MG TAB (25 Tab Bottle) ONE (22:46)
[2017-07-07 23:02] LABS: Bilirubin Negative (Negative); Blood, Urine Negative (Negative); Clarity CLEAR (Clear); Glucose, Urine (Dipstick) 100 mg/dL (Negative); Leukocyte Negative (Negative); Nitrite Negative (Negative); Protein, Urine (Dipstick) > or equal to 300 mg/dL (Neg-Trace); Urobilinogen 0.2 mg/dL (0.2-1.0)
[2017-07-07 23:04] LABS: Bacteria/HPF None Seen HPF (None Seen); Hyaline Casts/LPF 0-3 HYALINE CAST LPF (0-3 Hyaline); Pathc Cast-AUWi Flag 0.27 (0-2.49); RBC/HPF 0-3 HPF (0-3); Squamous Epithelial 0-3 HPF (0-3)
[2017-07-07 23:39] LABS: Troponin I 0.111 ng/mL (< 0.028)
--- NOTE | 2017-07-07 23:42 | CT ---
CT ANGIO OF CHEST PERFORMED WITH INTRAVENOUS CONTRAST ENHANCEMENT WITH 3D RECONSTRUCTIONS: 07/07/17 HISTORY: Shortness of breath chest pain. COMPARISON: A 09/25/15 study. There are large bilateral pleural effusions. Some associated minimal atelectatic lung change. Some mi nimal ground glass opacities seen in the left upper lobe. This could represent some minimal pneumonit is change. the thoracic aorta is normal in caliber. There is good pulmonary artery opacification. There is no CT evidence of pulmonary embolus. The visualized liver parenchyma shows no focal findings. IMPRESSION: 1. Large bilateral pleural effusions. 2. No CT evidence for pulmonary embolus. POS: [facility]
[2017-07-08 03:05] LABS: Troponin I 0.133 ng/mL (< 0.028)
[2017-07-08 03:23] LABS: HBSAg Index 0.15 S/CO (0-0.99); Hep B Surf Ag Non-Reactive S/CO (NonReactive)
[2017-07-08 06:21] LABS: Troponin I 0.129 ng/mL (< 0.028)
[2017-07-08] MEDS ORDERED: Acetaminophen 325 MG TAB PO PRN (09:08)
[2017-07-08] MEDS ORDERED: Mag-Al 1200 mg/1200 mg/30 ML UDCUP PO PRN (09:08)
[2017-07-08] MEDS ORDERED: Bisacodyl 5 MG TAB PO PRN (09:08)
[2017-07-08] MEDS ORDERED: Acetaminophen 650 MG Suppository PR PRN (09:08)
[2017-07-08] MEDS ORDERED: Nitroglycerin 0.4 MG TAB (25 Tab Bottle) PO PRN (09:08)
[2017-07-08] MEDS ORDERED: Lisinopril 10 MG TAB ONE (11:15)
[2017-07-08] MEDS ORDERED: Dextrose 5% in Water 1,000 ML IV PRN (12:23)
[2017-07-08] MEDS ORDERED: Dextrose 50% Abboject 50 ML SYRINGE SLOW IVP PRN (12:23)
[2017-07-08] MEDS ORDERED: PROVENTIL INHALER 6.7 G (200 INHALATIONS) INH PRN (12:24)
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
[2017-07-08 12:59] VITALS: BMI 23.6
[2017-07-08] MEDS: Carvedilol 6.25 MG TAB PO SCH (15:23)
[2017-07-08] MEDS: Heparin 5,000 UNITS/ML VIAL SC SCH ×2 (15:23→21:23)
[2017-07-08] MEDS: HumaLOG 300 UNITS/3 ML VIAL SC PRN (17:07)
[2017-07-08] MEDS: Calcium Carbonate 500 MG ChewTAB PO PRN (19:35)
--- NOTE | 2017-07-08 20:25 | RAD ---
KUB: 07/08/17 HISTORY: Abdominal pain. Bowel gas pattern is nonobstructed. Vascular calcifications are seen. No renal calculi identified. IMPRESSION: No acute findings. POS: [facility]
[2017-07-08] MEDS ORDERED: traZODone HCl 50 MG TAB PO PRN (23:02)
--- NOTE | 2017-07-08 23:13 | CON ---
DATE OF CONSULTATION: 07/08/2017 CONSULTING PHYSICIAN: Dr. Hay. REASON FOR CONSULTATION: End-stage renal disease evaluation and care. REASON FOR ADMISSION: Chest pain. HISTORY OF PRESENT ILLNESS: A 67-year-old male with history of end-stage renal disease, CHF , hyperlipidemia, CAD, BPH who came to the hospital with chest pain and is being evaluated. He misse d dialysis Monday. Denies any chest pain. He was not hypoxic. No fever or chills. No nausea or vo miting. No abdominal pain. The patient is very noncompliant with dialysis. Recently, he has been showing up for a few treatment s. PAST MEDICAL HISTORY: Positive for end-stage renal disease, congestive heart failure, coronary arter y disease, hypertension, hyperlipidemia, depression, insomnia, noncompliance, CVA, BPH. PAST SURGICAL HISTORY: Dialysis access placement. HOME MEDICATIONS: Lisinopril, simvastatin, metformin. ALLERGIES: No known drug allergies. SOCIAL HISTORY: No smoking, alcohol or illicit drug abuse. FAMILY HISTORY: No history of kidney disease. REVIEW OF SYSTEMS: The following complete review of systems was negative, unless otherwise mentioned in the HPI or below: Constitutional: Weight loss or gain, ability to conduct usual activities. Skin: Rash, itching. Eyes: Double vision, pain. ENT/Mouth: Nose bleeding, neck stiffness, pain, tenderness. Cardiovascular: Palpitations, dyspnea on exertion, orthopnea. Respiratory: Shortness of breath, wheezing, cough, hemoptysis, fever or night sweats. Gastrointestinal: Poor appetite, abdominal pain, heartburn, nausea, vomiting, constipation, or diarr hea. Genitourinary: Urgency, frequency, dysuria, nocturia. Musculoskeletal: Pain, swelling. Neurologic/Psychiatric: Anxiety, depression. Allergy/Immunologic: Skin rash, bleeding tendency. PHYSICAL EXAMINATION: GENERAL: This is a thin-built male in no apparent distress. VITAL SIGNS: Temperature 98.5, pulse 94, respiratory rate 18, blood pressure 155/84. HEENT: Atraumatic, normocephalic. Oral mucosa is moist. NECK: Supple, no masses. CARDIOVASCULAR: S1, S2 heard. Rate and rhythm are regular. RESPIRATORY: Clear. GASTROINTESTINAL: Abdomen is soft. MUSCULOSKELETAL: No tenderness noted. DERMATOLOGIC: No skin rash. NEUROLOGIC: Alert and awake. PSYCHIATRIC: Mood and affect normal. LABS: Hemoglobin is 10.8, potassium 4.5, BUN is 33, creatinine is 7.7, albumin is 3.7. Urine with 3 + proteinuria. ASSESSMENT AND PLAN: 1. End-stage renal disease, currently on hemodialysis, elevated BNP with possible fluid overload. W e will attempt to remove fluid as tolerated. 2. Anemia, mild. 3. Edema, controlled. 4. Hypertension. 5. Proteinuria. Plan is to continue on dialysis. The patient will have dialysis as tolerated. The patient refused t o have dialysis today. Plan is to have dialysis tomorrow for 4 hours and then continue on dialysis M , Monday and Monday. Thank you for the consultation. We will follow. Advised to limit salt and fluid intake.
[2017-07-09 05:39] LABS: #Eosinphils 0.2 thou/uL (0.0-0.7); #Lymphocytes 1.4 thou/uL (1.20-3.40); #Monocytes 0.6 thou/uL (0.11-0.59); #Neutrophils 4.2 thou/uL (1.40-6.50); %Basophils 0.5 % (0.0-1.0); %Eosinophils 3.8 % (0.0-10.0); %Lymphocytes 21.6 % (21.0-51.0); %Monocytes 8.9 % (0.0-10.0); %Neutrophils 65.2 % (42.0-75.0); Hemoglobin 9.9 g/dL (14.0-18.0); Mean Corpuscular HGB CONC 32.5 g/dL (32.0-36.0); Mean Corpuscular Hemoglobin 31.6 pg (27.0-31.0); Mean Corpuscular Volume 97.2 fl (80.0-94.0); Mean Platelet Volume 6.9 fL (7.4-10.4); Platelet Count 200 thou/uL (130-400); RBC Distribution Width 16.7 % (11.5-14.5); Red Blood Cell (RBC) Count 3.13 mill/uL (4.70-6.10); White Blood Cell (WBC) Count 6.4 thou/uL (4.8-10.8)
[2017-07-09 05:49] LABS: Anion Gap 17 mmol/L (10-20); BUN (Urea Nitrogen) 32 mg/dL (8.4-25.7); Calc. Creatinine Clearance 10 mL/min (70-130); Calcium 8.8 mg/dL (7.8-10.44); Carbon Dioxide 30 mmol/L (23-31); Chloride 97 mmol/L (98-107); Estimated GFR-MDRD 8; Glucose 140 mg/dL (80-115); Potassium 4.4 mmol/L (3.5-5.1); Sodium 140 mmol/L (136-145)
[2017-07-09] MEDS: Heparin 5,000 UNITS/ML VIAL SC SCH ×3 (08:02→19:11)
[2017-07-09] MEDS: Carvedilol 6.25 MG TAB PO SCH ×2 (08:02→16:48)
[2017-07-09] MEDS ORDERED: ADENOSINE 60 MG/20 ML VIAL ONE (09:48)
[2017-07-09] MEDS: Ferrous Sulfate 325 MG TAB PO SCH (11:55)
[2017-07-09] MEDS: Atorvastatin Calcium 40 MG TAB PO SCH (11:55)
[2017-07-09] MEDS: FLUoxetine HCl 20 MG CAP PO SCH (11:55)
[2017-07-09] MEDS: Tamsulosin HCl 0.4 MG CAP PO SCH (11:55)
[2017-07-09] MEDS: Aspirin 325 MG TAB PO SCH (11:55)
[2017-07-09] MEDS: Folic Acid/Vit B Comp W-C PO SCH (11:56)
[2017-07-09] MEDS: Famotidine 20 MG TAB PO SCH (11:56)
--- NOTE | 2017-07-09 16:56 | NM ---
MYOCARDIAL PERFUSION SCAN WITH SPECT IMAGING: History: Chest pain. Examination was done using 29.7 mCi Technetium 99M Sestamibi for stress, 11 mCi Technetium 99M Sestam ibi on the resting images. FINDINGS: Images show a dilated ventricular chamber. There is fixed defect on the apex and inferior wall. No de finite signs of ischemia. WALL MOTION: There is a severe global hypokinesis. LEFT VENTRICULAR EJECTION FRACTION: Calculated left ventricular ejection fraction was 21%. IMPRESSION: 1. Scar involving the apex and apical inferior wall. 2. Severe global hypokinesis with a calculated left ventricular ejection fraction of 21%. POS: [facility]
--- NOTE | 2017-07-09 18:07 | PRG ---
DATE OF SERVICE: 07/09/2017 SUBJECTIVE: Patient was seen and examined at bedside and overnight events noted. Patient denies any shortness of breath or chest pain or palpitation. No history of nausea or vomiting or diarrhea or fever or chill s or cramps. OBJECTIVE: GENERAL: This is a well-built male in no apparent distress. VITAL SIGNS: Temperature 98.3, pulse rate 85, respiratory rate 18, blood pressure 122/75. HEENT: Atraumatic, normocephalic. Oral mucosa is moist. NECK: Supple. CARDIOVASCULAR: S1, S2 heard. Rate and rhythm regular. RESPIRATORY: Clear to auscultation. GASTROINTESTINAL: Abdomen is soft. MUSCULOSKELETAL: No tenderness. No edema. DERMATOLOGIC: No skin rash. NEUROLOGIC: Alert and awake and oriented x3. No focal neurologic deficits. Moving all the extremit ies. PSYCHIATRIC: Mood and affect normal LABORATORY DATA: Potassium is 4.4, BUN is 32, and creatinine is 7. ASSESSMENT AND PLAN: 1. End-stage renal disease. Continue on dialysis. 2. Hypertension. 3. Edema. 4. Anemia of end-stage renal disease. Plan is to continue on dialysis as tolerated.
[2017-07-09] MEDS: HumaLOG 300 UNITS/3 ML VIAL SC PRN (18:17)
[2017-07-09] MEDS: Calcium Carbonate 500 MG ChewTAB PO PRN (19:10)
--- NOTE | 2017-07-09 20:26 | PDOC.PN ---
- Subjective Encounter Start Date: 07/09/17 Encounter Start Time: 20:00 Subjective: f/u for ESRD on HD and CP. FUR GRADER completed showing no reversible -: ischemia. c/o abd pain intermittent for months. +emesis this pm after -: eating. + BM's regularly. - Objective Resuscitation Status: Resuscitation Status FULL:Full Resuscitation MAR Reviewed: Yes Vital Signs & Weight: Vital Signs (12 hours) Temp Pulse Resp BP Pulse Ox 07/09/17 18:50 99.1 F 81 16 143/76 H 96 07/09/17 16:19 99.5 F 86 16 151/72 H 96 07/09/17 12:52 98.0 F 85 16 122/75 93 L 07/09/17 11:30 98.0 F 85 16 Weight Weight 151 lb I&O: 07/08/17 07/09/17 07/10/17 06:59 06:59 06:59 Intake Total 250 400 Output Total 3000 Balance 250 -2600 Result Diagrams: 07/09/17 04:50 07/09/17 04:50 Additional Labs: Accuchecks 07/09/17 07/09/17 07/08/17 17:29 12:59 20:29 POC Glucose 251 H 128 H 161 H Radiology Reviewed by me: Yes (FUR GRADER - no reversible ischemia, EF 10%) EKG Reviewed by me: Yes (Tele - SR) Phys Exam - Physical Examination ill-appearing, responds to questions HEENT: PERRLA, oral pharynx no lesions Neck: no JVD, supple Respiratory: no wheezing, clear to auscultation bilateral Cardiovascular: RRR Gastrointestinal: soft, non-tender, no distention, positive bowel sounds Musculoskeletal: no edema, pulses present Neurological: normal sensation, moves all 4 limbs Psychiatric: A&O x 3 Skin: normal turgor, cap refill <2 seconds Dx/Plan (1) Abdominal pain Code(s): R10.9 - UNSPECIFIED ABDOMINAL PAIN Status: Acute Qualifiers: Abdominal location: generalized Qualified Code(s): R10.84 - Generalized abdominal pain Comment: Likely gastroparesis, trial Reglan 10mg achs (2) Ischemic cardiomyopathy Code(s): I25.5 - ISCHEMIC CARDIOMYOPATHY Status: Chronic Comment: EF 20% by Echo 06/15; lost LifeVest that was rx in 06/15, consult CM and Cardiology service (3) Anemia of renal disease Code(s): D63.1 - ANEMIA IN CHRONIC KIDNEY DISEASE Status: Chronic (4) ESRD (end stage renal disease) on dialysis Code(s): N18.6 - END STAGE RENAL DISEASE; Z99.2 - DEPENDENCE ON RENAL DIALYSIS Status: Chronic Comment: HD per Renal service (5) Hypertension Code(s): I10 - ESSENTIAL (PRIMARY) HYPERTENSION Status: Chronic Qualifiers: Hypertension type: essential hypertension Comment: Resume home BP regimen (6) Noncompliance of patient with renal dialysis Code(s): Z91.15 - PATIENT'S NONCOMPLIANCE WITH RENAL DIALYSIS Status: Chronic (7) Fluid overload Code(s): E87.70 - FLUID OVERLOAD, UNSPECIFIED Status: Resolved Qualifiers: Hypervolemia type: other Qualified Code(s): E87.79 - Other fluid overload Comment: Improved with HD x 2, continue HD per Renal service - Plan plan discussed w/ family, social worker masters, DVT proph w/SCDs Continue HD per Renal service -: Consult Palliative Care Team for goals of care -: Trial Reglan 10mg achs -: Resume home BP regimen -: AM lab: BMP, CBC * .
[2017-07-09] MEDS: Metoclopramide HCl 10 MG TAB PO SCH (21:39)
[2017-07-09] MEDS: traMADol HCl 50 MG TAB PO SCH (21:39)
[2017-07-10 05:37] LABS: Anion Gap 15 mmol/L (10-20); BUN (Urea Nitrogen) 24 mg/dL (8.4-25.7); Calc. Creatinine Clearance 11 mL/min (70-130); Calcium 8.7 mg/dL (7.8-10.44); Carbon Dioxide 28 mmol/L (23-31); Chloride 98 mmol/L (98-107); Estimated GFR-MDRD 10; Glucose 136 mg/dL (80-115); Potassium 3.8 mmol/L (3.5-5.1); Sodium 137 mmol/L (136-145)
[2017-07-10 05:58] LABS: #Eosinphils 0.4 thou/uL (0.0-0.7); #Lymphocytes 1.4 thou/uL (1.20-3.40); #Monocytes 0.5 thou/uL (0.11-0.59); #Neutrophils 2.7 thou/uL (1.40-6.50); %Basophils 0.2 % (0.0-1.0); %Eosinophils 7.5 % (0.0-10.0); %Lymphocytes 28.7 % (21.0-51.0); %Monocytes 9.2 % (0.0-10.0); %Neutrophils 54.3 % (42.0-75.0); Hemoglobin 10.3 g/dL (14.0-18.0); Mean Corpuscular HGB CONC 31.9 g/dL (32.0-36.0); Mean Corpuscular Hemoglobin 30.8 pg (27.0-31.0); Mean Corpuscular Volume 96.6 fl (80.0-94.0); Mean Platelet Volume 6.7 fL (7.4-10.4); Platelet Count 177 thou/uL (130-400); RBC Distribution Width 16.4 % (11.5-14.5); Red Blood Cell (RBC) Count 3.34 mill/uL (4.70-6.10)
--- NOTE | 2017-07-10 10:38 | PRG ---
DATE OF SERVICE: 07/10/2017 SUBJECTIVE: This is a 67-year-old gentleman being seen for end-stage renal disease. The patient den ies any nausea, vomiting or chest pain. PHYSICAL EXAMINATION: GENERAL: Patient is awake, alert. VITAL SIGNS: Afebrile, pulse 75, breathing at 16, blood pressure 117/74. HEAD/NECK: Normocephalic. Atraumatic. EYES: EOMI. No deformity. EARS: Clear. No ulcers. NOSE: Intact. No lesions. MOUTH: Clear. No discharge. THROAT: Clear. No exudate. LUNGS: Clear. No crackles. CARDIAC: S1, S2. No rub. ABDOMEN: Benign. BS+. GENITALIA/RECTUM: Singer absent. BACK/EXTREMITIES: Edema 0+ Ulcer- NEUROLOGICAL: Alert and motor intact. SKIN: Rash- Bruise- LYMPHATICS: Edema- Ulcer- LABORATORY DATA: Show hemoglobin 10.3, potassium 3.8. ASSESSMENT AND RECOMMENDATIONS: 1. Stage 6 chronic kidney disease, continue hemodialysis. 2. Hypertension, stable. 3. Anemia, stable. 4. Medications based on glomerular filtration rate are appropriate.
[2017-07-10] MEDS ORDERED: Sacubitril 24.5 MG/Valsartan 25.5 MG TABLET PO SCH (11:45)
--- NOTE | 2017-07-10 13:59 | CON ---
DATE OF CONSULTATION: 07/10/2017 REASON FOR CONSULTATION: Recurrent epigastric pain. HISTORY OF PRESENT ILLNESS: Mr. Ramirez is a 67-year-old gentleman with history of coronary artery disease, end-stage renal disease, congestive heart failure, and epigastric pain, came to the hospital, predominantly complaining of epigastric pain. The patient does have a history of coronary disease, not amenable to any re- perfusion. The patient is undergoing hemodialysis currently. He is also thought to be volume overloaded. The patient is currently resting comfortably. The patient's predominant symptom on arrival was the epigastric pain, dull. He also reported some chest pain as well, but he is no longer having chest pain. REVIEW OF SYSTEMS: Constitutional: No significant weight gain or loss. Vision : No changes. Hearing: No changes. Pulmonary: No cough or wheezing. Gastrointestinal: No nausea, vomiting, diarrhea. Skin: No rashes. Neurologic : No unilateral weakness or numbness. Psychiatric: No unusual depression or anxiety. Hematologic: No unusual bruising. Genitourinary: No burning with urination. Most recent ejection fraction was 20%-25% range. PAST MEDICAL HISTORY: 1. End-stage renal disease, on hemodialysis. 2. Coronary artery disease and underwent catheterization by Dr. Anguiano approximately just over 2 years ago. He was found to have disease in the mid and distal LAD, not amenable to revascularization. Some distal disease of the circumflex and right coronary, not amenable to revascularization. PAST SURGICAL HISTORY: Left upper extremity hemodialysis access. MEDICATIONS: At home, lisinopril, simvastatin, metformin, had also been prescribed apparently beta alannah, but was not taking that. SOCIAL HISTORY: No alcohol or tobacco. PHYSICAL EXAMINATION: GENERAL: This is a pleasant elderly gentleman, who looks older than his chronologic age. VITAL SIGNS: Blood pressure initially 156/86, pulse 94. HEENT: Eyes: Sclerae nonicteric. Mouth: Mucous membranes moist. NECK: Supple, no lymphadenopathy. LUNGS: Clear. No wheezing, rales, or rhonchi. CARDIAC: Normal S1, normal S2. There is no murmur, rub, or gallop. ABDOMEN: Soft and nontender. EXTREMITIES: No clubbing or cyanosis. There is no edema. SKIN: Warm and dry. PSYCHIATRIC: Mood and affect normal. NEUROLOGIC: Grossly normal. LABORATORY AND X-RAY FINDINGS: Hemoglobin 10.3. Troponin, the highest is 0.133 , really no significant increase. EKG, sinus rhythm with some T-wave inversions anterolaterally. ASSESSMENT: 1. End-stage renal disease. 2. Inoperable coronary disease. 3. Congestive heart failure, systolic. PLAN: We would add beta blockers. He is to continue aspirin and statins. Long -term prognosis is likely poor. If the ejection fraction remains below 35% after 3 months, could consider defibrillator. Defibrillator implantation obviously would not help with his recurrent angina, especially in view of his distal atherosclerosis, which is not operable. ARABELLA
[2017-07-10] MEDS: Metoclopramide HCl 10 MG TAB PO SCH ×4 (14:21→20:53)
[2017-07-10] MEDS: Carvedilol 6.25 MG TAB PO SCH ×2 (14:22→17:38)
[2017-07-10] MEDS: Heparin 5,000 UNITS/ML VIAL SC SCH ×3 (14:23→20:53)
[2017-07-10] MEDS: Ferrous Sulfate 325 MG TAB PO SCH (15:00)
[2017-07-10] MEDS: Atorvastatin Calcium 40 MG TAB PO SCH (15:02)
[2017-07-10] MEDS: Famotidine 20 MG TAB PO SCH (15:02)
[2017-07-10] MEDS: FLUoxetine HCl 20 MG CAP PO SCH (15:02)
[2017-07-10] MEDS: Aspirin 325 MG TAB PO SCH (15:02)
[2017-07-10] MEDS: Folic Acid/Vit B Comp W-C PO SCH (15:03)
[2017-07-10] MEDS: Tamsulosin HCl 0.4 MG CAP PO SCH (15:04)
[2017-07-10] MEDS: traMADol HCl 50 MG TAB PO SCH ×2 (15:05→20:53)
--- NOTE | 2017-07-10 16:53 | PDOC.PN ---
- Subjective Encounter Start Date: 07/10/17 Encounter Start Time: 16:40 Subjective: f/u ESRD and ICM with EF 20% with inoperable CAD. Overall feels better -: and abd pain resolved. Appetite good. - Objective Resuscitation Status: Resuscitation Status FULL:Full Resuscitation MAR Reviewed: Yes Vital Signs & Weight: Vital Signs (12 hours) Temp Pulse Resp BP Pulse Ox 07/10/17 16:29 98.4 F 77 18 201/81 H 94 L 07/10/17 14:58 98.2 F 82 16 119/83 99 07/10/17 07:55 98 F 74 16 97 07/10/17 07:52 98 F 74 16 154/98 H 97 Weight Weight 147 lb I&O: 07/09/17 07/10/17 07/11/17 06:59 06:59 06:59 Intake Total 250 400 Output Total 3000 Balance 250 -2600 Result Diagrams: 07/10/17 05:40 07/10/17 05:05 Additional Labs: Accuchecks 07/10/17 07/09/17 07/09/17 05:58 21:43 17:29 POC Glucose 135 H 160 H 251 H EKG Reviewed by me: Yes (Tele - SR) Phys Exam - Physical Examination Constitutional: NAD HEENT: PERRLA, oral pharynx no lesions Neck: no JVD, supple Respiratory: no wheezing, clear to auscultation bilateral Cardiovascular: RRR Gastrointestinal: soft, non-tender, no distention, positive bowel sounds Musculoskeletal: no edema, pulses present Neurological: normal sensation, moves all 4 limbs Psychiatric: A&O x 3 Skin: normal turgor, cap refill <2 seconds Dx/Plan (1) Abdominal pain Code(s): R10.9 - UNSPECIFIED ABDOMINAL PAIN Status: Acute Qualifiers: Abdominal location: generalized Qualified Code(s): R10.84 - Generalized abdominal pain Comment: Likely gastroparesis, trial Reglan 10mg achs, improved (2) Ischemic cardiomyopathy Code(s): I25.5 - ISCHEMIC CARDIOMYOPATHY Status: Chronic Comment: EF 20% by Echo 06/15; lost LifeVest that was rx in 06/15, consult CM and Cardiology service , med mgmt, likely will be a candidate for ICD in 3 months (3) Anemia of renal disease Code(s): D63.1 - ANEMIA IN CHRONIC KIDNEY DISEASE Status: Chronic (4) ESRD (end stage renal disease) on dialysis Code(s): N18.6 - END STAGE RENAL DISEASE; Z99.2 - DEPENDENCE ON RENAL DIALYSIS Status: Chronic Comment: HD per Renal service (5) Hypertension Code(s): I10 - ESSENTIAL (PRIMARY) HYPERTENSION Status: Chronic Qualifiers: Hypertension type: essential hypertension Comment: Resume home BP regimen (6) Noncompliance of patient with renal dialysis Code(s): Z91.15 - PATIENT'S NONCOMPLIANCE WITH RENAL DIALYSIS Status: Chronic (7) Fluid overload Code(s): E87.70 - FLUID OVERLOAD, UNSPECIFIED Status: Resolved Qualifiers: Hypervolemia type: other Qualified Code(s): E87.79 - Other fluid overload Comment: Improved with HD x 2, continue HD per Renal service - Plan out of bed/ambulate, DVT proph w/SCDs Stable overall -: Continue med mgmt for CAD as inoperable dz noted per Cardiology -: HD per Renal service as outpt -: Continue Reglan for gastroparesis -: Home in am 07/11 * .
[2017-07-10] MEDS: NPH, Human Insulin Isophane 300 UNIT/3 ML VIAL SC SCH (17:37)
[2017-07-10] MEDS: Sacubitril 24.5 MG/Valsartan 25.5 MG TABLET PO SCH (20:53)
[2017-07-10] MEDS: HumaLOG 300 UNITS/3 ML VIAL SC PRN (20:54)
[2017-07-11 05:14] LABS: #Eosinphils 0.5 thou/uL (0.0-0.7); #Lymphocytes 1.5 thou/uL (1.20-3.40); #Monocytes 0.6 thou/uL (0.11-0.59); #Neutrophils 2.8 thou/uL (1.40-6.50); %Basophils 0.8 % (0.0-1.0); %Eosinophils 8.6 % (0.0-10.0); %Lymphocytes 27.5 % (21.0-51.0); %Monocytes 10.5 % (0.0-10.0); %Neutrophils 52.6 % (42.0-75.0); Hemoglobin 11.3 g/dL (14.0-18.0); Mean Corpuscular HGB CONC 32.3 g/dL (32.0-36.0); Mean Corpuscular Hemoglobin 31.1 pg (27.0-31.0); Mean Corpuscular Volume 96.5 fl (80.0-94.0); Mean Platelet Volume 6.7 fL (7.4-10.4); Platelet Count 189 thou/uL (130-400); RBC Distribution Width 16.4 % (11.5-14.5); Red Blood Cell (RBC) Count 3.64 mill/uL (4.70-6.10); White Blood Cell (WBC) Count 5.3 thou/uL (4.8-10.8)
[2017-07-11 05:34] LABS: Anion Gap 15 mmol/L (10-20); BUN (Urea Nitrogen) 21 mg/dL (8.4-25.7); Calc. Creatinine Clearance 15 mL/min (70-130); Calcium 8.5 mg/dL (7.8-10.44); Carbon Dioxide 29 mmol/L (23-31); Cardiac Risk 3.3 (Less than 4.5); Chloride 97 mmol/L (98-107); Cholesterol 166 mg/dl (< 200 Desired); Estimated GFR-MDRD 13; Glucose 147 mg/dL (80-115); HDL Cholesterol 50 mg/dL (>60 Neg Risk); LDL Cholesterol, Calculated 99 mg/dL; Potassium 3.6 mmol/L (3.5-5.1); Sodium 137 mmol/L (136-145); Triglycerides 84 mg/dL (Less than 150)
[2017-07-11] MEDS: Carvedilol 6.25 MG TAB PO SCH (08:06)
[2017-07-11] MEDS: Atorvastatin Calcium 40 MG TAB PO SCH (08:06)
[2017-07-11] MEDS: Sacubitril 24.5 MG/Valsartan 25.5 MG TABLET PO SCH (08:06)
[2017-07-11] MEDS: Aspirin 325 MG TAB PO SCH (08:06)
[2017-07-11] MEDS: Ferrous Sulfate 325 MG TAB PO SCH (08:07)
[2017-07-11] MEDS: Famotidine 20 MG TAB PO SCH (08:07)
[2017-07-11] MEDS: Tamsulosin HCl 0.4 MG CAP PO SCH (08:07)
[2017-07-11] MEDS: FLUoxetine HCl 20 MG CAP PO SCH (08:07)
[2017-07-11] MEDS: traMADol HCl 50 MG TAB PO SCH (08:07)
[2017-07-11] MEDS: Folic Acid/Vit B Comp W-C PO SCH (08:07)
[2017-07-11] MEDS: Metoclopramide HCl 10 MG TAB PO SCH ×2 (08:10→12:32)
[2017-07-11] MEDS: NPH, Human Insulin Isophane 300 UNIT/3 ML VIAL SC SCH (08:11)
[2017-07-11] MEDS: Heparin 5,000 UNITS/ML VIAL SC SCH (08:11)
[2017-07-11] MEDS: HumaLOG 300 UNITS/3 ML VIAL SC PRN ×2 (08:12→12:32)
--- NOTE | 2017-07-11 10:49 | DIS ---
DATE OF ADMISSION: 07/08/2017 DATE OF DISCHARGE: 07/11/2017 DISCHARGE DIAGNOSES: 1. End-stage renal disease with hemodialysis and volume overload, improved. 2. Ischemic cardiomyopathy with ejection fraction of 20%-25%. 3. Diabetic gastroparesis. 4. Chronic anemia secondary to chronic kidney disease. 5. Hypertension, stable. 6. Noncompliance. 7. Diabetes mellitus type 2, insulin requiring. 8. Coronary artery disease, inoperable medical management. 9. Deconditioning. CONSULTATIONS: Dr. Anna and Dr. Morales with Nephrology Service. Dr. Thorpe with Cardiology Service . PERTINENT LABORATORY DATA AND X-RAY FINDINGS: Creatinine ranged between 4.44-7.78, estimated GFR ran ged between 7-13. BNP 18,880, previously noted at 13,741 on 06/30/2017, total cholesterol 166, trigl ycerides 84, HDL 50 and LDL 99. CBC showed hemoglobin ranging between 9.9-11.3. Portable chest x-ra y dated 07/07/2017 showed cardiomegaly with mild vascular prominence. CT angiogram of the chest date d 07/07/2017 showed large bilateral pleural effusions. No evidence for pulmonary embolus. A 2D nogueira sthoracic echocardiogram dated 06/02/2017 showed ejection fraction of 20%-25%. Grade 1/3 diastolic d ysfunction. Cardiolite stress test dated 07/09/2017 showed an apical inferior wall scarring. Severe global hypokinesis with calculated ejection fraction of 21%. No reversible ischemia. HOSPITAL COURSE: Patient was admitted to the telemetry unit after initially presenting with chest pa in and volume overload in the context of end-stage renal disease with current hemodialysis on Monday, Monday, and Monday. The patient with a known history of noncompliance and missed his hemodialysi s session prior to admission, presenting with mild volume overload. The patient underwent hemodialys is in the Emergency Room and was transferred to the medical floor for further evaluation. The patien t underwent cardiac evaluation with known history of coronary artery disease inoperable after review by the Cardiology Service. Current recommendations are for maximal medical management and continuati on of aspirin therapy and statin agents. The patient received hemodialysis x3 sessions during his ho spital course with resolution of volume overload and dyspnea. The patient was treated for persistent abdominal pain, likely gastroparesis in the context of diabetes mellitus type 2. The patient was gi maile a trial of Reglan with mild improvement in overall symptomatology. The patient will continue Reg lux on an outpatient basis for symptomatic control. Overall, patient remained clinically stable thro [facility] the hospital course with telemetry monitoring showing sinus mechanism without acute arrhythmia or dysrhythmia. The patient was noted without LifeVest in the context of known ischemic cardiomyopathy and depressed ejection fraction. The patient apparently had the LifeVest stolen at home; however, n o plans are currently in place to replace the LifeVest at this time. The patient may be an appropria te candidate for ICD placement after 3 months' duration. Overall, patient is clinically stable and r natalya for discharge on 07/11/2017. DISCHARGE MEDICATIONS: 1. Proventil HFA 2 puffs inhaled q.4 hours p.r.n. 2. Norvasc 10 mg p.o. daily. 3. Enteric coated aspirin 325 mg 1 tab p.o. daily. 4. Lipitor 20 mg one tab p.o. daily. 5. Coreg 12.5 mg p.o. b.i.d. 6. Clonidine 0.1 mg p.o. b.i.d. 7. Pepcid 20 mg p.o. daily. 8. Ferrous sulfate 325 mg p.o. daily. 9. Prozac 40 mg 1 tab p.o. daily. 10. Folic acid with vitamin B one tablet p.o. daily. 11. Hydralazine 50 mg p.o. t.i.d. 12. Lisinopril 5 mg p.o. b.i.d. 13. Methocarbamol 750 mg p.o. b.i.d. 14. Reglan 10 mg p.o. t.i.d. 15. Humulin N 10 units subcutaneously daily. 16. Entresto 24.5/25.5 mg p.o. b.i.d. 17. Flomax 0.4 mg p.o. daily. 18. Tramadol 50 mg p.o. b.i.d. p.r.n. 19. Trazodone 200 mg p.o. at bedtime p.r.n. FOLLOWUP: The patient may follow up with his [facility] [place] 7 days. The patient will follow up with Dr. Anna with Nephro logy Service and continue hemodialysis Monday, Monday, and Monday. CONDITION ON DISCHARGE: Guarded. ACTIVITY: Ad leticia. DIET: Heart healthy ADA and renal. SPECIAL INSTRUCTIONS: The patient will receive home health services including physical therapy on . CODE STATUS: FULL. DISPOSITION: Home 07/11/2017. Total time preparing and coordinating discharge is 35 minutes.
[2017-07-11 12:27] VITALS: BP 117/75; TEMP 98.6
--- NOTE | 2017-07-11 17:48 | PRG ---
DATE OF SERVICE: 07/11/2017 SUBJECTIVE: This 67-year-old gentleman being seen for end-stage renal disease. The patient denies a ny nausea, vomiting or chest pain. PHYSICAL EXAMINATION: GENERAL: Patient is awake, alert. VITAL SIGNS: Afebrile, pulse 72, breathing 16, blood pressure 124/76. HEAD/NECK: Normocephalic. Atraumatic. EYES: EOMI. No deformity. EARS: Clear. No ulcers. NOSE: Intact. No lesions. MOUTH: Clear. No discharge. THROAT: Clear. No exudate. LUNGS: Clear. No crackles. CARDIAC: S1, S2. No rub. ABDOMEN: Benign. BS+. GENITALIA/RECTUM: Singer absent. BACK/EXTREMITIES: Edema 0+ Ulcer- NEUROLOGICAL: Alert and motor intact. SKIN: Rash- Bruise- LYMPHATICS: Edema- Ulcer- LABORATORY DATA: Show hemoglobin 11.6. ASSESSMENT AND RECOMMENDATIONS: 1. Stage 6 chronic kidney disease, stable. 2. Hypertension, stable. 3. Anemia, stable. The patient will follow up with Dr. Anna.
--- NOTE | 2017-08-20 22:36 | STRESS ---
Acquisition Time: 2017-07-09 15:03:42 Total Exercise Time: 00:04:00 Test Indications: CHEST PAIN Medications: Protocol: ADENOSINE Max HR: 086 BPM 56% of Pred: 151 BPM Max BP: 140/080 mmHG Max Work Load: 1.0 METS RESTING ECG: NORMAL SINUS RHYTHM AT 83BPM WITH NONSPECIFIC ST-SEGMENT AND T-WAVE CHANGES SYMPTOMS: CHEST PRESSURE NORMAL BP RESPONSE ECTOPY: NONE ECG STRESS: NO SIGNIFICANT CHANGES INTERPRETATIONS: INDETERMINATE ECG/AWAIT NUCLEAR IMAGES FOR DEFINITIVE DIAGNOSIS Confirmed by EMILY GONZALEZ M.D. ([id number]) on 08/20/2017 10:35:39 PM Referred By: MD Petra HOLLINGSWORTH Confirmed By:EMILY GONZALEZ M.D.
== END 2017-07-11 14:03 | disposition home or self-care (01) | DRG 640 ==
LOC: ERS 18:08 → ERHOLD 07-08 01:25 → 2SW 07-08 11:58 → 2NO 07-09 20:57
PROVIDERS: ADMIT Internal Medicine; ATTEND Internal Medicine
PROC: 5A1D70Z Performance of Urinary Filtration, Intermittent, Less than 6 Hours Per Day (ICD-10-PCS; principal; 2017-07-08)
PROC: 5A1D70Z Performance of Urinary Filtration, Intermittent, Less than 6 Hours Per Day (ICD-10-PCS; 2017-07-09)
PROC: 5A1D70Z Performance of Urinary Filtration, Intermittent, Less than 6 Hours Per Day (ICD-10-PCS; 2017-07-10)
DX: E87.70 Fluid overload, unspecified (principal); N18.6 End stage renal disease; I13.2 Hypertensive heart and chronic kidney disease with heart failure and with stage 5 chronic kidney disease, or end stage renal disease; E11.22 Type 2 diabetes mellitus with diabetic chronic kidney disease; K31.84 Gastroparesis; E11.43 Type 2 diabetes mellitus with diabetic autonomic (poly)neuropathy; I50.20 Unspecified systolic (congestive) heart failure; I25.10 Atherosclerotic heart disease of native coronary artery without angina pectoris; D63.1 Anemia in chronic kidney disease; I25.5 Ischemic cardiomyopathy; Z91.15 Patient's noncompliance with renal dialysis; Z86.73 Personal history of transient ischemic attack (TIA), and cerebral infarction without residual deficits; E78.5 Hyperlipidemia, unspecified; Z99.2 Dependence on renal dialysis; R80.9 Proteinuria, unspecified
CPT/HCPCS: 36415; 36416; 71045; 71275; 74018; 78452; 80048; 80053; 80061; 81003; 81015; 82550; 82553; 83690; 83880; 84484; 85025; 87340; 90935; 93005; 93017; 94760; A9500; G0257; J0153; J1644; J1815

== ENCOUNTER 2017-08-04 08:22 | Observation (INO) | payer MEDICARE, SELFPAY ==
[2017-08-04 09:01] LABS: #Basophils 0.1 thou/uL (0.0-0.2); #Eosinphils 0.1 thou/uL (0.0-0.7); #Lymphocytes 0.9 thou/uL (1.20-3.40); #Monocytes 0.4 thou/uL (0.11-0.59); #Neutrophils 5.1 thou/uL (1.40-6.50); %Basophils 0.8 % (0.0-1.0); %Lymphocytes 13.9 % (21.0-51.0); %Monocytes 5.6 % (0.0-10.0); %Neutrophils 77.8 % (42.0-75.0); Hemoglobin 13.1 g/dL (14.0-18.0); Mean Corpuscular HGB CONC 32.6 g/dL (32.0-36.0); Mean Corpuscular Hemoglobin 29.6 pg (27.0-31.0); Mean Platelet Volume 6.9 fL (7.4-10.4); Platelet Count 176 thou/uL (130-400); RBC Distribution Width 15.2 % (11.5-14.5); Red Blood Cell (RBC) Count 4.41 mill/uL (4.70-6.10); White Blood Cell (WBC) Count 6.6 thou/uL (4.8-10.8)
--- NOTE | 2017-08-04 09:22 | RAD ---
PORTABLE CHEST: Date: 08/04/17 HISTORY: Dyspnea and chest pain. COMPARISON: 07/07/17. FINDINGS: Heart size appears slightly enlarged. Pulmonary vessels are engorged. Increased parahilar lung markin gs. The changes are very similar to the prior examination and would indicate recurrent pulmonary miri a. There are some probable associated effusions. IMPRESSION: Cardiomegaly with pulmonary vascular engorged and increased interstitial markings, very similar to th e previous exam suggesting recurrent pulmonary edema. POS: [facility]
[2017-08-04 09:24] LABS: ALT (SGPT) 7 U/L (8-55); AST (SGOT) 14 U/L (5-34); Albumin 4.4 g/dL (3.4-4.8); Alkaline Phosphatase 86 U/L (40-150); Anion Gap 23 mmol/L (10-20); BUN (Urea Nitrogen) 69 mg/dL (8.4-25.7); Calc. Creatinine Clearance 0 mL/min (70-130); Calcium 9.7 mg/dL (7.8-10.44); Carbon Dioxide 23 mmol/L (23-31); Chloride 99 mmol/L (98-107); Estimated GFR-MDRD 5; Glucose 172 mg/dL (80-115); Potassium 6.2 mmol/L (3.5-5.1); Protein, Total 7.4 g/dL (5.8-8.1); Sodium 139 mmol/L (136-145)
[2017-08-04 09:27] LABS: CKMB 3.1 ng/mL (0-6.6); Troponin I 0.127 ng/mL (< 0.028)
[2017-08-04] MEDS ORDERED: Acetaminophen 650 MG Suppository PR PRN (12:36)
[2017-08-04] MEDS ORDERED: Acetaminophen 325 MG TAB PO PRN (12:36)
[2017-08-04] MEDS ORDERED: Bisacodyl 5 MG TAB PO PRN (12:36)
--- NOTE | 2017-08-04 12:36 | HP ---
PRIMARY CARE PHYSICIAN: Alexei Mello M.D. CHIEF COMPLAINT: Shortness of breath. HISTORY OF PRESENT ILLNESS: Mr. Ramirez is a pleasant 67-year-old gentleman who was seen at [facility] on 08/04/2017. He is an end-stage renal dialysis patient. He was last dialyzed 2 days ago on Monday. He reports that since yesterday evening, he has had shortness of breath. He reports shortness of breath with e xertion. He denies any orthopnea or paroxysmal nocturnal dyspnea. He reports that his car broke [employer], so he could not come to the emergency room yesterday. He instead came to the emergency room today because of ongoing shortness of breath. He denies any chest pain. He denies any fevers or chills. He reports occasional cough that is nonproductive. REVIEW OF SYSTEMS: The following complete review of systems was negative, unless otherwise mentioned in the HPI or below: Constitutional: Weight loss or gain, ability to conduct usual activities. Skin: Rash, itching. Eyes: Double vision, pain. ENT/Mouth: Nose bleeding, neck stiffness, pain, tenderness. Cardiovascular: Palpitations, dyspnea on exertion, orthopnea. Respiratory: Shortness of breath, wheezing, cough, hemoptysis, fever or night sweats. Gastrointestinal: Poor appetite, abdominal pain, heartburn, nausea, vomiting, constipation, or diarrhea. Genitourinary: Urgency, frequency, dysuria, nocturia. Musculoskeletal: Pain, swelling. Neurologic/Psychiatric: Anxiety, depression. Allergy/Immunologic: Skin rash, bleeding tendency. PAST MEDICAL HISTORY: Significant for end-stage renal disease, on hemodialysis; congestive heart ravindra lure with ejection fraction of 45%; hypertension; dyslipidemia; depression; insomnia; cerebrovascular accident; and benign prostate hypertrophy. PAST SURGICAL HISTORY: Left upper extremity hemodialysis access procedures. ALLERGIES: No known drug allergies. CURRENT MEDICATIONS: Include simvastatin 10 mg daily, metformin 1000 mg 2 times a day and lisinopril 10 mg daily. SOCIAL HISTORY: The patient denies tobacco use, alcohol use or recreational drug use. FAMILY HISTORY: No family history of end-stage renal disease. CODE STATUS: He is FULL CODE, surrogate decision maker is his . PHYSICAL EXAMINATION: GENERAL: Mr. Ramirez is awake and alert, not in acute distress. VITAL SIGNS: He is afebrile. Blood pressure is 179/97, pulse is 90. He is breathing at rate of 15 and saturating 94% on 2 liters of oxygen. His room air oxygen saturation was 90%. EYES: No scleral icterus. No conjunctival pallor. ENT: Moist mucosal membranes. No oropharyngeal erythema or exudates. NECK: Supple, nontender, trachea midline, normal range of movement, no thyromegaly. RESPIRATORY: Accessory muscles of breathing are not active. Chest wall movements are symmetric bila terally. LUNGS: Examination reveals bibasilar crackles. ABDOMEN: Soft, nontender, bowel sounds are heard, no hepatomegaly, no splenomegaly. NEUROLOGIC: Cranial nerves II-XII intact, deep tendon reflexes 2+. MUSCULOSKELETAL: Power is 5/5 in all 4 extremities. Normal range of movement at all major extremity joints. SKIN: No rashes or subcutaneous nodules. LYMPHATIC: No cervical lymphadenopathy. PSYCHIATRIC: Normal mood, normal affect. The patient is oriented to person, place, and time. LABORATORY DATA: Mr. Ramirez's labs and investigations were reviewed. I reviewed his electrocardiogr am, which shows normal sinus rhythm, no ST changes to suggest an acute coronary syndrome. He has T-w ave inversions in the lateral leads, which was also seen on old electrocardiograms. I also reviewed his chest x-ray, which shows cardiomegaly and pulmonary edema. He has normal sodium, elevated potass ium of 6.2, elevated anion gap of 23, elevated blood urea nitrogen of 69, elevated creatinine of 10.0 9, normal lactic acid, indeterminate troponin I of 0.127, unremarkable liver profile, normal white co unt, normal platelet count, and normocytic anemia with hemoglobin of 13.1. ASSESSMENT AND PLAN: Mr. Ramirez is a pleasant 67-year-old gentleman who was seen at [facility] on 08/04/2017. His problem list includes: 1. Shortness of breath: Most likely secondary to volume overload. 2. Volume overload: Mr. Ramirez will be admitted to the hospital in observation status and Nephrolog y Service will be consulted for hemodialysis. 3. Hypertension: Monitor vital signs, titrate antihypertensives as needed. 4. Dyslipidemia: Continue statin. 5. Diabetes mellitus. Accu-Cheks, insulin sliding scale. Many thanks for allowing me to participate in your patient's care. Please feel free to contact me wi th any questions or concerns. LEVEL OF RISK: High. LEVEL OF COMPLEXITY: High.
[2017-08-04 13:12] VITALS: BMI 25.6
[2017-08-04] MEDS ORDERED: ISOVUE-370 76%-LOCM 1 ML ONE (13:49)
[2017-08-04] MEDS: Heparin 5,000 UNITS/ML VIAL SC SCH ×2 (18:07→22:48)
--- NOTE | 2017-08-04 20:08 | CON ---
DATE OF CONSULTATION: 08/04/2017 CONSULTING PHYSICIAN: Jesse Hay MD REASON FOR CONSULTATION: End-stage renal disease evaluation and care. REASON FOR ADMISSION: Shortness of breath. HISTORY OF PRESENT ILLNESS: This is a 67-year-old male with a history of end-stage renal di sease, hypertension, peripheral vascular disease, coronary artery disease who came to the hospital wi th shortness of breath and is getting dialysis. No fever or chills. No nausea or vomiting reported. PAST MEDICAL HISTORY: Positive for end-stage renal disease, on hemodialysis Monday, Monday, and ; CHF; coronary artery disease; hypertension; hyperlipidemia; depression; peripheral vascular di sease. PAST SURGICAL HISTORY: Hemodialysis access placement. ALLERGIES: No known drug allergies. HOME MEDICATIONS: Simvastatin, metformin, lisinopril. SOCIAL HISTORY: No smoking, alcohol, or illicit drug abuse. FAMILY HISTORY: No history of kidney disease. REVIEW OF SYSTEMS: The following complete review of systems was negative, unless otherwise mentioned in the HPI or below: Constitutional: Weight loss or gain, ability to conduct usual activities. Skin: Rash, itching. Eyes: Double vision, pain. ENT/Mouth: Nose bleeding, neck stiffness, pain, tenderness. Cardiovascular: Palpitations, dyspnea on exertion, orthopnea. Respiratory: Shortness of breath, wheezing, cough, hemoptysis, fever or night sweats. Gastrointestinal: Poor appetite, abdominal pain, heartburn, nausea, vomiting, constipation, or diarr hea. Genitourinary: Urgency, frequency, dysuria, nocturia. Musculoskeletal: Pain, swelling. Neurologic/Psychiatric: Anxiety, depression. Allergy/Immunologic: Skin rash, bleeding tendency. PHYSICAL EXAMINATION: GENERAL: This is a thin-built male in no apparent distress. VITAL SIGNS: Temperature 97.3, pulse 90, respirations 20, blood pressure 188/106. HEENT: Atraumatic, normocephalic. Oral mucosa is moist. NECK: Supple, no masses. CARDIOVASCULAR: S1, S2 heard. Rate and rhythm regular. CHEST: Had crackles. RESPIRATORY: Clear. ABDOMEN: Soft. MUSCULOSKELETAL: No tenderness. No edema. DERMATOLOGIC: No skin rash. NEUROLOGIC: Alert, awake. PSYCHIATRIC: Mood and affect normal. LABORATORY DATA: Hemoglobin is 13.1, potassium is 6.2, BUN is 69, creatinine is 7. ASSESSMENT: 1. End-stage renal disease. Dialysis today. 2. Fluid overload with acute hypoxic respiratory failure. Remove fluid with dialysis. 3. Hyperkalemia. Limit potassium in diet. 4. Edema. 5. Hypertension. 6. Anemia, mild. 7. Noncompliance. Counseled. PLAN: Plan is to have dialysis for hyperkalemia and fluid overload. We will follow. Thank you for the consult.
--- NOTE | 2017-08-04 21:28 | PDOC.EVN ---
Event Note - Event Note Event Note: Abnormal D-dimer. Dr Hay recommended to order CTA after confirming with Dr Anna.
[2017-08-04] MEDS ORDERED: traZODone HCl 50 MG TAB PO PRN (22:37)
[2017-08-04] MEDS ORDERED: cloNIDine 0.1 MG TAB PO SCH (22:45)
--- NOTE | 2017-08-04 23:20 | CT ---
CT PULMONARY ANGIOGRAM WITH IV CONTRAST AND 3D POSTPROCESSIN08/04/17 HISTORY: Shortness of breath, elevated D-dimer. FINDINGS: There is good contrast opacification of the pulmonary of the pulmonary artery vasculature without pj ling defects to suggest pulmonary embolism. There are vascular calcifications without evidence of ane urysmal dilatation of the thoracic aorta. No pericardial effusion is seen. There are moderate sized b ilateral pleural effusions, right larger than left. No pneumothoraces are seen. There are degenerativ e changes in the spine. There is evidence of old granulomatous disease. IMPRESSION: 1. No CT evidence of pulmonary embolism. 2. Bilateral pleural effusions. POS: [facility]
[2017-08-04] MEDS ORDERED: hydrALAZINE 25 MG TAB PO SCH (23:30)
[2017-08-04] MEDS ORDERED: Carvedilol 6.25 MG TAB PO SCH (23:30)
[2017-08-04] MEDS ORDERED: Sacubitril 24.5 MG/Valsartan 25.5 MG TABLET PO SCH (23:30)
[2017-08-05 05:03] LABS: #Eosinphils 0.2 thou/uL (0.0-0.7); #Lymphocytes 1.5 thou/uL (1.20-3.40); #Monocytes 0.5 thou/uL (0.11-0.59); #Neutrophils 2.4 thou/uL (1.40-6.50); %Basophils 0.9 % (0.0-1.0); %Eosinophils 5.2 % (0.0-10.0); %Lymphocytes 31.6 % (21.0-51.0); %Monocytes 10.3 % (0.0-10.0); %Neutrophils 52.1 % (42.0-75.0); Hemoglobin 11.7 g/dL (14.0-18.0); Mean Corpuscular HGB CONC 32.9 g/dL (32.0-36.0); Mean Corpuscular Hemoglobin 29.7 pg (27.0-31.0); Mean Corpuscular Volume 90.4 fl (80.0-94.0); Mean Platelet Volume 6.7 fL (7.4-10.4); Platelet Count 159 thou/uL (130-400); Red Blood Cell (RBC) Count 3.92 mill/uL (4.70-6.10); White Blood Cell (WBC) Count 4.6 thou/uL (4.8-10.8)
[2017-08-05 05:20] LABS: Anion Gap 17 mmol/L (10-20); BUN (Urea Nitrogen) 42 mg/dL (8.4-25.7); Calc. Creatinine Clearance 10 mL/min (70-130); Calcium 8.9 mg/dL (7.8-10.44); Carbon Dioxide 27 mmol/L (23-31); Chloride 97 mmol/L (98-107); Estimated GFR-MDRD 8; Glucose 124 mg/dL (80-115); Potassium 4.3 mmol/L (3.5-5.1); Sodium 137 mmol/L (136-145)
[2017-08-05] MEDS: Sacubitril 24.5 MG/Valsartan 25.5 MG TABLET PO SCH ×2 (09:02→20:16)
[2017-08-05] MEDS: Heparin 5,000 UNITS/ML VIAL SC SCH ×3 (09:02→20:16)
[2017-08-05] MEDS: Carvedilol 6.25 MG TAB PO SCH ×2 (09:03→20:16)
[2017-08-05] MEDS: hydrALAZINE 25 MG TAB PO SCH ×3 (09:03→20:15)
[2017-08-05] MEDS: cloNIDine 0.1 MG TAB PO SCH ×2 (09:03→20:16)
--- NOTE | 2017-08-05 11:26 | PRG ---
DATE OF SERVICE: 08/05/2017 SUBJECTIVE: Patient was seen and examined at bedside and overnight events noted. Patient denies any shortness of breath or chest pain or palpitation. No history of nausea or vomiting or diarrhea or f ever or chills or cramps. OBJECTIVE: GENERAL: This is a well-built male in no apparent distress. VITAL SIGNS: Temperature 97.1, pulse 81, respirations 16, blood pressure 138/72. HEENT: Atraumatic, normocephalic. Oral mucosa is moist. NECK: Supple. CARDIOVASCULAR: S1, S2 heard. Rate and rhythm regular. RESPIRATORY: Clear to auscultation. GASTROINTESTINAL: Abdomen is soft. MUSCULOSKELETAL: No tenderness. No edema. DERMATOLOGIC: No skin rash. NEUROLOGIC: Alert and awake and oriented x3. No focal neurologic deficits. Moving all the extremiti es. PSYCHIATRIC: Mood and affect normal. LABORATORY DATA: Potassium is 4.3, BUN is 42, and creatinine is 7.1. ASSESSMENT AND PLAN: 1. End-stage renal disease. We will have dialysis today and continue dialysis Monday, Monday, an d Monday. Plan is to have 2 hours of dialysis for fluid overload, much better. 2. Hyperkalemia, better. 3. Edema, we will remove fluid 4. Hypertension, stable. Plan is to have dialysis for 2 hours with fluid removal if tolerated.
--- NOTE | 2017-08-05 12:16 | DIS ---
DATE OF ADMISSION: 08/04/2017 DATE OF DISCHARGE: 08/05/2017 PRIMARY CARE PROVIDER: Alexei Mello M.D. DISCHARGE DIAGNOSIS: Volume overload. CONDITION OF PATIENT ON THE DAY: Stable. I assessed Mr. Ramirez on the day of discharge. He denies any chest pain or shortness of breath. PHYSICAL EXAMINATION: VITAL SIGNS: Stable. CARDIOVASCULAR: S1 and S2 are heard, regular. LUNGS: Clear to auscultation bilaterally. DISCHARGE MEDICATIONS: No change was made to his preadmission home medications. CONSULTATIONS DURING THIS HOSPITALIZATION: Nephrology, Dr. Jeana Anna. HOSPITAL COURSE: Mr. Ramirez is a pleasant 67-year-old gentleman who was admitted to [facility] for shortness of breath secondary to volume overload. He was seen by Nephrology Se vann and underwent dialysis on 08/04/2017. He was also found to have an elevated D-dimer. He had a CT angiogram of the chest, which did not reveal any evidence of pulmonary embolism. He is being rao lyzed on 08/05/2017, prior to discharge. Many thanks for allowing me to participate in your patient's care. Please feel free to contact me wi th any questions or concerns. On the day of discharge, he has a white count of 4600, hemoglobin 11.7, platelet count 159,000, carol l sodium, normal potassium and creatinine 7.20 prior to dialysis. DISCHARGE DESTINATION: Home.
[2017-08-05 14:04] LABS: HBSAB Concentration 6.26 mIU/mL; HBSAg Index 0.22 S/CO (0-0.99); Hep B Surf AB Non-Reactive (NonReactive); Hep B Surf Ag Non-Reactive S/CO (NonReactive)
--- NOTE | 2017-08-05 14:36 | PDOC.PN ---
- Subjective Encounter Start Date: 08/05/17 Encounter Start Time: 07:30 Pt seen for followup re: volume overload. Denies chest pain, shortness of breath, fevers or chills. - Objective Resuscitation Status: Resuscitation Status FULL:Full Resuscitation MAR Reviewed: Yes Vital Signs & Weight: Vital Signs (12 hours) Temp Pulse Resp BP BP Pulse Ox 08/05/17 11:35 98.5 F 73 16 102/58 L 92 L 08/05/17 09:03 81 138/72 08/05/17 09:02 97.1 F L 81 16 08/05/17 08:08 97.1 F L 81 16 138/72 93 L 08/05/17 06:36 96 08/05/17 05:36 98.6 F 77 16 113/58 L 94 L Weight Weight 162 lb 8 oz I&O: 08/04/17 08/05/17 08/06/17 06:59 06:59 07:59 Intake Total 100 Output Total 3500 Balance -3400 Result Diagrams: 08/05/17 04:36 08/05/17 04:36 Additional Labs: Accuchecks 08/05/17 11:41 POC Glucose 212 H Phys Exam - Physical Examination Constitutional: NAD HEENT: moist MMs Neck: supple Respiratory: clear to auscultation bilateral Cardiovascular: RRR, no rub Gastrointestinal: soft, non-tender, no distention, positive bowel sounds Musculoskeletal: pulses present Neurological: moves all 4 limbs Psychiatric: normal affect, A&O x 3 Skin: no rash Dx/Plan (1) Volume overload Code(s): E87.70 - FLUID OVERLOAD, UNSPECIFIED Status: Acute (2) Anemia of renal disease Code(s): D63.1 - ANEMIA IN CHRONIC KIDNEY DISEASE Status: Chronic (3) Anxiety and depression Code(s): F41.8 - OTHER SPECIFIED ANXIETY DISORDERS Status: Chronic (4) Asthma Code(s): J45.909 - UNSPECIFIED ASTHMA, UNCOMPLICATED Status: Chronic (5) BPH (benign prostatic hyperplasia) Code(s): N40.0 - BENIGN PROSTATIC HYPERPLASIA WITHOUT LOWER URINRY TRACT SYMP Status: Chronic (6) CAD (coronary artery disease), [place] coronary artery Code(s): I25.10 - ATHSCL HEART DISEASE OF [place] CORONARY ARTERY W/O ANG PCTRS Status: Chronic Qualifiers: (7) Chronic combined systolic and diastolic CHF (congestive heart failure) Code(s): I50.42 - CHRONIC COMBINED SYSTOLIC AND DIASTOLIC HRT FAIL Status: Chronic (8) Diabetes type 2, controlled Code(s): E11.9 - TYPE 2 DIABETES MELLITUS WITHOUT COMPLICATIONS Status: Chronic (9) ESRD (end stage renal disease) on dialysis Code(s): N18.6 - END STAGE RENAL DISEASE; Z99.2 - DEPENDENCE ON RENAL DIALYSIS Status: Chronic (10) Hyperlipidemia Code(s): E78.5 - HYPERLIPIDEMIA, UNSPECIFIED Status: Chronic Qualifiers: (11) Hypertension Code(s): I10 - ESSENTIAL (PRIMARY) HYPERTENSION Status: Chronic Qualifiers: Hypertension type: essential hypertension (12) Hyperkalemia, diminished renal excretion Code(s): E87.5 - HYPERKALEMIA Status: Resolved - Plan * . No PE on CTA chest. Pt to have repeat dialysis today, then discharge home. Review of Systems - Review of Systems Respiratory: negative: Cough, Dry, Shortness of Breath, Hemoptysis, SOB with Excertion, Pleuritic Pain, Sputum, Wheezing Cardiovascular: negative: chest pain, palpitations, orthopnea, paroxysmal nocturnal dyspnea, edema, light headedness - Medications/Allergies Allergies/Adverse Reactions: Allergies Allergy/AdvReac Type Severity Reaction Status Date / Time No Known Drug Allergies Allergy Verified 05/30/17 03:42 Medications: Current Medications Acetaminophen (Tylenol) 650 mg PO Q4H PRN PRN Reason: Headache/Fever or Pain Acetaminophen (Tylenol) 650 mg [place] Q4H PRN PRN Reason: Headache/Fever or Pain Albuterol/Ipratropium (Duoneb) 3 ml NEB Q6H PRN PRN Reason: SOB &/or Wheezing Last Admin: 08/04/17 18:59 Dose: 3 ml Bisacodyl (Dulcolax) 10 mg PO DAILYPRN PRN PRN Reason: Constipation Carvedilol (Coreg) 12.5 mg PO BID [facility] Last Admin: 08/05/17 09:03 Dose: 12.5 mg Clonidine (Catapres) 0.1 mg PO BID [facility] Last Admin: 08/05/17 09:03 Dose: 0.1 mg Heparin Sodium (Porcine) (Heparin) 5,000 units SC TID [facility] Last Admin: 08/05/17 09:02 Dose: 5,000 units Hydralazine HCl (Apresoline) 50 mg PO TID [facility] Last Admin: 08/05/17 09:03 Dose: 50 mg Sacubitril/Valsartan (Entresto 24.5 Mg-25.5 Mg Tablet) 1 tab PO BID [facility] Last Admin: 08/05/17 09:02 Dose: 1 tab Trazodone HCl (Desyrel) 200 mg PO HSPRN PRN PRN Reason: Insomnia Last Admin: 08/04/17 22:48 Dose: 200 mg
[2017-08-06 04:49] LABS: #Eosinphils 0.5 thou/uL (0.0-0.7); #Lymphocytes 1.4 thou/uL (1.20-3.40); #Monocytes 0.5 thou/uL (0.11-0.59); #Neutrophils 1.9 thou/uL (1.40-6.50); %Basophils 0.5 % (0.0-1.0); %Eosinophils 10.7 % (0.0-10.0); %Lymphocytes 32.6 % (21.0-51.0); %Monocytes 11.7 % (0.0-10.0); %Neutrophils 44.4 % (42.0-75.0); Hemoglobin 11.4 g/dL (14.0-18.0); Mean Corpuscular HGB CONC 31.9 g/dL (32.0-36.0); Mean Corpuscular Hemoglobin 29.7 pg (27.0-31.0); Mean Corpuscular Volume 93.1 fl (80.0-94.0); Mean Platelet Volume 7.4 fL (7.4-10.4); Platelet Count 163 thou/uL (130-400); Red Blood Cell (RBC) Count 3.84 mill/uL (4.70-6.10); White Blood Cell (WBC) Count 4.3 thou/uL (4.8-10.8)
[2017-08-06 04:58] LABS: Anion Gap 14 mmol/L (10-20); BUN (Urea Nitrogen) 33 mg/dL (8.4-25.7); Calc. Creatinine Clearance 12 mL/min (70-130); Calcium 8.6 mg/dL (7.8-10.44); Carbon Dioxide 28 mmol/L (23-31); Chloride 98 mmol/L (98-107); Estimated GFR-MDRD 9; Glucose 159 mg/dL (80-115); Potassium 4.4 mmol/L (3.5-5.1); Sodium 136 mmol/L (136-145)
[2017-08-06 08:16] VITALS: BP 134/67; TEMP 98.4
[2017-08-06] MEDS: Sacubitril 24.5 MG/Valsartan 25.5 MG TABLET PO SCH (08:44)
[2017-08-06] MEDS: hydrALAZINE 25 MG TAB PO SCH (08:44)
[2017-08-06] MEDS: Carvedilol 6.25 MG TAB PO SCH (08:44)
[2017-08-06] MEDS: cloNIDine 0.1 MG TAB PO SCH (08:45)
[2017-08-06] MEDS: Heparin 5,000 UNITS/ML VIAL SC SCH (08:46)
--- NOTE | 2017-08-06 21:30 | ADD-DIS ---
DATE OF ADMISSION: 08/04/2017 DATE OF DISCHARGE: 08/06/2017 PRIMARY CARE PROVIDER: Dr. Alexei Mello. DISCHARGE DIAGNOSIS: Volume overload. HOSPITAL COURSE: The patient was admitted on 08/04/2017 due to volume overload. The patient was see n and assessed by Nephrology on 08/04/2017, at which time he underwent dialysis. Patient was also di alyzed on 08/05/2017 and was officially discharged yesterday 08/05/2017. Patient is homeless and did not have a ride and thus stayed with us one more night. Condition of the patient on day of discharge is stable. The patient denies any chest pain or shortne ss of breath. His is at the bedside, and she and he both report that he is at baseline. He italo l be discharged home. Please see discharge summary report from 08/05/2017 for further details.
== END 2017-08-06 10:27 | disposition home or self-care (01) ==
LOC: ERS 08:22 → 2SW 10:10
PROVIDERS: ADMIT Internal Medicine; ATTEND Internal Medicine
DX: E87.70 Fluid overload, unspecified (principal); I13.2 Hypertensive heart and chronic kidney disease with heart failure and with stage 5 chronic kidney disease, or end stage renal disease; N18.6 End stage renal disease; I50.42 Chronic combined systolic (congestive) and diastolic (congestive) heart failure; E78.5 Hyperlipidemia, unspecified; F32.9 Major depressive disorder, single episode, unspecified; G47.00 Insomnia, unspecified; I73.9 Peripheral vascular disease, unspecified; I25.10 Atherosclerotic heart disease of native coronary artery without angina pectoris; J96.01 Acute respiratory failure with hypoxia; E87.5 Hyperkalemia; D63.1 Anemia in chronic kidney disease; N40.0 Benign prostatic hyperplasia without lower urinary tract symptoms; Z59.0 Homelessness; Z91.19 Patient's noncompliance with other medical treatment and regimen; Z99.2 Dependence on renal dialysis; Z79.82 Long term (current) use of aspirin; Z79.84 Long term (current) use of oral hypoglycemic drugs; Z79.899 Other long term (current) drug therapy; Z86.73 Personal history of transient ischemic attack (TIA), and cerebral infarction without residual deficits
CPT/HCPCS: 36415; 36416; 71045; 71275; 80048; 80053; 82553; 83605; 84484; 85025; 85379; 86706; 87040; 87340; 90935; 93005; 94640; G0257; G0378; J1644; J7620

== ENCOUNTER 2017-08-09 12:44 | Inpatient (IN) | payer MEDICARE ==
[2017-08-09 13:46] LABS: #Eosinphils 0.2 thou/uL (0.0-0.7); #Lymphocytes 0.9 thou/uL (1.20-3.40); #Monocytes 0.3 thou/uL (0.11-0.59); #Neutrophils 3.8 thou/uL (1.40-6.50); %Basophils 0.8 % (0.0-1.0); %Eosinophils 3.6 % (0.0-10.0); %Lymphocytes 17.1 % (21.0-51.0); %Monocytes 5.6 % (0.0-10.0); %Neutrophils 72.9 % (42.0-75.0); Hemoglobin 11.9 g/dL (14.0-18.0); Mean Corpuscular HGB CONC 31.9 g/dL (32.0-36.0); Mean Corpuscular Hemoglobin 29.5 pg (27.0-31.0); Mean Corpuscular Volume 92.4 fl (80.0-94.0); Platelet Count 193 thou/uL (130-400); Red Blood Cell (RBC) Count 4.05 mill/uL (4.70-6.10); White Blood Cell (WBC) Count 5.2 thou/uL (4.8-10.8)
[2017-08-09 14:06] LABS: ALT (SGPT) 7 U/L (8-55); AST (SGOT) 12 U/L (5-34); Albumin 3.9 g/dL (3.4-4.8); Alkaline Phosphatase 91 U/L (40-150); Anion Gap 22 mmol/L (10-20); BUN (Urea Nitrogen) 66 mg/dL (8.4-25.7); Bilirubin, Total 0.8 mg/dL (0.2-1.2); CK (CPK) 113 U/L (30-200); Calc. Creatinine Clearance 0 mL/min (70-130); Calcium 8.9 mg/dL (7.8-10.44); Carbon Dioxide 17 mmol/L (23-31); Chloride 101 mmol/L (98-107); Estimated GFR-MDRD 5; Globulin 2.9 g/dL (2.4-3.5); Glucose 250 mg/dL (80-115); Potassium 5.2 mmol/L (3.5-5.1); Protein, Total 6.8 g/dL (5.8-8.1); Sodium 135 mmol/L (136-145)
[2017-08-09 14:10] LABS: CKMB 4.2 ng/mL (0-6.6); Troponin I 0.175 ng/mL (< 0.028)
[2017-08-09] MEDS ORDERED: Nitroglycerin 2% Ointment 1 INCH/1 GM Packet ONE (15:55)
[2017-08-09] MEDS ORDERED: Morphine 2 MG/ML SYRINGE ONE (16:09)
--- NOTE | 2017-08-09 16:14 | CT ---
CT BRAIN: 08/09/17 HISTORY: Altered mental status. Generalized weakness. Dizziness and confusion. Noncontrast enhanced CT images of the brain is obtained from the base of the skull through the vertex . Brain and bone windows obtained. CT images demonstrate diffuse cortical atrophy. No evidence of acute intracranial masses, hemorrhages , strokes or contusions seen. Ventricles are of normal size. IMPRESSION: 1. Cortical atrophy. 2. Old area of right caudate head lacunar infarction. No acute intracranial abnormality seen. N o significant interval change is seen since the previous exam from 10/05/16. POS: [facility]
[2017-08-09] MEDS ORDERED: Ondansetron HCl/PF 4 MG/2 ML Vial ONE (16:15)
[2017-08-09] MEDS ORDERED: PROVENTIL INHALER 6.7 G (200 INHALATIONS) INH PRN (16:17)
[2017-08-09] MEDS ORDERED: Acetaminophen 325 MG TAB PO PRN (16:18)
[2017-08-09] MEDS ORDERED: HumaLOG 300 UNITS/3 ML VIAL SC PRN (17:19)
[2017-08-09] MEDS ORDERED: Dextrose 50% Abboject 50 ML SYRINGE SLOW IVP PRN (17:19)
[2017-08-09] MEDS ORDERED: Dextrose 5% in Water 1,000 ML IV PRN (17:19)
[2017-08-09 17:37] LABS: Troponin I 0.167 ng/mL (< 0.028)
[2017-08-09 17:54] LABS: Hemoglobin 11.2 g/dL (14.0-18.0); Platelet Count 170 thou/uL (130-400)
--- NOTE | 2017-08-09 18:14 | RAD ---
PORTABLE CHEST: 08/09/17 HISTORY: Chest pain. COMPARISON: 08/04/17. FINDINGS/IMPRESSION: Heart is mildly prominent but stable. Vascular congestion appears improved when compared to 08/04/17 ex am. There is evidence of small effusions and there is suggestion of left basilar atelectasis or infil trate. Mild vascular engorgement. POS: [facility]
[2017-08-09 18:28] VITALS: BMI 23.2
--- NOTE | 2017-08-09 18:57 | CON ---
DATE OF CONSULTATION: 08/09/2017 REASON FOR CONSULTATION: Hyperkalemia and missed dialysis. HISTORY OF PRESENT ILLNESS: This is a very noncompliant 67-year-old gentleman, who presented to the hospital with chest pain. The patient has missed dialysis. The patient states pain is constant in n ature. The patient has had a history of multiple episodes of chest pain and admission. The patient denies any nausea or vomiting, but has had dizziness on and off. PAST MEDICAL HISTORY: Significant for hypertension, ESRD, anemia, diabetes mellitus, noncompliance, massive fluid intakes, hypertension, peripheral vascular disease, hemodialysis surgery, and AV fistul a. HOME MEDICATIONS: List reviewed. HOSPITAL MEDICATIONS: Reviewed. ALLERGIES: Reviewed. FAMILY HISTORY: Negative for ESRD. REVIEW OF SYSTEMS: Fifteen-point review of systems was performed and negative except positives noted above. GENERAL: Weakness- HEAD: Headache- NECK: No swelling or lumps. NOSE: No epistaxis or discharge. EYES: No diplopia or pain. RESPIRATORY: Dyspnea- CARDIOVASCULAR: Chest pain- GASTROINTESTINAL: Nausea- /[employer]IDENTIAL [employer]ES REP: Hematuria- MUSCULOSKELETAL: No joint pain. NEUROPSYCHIATIC SYSTEMS: No suicidal ideation. No ideation. SKIN: Denies any rash or ulcer. CONSTITUTIONAL: No fever or chills. PHYSICAL EXAMINATION: GENERAL: Patient is awake and alert. VITAL SIGNS: Afebrile, pulse 75, breathing 16, and blood pressure 135/70. GENERAL APPEARANCE AND MENTAL STATUS: Fair. HEAD/NECK: Normocephalic. Atraumatic. EYES: EOMI. No deformity. EARS: Clear. No ulcers. NOSE: Intact. No lesions. MOUTH: Clear. No discharge. THROAT: Clear. No exudate. LUNGS: Clear. No crackles. CARDIAC: S1, S2. No rub. ABDOMEN: Benign. BS+. GENITALIA/RECTUM: Singer absent. BACK/EXTREMITIES: Edema 0+ Ulcer- NEUROLOGICAL: Alert and motor intact. SKIN: Rash- Bruise- LYMPHATICS: Edema-Ulcer- LABORATORY DATA: Potassium 5.2 and bicarbonate 17. ASSESSMENT AND RECOMMENDATIONS: 1. Stage 6 chronic disease. We will plan urgent hemodialysis 2. Metabolic acidosis, plan dialysis. 3. Anemia, stable. 4. Medication based on glomerular filtration rate are appropriate. 5. Chest pain management per primary team. 6. Prognosis extremely poor.
[2017-08-09 20:29] LABS: Troponin I 0.173 ng/mL (< 0.028)
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
[2017-08-09] MEDS: Carvedilol 6.25 MG TAB PO SCH (20:44)
[2017-08-09] MEDS: Lisinopril 5 MG TAB PO SCH (20:45)
[2017-08-09] MEDS: Docusate 100 MG CAP PO SCH (20:45)
[2017-08-09] MEDS: Heparin 25,000 units/D5W 500 ML IVPB SCH (20:47)
[2017-08-09] MEDS: Heparin 10,000 UNITS/ 10 ML VIAL SLOW IVP SCH (21:00)
[2017-08-09] MEDS ORDERED: hydrALAZINE 25 MG TAB PO SCH (21:00)
[2017-08-09] MEDS ORDERED: Heparin 5,000 UNITS/ML VIAL SC SCH (21:00)
[2017-08-09] MEDS ORDERED: cloNIDine 0.1 MG TAB PO SCH (21:00)
[2017-08-09] MEDS ORDERED: Insulin Detemir 100 UNITS/ML 10 UNITS in Pre-Filled Syringe 1 EACH SC SCH (21:45)
[2017-08-09] MEDS: traZODone HCl 50 MG TAB PO PRN (22:13)
[2017-08-10 03:22] LABS: #Basophils 0.1 thou/uL (0.0-0.2); #Eosinphils 0.4 thou/uL (0.0-0.7); #Lymphocytes 1.1 thou/uL (1.20-3.40); #Monocytes 0.2 thou/uL (0.11-0.59); #Neutrophils 2.2 thou/uL (1.40-6.50); %Basophils 1.5 % (0.0-1.0); %Eosinophils 10.6 % (0.0-10.0); %Lymphocytes 27.9 % (21.0-51.0); %Monocytes 5.8 % (0.0-10.0); %Neutrophils 54.2 % (42.0-75.0); Hemoglobin 11.3 g/dL (14.0-18.0); Mean Corpuscular HGB CONC 33.8 g/dL (32.0-36.0); Mean Corpuscular Hemoglobin 30.1 pg (27.0-31.0); Mean Corpuscular Volume 89.1 fl (80.0-94.0); Mean Platelet Volume 6.6 fL (7.4-10.4); Platelet Count 173 thou/uL (130-400); RBC Distribution Width 14.8 % (11.5-14.5); Red Blood Cell (RBC) Count 3.77 mill/uL (4.70-6.10); White Blood Cell (WBC) Count 4.1 thou/uL (4.8-10.8)
[2017-08-10 03:59] LABS: Anion Gap 13 mmol/L (10-20); BUN (Urea Nitrogen) 12 mg/dL (8.4-25.7); Calc. Creatinine Clearance 26 mL/min (70-130); Calcium 9.4 mg/dL (7.8-10.44); Carbon Dioxide 29 mmol/L (23-31); Chloride 103 mmol/L (98-107); Estimated GFR-MDRD 26; Glucose 123 mg/dL (80-115); Potassium 2.8 mmol/L (3.5-5.1); Sodium 142 mmol/L (136-145)
[2017-08-10] MEDS: Heparin 10,000 UNITS/ 10 ML VIAL SLOW IVP SCH ×3 (04:33→19:36)
[2017-08-10] MEDS ORDERED: Potassium Chloride 20 MEQ TAB PO SCH (05:00)
[2017-08-10] MEDS ORDERED: Dextrose 5% in Water 1,000 ML IV PRN (08:43)
[2017-08-10] MEDS ORDERED: Dextrose 50% Abboject 50 ML SYRINGE SLOW IVP PRN (08:43)
[2017-08-10] MEDS ORDERED: NPH, Human Insulin Isophane 300 UNIT/3 ML VIAL SC SCH (09:00)
[2017-08-10] MEDS: Folic Acid/Vit B Comp W-C PO SCH (09:59)
[2017-08-10] MEDS: Aspirin 325 MG TAB PO SCH (10:00)
[2017-08-10] MEDS: FLUoxetine HCl 20 MG CAP PO SCH (10:00)
[2017-08-10] MEDS: Docusate 100 MG CAP PO SCH ×2 (10:01→22:21)
[2017-08-10] MEDS: Carvedilol 6.25 MG TAB PO SCH ×2 (10:01→22:20)
[2017-08-10] MEDS: Ferrous Sulfate 325 MG TAB PO SCH (10:01)
[2017-08-10] MEDS: Lisinopril 5 MG TAB PO SCH ×2 (10:02→22:20)
[2017-08-10] MEDS: Famotidine 20 MG TAB PO SCH (10:02)
[2017-08-10] MEDS: Atorvastatin Calcium 20 MG TAB PO SCH (10:02)
[2017-08-10] MEDS: Tamsulosin HCl 0.4 MG CAP PO SCH (10:02)
--- NOTE | 2017-08-10 10:03 | PRG ---
DATE OF SERVICE: 08/10/2017 SUBJECTIVE: This is a 67-year-old gentleman being seen for end-stage renal disease. The patient den ies any nausea, vomiting or chest pain. PHYSICAL EXAMINATION: GENERAL: The patient is awake, alert. VITAL SIGNS: Afebrile, pulse 82, breathing 16, blood pressure 151/74. OBJECTIVE: See above. Awake, alert, in no acute distress. GENERAL APPEARANCE AND MENTAL STATUS: Fair. HEAD/NECK: Normocephalic. Atraumatic. EYES: EOMI. No deformity. EARS: Clear. No ulcers. NOSE: Intact. No lesions. MOUTH: Clear. No discharge. THROAT: Clear. No exudate. LUNGS: Clear. No crackles. CARDIAC: S1, S2. No rub. ABDOMEN: Benign. BS+. GENITALIA/RECTUM: Singer absent. BACK/EXTREMITIES: Edema 0+ Ulcer- NEUROLOGICAL: Alert and motor intact. SKIN: Rash- Bruise- LYMPHATICS: Edema- Ulcer- LABORATORY: Hemoglobin 11.3, potassium 2.8. ASSESSMENT AND RECOMMENDATIONS: 1. Stage 6 chronic kidney disease. No indication for dialysis. 2. Hypokalemia. Recheck potassium. The patient has gotten supplement. 3. Anemia, stable. 4. Medication based on glomerular filtration rate are appropriate.
[2017-08-10 10:37] LABS: Anion Gap 14 mmol/L (10-20); BUN (Urea Nitrogen) 22 mg/dL (8.4-25.7); Calc. Creatinine Clearance 12 mL/min (70-130); Calcium 8.6 mg/dL (7.8-10.44); Carbon Dioxide 25 mmol/L (23-31); Chloride 102 mmol/L (98-107); Estimated GFR-MDRD 11; Glucose 258 mg/dL (80-115); Potassium 4.7 mmol/L (3.5-5.1); Sodium 136 mmol/L (136-145)
[2017-08-10] MEDS: Insulin Detemir 100 UNITS/ML 10 UNITS in Pre-Filled Syringe 1 EACH SC SCH ×2 (11:20→22:23)
[2017-08-10] MEDS: HumaLOG 300 UNITS/3 ML VIAL SC PRN ×3 (11:33→22:24)
[2017-08-10 14:01] LABS: Anion Gap 15 mmol/L (10-20); BUN (Urea Nitrogen) 26 mg/dL (8.4-25.7); Calc. Creatinine Clearance 11 mL/min (70-130); Calcium 8.4 mg/dL (7.8-10.44); Carbon Dioxide 26 mmol/L (23-31); Chloride 103 mmol/L (98-107); Estimated GFR-MDRD 10; Glucose 155 mg/dL (80-115); Potassium 4.8 mmol/L (3.5-5.1); Sodium 139 mmol/L (136-145)
[2017-08-10] MEDS ORDERED: Insulin Detemir 100 UNITS/ML 10 UNITS in Pre-Filled Syringe 1 EACH SC SCH (21:00)
--- NOTE | 2017-08-10 22:00 | CON ---
DATE OF CONSULTATION: 08/10/2017 HISTORY OF PRESENT ILLNESS: The patient is an unfortunate 67-year-old gentleman with a history of diffuse coronary artery disease who presented with weakness and chest discomfort. The patient has a long history of coronary artery disease. In 2014, he underwent a cardiac catheterization and found to have severe coronary artery disease. He had diffuse disease in the LAD, ramus, circumflex, and right coronary artery. No lesions were felt amenable to coronary revascularization. The patient also had a severe decrease in left ventricular systolic function. He was most recently hospitalized with congestive heart failure,and had placement of a LifeVest. The patient presented to the hospital feeling extremely weak. He also reported continued substernal chest discomfort. He denies having any present discomfort. PAST MEDICAL HISTORY: 1. CHF. 2. Coronary artery disease. 3. Diabetes mellitus. 4. Hypertension. 5. End-stage renal disease. 6. Dyslipidemia. 7. History of a CVA. SOCIAL HISTORY: Nonsmoker. PAST SURGICAL HISTORY: He has had an AV fistula. MEDICATIONS ON ADMISSION: See nursing list. FAMILY HISTORY: No strong family history of heart disease. PHYSICAL EXAMINATION: GENERAL: Thin gentleman in no acute distress. VITAL SIGNS: Blood pressure of 141/69. NECK: No jugular distention, no carotid bruits. LUNGS: Clear to auscultation. HEART: Regular rate and rhythm, normal S1, S2, no murmurs. ABDOMEN: Nondistended. EXTREMITIES: Showed AV fistula. SKIN: Warm, dry. NEUROLOGIC: Nonfocal. LABORATORY RESULTS: Sodium is 139, potassium 4.8, chloride 103, bicarbonate 26 , BUN 26, creatinine 5.7, troponin was 0.173. His BNP was greater than 25,000. EKG revealed normal sinus rhythm, left ventricular hypertrophy, ST-T wave abnormality suggestive of ischemia. IMPRESSION: 1. Stable angina. 2. Inoperable coronary artery disease. 3. Cardiomyopathy. 4. End-stage renal disease. 5. Diabetes mellitus. 6. Hypertension. 7. History of cerebrovascular accident. This gentleman presents with weakness. From a cardiac standpoint, he is not in overt failure. He is on very appropriate cardiac medications. We will follow this patient with you through his hospitalization. We will add Kentrell. ARABELLA
[2017-08-10] MEDS: traZODone HCl 50 MG TAB PO PRN (22:29)
[2017-08-10] MEDS: Heparin 25,000 units/D5W 500 ML IVPB SCH (22:58)
--- NOTE | 2017-08-11 10:37 | PRG ---
DATE OF SERVICE: 08/11/2017 SUBJECTIVE: This is a 67-year-old gentleman being seen for end-stage renal disease. The patient den ies any nausea, vomiting or chest pain. PHYSICAL EXAMINATION: GENERAL: Patient is awake, alert. VITAL SIGNS: Afebrile, pulse 71, breathing 16, blood pressure 137/78. OBJECTIVE: See above. Awake, alert, in no acute distress. GENERAL APPEARANCE AND MENTAL STATUS: Fair. HEAD/NECK: Normocephalic. Atraumatic. EYES: EOMI. No deformity. EARS: Clear. No ulcers. NOSE: Intact. No lesions. MOUTH: Clear. No discharge. THROAT: Clear. No exudate. LUNGS: Clear. No crackles. CARDIAC: S1, S2. No rub. ABDOMEN: Benign. BS+. GENITALIA/RECTUM: Singer absent. BACK/EXTREMITIES: Edema 0+ Ulcer- NEUROLOGICAL: Alert and motor intact. SKIN: Rash- Bruise- LYMPHATICS: Edema- Ulcer- LABORATORY: Hemoglobin 9.3, potassium 4.8. ASSESSMENT AND RECOMMENDATIONS: 1. Stage 6 chronic kidney disease, continue hemodialysis. 2. Hypertension. 3. Anemia, stable. 4. Medications based on GFR are appropriate.
[2017-08-11] MEDS: Folic Acid/Vit B Comp W-C PO SCH (11:37)
[2017-08-11] MEDS: Docusate 100 MG CAP PO SCH ×2 (11:38→21:26)
[2017-08-11] MEDS: Famotidine 20 MG TAB PO SCH (11:38)
[2017-08-11] MEDS: FLUoxetine HCl 20 MG CAP PO SCH (11:38)
[2017-08-11] MEDS: Atorvastatin Calcium 20 MG TAB PO SCH (11:38)
[2017-08-11] MEDS: Carvedilol 6.25 MG TAB PO SCH ×2 (11:39→21:26)
[2017-08-11] MEDS: Ferrous Sulfate 325 MG TAB PO SCH (11:39)
[2017-08-11] MEDS: Tamsulosin HCl 0.4 MG CAP PO SCH (11:39)
[2017-08-11] MEDS: Lisinopril 5 MG TAB PO SCH ×2 (11:39→21:25)
[2017-08-11] MEDS: Aspirin 325 MG TAB PO SCH (11:39)
[2017-08-11] MEDS ORDERED: Lidocaine 5% Patch TD SCH (12:00)
[2017-08-11] MEDS: Insulin Detemir 100 UNITS/ML 10 UNITS in Pre-Filled Syringe 1 EACH SC SCH ×2 (12:04→21:29)
[2017-08-11] MEDS: HumaLOG 300 UNITS/3 ML VIAL SC PRN ×3 (12:05→21:30)
[2017-08-11] MEDS ORDERED: Sodium Chloride 0.9% 500 ML IV SCH ×2 (15:15)
[2017-08-11 17:47] LABS: Hemoglobin 11.2 g/dL (14.0-18.0); Platelet Count 182 thou/uL (130-400)
--- NOTE | 2017-08-11 18:04 | PDOC.PN ---
- Subjective Encounter Start Date: 08/11/17 Encounter Start Time: 11:00 Subjective: pt up in bed no complains - Objective Vital Signs & Weight: Vital Signs (12 hours) Temp Pulse Pulse Pulse Resp BP BP 08/11/17 16:00 97.0 F L 70 16 08/11/17 14:01 72 77 92/52 L 82/53 L 08/11/17 11:25 97.7 F 82 19 08/11/17 07:30 97.8 F 71 19 BP BP Pulse Ox 08/11/17 16:00 117/58 L 97 08/11/17 14:01 08/11/17 11:25 120/59 L 92 L 08/11/17 07:30 147/71 H 99 Weight Weight 5.273 oz I&O: 08/10/17 08/11/17 08/12/17 06:59 06:59 06:59 Intake Total 630 Output Total 2100 0 Balance -1470 0 Result Diagrams: 08/11/17 17:35 08/10/17 13:31 Additional Labs: Accuchecks 08/11/17 08/11/17 08/11/17 14:23 11:49 05:34 POC Glucose 235 H 218 H 188 H 08/10/17 20:54 POC Glucose 179 H Phys Exam - Physical Examination HEENT: PERRLA Neck: no nodes Respiratory: no wheezing, no rales Cardiovascular: RRR, no significant murmur Gastrointestinal: soft, non-tender Musculoskeletal: no edema, pulses present Neurological: non-focal Dx/Plan - Plan 1) chest pain 2) esrd on dialysis 3) systolic heart failure compensated 4) nstemi plan: pt still has some pain to his chest possible costochondritis? pt on imdur. s/p dialysis today ( pt was found to have low bp was given one liter of ns with improvement) 3) stable continue meds 4) cardiology discontinued pt's heparin drip. * . Review of Systems - Review of Systems ENT: negative: Ear Pain, Ear Discharge, Nose Pain, Nose Discharge, Nose Congestion, Mouth Pain, Mouth Swelling, Throat Pain, Throat Swelling, Other Respiratory: negative: Cough, Dry, Shortness of Breath, Hemoptysis, SOB with Excertion, Pleuritic Pain, Sputum, Wheezing Cardiovascular: chest pain Gastrointestinal: negative: Nausea, Vomiting, Abdominal Pain, Diarrhea, Constipation, Melena, Hematochezia, Other - Medications/Allergies Allergies/Adverse Reactions: Allergies Allergy/AdvReac Type Severity Reaction Status Date / Time No Known Drug Allergies Allergy Verified 08/09/17 21:52 Medications: Current Medications Acetaminophen (Tylenol) 650 mg PO Q4H PRN PRN Reason: Headache/Fever or Pain Albuterol Sulfate (Proventil Hfa) 2 puff INH Q4H PRN PRN Reason: SOB &/or Wheezing Aspirin (Aspirin) 325 mg PO DAILY [facility] Last Admin: 08/11/17 11:39 Dose: 325 mg Atorvastatin Calcium (Lipitor) 20 mg PO DAILY [facility] Last Admin: 08/11/17 11:38 Dose: 20 mg Carvedilol (Coreg) 12.5 mg PO BID [facility] Last Admin: 08/11/17 11:39 Dose: 12.5 mg Dextrose/Water (Dextrose 50%) 25 gm SLOW IVP PRN PRN PRN Reason: Hypoglycemia Docusate Sodium (Colace) 100 mg PO BID [facility] Last Admin: 08/11/17 11:38 Dose: 100 mg Famotidine (Pepcid) 20 mg PO DAILY [facility] Last Admin: 08/11/17 11:38 Dose: 20 mg Ferrous Sulfate (Feosol) 325 mg PO DAILY [facility] Last Admin: 08/11/17 11:39 Dose: 325 mg Fluoxetine HCl (Prozac) 40 mg PO DAILY [facility] Last Admin: 08/11/17 11:38 Dose: 40 mg Glucagon (Glucagon) 1 mg IM PRN PRN PRN Reason: Hypoglycemia Heparin Sodium (Porcine) (Heparin 1,000 Units/Ml (10 Ml)) 0 units SLOW IVP ASDIR [facility] PRN Reason: Protocol Last Admin: 08/10/17 19:36 Dose: 2,018.1 unit Heparin Sodium (Porcine) (Heparin) 5,000 units SC 0600,1800 [facility] Dextrose/Water (D5w) 1,000 mls @ 0 mls/hr IV .Q0M PRN; As Directed PRN Reason: Hypoglycemia Insulin Detemir 10 units/ (Miscellaneous Medication) 0.1 mls @ 0 mls/hr SC BID [facility] Last Admin: 08/11/17 12:04 Dose: 0.1 mls Insulin Human Lispro (Humalog) 0 units SC .MODERATE SLIDING SC PRN PRN Reason: Moderate Correctional Scale Last Admin: 08/11/17 12:05 Dose: 4 unit Isosorbide Mononitrate (Imdur Er) 30 mg PO DAILY [facility] Last Admin: 08/11/17 11:38 Dose: 30 mg Lidocaine (Lidoderm 5% Patch) 1 patch TD DAILY [facility] Lidocaine (Lidoderm 5% Patch) 1 patch TD 1200 [facility]I Stop: 08/11/17 21:00 Last Admin: 08/11/17 12:06 Dose: 1 patch Lisinopril (Zestril) 5 mg PO BID [facility] Last Admin: 08/11/17 11:39 Dose: 5 mg Miscellaneous Medication (Lidocaine Patch Removal) 1 each TOP HS [facility] Sodium Chloride (Flush - Normal Saline) 10 ml IVF Q12HR [facility] Last Admin: 08/11/17 12:06 Dose: 10 ml Sodium Chloride (Flush - Normal Saline) 10 ml IVF PRN PRN PRN Reason: Saline Flush Tamsulosin HCl (Flomax) 0.4 mg PO DAILY [facility] Last Admin: 08/11/17 11:39 Dose: 0.4 mg Trazodone HCl (Desyrel) 200 mg PO HS PRN PRN Reason: Insomnia Last Admin: 08/10/17 22:29 Dose: 200 mg Vitamin B Complex/Vit C/Folic Acid (Nephro-Rigo Tablet) 1 tab PO DAILY [facility] Last Admin: 08/11/17 11:37 Dose: 1 tab
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
[2017-08-11] MEDS: Heparin 5,000 UNITS/ML VIAL SC SCH (18:26)
[2017-08-11] MEDS: Lidocaine Patch Removal 1 EACH TOP SCH (21:26)
[2017-08-12] MEDS: Heparin 5,000 UNITS/ML VIAL SC SCH ×2 (05:58→17:30)
[2017-08-12] MEDS: FLUoxetine HCl 20 MG CAP PO SCH (07:54)
[2017-08-12] MEDS: Tamsulosin HCl 0.4 MG CAP PO SCH (07:54)
[2017-08-12] MEDS: Ferrous Sulfate 325 MG TAB PO SCH (07:55)
[2017-08-12] MEDS: Docusate 100 MG CAP PO SCH ×2 (07:55→21:25)
[2017-08-12] MEDS: Atorvastatin Calcium 20 MG TAB PO SCH (07:55)
[2017-08-12] MEDS: Folic Acid/Vit B Comp W-C PO SCH (07:55)
[2017-08-12] MEDS: Carvedilol 6.25 MG TAB PO SCH ×2 (07:55→21:25)
[2017-08-12] MEDS: Aspirin 325 MG TAB PO SCH (07:55)
[2017-08-12] MEDS: Famotidine 20 MG TAB PO SCH (07:55)
[2017-08-12] MEDS: Lisinopril 5 MG TAB PO SCH ×2 (07:55→21:25)
[2017-08-12] MEDS: Insulin Detemir 100 UNITS/ML 10 UNITS in Pre-Filled Syringe 1 EACH SC SCH ×2 (07:56→21:25)
[2017-08-12] MEDS: Lidocaine 5% Patch TD SCH (07:56)
[2017-08-12 10:03] LABS: Anion Gap 16 mmol/L (10-20); BUN (Urea Nitrogen) 28 mg/dL (8.4-25.7); Calc. Creatinine Clearance 12 mL/min (70-130); Calcium 8.5 mg/dL (7.8-10.44); Carbon Dioxide 25 mmol/L (23-31); Chloride 100 mmol/L (98-107); Estimated GFR-MDRD 10; Glucose 245 mg/dL (80-115); Potassium 4.5 mmol/L (3.5-5.1); Sodium 136 mmol/L (136-145)
[2017-08-12] MEDS: HumaLOG 300 UNITS/3 ML VIAL SC PRN ×2 (11:41→17:29)
--- NOTE | 2017-08-12 12:31 | PRG ---
DATE OF SERVICE: 08/12/2017 SUBJECTIVE: This is a 67-year-old female gentleman being seen for end-stage renal disease. Patient denies any nausea, vomiting, chest pain. PHYSICAL EXAMINATION: GENERAL: Patient is awake, alert. VITAL SIGNS: Afebrile, pulse 75, breathing 16, blood pressure was 145/75. GENERAL APPEARANCE AND MENTAL STATUS: Fair. HEAD/NECK: Normocephalic. Atraumatic. EYES: EOMI. No deformity. EARS: Clear. No ulcers. NOSE: Intact. No lesions. MOUTH: Clear. No discharge. THROAT: Clear. No exudate. LUNGS: Clear. No crackles. CARDIAC: S1, S2. No rub. ABDOMEN: Benign. BS+. GENITALIA/RECTUM: Singer absent. BACK/EXTREMITIES: Edema 0+ Ulcer- NEUROLOGICAL: Alert and motor intact. SKIN: Rash- Bruise- LYMPHATICS: Edema- Ulcer- LABORATORY DATA: Hemoglobin 11.2. ASSESSMENT AND RECOMMENDATIONS: 1. Stage 6 chronic kidney disease. We will plan dialysis Monday. 2. Hypertension, stable. 3. Anemia, stable. 4. Medication based on glomerular filtration rate are appropriate.
--- NOTE | 2017-08-12 17:13 | DIS ---
DATE OF ADMISSION: 08/09/2017 DATE OF DISCHARGE: 08/12/2017 DISCHARGE DIAGNOSES: 1. Chest pain. 2. Possible non-ST elevation myocardial infarction. 3. Volume overload. 4. Acute on chronic compensated systolic heart failure. DISCHARGE SUMMARY: The patient is a 67-year-old male with diabetes, end-stage renal disease, and sys tolic heart failure, who presented to the hospital initially with complaints of chest pain and weakne ss. The patient was seen by Cardiology, initially was put on heparin for possible NSTEMI; however, C ardiology did not think so, at that time, heparin drip was discontinued. The patient underwent dialy sis per Nephrology. The patient did recover without any issues. Isosorbide was added to the patient 's medication list for better control of his chest pain. Patient will follow up with PCP, Cardiology , and Nephrology as outpatient. Patient encouraged not to miss his dialysis. DISCHARGE MEDICATIONS: The patient was on isosorbide 30 mg p.o. daily, trazodone 200 mg at bedtime p .r.n., clonidine 0.1 mg p.o. b.i.d., hydralazine 50 mg p.o. t.i.d., Tamsulosin 0.4 mg p.o. daily, NPH 10 units subcu daily, ferrous sulfate 325 mg p.o. daily, Nephro-Rigo 1 tab p.o. daily, Carvedilol 12 .5 mg p.o. daily, Prozac 40 mg p.o. daily, Pepcid 20 mg p.o. daily, aspirin 325 mg p.o. daily, Lipito r 20 mg p.o. daily, Entresto 1 p.o. b.i.d., tramadol 50 mg p.o. b.i.d., and Reglan 10 p.o. t.i.d. p.r .n. The patient will follow up outpatient with the consultants. PHYSICAL EXAMINATION: VITAL SIGNS: Temperature 98.3, 65, 18, and 155/72. GENERAL: Awake, alert, oriented x3, does not appear in distress. CV: S1 and S2 present. No murmurs, rubs, or gallops. LUNGS: Clear to auscultation. No rhonchi or wheezes noted. ABDOMEN: Soft, nontender. Bowel sounds are present x2. EXTREMITIES: No edema. The patient and patient's were instructed that patient needs to follow up with his dialysis and take medication as prescribed.
[2017-08-12] MEDS: Lidocaine Patch Removal 1 EACH TOP SCH (21:27)
[2017-08-13] MEDS: Heparin 5,000 UNITS/ML VIAL SC SCH (05:35)
[2017-08-13 07:51] VITALS: BP 185/92; TEMP 98.4
[2017-08-13] MEDS: Tamsulosin HCl 0.4 MG CAP PO SCH (08:36)
[2017-08-13] MEDS: Famotidine 20 MG TAB PO SCH (08:36)
[2017-08-13] MEDS: FLUoxetine HCl 20 MG CAP PO SCH (08:36)
[2017-08-13] MEDS: Carvedilol 6.25 MG TAB PO SCH (08:36)
[2017-08-13] MEDS: Ferrous Sulfate 325 MG TAB PO SCH (08:36)
[2017-08-13] MEDS: Lisinopril 5 MG TAB PO SCH (08:37)
[2017-08-13] MEDS: Docusate 100 MG CAP PO SCH (08:37)
[2017-08-13] MEDS: Folic Acid/Vit B Comp W-C PO SCH (08:37)
[2017-08-13] MEDS: Insulin Detemir 100 UNITS/ML 10 UNITS in Pre-Filled Syringe 1 EACH SC SCH (08:37)
[2017-08-13] MEDS: Atorvastatin Calcium 20 MG TAB PO SCH (08:37)
[2017-08-13] MEDS: Aspirin 325 MG TAB PO SCH (08:37)
[2017-08-13] MEDS: Lidocaine 5% Patch TD SCH (08:38)
--- NOTE | 2017-08-13 12:42 | PRG ---
DATE OF SERVICE: 08/13/2017 SUBJECTIVE: This is a 67-year-old gentleman being seen for end-stage renal disease. The patient den ies any nausea, vomiting or chest pain. PHYSICAL EXAMINATION: GENERAL: Patient is awake, alert. VITAL SIGNS: Afebrile, pulse 75, breathing 16, blood pressure is 146/73. HEAD/NECK: Normocephalic. Atraumatic. EYES: EOMI. No deformity. EARS: Clear. No ulcers. NOSE: Intact. No lesions. MOUTH: Clear. No discharge. THROAT: Clear. No exudate. LUNGS: Clear. No crackles. CARDIAC: S1, S2. No rub. ABDOMEN: Benign. BS+. GENITALIA/RECTUM: Singer absent. BACK/EXTREMITIES: Edema 0+ Ulcer. NEUROLOGICAL: Alert and motor intact. SKIN: Rash. Bruise. LYMPHATICS: Edema. Ulcer. LABORATORY DATA: Hemoglobin 11.2. ASSESSMENT AND RECOMMENDATIONS: 1. Stage 6 chronic kidney disease, plan hemodialysis on Monday. 2. Hypertension, stable. 3. Anemia, stable. Noncompliance was discussed with the patient.
--- NOTE | 2017-08-16 11:03 | PQF ---
HO WEAVER KARISHMA [id number] CLINICAL DOCUMENTATION CLARIFICATION FORM: POST DISCHARGE Addendum to original discharge summary date: 08/12/2017 HO WEAVER [id number] COLEEN FLORES DATE: 08/16/2017 ATTN: Dr. Flores Please exercise your independent, professional judgment in responding to the clarification form. Clinical indicators are provided on the bottom of this form for your review Please check appropriate box(s) to clarify if the following diagnosis has been ruled in or ruled out: Non-ST elevation myocardial infarction [ ] Non-ST elevation myocardial infarction was a Ruled in diagnosis [ ] Continue to treat [ ] Resolved [ ] Non-ST elevation myocardial infarction was a Ruled out diagnosis [x ] Cannot rule out diagnosis [ ] Other diagnosis (please specify) [ ] Unable to determine In addition, please specify: Present on Admission (POA): [ x ] Yes [ ] No [ ] Unable to determine For continuity of documentation, please document condition throughout progress notes and discharge summary. Thank You. CLINICAL INDICATORS - SIGNS / SYMPTOMS / LABS Per discharge summary discharge diagnoses: Possible non-ST elevation myocardial infarction. Per body of discharge summary: The patient was seen by cardiology, initially was put on Heparin for possible NSTEMI; however, cardiology did not think so. At that time, heparin drip was discontinued. RISK FACTORS (per cardiology consultation) Inoperable coronary artery disease. Congestive heart failure. TREATMENTS (per progress notes) Heparin drip. (This form is maintained as a part of the permanent medical record) 2014 [employer] All Rights Reserved Cee [email or web address] [phone] [email or web address]
== END 2017-08-13 09:01 | disposition home or self-care (01) | DRG 280 ==
LOC: ERS 12:44 → 2NO 18:00
PROVIDERS: ADMIT Internal Medicine; ATTEND Internal Medicine
PROC: 5A1D70Z Performance of Urinary Filtration, Intermittent, Less than 6 Hours Per Day (ICD-10-PCS; principal; 2017-08-09)
PROC: 5A1D70Z Performance of Urinary Filtration, Intermittent, Less than 6 Hours Per Day (ICD-10-PCS; 2017-08-11)
DX: I21.4 Non-ST elevation (NSTEMI) myocardial infarction (principal); I50.23 Acute on chronic systolic (congestive) heart failure; E87.2 Acidosis; I13.2 Hypertensive heart and chronic kidney disease with heart failure and with stage 5 chronic kidney disease, or end stage renal disease; E11.22 Type 2 diabetes mellitus with diabetic chronic kidney disease; N18.6 End stage renal disease; Z99.2 Dependence on renal dialysis; E78.5 Hyperlipidemia, unspecified; N40.0 Benign prostatic hyperplasia without lower urinary tract symptoms; F32.9 Major depressive disorder, single episode, unspecified; G47.00 Insomnia, unspecified; D64.9 Anemia, unspecified; I25.10 Atherosclerotic heart disease of native coronary artery without angina pectoris; E87.5 Hyperkalemia; E87.6 Hypokalemia; I25.5 Ischemic cardiomyopathy; Z86.73 Personal history of transient ischemic attack (TIA), and cerebral infarction without residual deficits; Z79.82 Long term (current) use of aspirin; Z79.4 Long term (current) use of insulin; Z79.899 Other long term (current) drug therapy
CPT/HCPCS: 36415; 36416; 70450; 71045; 71275; 80048; 80053; 82553; 83605; 83735; 83880; 84484; 85014; 85018; 85025; 85049; 85379; 85730; 86706; 87040; 87340; 90935; 93005; 93798; 94640; 94760; 96374; 96375; A4216; G0257; G0378; G8978-GP-CK; G8979-GP-CI; J1644; J1815; J2270; J2405; J7620

== ENCOUNTER 2017-09-04 14:49 | Emergency (ER) | payer MEDICARE, SELFPAY ==
[2017-09-04] MEDS ORDERED: traMADol HCl 50 MG TAB ONE (17:32)
[2017-09-04] MEDS ORDERED: Cyclobenzaprine 10 MG TAB ONE (17:33)
== END 2017-09-04 17:39 | disposition home or self-care (01) ==
LOC: ERS 14:49
DX: M54.5 Low back pain (principal); E78.5 Hyperlipidemia, unspecified; I25.10 Atherosclerotic heart disease of native coronary artery without angina pectoris; E11.9 Type 2 diabetes mellitus without complications; I10 Essential (primary) hypertension; J45.909 Unspecified asthma, uncomplicated; F32.9 Major depressive disorder, single episode, unspecified; Z79.899 Other long term (current) drug therapy; Z79.891 Long term (current) use of opiate analgesic; Z79.84 Long term (current) use of oral hypoglycemic drugs; Z99.2 Dependence on renal dialysis

== ENCOUNTER 2017-09-05 07:39 | Inpatient (IN) | payer MEDICARE ==
--- NOTE | 2017-09-05 08:22 | RAD ---
SINGLE VIEW OF THE CHEST: Comparison: 08-09-17 History: Shortness of breath that began last night. Patient is a dialysis patient and missed dialysis . Date: 09-05-17 FINDINGS: Single view of the chest shows a cardiomediastinal silhouette which is upper limits of normal in size . There is an opacity in the right lower lobe which may represent an infiltrate. Atelectasis is also a possibility. IMPRESSION: Right lower lobe infiltrate. POS: MARANDA
[2017-09-05 08:27] LABS: #Eosinphils 0.2 thou/uL (0.0-0.7); #Lymphocytes 0.7 thou/uL (1.20-3.40); #Monocytes 0.5 thou/uL (0.11-0.59); #Neutrophils 6.4 thou/uL (1.40-6.50); %Basophils 0.4 % (0.0-1.0); %Eosinophils 2.5 % (0.0-10.0); %Lymphocytes 8.8 % (21.0-51.0); %Monocytes 6.9 % (0.0-10.0); %Neutrophils 81.5 % (42.0-75.0); Hemoglobin 8.4 g/dL (14.0-18.0); Mean Corpuscular HGB CONC 32.7 g/dL (32.0-36.0); Mean Corpuscular Hemoglobin 28.9 pg (27.0-31.0); Mean Corpuscular Volume 88.4 fl (80.0-94.0); Mean Platelet Volume 6.2 fL (7.4-10.4); Platelet Count 170 thou/uL (130-400); RBC Distribution Width 15.6 % (11.5-14.5); Red Blood Cell (RBC) Count 2.89 mill/uL (4.70-6.10); White Blood Cell (WBC) Count 7.9 thou/uL (4.8-10.8)
[2017-09-05 08:35] LABS: CKMB 2.2 ng/mL (0-6.6); Troponin I 0.132 ng/mL (< 0.028)
[2017-09-05 08:37] LABS: ALT (SGPT) 12 U/L (8-55); AST (SGOT) 19 U/L (5-34); Albumin 4.3 g/dL (3.4-4.8); Alkaline Phosphatase 74 U/L (40-150); Anion Gap 25 mmol/L (10-20); BUN (Urea Nitrogen) 51 mg/dL (8.4-25.7); Bilirubin, Total 0.8 mg/dL (0.2-1.2); Calc. Creatinine Clearance 0 mL/min (70-130); Calcium 9.2 mg/dL (7.8-10.44); Carbon Dioxide 20 mmol/L (23-31); Chloride 96 mmol/L (98-107); Estimated GFR-MDRD 5; Globulin 3.4 g/dL (2.4-3.5); Glucose 177 mg/dL (80-115); Potassium 5.3 mmol/L (3.5-5.1); Protein, Total 7.7 g/dL (5.8-8.1); Sodium 136 mmol/L (136-145)
[2017-09-05] MEDS ORDERED: Lorazepam 2 MG/ML VIAL ONE (09:34)
--- NOTE | 2017-09-05 10:09 | CON ---
DATE OF CONSULTATION: 09/05/2017 NEPHROLOGY CONSULTATION REASON FOR CONSULTATION: Respiratory distress. HISTORY OF PRESENT ILLNESS: This is a very noncompliant 67-year-old gentleman with a history of end- stage renal disease who presented to the hospital with inability to breathe and severe dyspnea. The patient missed dialysis yesterday. The patient is also hyperkalemic. The patient denies no headache , numbness, tingling, weakness or chest pain. The patient can give no further history. PAST MEDICAL HISTORY: Significant for end-stage renal disease, diabetes mellitus, hypertension, nonc ompliance, anemia, history of missing dialysis more than 30%-40% of the time of fluid intake, periphe ral vascular disease, AV fistula. HOME MEDICATIONS: List reviewed. HOSPITAL MEDICATIONS: List reviewed. REVIEW OF SYSTEMS: Now unobtainable. PHYSICAL EXAMINATION: GENERAL: On examination, patient is in mild to moderate distress. VITAL SIGNS: Afebrile, pulse 75, breathing 16, blood pressure 155/70. HEAD/NECK: Normocephalic. Atraumatic. EYES: EOMI. No deformity. EARS: Clear. No ulcers. NOSE: Intact. No lesions. MOUTH: Clear. No discharge. THROAT: Clear. No exudate. LUNGS: Clear. No crackles. CARDIAC: S1, S2. No rub. ABDOMEN: Benign. BS+. GENITALIA/RECTUM: Singer absent. BACK/EXTREMITIES: Edema 0+ Ulcer- NEUROLOGICAL: Alert and motor intact. SKIN: Rash- Bruise- LYMPHATICS: Edema- Ulcer- LABORATORY DATA: Show potassium 5.3. ASSESSMENT AND RECOMMENDATIONS: 1. Stage 6 chronic kidney disease, plan urgent hemodialysis. The nurse was called. 2. Metabolic acidosis, plan dialysis. 3. Anemia, stable. 4. Hypertension, plan ultrafiltration. Overall, prognosis is very poor. Cardiopulmonary arrest can be a significant possibility. Above findings were discussed with the patient's Emergency Room Team and dialysis nurse was also called in person and orders were given.
[2017-09-05] MEDS ORDERED: Vancomycin HCl 1 GM in Premix Bag 1 BAG IVPB SCH (10:15)
[2017-09-05] MEDS ORDERED: Lorazepam 2 MG/ML VIAL SLOW IVP SCH (10:15)
[2017-09-05] MEDS ORDERED: Piperacillin/Tazobactam 4.5 GM in Sodium Chloride 0.9% 100 ML IVPB SCH (10:15)
[2017-09-05 11:26] LABS: Actual Bicarbonate (HCO3a) 22.7 mEq/L (22-26); Base Excess (BEa) -3.9 mEq/L (0 (+/-) 2.5); CO2 Tension 48.9 mmHg (35.0-45.0); Hemoglobin (Hb) 8.6 g/dL (14.0-18.0); O2 Tension (PaO2) 84.8 mmHg (80.0-100.0); pH, Arterial 7.28 (7.35-7.45)
[2017-09-05 11:27] LABS: ALV-art Gradient 139.275 (0-20); Analyzer IN Cardio ER; Calcium, Ionized 1.1 mmol/L (1.12-1.30); Puncture Site RBRACH
[2017-09-05] MEDS ORDERED: HumaLOG 300 UNITS/3 ML VIAL SC PRN (14:26)
[2017-09-05] MEDS ORDERED: Ondansetron ODT 4 MG TAB PO PRN (14:26)
[2017-09-05] MEDS ORDERED: hydrALAZINE 20 MG/ML VIAL SLOW IVP PRN (14:26)
[2017-09-05] MEDS ORDERED: Dextrose 50% Abboject 50 ML SYRINGE SLOW IVP PRN (14:26)
[2017-09-05] MEDS ORDERED: Ondansetron HCl/PF 4 MG/2 ML Vial IVP PRN (14:26)
[2017-09-05] MEDS ORDERED: Dextrose 5% in Water 1,000 ML IV PRN (14:26)
[2017-09-05] MEDS ORDERED: Acetaminophen 325 MG TAB PO PRN (14:26)
[2017-09-05] MEDS ORDERED: Amlodipine 10 MG TAB PO SCH (14:30)
[2017-09-05] MEDS ORDERED: Carvedilol 25 MG TAB PO SCH (14:30)
[2017-09-05] MEDS ORDERED: Albuterol Sulfate 2.5 mg/3 ml Neb NEB PRN (16:43)
[2017-09-05] MEDS: hydrALAZINE 25 MG TAB PO SCH ×2 (18:45→21:20)
[2017-09-05 19:36] VITALS: BMI 24.1
[2017-09-05] MEDS ORDERED: Famotidine 20 MG TAB PO SCH (21:00)
[2017-09-05] MEDS: Carvedilol 25 MG TAB PO SCH (21:24)
[2017-09-06 07:48] VITALS: BP 149/80; TEMP 99.3
[2017-09-06] MEDS ORDERED: Amlodipine 10 MG TAB PO SCH (09:00)
[2017-09-06] MEDS: Carvedilol 25 MG TAB PO SCH (09:17)
[2017-09-06] MEDS: hydrALAZINE 25 MG TAB PO SCH (09:17)
--- NOTE | 2017-09-06 12:33 | PRG ---
DATE OF SERVICE: 09/06/2017 SUBJECTIVE: This is a 67-year-old gentleman being seen for end-stage renal disease. The patient den ies any nausea, vomiting or chest pain. PHYSICAL EXAMINATION: GENERAL: Patient is awake, alert. VITAL SIGNS: Afebrile, pulse 75, breathing 16, blood pressure 159/80. GENERAL APPEARANCE AND MENTAL STATUS: Fair. HEAD/NECK: Normocephalic, atraumatic. EYES: EOMI. No deformity. EARS: Clear. No ulcers. NOSE: Intact. No lesions. MOUTH: Clear. No discharge. THROAT: Clear. No exudate. LUNGS: Clear. No crackles. CARDIAC: S1, S2. No rub. ABDOMEN: Benign. BS+. GENITALIA/RECTUM: Singer absent. BACK/EXTREMITIES: Edema 0+ Ulcer-. NEUROLOGICAL: Alert and motor intact. SKIN: Rash- Bruise- LYMPHATICS: Edema- Ulcer-. LABORATORY DATA: Show hemoglobin of 8.4. ASSESSMENT AND RECOMMENDATION: 1. Stage 6 chronic kidney disease, plan hemodialysis. 2. Hyperkalemia, plan dialysis. 3. Anemia, stable. 4. Medication based on glomerular filtration rate are appropriate. Noncompliance has been discussed with the patient and social services manager consultation has been ordered.
--- NOTE | 2017-09-06 16:22 | DIS ---
DATE OF ADMISSION: 09/05/2017 DATE OF DISCHARGE: 09/06/2017 DISCHARGE DIAGNOSES: 1. Fluid overload secondary to missed dialysis. 2. Acute on chronic combined systolic and diastolic congestive heart failure secondary to missed hem odialysis. 3. End-stage renal disease on hemodialysis. 4. Anxiety/depression. 5. Acute respiratory failure due to anxiety and fluid overload. Not hypoxic, not hypercapnic, and p resent on admission. 6. Coronary artery disease without acute angina. 7. Diabetes mellitus type 2, uncontrolled. 8. Hypertension, essential. 9. History of asthma. 10. History of cerebrovascular disease. 11. Benign prostatic hypertrophy. CONSULTATIONS: Dr. Anna. PROCEDURES: Hemodialysis on 09/05/2017. HISTORY AND PHYSICAL: Mr. Ramirez is a single gentleman placed in observation overnight from the [facility] department after being unable to be weaned on BiPAP secondary to anxiety and presenting initial ly for shortness of breath from missed dialysis. HOSPITAL COURSE: The patient seen and examined by me, dialysis was undertaken in the emergency depar tment with 4 liters removed, he still became very anxious when the BiPAP was removed, so he was watch ed overnight. Overnight he was weaned off BiPAP, this morning he was doing well on room air, ambulating around the room, satting 94% on room air. He was stable for discharge with outpatient follow up this afternoon for scheduled hemodialysis. DISCHARGE PHYSICAL EXAMINATION: The patient was seen and examined. Discharge plan and disposition was discussed with the patient face to face at the bedside. DISCHARGE MEDICATIONS: 1. Flomax 0.4 mg at bedtime. 2. Coreg 25 mg b.i.d. 3. Trazodone 100 mg p.o. p.r.n. insomnia. 4. Clonidine 0.1 mg p.o. b.i.d. 5. Amlodipine 10 mg daily. 6. Fluoxetine 40 mg p.o. daily. 7. Atorvastatin 40 mg at bedtime. 8. Methocarbamol 750 mg p.o. b.i.d. 9. Hydralazine 50 mg p.o. t.i.d. FOLLOWUP APPOINTMENTS: 1. Primary care physician in [place] within a week. 2. Dr. Anna with Nephrology in 1-2 weeks. He is following with outpatient hemodialysis this afte rnoon. DISCHARGE CONDITION: Stable. DISPOSITION: Discharged home via private vehicle. DISCHARGE DIET: Heart healthy, renal, diabetic diet recommended. DISCHARGE ACTIVITY: Per cardiopulmonary limits.
--- NOTE | 2017-09-06 17:47 | HP ---
DATE OF ADMISSION: 09/05/2017 PRIMARY CARE PHYSICIAN: [facility]. PRIMARY BASS GUITAR TEACHER: Dr. Ari Anna. CHIEF COMPLAINT: Shortness of breath. HISTORY OF PRESENT ILLNESS: Mr. Ramirez is a 67-year-old male with history of end-stag e renal disease on Monday, Monday, Monday hemodialysis, coronary artery disease, diabetes, hyperte nsion, asthma, cerebrovascular disease, and combined chronic systolic and diastolic congestive heart failure. PAST MEDICAL HISTORY: Notable for routine nonadherence to outpatient hemodialysis and he comes to [facility] emergency department to get admitted. The patient was in normal state of health, presented to the emergency department initially on 018 for complaints of back pain. He skipped dialysis to come. He was seen and evaluated by the emergency room team, and was treated and subsequently discharged. He returns back to the emergency department on 09/05/2017 with complaints of acute shortness of breat h, orthopnea, and tachypnea. He had acute onset around 0200 on the day of admission. Evaluation in the Emergency Department, his labs were fairly normal, he was satting at 94% on room ai r, but was breathing 32 times a minute, so he was placed on BiPAP. We were called for admission. HOSPITAL COURSE: The patient was seen and examined by me in the Emergency Department, time of servic e was around 1000 hours, the patient was placed in observation as he had no acute need for noninvasiv e positive pressure ventilation, but simply needed dialysis. There were no IMCU beds available initi [facility], and so dialysis was contacted and performed hemodialysis down in the emergency department with removal of just over 4 liters of fluid. The patient was able to be weaned off of BiPAP for short period of time, but became very anxious and had to be placed back on. He subsequently was placed on observation overnight. Overnight 09/05-09/06, the patient will require BiPAP intermittently. His oxygen saturations were 94 -100%, 94% on room air, 100% on BiPAP. In the morning, he was able to ambulate to and from the bathr oom without any oxygen, minimal dyspnea, and was markedly improved with air movement. I contacted his door liner helper, Dr. Anna and Dr. Morales who is covering for him, the patient was clear ed to be discharged and dialyze at his home dialysis unit this afternoon at 1300 hours and so at 0900 this morning was discharged with outpatient followup. PAST MEDICAL HISTORY: 1. End-stage renal disease on Monday, Monday, Monday hemodialysis. 2. Coronary artery disease. 3. Diabetes mellitus type 2. 4. Hypertension. 5. Asthma. 6. Cerebrovascular disease, status proceed CVA in March 2016. 7. Depression/anxiety. 8. Chronic combined systolic and diastolic congestive heart failure. PAST SURGICAL HISTORY: Left forearm fistula creation. HOME MEDICATIONS: 1. Flomax 0.4 mg p.o. daily. 2. Coreg 25 mg p.o. b.i.d. 3. Trazodone 100 mg p.o. p.r.n. insomnia. 4. Clonidine 0.1 mg p.o. b.i.d. 5. Amlodipine 10 mg p.o. daily. 6. Fluoxetine 40 mg daily. 7. Atorvastatin 40 mg p.o. at bedtime. 8. Methocarbamol 750 mg p.o. b.i.d. 9. Hydralazine 50 mg p.o. t.i.d. ALLERGIES: NKDA. FAMILY HISTORY: Negative for clotting or bleeding disorder. No immune dysfunction. SOCIAL HISTORY: The patient denies habits x3. He is nonadherent to his dialysis regimen as above. REVIEW OF SYSTEMS: A 10-point review of systems was performed and is negative for all systems except as per HPI. PHYSICAL EXAMINATION: VITAL SIGNS: Temperature 99.0, pulse 91, blood pressure 159/89, respiratory rate 32, satting 94% on room air. GENERAL: He is awake. He is alert. He is oriented x3. He is a well-developed, well-nourished L[place] male, appears to be anxious and in mild respiratory distress. He has currently got a BiPA P mask on. HEENT: Normocephalic, atraumatic. Pupils equal, round, reactive bilaterally. Mucous membranes are dry due to BiPAP. There are no visible lesions or thrush. NECK: Supple, without lymphadenopathy, JVD or thyromegaly. LUNGS: He has adequate air movement bilaterally. Bibasilar crackles present in posterior lung field s. They stop about fdc up. He has no wheezing. No prolonged expiratory phase. CARDIOVASCULAR: He is normal cardiac and regular. Normal S1 and S2. No S3 or S4. No audible murmu rs. ABDOMEN: Soft, nontender, nondistended. No masses or organomegaly. EXTREMITIES: No cyanosis, clubbing with 1+ edema. He has got a left upper extremity forearm fistula with a good palpable thrill and bruit. SKIN: Otherwise, warm and well perfused. No rashes or lesions. NEUROLOGIC: Cranial nerves II-XII are grossly intact. He has no focal neurologic deficits. Normal speech pattern, 5/5 strength. MUSCULOSKELETAL: Exam is normal to inspection. Large joints appear normal. There is no inflammatio n or palpable effusions. LABORATORY DATA: Sodium is 136, potassium 5.3, chloride 96, bicarbonate 25, BUN 51, creatinine 9.54, glucose 177, calcium 9.2. Liver functions completely within normal limits. CBC showed white count 7.9, hemoglobin 11.4 down from 11.3 back on 08/13/2017 and glucose at 25.5, platelet count 170,000. BNP was elevated at 10,123, which is actually improved from greater than 25,000 last month. CK-MB is normal at 2.2. Troponin I is elevated, but stable for him at 0.132. Chest x-ray showed a possible right lower lobe infiltrate or opacity consistent with fluid, atelectas is or early pneumonia. ASSESSMENT AND PLAN: 1. Volume overload secondary to missed dialysis from nonadherence. The patient is getting dialyzed here. If he is able to be weaned off the BiPAP, we will discharge him home. 2. Acute respiratory failure, the patient was very anxious off BiPAP. The oxygen level has never dr opped. ABG was not done, but he did not act like he was hypercapnic. 3. End-stage renal disease on hemodialysis. Dialysis today. 4. Hypertension. Continue home medications. 5. Hyperlipidemia. Continue home medications. 6. Diabetes mellitus type 2, continue home medications. 7. Anxiety/depression. The patient was given IV Ativan in the ER, it is improving. 8. Hyperlipidemia, on atorvastatin. 9. Benign prostatic hypertrophy on Flomax, we will continue. We will watch the patient in the emergency department and discharge when weaned off BiPAP.
--- NOTE | 2017-11-03 14:43 | EKG ---
Test Reason : CHESTPAIN Blood Pressure : / mmHG Vent. Rate : 095 BPM Atrial Rate : 095 BPM P-R Int : 192 ms QRS Dur : 096 ms QT Int : 408 ms P-R-T Axes : 080 -07 143 degrees QTc Int : 512 ms Normal sinus rhythm Left ventricular hypertrophy with repolarization abnormality Prolonged QT Abnormal ECG Confirmed by ALVARO BALDWIN, MISHA ([id number]), editor publications DENISE DOMINIQUE ([id number]) on 11/03/2017 2:42:43 PM Referred By: ALVARO Confirmed By:MISHA JOHN MD
--- NOTE | 2017-11-03 14:43 | EKG ---
Test Reason : Blood Pressure : / mmHG Vent. Rate : 098 BPM Atrial Rate : 098 BPM P-R Int : 196 ms QRS Dur : 092 ms QT Int : 392 ms P-R-T Axes : 085 -09 152 degrees QTc Int : 500 ms Normal sinus rhythm Prolonged QT Abnormal ECG Confirmed by ALVARO BALDWIN, MISHA ([id number]), clinical editor DENISE DOMINIQUE ([id number]) on 11/03/2017 2:42:50 PM Referred By: Confirmed By:MISHA JOHN MD
== END 2017-09-06 10:40 | disposition home or self-care (01) | DRG 291 ==
LOC: ERS 07:39 → ERHOLD 10:03 → IMCU/EMU 18:43
PROVIDERS: ADMIT Internal Medicine Infectious Disease; ATTEND Internal Medicine Infectious Disease
PROC: 5A1D70Z Performance of Urinary Filtration, Intermittent, Less than 6 Hours Per Day (ICD-10-PCS; principal; 2017-09-05)
DX: I13.2 Hypertensive heart and chronic kidney disease with heart failure and with stage 5 chronic kidney disease, or end stage renal disease (principal); J96.00 Acute respiratory failure, unspecified whether with hypoxia or hypercapnia; N18.6 End stage renal disease; I50.43 Acute on chronic combined systolic (congestive) and diastolic (congestive) heart failure; E87.70 Fluid overload, unspecified; E11.22 Type 2 diabetes mellitus with diabetic chronic kidney disease; E87.5 Hyperkalemia; Z99.2 Dependence on renal dialysis; Z79.4 Long term (current) use of insulin; I25.10 Atherosclerotic heart disease of native coronary artery without angina pectoris; Z91.15 Patient's noncompliance with renal dialysis; F32.9 Major depressive disorder, single episode, unspecified; F41.9 Anxiety disorder, unspecified; E78.5 Hyperlipidemia, unspecified; N40.0 Benign prostatic hyperplasia without lower urinary tract symptoms; D63.1 Anemia in chronic kidney disease
CPT/HCPCS: 36415; 36416; 71045; 80053; 82553; 82805; 83605; 83880; 84484; 85025; 87040; 90935; 93005; 94640; 94660; 96365; 96367; 96375; 99283; G0257; J2060; J2543; J3370; J7050

== ENCOUNTER 2017-09-11 00:20 | Emergency (ER) | payer MEDICARE, SELFPAY ==
[2017-09-11 01:10] LABS: #Eosinphils 0.4 thou/uL (0.0-0.7); #Monocytes 0.4 thou/uL (0.11-0.59); #Neutrophils 3.7 thou/uL (1.40-6.50); %Basophils 0.6 % (0.0-1.0); %Eosinophils 7.3 % (0.0-10.0); %Lymphocytes 18.1 % (21.0-51.0); %Monocytes 6.7 % (0.0-10.0); %Neutrophils 67.3 % (42.0-75.0); Mean Corpuscular HGB CONC 33.3 g/dL (32.0-36.0); Mean Corpuscular Hemoglobin 29.8 pg (27.0-31.0); Mean Corpuscular Volume 89.4 fl (80.0-94.0); Platelet Count 171 thou/uL (130-400); RBC Distribution Width 15.2 % (11.5-14.5); Red Blood Cell (RBC) Count 2.67 mill/uL (4.70-6.10); White Blood Cell (WBC) Count 5.5 thou/uL (4.8-10.8)
[2017-09-11] MEDS ORDERED: HYDROcodone/Acetaminophen 5/325 mg Tablet ONE (01:11)
[2017-09-11 01:25] LABS: ALT (SGPT) 9 U/L (8-55); AST (SGOT) 11 U/L (5-34); Alkaline Phosphatase 71 U/L (40-150); Anion Gap 16 mmol/L (10-20); BUN (Urea Nitrogen) 42 mg/dL (8.4-25.7); Bilirubin, Total 0.6 mg/dL (0.2-1.2); Calc. Creatinine Clearance 0 mL/min (70-130); Calcium 9.2 mg/dL (7.8-10.44); Carbon Dioxide 30 mmol/L (23-31); Chloride 96 mmol/L (98-107); Estimated GFR-MDRD 6; Globulin 2.6 g/dL (2.4-3.5); Glucose 158 mg/dL (80-115); Potassium 4.4 mmol/L (3.5-5.1); Protein, Total 6.6 g/dL (5.8-8.1); Sodium 138 mmol/L (136-145)
[2017-09-11 01:27] LABS: CKMB 1.4 ng/mL (0-6.6)
[2017-09-11 01:37] LABS: Troponin I 0.336 ng/mL (< 0.028)
--- NOTE | 2017-09-11 08:38 | RAD ---
PORTABLE CHEST: Date: 09/11/17 HISTORY: Dyspnea. COMPARISON: 09/05/17. FINDINGS: Heart size appears borderline with some mild vascular engorgement. The parenchymal markings in the ri ght base are similar to the previous exam. This could represent some atelectasis or infiltrate. IMPRESSION: Cardiomegaly with some mild vascular prominence. Persistent minimally increased parenchymal change in the right lung base, probably related to atelectasis. POS: [facility]
== END 2017-09-11 02:00 | disposition home or self-care (01) ==
LOC: ERS 00:20
DX: M54.5 Low back pain (principal); I12.0 Hypertensive chronic kidney disease with stage 5 chronic kidney disease or end stage renal disease; E11.22 Type 2 diabetes mellitus with diabetic chronic kidney disease; N18.6 End stage renal disease; E78.5 Hyperlipidemia, unspecified; I25.10 Atherosclerotic heart disease of native coronary artery without angina pectoris; J45.909 Unspecified asthma, uncomplicated; I69.30 Unspecified sequelae of cerebral infarction; F32.9 Major depressive disorder, single episode, unspecified; Z99.2 Dependence on renal dialysis; Z79.899 Other long term (current) drug therapy
CPT/HCPCS: 36415; 71045; 80053; 82553; 84484; 85025; 93005

== ENCOUNTER 2017-10-22 12:56 | Emergency (ER) | payer OTHER ==
[2017-10-22 13:19] LABS: Base Excess-Venous 10.9 mmol/L (0 (+/- 2.5)); Bicarbonate (HCO3v) 32.4 mmol/L (1.0-85.0); CO2 Tension (PvCO2) 30.8 mmHg (41.0-51.0); Calcium, Ionized 0.94 mmol/L (1.12-1.32); Hemoglobin - Calc 9.4 g/dL (12.0-18.0); O2 Tension (PvO2) 49.4 mmHg (35.0-45.0); Potassium 3.6 mmol/L (3.4-4.7); T. Carbon Dioxide 33.4 mmol/L (1.0-85.0); pH (Venous) 7.631 (7.35-7.45); vO2 Saturation-calc 91.5 % (94-98)
== END 2017-10-22 14:39 | disposition home or self-care (01) ==
LOC: ERS 12:56
DX: R53.83 Other fatigue (principal); M54.9 Dorsalgia, unspecified; G89.29 Other chronic pain; E78.5 Hyperlipidemia, unspecified; E11.9 Type 2 diabetes mellitus without complications; F32.9 Major depressive disorder, single episode, unspecified; I25.10 Atherosclerotic heart disease of native coronary artery without angina pectoris; I10 Essential (primary) hypertension; J45.909 Unspecified asthma, uncomplicated; N19 Unspecified kidney failure; Z86.73 Personal history of transient ischemic attack (TIA), and cerebral infarction without residual deficits; Z99.2 Dependence on renal dialysis; Z79.899 Other long term (current) drug therapy
CPT/HCPCS: 82330; 82435; 82803; 84132; 84295; 85014; 93005; 99284

== ENCOUNTER 2017-11-04 20:12 | Emergency (ER) | payer OTHER ==
[2017-11-04 20:38] LABS: #Eosinphils 0.2 thou/uL (0.0-0.7); #Lymphocytes 0.7 thou/uL (1.20-3.40); #Monocytes 0.3 thou/uL (0.11-0.59); #Neutrophils 3.9 thou/uL (1.40-6.50); %Basophils 0.1 % (0.0-1.0); %Eosinophils 4.2 % (0.0-10.0); %Lymphocytes 13.4 % (21.0-51.0); %Monocytes 5.8 % (0.0-10.0); %Neutrophils 76.4 % (42.0-75.0); Hemoglobin 9.9 g/dL (14.0-18.0); Mean Corpuscular HGB CONC 32.6 g/dL (32.0-36.0); Mean Corpuscular Hemoglobin 31.1 pg (27.0-31.0); Mean Corpuscular Volume 95.2 fl (80.0-94.0); Mean Platelet Volume 6.9 fL (7.4-10.4); Platelet Count 165 thou/uL (130-400); RBC Distribution Width 16.8 % (11.5-14.5); Red Blood Cell (RBC) Count 3.18 mill/uL (4.70-6.10)
[2017-11-04 21:04] LABS: CKMB 2.1 ng/mL (0-6.6); Troponin I 0.092 ng/mL (< 0.028)
[2017-11-04 21:25] LABS: ALT (SGPT) Less than 35 U/L (8-55); AST (SGOT) 19 U/L (5-34); Albumin 4.4 g/dL (3.4-4.8); Alkaline Phosphatase 89 U/L (40-150); Anion Gap 25 mmol/L (10-20); BUN (Urea Nitrogen) 61 mg/dL (8.4-25.7); Bilirubin, Total 0.8 mg/dL (0.2-1.2); CK (CPK) 152 U/L (30-200); Calc. Creatinine Clearance 0 mL/min (70-130); Calcium 8.8 mg/dL (7.8-10.44); Carbon Dioxide 23 mmol/L (23-31); Chloride 95 mmol/L (98-107); Estimated GFR-MDRD 4; Globulin 5.7 g/dL (2.4-3.5); Glucose 162 mg/dL (80-115); Potassium 4.4 mmol/L (3.5-5.1); Protein, Total 10.3 g/dL (5.8-8.1); Sodium 133 mmol/L (136-145)
[2017-11-05] LABS: HBSAg Index 0.17 S/CO (0-0.99); Hep B Surf Ag Non-Reactive S/CO (NonReactive)
--- NOTE | 2017-11-05 00:51 | CON ---
DATE OF CONSULTATION: 11/04/2017 REASON FOR CONSULTATION: Orthopnea and end-stage renal disease. HISTORY OF PRESENT ILLNESS: This is a 67-year-old gentleman, who presented to the hospital with a 1- week history of missing dialysis and complaining of severe orthopnea, PND, and dyspnea. The patient has a habit of missing dialysis all the time. The patient denies any nausea, vomiting or chest pain. PAST MEDICAL HISTORY: Significant for diabetes mellitus, end-stage renal disease, hypertension, nonc ompliance, congestive heart failure, depression, coronary artery disease, asthma, history of AV fistu la, history of tunneled dialysis catheter. HOME MEDICATIONS: List reviewed. HOSPITAL MEDICATIONS: List reviewed. ALLERGIES: Reviewed. REVIEW OF SYSTEMS: Fifteen-point review of systems was performed and was negative except for the pos itives noted above. General: Weakness. Head: Headache. Neck: No swelling or lumps. Nose: No e pistaxis or discharge. Eyes: No diplopia or pain. Respiratory: Dyspnea. Cardiovascular: Chest p ain. Gastrointestinal: Nausea. /TANK CHARGER: Hematuria. Musculoskeletal: No joint pain. Neuropsychia tric systems: No suicidal ideation. No ideation. Skin: Denies any rash or ulcer. Constitutional: No fever or chills. PHYSICAL EXAMINATION: GENERAL: The patient is awake and alert. VITAL SIGNS: Afebrile, pulse 65, breathing at 30, blood pressure was 167/90. GENERAL APPEARANCE AND MENTAL STATUS: Fair. HEAD/NECK: Normocephalic. Atraumatic. EYES: EOMI. No deformity. EARS: Clear. No ulcers. NOSE: Intact. No lesions. MOUTH: Clear. No discharge. THROAT: Clear. No exudate. LUNGS: Bilateral lung shows crackles. CARDIAC: S1, S2. No rub. ABDOMEN: Benign. BS+. GENITALIA/RECTUM: Singer absent. BACK/EXTREMITIES: Edema 0+ Ulcer-. NEUROLOGICAL: Alert and motor intact. SKIN: Rash- Bruise-. LYMPHATICS: Edema- Ulcer-. LABORATORY DATA: Labs show creatinine 12.6. ASSESSMENT AND RECOMMENDATIONS: 1. Stage 6 chronic kidney disease. Recommend urgent hemodialysis due to orthopnea and PND 2. Anemia, stable. 3. Hypertension, stable. 4. Hyperkalemia, stable. Risks versus benefits of dialysis were discussed with the patient and compliance was also addressed.
== END 2017-11-05 03:31 | disposition home or self-care (01) ==
LOC: ERS 20:12
DX: E87.70 Fluid overload, unspecified (principal); E78.5 Hyperlipidemia, unspecified; I25.10 Atherosclerotic heart disease of native coronary artery without angina pectoris; J45.909 Unspecified asthma, uncomplicated; E11.22 Type 2 diabetes mellitus with diabetic chronic kidney disease; I12.0 Hypertensive chronic kidney disease with stage 5 chronic kidney disease or end stage renal disease; N18.6 End stage renal disease; Z99.2 Dependence on renal dialysis; Z91.15 Patient's noncompliance with renal dialysis; Z86.73 Personal history of transient ischemic attack (TIA), and cerebral infarction without residual deficits; F32.9 Major depressive disorder, single episode, unspecified; Z79.899 Other long term (current) drug therapy
CPT/HCPCS: 36416; 80053; 82550; 82553; 83880; 84484; 85025; 87340; 90935; 93005; G0257

== ENCOUNTER 2017-11-06 20:49 | Emergency (ER) | payer OTHER ==
[2017-11-06 21:17] LABS: #Eosinphils 0.2 thou/uL (0.0-0.7); #Lymphocytes 0.7 thou/uL (1.20-3.40); #Monocytes 0.5 thou/uL (0.11-0.59); #Neutrophils 3.6 thou/uL (1.40-6.50); %Basophils 0.8 % (0.0-1.0); %Eosinophils 4.4 % (0.0-10.0); %Lymphocytes 13.6 % (21.0-51.0); %Monocytes 10.2 % (0.0-10.0); Hemoglobin 9.7 g/dL (14.0-18.0); Mean Corpuscular HGB CONC 33.3 g/dL (32.0-36.0); Mean Corpuscular Hemoglobin 31.6 pg (27.0-31.0); Mean Corpuscular Volume 94.8 fl (80.0-94.0); Mean Platelet Volume 6.6 fL (7.4-10.4); Platelet Count 154 thou/uL (130-400); RBC Distribution Width 15.9 % (11.5-14.5); Red Blood Cell (RBC) Count 3.09 mill/uL (4.70-6.10)
--- NOTE | 2017-11-06 21:27 | RAD ---
PORTABLE CHEST: HISTORY: Dyspnea. COMPARISON: 09/11/2017 FINDINGS: The lungs appear clear of infiltrate. Heart size is upper normal and stable. No acute process or in terval change noted. POS: [facility]
[2017-11-06 21:36] LABS: ALT (SGPT) 7 U/L (8-55); AST (SGOT) 12 U/L (5-34); Alkaline Phosphatase 79 U/L (40-150); Anion Gap 17 mmol/L (10-20); BUN (Urea Nitrogen) 21 mg/dL (8.4-25.7); Bilirubin, Total 0.7 mg/dL (0.2-1.2); Calc. Creatinine Clearance 0 mL/min (70-130); Carbon Dioxide 29 mmol/L (23-31); Chloride 97 mmol/L (98-107); Estimated GFR-MDRD 9; Globulin 2.6 g/dL (2.4-3.5); Glucose 239 mg/dL (80-115); Magnesium 2.2 mg/dL (1.6-2.6); Phosphorus 4.3 mg/dL (2.3-4.7); Potassium 4.2 mmol/L (3.5-5.1); Protein, Total 6.6 g/dL (5.8-8.1); Sodium 139 mmol/L (136-145)
[2017-11-06] MEDS ORDERED: hydrOXYzine 25 MG TAB PO SCH (23:15)
== END 2017-11-07 00:50 | disposition home or self-care (01) ==
LOC: ERS 20:49
DX: F41.9 Anxiety disorder, unspecified (principal); E78.5 Hyperlipidemia, unspecified; I25.10 Atherosclerotic heart disease of native coronary artery without angina pectoris; E11.9 Type 2 diabetes mellitus without complications; I10 Essential (primary) hypertension; J45.909 Unspecified asthma, uncomplicated; F32.9 Major depressive disorder, single episode, unspecified; Z79.899 Other long term (current) drug therapy
CPT/HCPCS: 71045; 80053; 83735; 84100; 85025; 93005

== ENCOUNTER 2017-11-17 11:37 | Emergency (ER) | payer OTHER, SELFPAY ==
[2017-11-17] MEDS ORDERED: Lorazepam 1 MG TAB ONE (13:45)
[2017-11-17 14:00] LABS: #Eosinphils 0.1 thou/uL (0.0-0.7); #Lymphocytes 0.7 thou/uL (1.20-3.40); #Monocytes 0.2 thou/uL (0.11-0.59); #Neutrophils 3.4 thou/uL (1.40-6.50); %Basophils 0.3 % (0.0-1.0); %Eosinophils 2.9 % (0.0-10.0); %Lymphocytes 15.8 % (21.0-51.0); %Neutrophils 76.1 % (42.0-75.0); Hemoglobin 11.5 g/dL (14.0-18.0); Mean Corpuscular HGB CONC 32.1 g/dL (32.0-36.0); Mean Corpuscular Hemoglobin 30.5 pg (27.0-31.0); Mean Corpuscular Volume 95.2 fL (78.0-98.0); Mean Platelet Volume 6.6 fL (7.4-10.4); Platelet Count 148 thou/uL (130-400); RBC Distribution Width 15.9 % (11.5-14.5); Red Blood Cell (RBC) Count 3.78 mill/uL (4.70-6.10); White Blood Cell (WBC) Count 4.5 thou/uL (4.8-10.8)
[2017-11-17 14:22] LABS: ALT (SGPT) 9 U/L (8-55); AST (SGOT) 14 U/L (5-34); Albumin 4.2 g/dL (3.4-4.8); Alkaline Phosphatase 85 U/L (40-150); Anion Gap 20 mmol/L (10-20); BUN (Urea Nitrogen) 37 mg/dL (8.4-25.7); Bilirubin, Total 0.8 mg/dL (0.2-1.2); Calc. Creatinine Clearance 0 mL/min (70-130); Calcium 9.5 mg/dL (7.8-10.44); Carbon Dioxide 28 mmol/L (23-31); Chloride 95 mmol/L (98-107); Estimated GFR-MDRD 7; Globulin 2.7 g/dL (2.4-3.5); Glucose 182 mg/dL (80-115); Potassium 4.5 mmol/L (3.5-5.1); Protein, Total 6.9 g/dL (5.8-8.1); Sodium 138 mmol/L (136-145)
[2017-11-17 14:26] LABS: CKMB 2.6 ng/mL (0-6.6); Troponin I 0.117 ng/mL (< 0.028)
== END 2017-11-17 15:22 | disposition left against medical advice (07) ==
LOC: ERS 11:37
DX: F41.9 Anxiety disorder, unspecified (principal); E78.5 Hyperlipidemia, unspecified; I25.10 Atherosclerotic heart disease of native coronary artery without angina pectoris; E11.9 Type 2 diabetes mellitus without complications; I10 Essential (primary) hypertension; J45.909 Unspecified asthma, uncomplicated; F32.9 Major depressive disorder, single episode, unspecified; I12.0 Hypertensive chronic kidney disease with stage 5 chronic kidney disease or end stage renal disease; E11.22 Type 2 diabetes mellitus with diabetic chronic kidney disease; N18.6 End stage renal disease; Z99.2 Dependence on renal dialysis; Z86.73 Personal history of transient ischemic attack (TIA), and cerebral infarction without residual deficits; Z79.899 Other long term (current) drug therapy
CPT/HCPCS: 36415; 80053; 82553; 84484; 85025; 93005

== ENCOUNTER 2017-11-28 13:15 | Emergency (ER) | payer MEDICARE, OTHER ==
[2017-11-28 13:38] LABS: #Eosinphils 0.1 thou/uL (0.0-0.7); #Lymphocytes 0.9 thou/uL (1.20-3.40); #Monocytes 0.6 thou/uL (0.11-0.59); #Neutrophils 5.3 thou/uL (1.40-6.50); %Basophils 0.4 % (0.0-1.0); %Lymphocytes 12.7 % (21.0-51.0); %Monocytes 9.2 % (0.0-10.0); %Neutrophils 75.8 % (42.0-75.0); Hemoglobin 9.8 g/dL (14.0-18.0); Mean Corpuscular HGB CONC 32.4 g/dL (32.0-36.0); Mean Corpuscular Hemoglobin 30.7 pg (27.0-31.0); Mean Corpuscular Volume 94.6 fL (78.0-98.0); Mean Platelet Volume 6.6 fL (7.4-10.4); Platelet Count 204 thou/uL (130-400); RBC Distribution Width 15.1 % (11.5-14.5); Red Blood Cell (RBC) Count 3.18 mill/uL (4.70-6.10)
--- NOTE | 2017-11-28 13:40 | RAD ---
CHEST ONE VIEW: History: Dyspnea. Comparison: 11-06-17 FINDINGS: Cardiac silhouette remains magnified and enlarged. Pulmonary vasculature is slightly engorged. Medias tinum is midline with aortic calcification. Mild patchy bibasilar infiltrates. No evidence of pneumot horax. IMPRESSION: 1. Cardiomegaly with mild pulmonary vascular congestion. 2. Atherosclerosis. POS: [facility]
[2017-11-28 13:59] LABS: ALT (SGPT) 10 U/L (8-55); AST (SGOT) 10 U/L (5-34); Albumin 3.9 g/dL (3.4-4.8); Alkaline Phosphatase 83 U/L (40-150); Anion Gap 20 mmol/L (10-20); BUN (Urea Nitrogen) 61 mg/dL (8.4-25.7); Bilirubin, Total 0.6 mg/dL (0.2-1.2); Calc. Creatinine Clearance 0 mL/min (70-130); Calcium 8.4 mg/dL (7.8-10.44); Carbon Dioxide 20 mmol/L (23-31); Chloride 99 mmol/L (98-107); Estimated GFR-MDRD 6; Globulin 2.5 g/dL (2.4-3.5); Glucose 222 mg/dL (80-115); Potassium 5.2 mmol/L (3.5-5.1); Protein, Total 6.4 g/dL (5.8-8.1); Sodium 134 mmol/L (136-145)
[2017-11-28 14:03] LABS: CKMB 2.3 ng/mL (0-6.6)
[2017-11-28] MEDS ORDERED: Lidocaine 1% w/Epinephrine 1:100K 20 ML VIAL ONE (14:15)
[2017-11-28] MEDS ORDERED: traMADol HCl 50 MG TAB ONE (14:59)
[2017-11-28] MEDS ORDERED: Sulfameth/Trimethoprim DS 800-160mg TAB ONE (15:00)
== END 2017-11-28 14:54 | disposition home or self-care (01) ==
LOC: ERS 13:15
DX: R06.00 Dyspnea, unspecified (principal); L02.415 Cutaneous abscess of right lower limb; I12.0 Hypertensive chronic kidney disease with stage 5 chronic kidney disease or end stage renal disease; N18.6 End stage renal disease; E11.22 Type 2 diabetes mellitus with diabetic chronic kidney disease; E78.5 Hyperlipidemia, unspecified; I25.10 Atherosclerotic heart disease of native coronary artery without angina pectoris; Z86.73 Personal history of transient ischemic attack (TIA), and cerebral infarction without residual deficits; F32.9 Major depressive disorder, single episode, unspecified; F41.9 Anxiety disorder, unspecified; Z99.2 Dependence on renal dialysis
CPT/HCPCS: 10060; 36415; 71045; 80053; 82553; 84484; 85025; 93005; J2001

== ENCOUNTER 2017-12-01 19:50 | Emergency (ER) | payer MEDICARE, OTHER ==
[2017-12-01] MEDS ORDERED: Diazepam 10 MG/2 ML SYRINGE ONE (20:54)
[2017-12-01] MEDS ORDERED: Lidocaine 1% w/Epinephrine 1:100K 20 ML VIAL ONE (20:55)
[2017-12-01] MEDS ORDERED: Diazepam 5 MG TAB ONE (20:55)
== END 2017-12-01 22:40 | disposition home or self-care (01) ==
LOC: ERS 19:50
DX: F41.1 Generalized anxiety disorder (principal); L02.31 Cutaneous abscess of buttock; L02.415 Cutaneous abscess of right lower limb; E78.5 Hyperlipidemia, unspecified; I25.10 Atherosclerotic heart disease of native coronary artery without angina pectoris; J45.909 Unspecified asthma, uncomplicated; F32.9 Major depressive disorder, single episode, unspecified; I12.9 Hypertensive chronic kidney disease with stage 1 through stage 4 chronic kidney disease, or unspecified chronic kidney disease; E11.22 Type 2 diabetes mellitus with diabetic chronic kidney disease; N18.9 Chronic kidney disease, unspecified; Z99.2 Dependence on renal dialysis; Z86.73 Personal history of transient ischemic attack (TIA), and cerebral infarction without residual deficits
CPT/HCPCS: 10061; 93005; J2001; J3360

== ENCOUNTER 2017-12-04 21:39 | Emergency (ER) | payer MEDICARE, OTHER ==
[2017-12-04 22:13] LABS: #Eosinphils 0.4 thou/uL (0.0-0.7); #Lymphocytes 0.9 thou/uL (1.20-3.40); #Monocytes 0.5 thou/uL (0.11-0.59); #Neutrophils 4.7 thou/uL (1.40-6.50); %Basophils 0.5 % (0.0-1.0); %Eosinophils 6.7 % (0.0-10.0); %Lymphocytes 13.6 % (21.0-51.0); %Monocytes 7.4 % (0.0-10.0); %Neutrophils 71.9 % (42.0-75.0); Hemoglobin 10.7 g/dL (14.0-18.0); Mean Corpuscular HGB CONC 33.7 g/dL (32.0-36.0); Mean Corpuscular Hemoglobin 31.1 pg (27.0-31.0); Mean Corpuscular Volume 92.2 fL (78.0-98.0); Mean Platelet Volume 6.2 fL (7.4-10.4); Platelet Count 222 thou/uL (130-400); RBC Distribution Width 16.2 % (11.5-14.5); Red Blood Cell (RBC) Count 3.43 mill/uL (4.70-6.10); White Blood Cell (WBC) Count 6.5 thou/uL (4.8-10.8)
[2017-12-04 22:35] LABS: ALT (SGPT) 12 U/L (8-55); AST (SGOT) 15 U/L (5-34); Albumin 3.8 g/dL (3.4-4.8); Alkaline Phosphatase 84 U/L (40-150); Anion Gap 19 mmol/L (10-20); BUN (Urea Nitrogen) 27 mg/dL (8.4-25.7); Bilirubin, Total 0.6 mg/dL (0.2-1.2); Calc. Creatinine Clearance 0 mL/min (70-130); Calcium 9.1 mg/dL (7.8-10.44); Carbon Dioxide 28 mmol/L (23-31); Chloride 95 mmol/L (98-107); Estimated GFR-MDRD 10; Globulin 2.8 g/dL (2.4-3.5); Glucose 269 mg/dL (80-115); Potassium 3.8 mmol/L (3.5-5.1); Protein, Total 6.6 g/dL (5.8-8.1); Sodium 138 mmol/L (136-145)
[2017-12-04 22:37] LABS: CKMB 3.7 ng/mL (0-6.6); Troponin I 0.096 ng/mL (< 0.028)
[2017-12-04] MEDS ORDERED: Lorazepam 2 MG/ML VIAL ONE (23:02)
--- NOTE | 2017-12-04 23:56 | CT ---
CT OF THE PELVIS: Date: 12-04-17 Comparison: None. History: Nausea, fatigue, back pain, right hip abscess. Technique: Serial axial CT imaging at 5 mm intervals through the pelvis with IV contrast. Coronal and sagittal reformatted imaging obtained. FINDINGS: There is nonspecific diffuse stranding of the subcutaneous fat suggesting a degree of anasarca. There are more focal areas of subcutaneous fat stranding in the posterior/lateral right thigh and in the a nterior aspect of the lower abdomen, especially on the right. Findings could be related to cellulitis . There is extensive atherosclerotic calcification of the imaged arterial structures. No subcutaneous gas is identified. The imaged bowel demonstrates sigmoid diverticulosis with no evidence for diverticulitis. Small fat c ontaining umbilical hernia is present. No pelvic abscess is noted. There is mild lower lumbar spine facet hypertrophy change. No widening of the sacroiliac joints or pu bic symphysis. No acute osseous abnormality. No radiopaque foreign body. No obvious bone destruction. On axial image 47 and coronal image 103 there is a small subtle focus of hypodensity within the subcu taneous fat of the posterior right upper thigh at the axial level of the right lesser trochanter whic h could represent a tiny 1.3 cm area of soft tissue phlegmonous change. IMPRESSION: 1. Areas of scattered subcutaneous fat stranding, which may signify scattered areas of cellulitis, in cluding the anterior lower right abdomen and the posterolateral right thigh. These areas may represen t focal areas of cellulitis with questionable tiny fluid collection within the subcutaneous fat poste riorly on the right at the axial level of the lesser trochanter measuring in the 1.3 cm range. This c ould represent a focal area of phlegmonous change. POS: [facility]
[2017-12-05] MEDS ORDERED: diphenhydrAMINE 25 MG CAP ONE (00:12)
== END 2017-12-05 00:20 | disposition home or self-care (01) ==
LOC: ERS 21:39
DX: L03.115 Cellulitis of right lower limb (principal); F41.9 Anxiety disorder, unspecified; E78.5 Hyperlipidemia, unspecified; F32.9 Major depressive disorder, single episode, unspecified; I25.10 Atherosclerotic heart disease of native coronary artery without angina pectoris; J45.909 Unspecified asthma, uncomplicated; I12.9 Hypertensive chronic kidney disease with stage 1 through stage 4 chronic kidney disease, or unspecified chronic kidney disease; E11.22 Type 2 diabetes mellitus with diabetic chronic kidney disease; N18.9 Chronic kidney disease, unspecified; Z99.2 Dependence on renal dialysis; Z86.73 Personal history of transient ischemic attack (TIA), and cerebral infarction without residual deficits; Z79.899 Other long term (current) drug therapy; Z79.82 Long term (current) use of aspirin
CPT/HCPCS: 80053; 82553; 84484; 85025; 93005; 96374; J2060

== ENCOUNTER 2017-12-06 19:48 | Emergency (ER) | payer MEDICARE, OTHER ==
[2017-12-06 20:22] LABS: #Eosinphils 0.3 thou/uL (0.0-0.7); #Lymphocytes 0.9 thou/uL (1.20-3.40); #Monocytes 0.7 thou/uL (0.11-0.59); #Neutrophils 5.5 thou/uL (1.40-6.50); %Basophils 0.5 % (0.0-1.0); %Eosinophils 4.2 % (0.0-10.0); %Lymphocytes 12.4 % (21.0-51.0); %Monocytes 9.5 % (0.0-10.0); %Neutrophils 73.5 % (42.0-75.0); Hemoglobin 10.5 g/dL (14.0-18.0); Mean Corpuscular HGB CONC 32.9 g/dL (32.0-36.0); Mean Corpuscular Hemoglobin 30.4 pg (27.0-31.0); Mean Corpuscular Volume 92.4 fL (78.0-98.0); Mean Platelet Volume 6.3 fL (7.4-10.4); Platelet Count 171 thou/uL (130-400); RBC Distribution Width 16.2 % (11.5-14.5); Red Blood Cell (RBC) Count 3.45 mill/uL (4.70-6.10); White Blood Cell (WBC) Count 7.5 thou/uL (4.8-10.8)
[2017-12-06 20:49] LABS: ALT (SGPT) 14 U/L (8-55); AST (SGOT) 19 U/L (5-34); Alkaline Phosphatase 82 U/L (40-150); Anion Gap 18 mmol/L (10-20); BUN (Urea Nitrogen) 20 mg/dL (8.4-25.7); Bilirubin, Total 0.7 mg/dL (0.2-1.2); CK (CPK) 205 U/L (30-200); Calc. Creatinine Clearance 0 mL/min (70-130); Calcium 9.3 mg/dL (7.8-10.44); Carbon Dioxide 31 mmol/L (23-31); Chloride 94 mmol/L (98-107); Estimated GFR-MDRD 12; Globulin 2.6 g/dL (2.4-3.5); Glucose 241 mg/dL (80-115); Potassium 3.5 mmol/L (3.5-5.1); Protein, Total 6.6 g/dL (5.8-8.1); Sodium 139 mmol/L (136-145)
[2017-12-06 20:54] LABS: CKMB 3.2 ng/mL (0-6.6); Troponin I 0.134 ng/mL (< 0.028)
--- NOTE | 2017-12-06 21:32 | RAD ---
PORTABLE UPRIGHT FRONTAL CHEST RADIOGRAPH 12/06/17 COMPARISON: 11/28/17. HISTORY: Abdominal pain and nausea. FINDINGS: There is no pneumothorax or pleural fluid. No focal consolidation or alveolar edema. Heart and medias tinal contours are stable. Stable pulmonary vascular prominence. IMPRESSION: No acute findings. POS: [facility]
== END 2017-12-06 23:38 | disposition home or self-care (01) ==
LOC: ERS 19:48
DX: M54.6 Pain in thoracic spine (principal); E78.5 Hyperlipidemia, unspecified; I25.10 Atherosclerotic heart disease of native coronary artery without angina pectoris; E11.9 Type 2 diabetes mellitus without complications; I10 Essential (primary) hypertension; J45.909 Unspecified asthma, uncomplicated; Z99.2 Dependence on renal dialysis; Z86.73 Personal history of transient ischemic attack (TIA), and cerebral infarction without residual deficits; F41.9 Anxiety disorder, unspecified; F32.9 Major depressive disorder, single episode, unspecified
CPT/HCPCS: 36415; 71045; 80053; 82550; 82553; 84484; 85025; 93005; 96374; J2270

== ENCOUNTER 2017-12-08 19:19 | Emergency (ER) | payer MEDICARE, OTHER ==
[2017-12-08 20:03] LABS: #Eosinphils 0.1 thou/uL (0.0-0.7); #Lymphocytes 0.5 thou/uL (1.20-3.40); #Monocytes 0.4 thou/uL (0.11-0.59); #Neutrophils 4.9 thou/uL (1.40-6.50); %Basophils 0.2 % (0.0-1.0); %Eosinophils 1.3 % (0.0-10.0); %Lymphocytes 9.1 % (21.0-51.0); %Monocytes 6.7 % (0.0-10.0); %Neutrophils 82.6 % (42.0-75.0); Hemoglobin 10.5 g/dL (14.0-18.0); Mean Corpuscular HGB CONC 31.7 g/dL (32.0-36.0); Mean Corpuscular Hemoglobin 29.7 pg (27.0-31.0); Mean Corpuscular Volume 93.8 fL (78.0-98.0); Mean Platelet Volume 7.6 fL (7.4-10.4); Platelet Count 151 thou/uL (130-400); RBC Distribution Width 17.1 % (11.5-14.5); Red Blood Cell (RBC) Count 3.54 mill/uL (4.70-6.10)
[2017-12-08 20:26] LABS: Anion Gap 24 mmol/L (10-20); BUN (Urea Nitrogen) 33 mg/dL (8.4-25.7); Calc. Creatinine Clearance 0 mL/min (70-130); Calcium 8.7 mg/dL (7.8-10.44); Carbon Dioxide 25 mmol/L (23-31); Chloride 95 mmol/L (98-107); Estimated GFR-MDRD 7; Glucose 196 mg/dL (80-115); Potassium 4.8 mmol/L (3.5-5.1); Sodium 139 mmol/L (136-145)
--- NOTE | 2017-12-08 20:37 | RAD ---
AP VIEW CHEST: 12/08/17 HISTORY: Dizziness, nausea, chills. AP view chest is obtained on 12/08/17. Comparison made to a previous exam from 12/06/17. AP view chest demonstrates cardiomegaly seen. Pulmonary vascular congestion is seen. No evidence of effusions, pneumonia or pneumothorax seen. IMPRESSION: Cardiomegaly and pulmonary vascular congestion. POS: [facility]
[2017-12-08] MEDS ORDERED: Ondansetron HCl/PF 4 MG/2 ML Vial ONE (20:50)
--- NOTE | 2017-12-08 21:17 | ULT ---
RIGHT LOWER EXTREMITY VENOUS DOPPLER ULTRASOUND EVALUATION: 12/08/17 HISTORY: Right lower extremity swelling. Multiple longitudinal and transverse images of the right lower extremity venous system is obtained us ing a multihertz linear array transducer. Real time, color flow, and spectral waveform doppler analys is demonstrates no evidence of acute or old clot seen in the right common femoral, superficial femora l, femoral profunda, popliteal, or post trifurcation veins. IMPRESSION: No evidence of right lower extremity deep venous thrombosis. POS: [facility]
== END 2017-12-08 21:53 | disposition home or self-care (01) ==
LOC: ERS 19:19
DX: R11.2 Nausea with vomiting, unspecified (principal); E78.5 Hyperlipidemia, unspecified; I25.10 Atherosclerotic heart disease of native coronary artery without angina pectoris; E11.22 Type 2 diabetes mellitus with diabetic chronic kidney disease; I12.0 Hypertensive chronic kidney disease with stage 5 chronic kidney disease or end stage renal disease; N18.6 End stage renal disease; F32.9 Major depressive disorder, single episode, unspecified; F41.9 Anxiety disorder, unspecified; J45.909 Unspecified asthma, uncomplicated; Z86.73 Personal history of transient ischemic attack (TIA), and cerebral infarction without residual deficits; Z79.82 Long term (current) use of aspirin; Z79.899 Other long term (current) drug therapy
CPT/HCPCS: 71045; 80048; 85025; 93005; 96374; J2405

== ENCOUNTER 2017-12-17 21:22 | Inpatient (IN) | payer MEDICARE, OTHER ==
--- NOTE | 2017-12-17 22:03 | RAD ---
TWO VIEW CHEST: History: Dyspnea. Comparison: 12-24-16 FINDINGS: Heart is mildly enlarged with mild vascular engorgement. Evidence of small bilateral effusions. No fo brook infiltrate. IMPRESSION: Mild cardiomegaly and mild vascular engorgement. POS: [facility]
[2017-12-17 22:06] LABS: #Basophils 0.1 thou/uL (0.0-0.2); #Eosinphils 0.5 thou/uL (0.0-0.7); #Lymphocytes 0.9 thou/uL (1.20-3.40); #Monocytes 0.5 thou/uL (0.11-0.59); #Neutrophils 3.1 thou/uL (1.40-6.50); %Basophils 1.3 % (0.0-1.0); %Eosinophils 10.6 % (0.0-10.0); %Lymphocytes 16.9 % (21.0-51.0); %Monocytes 9.2 % (0.0-10.0); Hemoglobin 11.2 g/dL (14.0-18.0); Mean Corpuscular HGB CONC 32.1 g/dL (32.0-36.0); Mean Corpuscular Hemoglobin 30.8 pg (27.0-31.0); Mean Corpuscular Volume 95.9 fL (78.0-98.0); Mean Platelet Volume 6.6 fL (7.4-10.4); Platelet Count 152 thou/uL (130-400); RBC Distribution Width 16.6 % (11.5-14.5); Red Blood Cell (RBC) Count 3.62 mill/uL (4.70-6.10)
[2017-12-17 22:26] LABS: ALT (SGPT) 9 U/L (8-55); AST (SGOT) 12 U/L (5-34); Alkaline Phosphatase 95 U/L (40-150); Anion Gap 17 mmol/L (10-20); BUN (Urea Nitrogen) 39 mg/dL (8.4-25.7); Bilirubin, Total 0.5 mg/dL (0.2-1.2); Calc. Creatinine Clearance 0 mL/min (70-130); Calcium 8.8 mg/dL (7.8-10.44); Carbon Dioxide 29 mmol/L (23-31); Chloride 98 mmol/L (98-107); Estimated GFR-MDRD 7; Globulin 2.5 g/dL (2.4-3.5); Glucose 133 mg/dL (80-115); Potassium 5.8 mmol/L (3.5-5.1); Protein, Total 6.5 g/dL (5.8-8.1); Sodium 138 mmol/L (136-145)
[2017-12-17 22:30] LABS: CKMB 3.2 ng/mL (0-6.6); Troponin I 0.118 ng/mL (< 0.028)
[2017-12-18] MEDS ORDERED: Morphine 4 MG/ML VIAL ONE (00:55)
[2017-12-18] MEDS ORDERED: Ondansetron ODT 4 MG TAB ONE (00:55)
[2017-12-18 02:18] LABS: Troponin I 0.112 ng/mL (< 0.028)
[2017-12-18] MEDS ORDERED: Ondansetron HCl/PF 4 MG/2 ML Vial IVP PRN ×2 (03:09→07:21)
[2017-12-18] MEDS ORDERED: Acetaminophen 325 MG TAB PO PRN (03:09)
[2017-12-18] MEDS ORDERED: Ondansetron ODT 4 MG TAB SL PRN (03:09)
[2017-12-18 03:38] VITALS: BMI 26.2
[2017-12-18] MEDS ORDERED: Dextrose 50% Abboject 50 ML SYRINGE IVP PRN (04:45)
[2017-12-18] MEDS ORDERED: Dextrose 5% in Water 1,000 ML IV PRN (04:45)
[2017-12-18] MEDS ORDERED: HOLD VANCOMYCIN FOR LEVEL >20 FS SCH (05:00)
[2017-12-18] MEDS ORDERED: Vancomycin HCl 500 MG in Sodium Chloride 0.9% 100 ML IVPB SCH (05:00)
[2017-12-18] MEDS ORDERED: Vancomycin HCl 750 MG in Sodium Chloride 0.9% 250 ML 250 ML IVPB SCH (05:00)
[2017-12-18] MEDS ORDERED: Vancomycin HCl 1.25 GM in Sodium Chloride 0.9% 250 ML 250 ML IVPB SCH (05:00)
[2017-12-18] MEDS ORDERED: Vancomycin HCl 1 GM in Premix Bag 1 BAG IVPB SCH (05:00)
[2017-12-18] MEDS: Piperacillin/Tazobactam 2.25 GM in Sodium Chloride 0.9% 100 ML IVPB SCH ×2 (05:10→20:26)
[2017-12-18] MEDS ORDERED: Chloraseptic Spray 180 ml Bottle PO PRN (07:21)
[2017-12-18] MEDS ORDERED: Sodium Chloride 0.65% Nasal 44 ML BOT EA NARE PRN (07:21)
[2017-12-18] MEDS ORDERED: Ondansetron ODT 4 MG TAB PO PRN (07:21)
[2017-12-18] MEDS ORDERED: Diabetic Tussin 200 MG/10 ML UDCUP PO PRN (07:21)
[2017-12-18] MEDS ORDERED: Loperamide HCl 2 MG CAP PO PRN (07:21)
[2017-12-18] MEDS ORDERED: Senokot 8.6 MG TAB PO PRN (07:21)
[2017-12-18] MEDS ORDERED: Eucerin (Mineral Oil/Petrolatum,White) 30 gm Jar TOP PRN (07:21)
[2017-12-18] MEDS ORDERED: Loratadine 10 MG TAB PO PRN (07:21)
[2017-12-18] MEDS ORDERED: hydrALAZINE 20 MG/ML VIAL SLOW IVP PRN (07:21)
[2017-12-18] MEDS ORDERED: Mag-Al 1200 mg/1200 mg/30 ML UDCUP PO PRN (07:21)
[2017-12-18] MEDS ORDERED: Artificial Tear Sol 15 ML BOT EA EYE PRN (07:21)
[2017-12-18] MEDS ORDERED: Milk Of Magnesia 30 ML UDCUP PO PRN (07:21)
[2017-12-18] MEDS ORDERED: Labetalol HCl 100 MG/20 ML VIAL SLOW IVP PRN (07:21)
[2017-12-18] MEDS: Famotidine 20 MG TAB PO SCH (08:35)
[2017-12-18] MEDS: Heparin 5,000 UNITS/ML VIAL SC SCH ×3 (08:35→22:55)
[2017-12-18] MEDS ORDERED: Prevnar 13-Val Conj/PF 0.5 ML SYRINGE IM ONE (09:00)
--- NOTE | 2017-12-18 12:56 | HP ---
PRIMARY CARE PHYSICIAN: [facility] REASON FOR ADMISSION: Right foot cellulitis. HISTORY OF PRESENT ILLNESS: This is a 67-year-old male, who has multiple medical problems including hypertension; dyslipidemia; ESRD, on hemodialysis; who currently lives in [facility]. He came to the emergency room last night with a complaint of nausea, vomiting, abdominal pain, and some diarrhea. His abdominal pain, nausea, and vomiting were getting worse after food and he gets this type of symptoms for about a month. He reports that after eating a particular type of food, in 10-15 minutes, he feels nausea and subsequently he had vomiting. With these symptoms, he presented to emergency room. He denies any hematemesis. He denies any hematochezia or melena. He denies any abdominal distention. He denies any fever or chills. Patient also has underlying history of ESRD, on hemodialysis, and his last dialysis was on Monday and he is due for dialysis today. When the patient was evaluated and examined, at that time we found that his right lower extremity is swollen and he had erythema of right lower extremity, but his right foot was cold to touch. He was having intermittent paraesthesia and intermittent pain. He denies any trauma. He denies any fever or chills. He denies any UTI symptoms. His discomfort in his foot was on and off and it was about 5/10 in intensity. The patient was given, in the emergency room, empirically vancomycin, morphine, Zofran, aspirin, and another dose of Zofran, and subsequently, he was admitted to medical floor. When I saw this patient, at that time he reported that he already had breakfast and he was able to hold everything down and he was not that much worried about his right foot at that point. REVIEW OF SYSTEMS: The following complete review of systems was negative, unless otherwise mentioned in the HPI or below: Constitutional: Weight loss or gain, ability to conduct usual activities. Skin: Rash, itching. Eyes: Double vision, pain. ENT/Mouth: Nose bleeding, neck stiffness, pain, tenderness. Cardiovascular: Palpitations, dyspnea on exertion, orthopnea. Respiratory: Shortness of breath, wheezing, cough, hemoptysis, fever, or night sweats. Gastrointestinal: Poor appetite, abdominal pain, heartburn, nausea, vomiting, constipation, or diarrhea. Genitourinary: Urgency, frequency, dysuria, nocturia. Musculoskeletal: Pain, swelling. Neurologic/Psychiatric: Anxiety, depression. Allergy/Immunologic: Skin rash, bleeding tendency. Please see my HPI for pertinent positive and negative. All other review of systems reviewed and negative except as mentioned in the HPI. PAST MEDICAL HISTORY: Diabetes, type 2; hypertension; dyslipidemia; coronary artery disease; ESRD, on hemodialysis Monday, Monday, Monday; asthma; history of CVA; history of combined systolic and diastolic heart failure. PAST PSYCHIATRIC HISTORY: Anxiety and depression. PAST SURGICAL HISTORY: Left forearm AV fistula. ALLERGIES: No known drug allergies. FAMILY HISTORY: No strong family history of premature coronary artery disease, stroke, or cancer. SOCIAL HISTORY: Patient currently lives in a motel. He denies any tobacco, alcohol, or illicit drug abuse at this point. He also has a history of noncompliance with his dialysis regimen. EMERGENCY ROOM COURSE: Patient is given vancomycin, Zofran x2, morphine 8 mg, and aspirin 324 mg. CURRENT HOME MEDICATIONS: The patient did not bring his medication, so unable to verify his home medication, but based on our previous hospital course, he was on following medications: Aspirin 325 mg p.o. daily, Lipitor 20 mg p.o. daily, clonidine 0.1 mg b.i.d., Coreg 12.5 mg p.o. b.i.d., Pepcid 20 mg daily, ferrous sulfate 325 mg p.o. daily, Prozac 40 mg p.o. daily, Nephro-Rigo 1 tablet p.o. daily, hydralazine 50 mg p.o. t.i.d., Imdur 30 mg p.o. daily, methocarbamol 750 mg p.o. b.i.d., Reglan 10 mg p.o. t.i.d., NPH insulin 10 units subcu daily, Entresto one tablet twice daily, Flomax 0.4 mg p.o. daily, tramadol 50 mg p.o. b.i.d., trazodone 200 mg p.o. at bedtime p.r.n. PHYSICAL EXAMINATION: VITAL SIGNS: On arrival, blood pressure 121/75, pulse 75, respiratory rate 20, temperature 98.9, saturation 95% on room air, weight 79.3 kilograms. GENERAL: Patient is currently alert, awake, in no obvious acute distress. HEENT: Head: Normocephalic, atraumatic. Eyes: Pupils round, reactive to light. Extraocular muscle intact. ENT: Oropharynx within normal limits. Moist mucous membranes. No oral lesion, no pharyngeal erythema, no exudate. NECK: Supple, no JVD, no thyromegaly, no carotid bruit. LUNGS: Clear to auscultation without any rhonchi or rales. CARDIAC: S1 and S2, appears regular. No murmur elicited, no gallop, no rub. ABDOMEN: Soft, bowel sounds present, nontender, nondistended. No organomegaly , no mass, no suprapubic tenderness. BACK EXAMINATION: Unremarkable, no CVA tenderness. EXTREMITIES: Upper extremities, passive movement of all joints are normal. AV fistula on left with palpable thrill. Lower extremities, right lower extremity is more swollen than compared to left. Patient also has right foot erythema, swelling, and cold to touch, deep feeble pulsation. Left lower extremity is warm. NEUROLOGIC: Grossly nonfocal examination. He is moving all 4 limbs. Reflexes symmetrical. Sensation symmetrical. Gait normal. SKIN: No skin rash other than erythema of the right foot. HEMATOLOGICAL SYSTEM: No lymphadenopathy. PSYCHIATRIC: Normal affect. SIGNIFICANT LABORATORY DATA: WBC 5.0, hemoglobin 11.2, platelet 152. BMP: Sodium 138, potassium 5.8, chloride 98, carbon dioxide 29, anion gap 17, BUN 39 , creatinine 7.73, glucose 133, calcium 8.8. LFT: AST 12, ALT 9, alkaline phosphatase 95, albumin 4.0, lipase 111. BNP 20,178. Troponin I 0.112. ASSESSMENT AND PLAN: 1. Nausea, vomiting, abdominal pain. Based on history, I am suspecting from gastroparesis. Patient will require symptomatic treatment with Reglan and Zofran on p.r.n. basis. Patient is given necessary dietary instruction. 2. Right foot erythema with cellulitis. Surprisingly, right foot is cold to touch. I am suspecting arterial disease. We will consult Dr. Gonzalez and I spoke with him about this patient. He will evaluate for any vascular insufficiency. At this point, for benefit of doubt, we will continue broad- spectrum antibiotic therapy with vancomycin with the dialysis and Zosyn 2.25 gram IV twice daily. We will follow up on culture result. We will control his pain with pain medication. 3. Hyperkalemia, due to decreased renal excretion. The patient is due for hemodialysis today. We will repeat BMP tomorrow. 4. End-stage renal disease, on hemodialysis. Patient is on Monday, Monday, Monday dialysis. Dr. Morales will be consulted for his regular dialysis while in hospital. 5. Anemia of renal disease. Continue ferrous sulfate and Nephro-Rigo one tablet daily. 6. Elevated troponin, which is chronic. Patient does not have any angina at this point. 7. Hypertension. Currently, blood pressure is marginally low. If blood pressure permits, then we will continue clonidine, Coreg, Entresto, Imdur as per home dosage. If blood pressure is less than 110, then we will hold on antihypertensive medication. 8. Diabetes, type 2. We will continue insulin as per sliding scale per protocol. Diabetic renal diet will be given. 9. Benign enlargement of prostate. Continue Flomax 0.4 mg p.o. daily. 10. Combined systolic and diastolic heart failure. Currently, patient is euvolemic. We will continue Entresto and Coreg as per home dosage. If blood pressure permits, then we will also continue Imdur and hydralazine along with other medications. 11. Anxiety and depression. We will continue lorazepam on p.r.n. basis for anxiety and Prozac 40 mg p.o. daily. 12. Dyslipidemia. Continue Lipitor 20 mg p.o. at bedtime. 13. Gastroesophageal reflux disease. We will continue Pepcid 20 mg p.o. daily. 14. Deep venous thrombosis prophylaxis. Heparin 5000 units subcu twice daily. 15. Gastrointestinal prophylaxis. Pepcid 20 mg p.o. daily. CODE STATUS: The patient is FULL CODE. Patient does not have any surrogate decision maker. Disposition plan based on clinical course. We are expecting patient's stay in hospital more than 2 midnights. Plan of care discussed with the patient in detail. [facility]
[2017-12-18] MEDS: hydrALAZINE 25 MG TAB PO SCH ×2 (14:07→20:28)
[2017-12-18] MEDS: Metoclopramide HCl 10 MG TAB PO SCH ×2 (14:07→20:28)
--- NOTE | 2017-12-18 14:37 | ULT ---
ARTERIAL DOPPLER STUDY RIGHT LOWER EXTREMITY: Indications: Right lower extremity edema and pain. Technique: Arteries of the right lower extremity evaluated with color doppler spectral analysis, and velocity recording. FINDINGS: Right common femoral artery shows a normal triphasic waveform. The right superficial femoral artery also shows a normal triphasic waveform. Popliteal artery shows a normal triphasic waveform. Posterior tibial artery shows a normal triphasic waveform. The anterior tibial artery shows a biphasi c waveform. Dorsal pedis also shows a biphasic waveform. IMPRESSION: No evidence of significant arterial vascular disease is seen in the right lower extremity by waveform analysis. POS: [facility]
--- NOTE | 2017-12-18 14:42 | ULT ---
ULTRASOUND WITH DOPPLER DUPLEX VENOUS LOWER EXTREMITY RIGHT: HISTORY: 67-year-old male with right lower extremity edema. TECHNIQUE: Color flow Doppler, spectral waveform analysis of pulsed Doppler, and gonzalez-scale imaging with nereyda faith and augmentation, were used to evaluate the right common femoral, femoral, popliteal, posterior tibial, and superficial femoral, veins; and the proximal portions of the profunda femoral and greater saphenous, veins. FINDINGS: There is normal compressibility, demonstration of blood flow by color Doppler and pulsed Doppler, and response to augmentation, in all interrogated veins. There is soft tissue edema in the right lower e xtremity distal to the knee. IMPRESSION: 1. No deep vein thrombosis in the right lower extremity. 2. Edema of the right leg. agustin POS: [facility]
--- NOTE | 2017-12-18 14:49 | CON ---
DATE OF CONSULTATION: 12/18/2017 HISTORY OF PRESENT ILLNESS: This is a 67-year-old gentleman, rather poor historian, who has multiple visits to the emergency room and hospital over the past 6 months due to anxiety and shortness of umer ath as well as some nausea and vomiting and weight loss. He evidently has had some swelling in his r ight lower extremity for several months, and has had a negative venous ultrasound on evaluation of th is. He was also seen today by the Hospitalist Service for the foot, which they felt was cool and not consistent with cellulitis, but perhaps consistent with severe arterial insufficiency. PAST MEDICAL HISTORY: Includes hypertension, now which ultimately led to end-stage renal disease, on dialysis for about 2 years. He also has a history of type 2 diabetes mellitus, relatively well cont rolled; a history of anxiety and depression as well as an ejection fraction estimated on nuclear stre ss study to be about 20%. He underwent cardiac catheterization in [address] Anguiano and he was felt t o have nonreconstructable coronary artery disease. REVIEW OF SYSTEMS: The patient states sometimes he has difficulty sleeping, but not due to time. He sleeps in bed typically and denies any pain in his foot. He does admit to pain with ambulation in t he right lower extremity. PAST SURGICAL HISTORY: Includes placement of an AV fistula in the left arm. 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 He states he has never smoked. Does not use drugs. HOME MEDICATIONS: Include trazadone, hydralazine, clonidine, Flomax, Entresto, NPH insulin 10 units daily, Reglan, isosorbide, Prozac, Coreg, atorvastatin, and aspirin. ALLERGIES: He reports no known allergies to drugs or food. PHYSICAL EXAMINATION: GENERAL: Alert, cooperative gentleman, somewhat anxious. VITAL SIGNS: Recorded blood pressure 150/90, heart rate of 78. NECK EXAMINATION: No carotid bruits, no JVD in the 30-degree upright position. LUNGS: Clear to auscultation anteriorly. CARDIAC EXAM: Regular rate and rhythm. No murmurs. ABDOMEN: Soft, nontender with palpable liver about 2 cm below the right costal margin. EXTREMITIES: He has palpable femoral and popliteal pulses and no palpable pedal pulses. Doppler sig nals were present in both DP and PT bilaterally, although of diminished signal quality. His right fo ot is swollen with some erythema over the dorsum of his foot. He has a wound on the dorsum of his fo ot that has some eschar on it. He really has no tenderness to palpation. Swelling in his right lower extremity for about 2 months with perhaps a wound about 2 weeks ago, but this is not clear. The patient has tibioperoneal disease, not inconsistent with his history of diabe marcel mellitus and end-stage renal disease. I have discussed the possibility of angiography and to see if there is anything that can be done to improve the circulation to that right foot and he is agreea ble .
[2017-12-18] MEDS: Lorazepam 0.5 MG TAB PO PRN (16:53)
[2017-12-18] MEDS: Carvedilol 25 MG TAB PO SCH (20:26)
[2017-12-18] MEDS: cloNIDine 0.1 MG TAB PO SCH (20:27)
[2017-12-18] MEDS: Methocarbamol 500 MG TAB PO SCH (20:27)
[2017-12-18] MEDS: Sacubitril 24.5 MG/Valsartan 25.5 MG TABLET PO SCH (20:27)
[2017-12-18] MEDS: traMADol HCl 50 MG TAB PO SCH (20:28)
[2017-12-18] MEDS: traZODone HCl 50 MG TAB PO PRN (21:29)
[2017-12-19 04:29] LABS: #Eosinphils 0.3 thou/uL (0.0-0.7); #Monocytes 0.6 thou/uL (0.11-0.59); #Neutrophils 2.2 thou/uL (1.40-6.50); %Basophils 1.1 % (0.0-1.0); %Eosinophils 7.8 % (0.0-10.0); %Lymphocytes 24.4 % (21.0-51.0); %Monocytes 13.4 % (0.0-10.0); %Neutrophils 53.3 % (42.0-75.0); Hemoglobin 10.1 g/dL (14.0-18.0); Mean Corpuscular HGB CONC 31.5 g/dL (32.0-36.0); Mean Corpuscular Volume 95.3 fL (78.0-98.0); Mean Platelet Volume 6.9 fL (7.4-10.4); Platelet Count 131 thou/uL (130-400); RBC Distribution Width 16.4 % (11.5-14.5); Red Blood Cell (RBC) Count 3.35 mill/uL (4.70-6.10); White Blood Cell (WBC) Count 4.1 thou/uL (4.8-10.8)
[2017-12-19 05:09] LABS: Albumin 3.4 g/dL (3.4-4.8); Anion Gap 16 mmol/L (10-20); BUN (Urea Nitrogen) 30 mg/dL (8.4-25.7); BUN/Creatinine Ratio 5.27; Calc. Creatinine Clearance 13 mL/min (70-130); Calcium 8.3 mg/dL (7.8-10.44); Carbon Dioxide 26 mmol/L (23-31); Chloride 98 mmol/L (98-107); Estimated GFR-MDRD 10; Glucose 138 mg/dL (80-115); Potassium 5.3 mmol/L (3.5-5.1); Sodium 135 mmol/L (136-145)
[2017-12-19] MEDS: Carvedilol 25 MG TAB PO SCH ×2 (06:14→21:33)
[2017-12-19] MEDS: Piperacillin/Tazobactam 2.25 GM in Sodium Chloride 0.9% 100 ML IVPB SCH ×2 (06:15→17:39)
--- NOTE | 2017-12-19 07:58 | CON ---
DATE OF CONSULTATION: 12/18/2017 A 67-year-old gentleman being seen for end-stage renal disease. REASON FOR CONSULTATION: End-stage renal disease and hyperkalemia. HISTORY OF PRESENT ILLNESS: Very pleasant 67-year-old gentleman with multiple admissions, was admitt ed to the hospital early this morning with a chief complaint of chest pain and a potassium of 5.3. T he patient was also noted to have right foot cellulitis. The patient at this time denies nausea, vom iting or chest pain. The patient is dialyzing Monday, Monday, and Monday. The patient has been s tarted on vancomycin, morphine, and Zofran. PAST MEDICAL HISTORY: Significant for end-stage renal disease, noncompliance, history of chest pain, history of CVA, history of coronary artery disease, hyperlipidemia, diabetes mellitus, hypertension, left AV fistula, tunneled dialysis catheter. ALLERGIES: Reviewed. HOME MEDICATIONS: Reviewed. SOCIAL HISTORY: No alcohol or drug use. REVIEW OF SYSTEMS: A 15-point review of systems was performed and was negative except for positives noted above. General: Weakness. Head: Headache. Neck: No swelling or lumps. Nose: No epistaxi s or discharge. Eyes: No diplopia or pain. Respiratory: Dyspnea. Cardiovascular: Chest pain. G astrointestinal: Nausea. /DRAGLINE OPERATOR: Hematuria. Musculoskeletal: No joint pain. Neuropsychiatric Sy stems: No suicidal ideation. No ideation. SKIN: Denies any rash or ulcer. Constitutional: No fe jennifer or chills. PHYSICAL EXAMINATION: GENERAL: Patient is awake, alert, in no acute distress. VITAL SIGNS: Afebrile, pulse 79, breathing at 16, blood pressure 143/91. HEAD/NECK: Normocephalic. Atraumatic. EYES: EOMI. No deformity. EARS: Clear. No ulcers. NOSE: Intact. No lesions. MOUTH: Clear. No discharge. THROAT: Clear. No exudate. LUNGS: Clear. No crackles. CARDIAC: S1, S2. No rub. ABDOMEN: Benign. BS+. GENITALIA/RECTUM: Singer absent. BACK/EXTREMITIES: Edema 0+ Ulcer. NEUROLOGICAL: Alert and motor intact. SKIN: Rash- Bruise-. LYMPHATICS: Edema- Ulcer-. LABORATORY: Hemoglobin 11.2, creatinine 7.7, potassium 5.8. ASSESSMENT AND RECOMMENDATIONS: 1. Stage 6 chronic disease. Plan dialysis. 2. Hyperkalemia. Plan dialysis. 3. Anemia, stable. 4. Hypertension, stable. 5. Secondary hyperparathyroidism. Continue low phosphorus diet. Cellulitis management per primary team.
--- NOTE | 2017-12-19 09:31 | PDOC.PN ---
- Subjective Encounter Start Date: 12/19/17 Encounter Start Time: 08:50 -: old records requested/rev Patient seen and examined. No new complaints. No overnight events he still has swelling over right leg and right foot today feels warm nausea and vomiting and abdominal pain improved significantly, tolerating his diet - Objective Resuscitation Status: Resuscitation Status FULL:Full Resuscitation MAR Reviewed: Yes Vital Signs & Weight: Vital Signs (12 hours) Temp Pulse Resp BP BP Pulse Ox 12/19/17 07:14 97.8 F 73 20 114/71 96 12/19/17 04:00 98.2 F 71 18 114/70 93 L 12/19/17 00:00 97.9 F 70 20 95/57 L 93 L Weight Admit Weight 167 lb 1.6 oz Weight 167 lb 1.6 oz I&O: 12/18/17 12/19/17 12/20/17 06:59 06:59 06:59 Intake Total 420 480 Output Total 0 Balance 420 480 Result Diagrams: 12/19/17 03:35 12/19/17 03:35 Additional Labs: Accuchecks 12/19/17 12/18/17 12/18/17 05:07 20:27 11:42 POC Glucose 125 H 133 H 162 H Radiology Reviewed by me: Yes (us leg no dvt, us arterial doppler reviewed) Phys Exam - Physical Examination Constitutional: NAD HEENT: PERRLA, moist MMs, sclera anicteric Neck: no JVD, supple Respiratory: no wheezing, no rales, no rhonchi Cardiovascular: RRR, no significant murmur, no rub Gastrointestinal: soft, non-tender, no distention, positive bowel sounds Musculoskeletal: pulses present right leg swelling and right foot erythema Neurological: non-focal, normal sensation, moves all 4 limbs Psychiatric: normal affect, A&O x 3 Skin: no rash, normal turgor Dx/Plan (1) Cellulitis of right foot Code(s): L03.115 - CELLULITIS OF RIGHT LOWER LIMB Status: Acute (2) Hyperkalemia, diminished renal excretion Code(s): E87.5 - HYPERKALEMIA Status: Acute (3) PAD (peripheral artery disease) Code(s): I73.9 - PERIPHERAL VASCULAR DISEASE, UNSPECIFIED Status: Acute (4) Anemia of renal disease Code(s): D63.1 - ANEMIA IN CHRONIC KIDNEY DISEASE Status: Chronic (5) Anxiety and depression Code(s): F41.8 - OTHER SPECIFIED ANXIETY DISORDERS Status: Chronic (6) Asthma Code(s): J45.909 - UNSPECIFIED ASTHMA, UNCOMPLICATED Status: Chronic (7) BPH (benign prostatic hyperplasia) Code(s): N40.0 - BENIGN PROSTATIC HYPERPLASIA WITHOUT LOWER URINRY TRACT SYMP Status: Chronic (8) CAD (coronary artery disease), [place] coronary artery Code(s): I25.10 - ATHSCL HEART DISEASE OF [place] CORONARY ARTERY W/O ANG PCTRS Status: Chronic Qualifiers: (9) Chronic combined systolic and diastolic CHF (congestive heart failure) Code(s): I50.42 - CHRONIC COMBINED SYSTOLIC AND DIASTOLIC HRT FAIL Status: Chronic (10) Chronic low back pain Code(s): M54.5 - LOW BACK PAIN; G89.29 - OTHER CHRONIC PAIN Status: Chronic (11) Diabetes type 2, controlled Code(s): E11.9 - TYPE 2 DIABETES MELLITUS WITHOUT COMPLICATIONS Status: Chronic (12) Diabetic gastroparesis Code(s): E11.43 - TYPE 2 DIABETES W DIABETIC AUTONOMIC (POLY)NEUROPATHY; K31.84 - GASTROPARESIS Status: Chronic (13) ESRD (end stage renal disease) on dialysis Code(s): N18.6 - END STAGE RENAL DISEASE; Z99.2 - DEPENDENCE ON RENAL DIALYSIS Status: Chronic (14) Elevated troponin Code(s): R74.8 - ABNORMAL LEVELS OF OTHER SERUM ENZYMES Status: Chronic (15) Hyperlipidemia Code(s): E78.5 - HYPERLIPIDEMIA, UNSPECIFIED Status: Chronic Qualifiers: (16) Hypertension Code(s): I10 - ESSENTIAL (PRIMARY) HYPERTENSION Status: Chronic Qualifiers: (17) Ischemic cardiomyopathy Code(s): I25.5 - ISCHEMIC CARDIOMYOPATHY Status: Chronic Comment: EF 20% by Echo 06/15; lost LifeVest that was rx in 06/15, consult CM and Cardiology service , [facility], likely will be a candidate for ICD in 3 months (18) Noncompliance of patient with renal dialysis Code(s): Z91.15 - PATIENT'S NONCOMPLIANCE WITH RENAL DIALYSIS Status: Chronic (19) Secondary hyperparathyroidism of renal origin Code(s): N25.81 - SECONDARY HYPERPARATHYROIDISM OF RENAL ORIGIN Status: Chronic (20) Abdominal pain Code(s): R10.9 - UNSPECIFIED ABDOMINAL PAIN Status: Resolved Qualifiers: Comment: - Plan cont current plan of care, plan discussed w/ family, continue antibiotics * today dr de los santos will do angiogram for suspected PAD * continue empiric vancomycin and zosyn * HD as per nephrology * medication reviewed as below * symptomatic treatment * discussed with family bedside * overall stable * further plan based on angiogram result. Review of Systems - Review of Systems Constitutional: negative: fever, chills, sweats, weakness, malaise, other Eyes: negative: Pain, Vision Change, Conjunctivae Inflammation, Eyelid Inflammation, Redness, Other ENT: negative: Ear Pain, Ear Discharge, Nose Pain, Nose Discharge, Nose Congestion, Mouth Pain, Mouth Swelling, Throat Pain, Throat Swelling, Other Respiratory: negative: Cough, Dry, Shortness of Breath, Hemoptysis, SOB with Excertion, Pleuritic Pain, Sputum, Wheezing Cardiovascular: negative: chest pain, palpitations, orthopnea, paroxysmal nocturnal dyspnea, edema, light headedness, other Gastrointestinal: negative: Nausea, Vomiting, Abdominal Pain, Diarrhea, Constipation, Melena, Hematochezia, Other Genitourinary: negative: Dysuria, Frequency, Incontinence, Hematuria, Retention , Other Musculoskeletal: Leg Pain, Foot Pain. negative: Neck Pain, Shoulder Pain, Arm Pain, Back Pain, Hand Pain, Other - Medications/Allergies Allergies/Adverse Reactions: Allergies Allergy/AdvReac Type Severity Reaction Status Date / Time No Known Drug Allergies Allergy Verified 12/18/17 04:03 Medications: Current Medications Acetaminophen (Tylenol) 650 mg PO Q4H PRN PRN Reason: Headache/Fever or Mild Pain Hydrocodone Bitart/Acetaminophen ([place] 5/325) 1 tab PO Q4H PRN PRN Reason: Moderate Pain (4-6) Al Hydroxide/Mg Hydroxide (Maalox) 15 ml PO Q4H PRN PRN Reason: Heartburn or Indigestion Artificial Tears (Tears Renewed 15ml Bottle) 0 drop EA EYE PRN PRN PRN Reason: Dry Eyes Aspirin (Aspirin) 325 mg PO DAILY [facility] Atorvastatin Calcium (Lipitor) 20 mg PO DAILY [facility] Carvedilol (Coreg) 12.5 mg PO BID [facility] Last Admin: 12/19/17 06:14 Dose: 12.5 mg Clonidine (Catapres) 0.1 mg PO BID [facility] Last Admin: 12/18/17 20:27 Dose: 0.1 mg Dextrose/Water (Dextrose 50%) 25 gm IVP PRN PRN PRN Reason: HYPOGLYCEMIA PROTOCOL Famotidine (Pepcid) 20 mg PO DAILY [facility] Last Admin: 12/18/17 08:35 Dose: 20 mg Ferrous Sulfate (Feosol) 325 mg PO DAILY [facility] Fluoxetine HCl (Prozac) 40 mg PO DAILY [facility] Glucagon (Glucagon) 1 mg IM PRN PRN PRN Reason: HYPOGLYCEMIA PROTOCOL Guaifenesin (Robitussin Sf) 200 mg PO Q4H PRN PRN Reason: Cough Heparin Sodium (Porcine) (Heparin) 5,000 units SC BID [facility] Last Admin: 12/18/17 22:55 Dose: Not Given Hydralazine HCl (Apresoline) 10 mg SLOW IVP Q4H PRN PRN Reason: Systolic BP > 180 Hydralazine HCl (Apresoline) 50 mg PO TID [facility] Last Admin: 12/18/17 20:28 Dose: 50 mg Dextrose/Water (D5w) 1,000 mls @ 0 mls/hr IV INF PRN; As Directed PRN Reason: HYPOGLYCEMIA PROTOCOL Piperacillin Sod/Tazobactam (Sod 2.25 gm/ Sodium Chloride) 100 mls @ 200 mls/ hr IVPB 0600,1800 [facility] Last Admin: 12/19/17 06:15 Dose: 100 mls Vancomycin HCl 1.25 gm/ Sodium (Chloride) 250 mls @ 166.667 mls/hr IVPB [place]CALL [facility] Vancomycin HCl 1 gm/ Device 200 mls @ 200 mls/hr IVPB [place]CALL [facility] Vancomycin HCl 750 mg/ Sodium (Chloride) 250 mls @ 250 mls/hr IVPB [facility] Vancomycin HCl 500 mg/ Sodium (Chloride) 100 mls @ 100 mls/hr IVPB [facility] Insulin Human NPH (Humulin N) 10 unit SC DAILY [facility] Insulin Human Regular (Humulin R) 0 units SC .MILD SLIDING PRN; Protocol PRN Reason: MILD SLIDING SCALE Isosorbide Mononitrate (Imdur Er) 30 mg PO DAILY [facility] Labetalol HCl (Normodyne) 20 mg SLOW IVP Q4H PRN PRN Reason: Systolic BP > 180 Loperamide HCl (Imodium) 2 mg PO PRN PRN PRN Reason: Diarrhea/Loose Stools Loratadine (Claritin) 10 mg PO DAILYPRN PRN PRN Reason: Sinus Symptoms Lorazepam (Ativan) 0.5 mg PO Q6H PRN PRN Reason: Anxiety Last Admin: 12/18/17 16:53 Dose: 0.5 mg Magnesium Hydroxide (Milk Of Magnesium) 30 ml PO DAILYPRN PRN PRN Reason: Constipation Methocarbamol (Robaxin) 750 mg PO BID [facility] Last Admin: 12/18/17 20:27 Dose: 750 mg Metoclopramide HCl (Reglan) 10 mg PO TID [facility] Last Admin: 12/18/17 20:28 Dose: 10 mg Mineral Oil/White Petrolatum (Eucerin Cream) 0 gm TOP BIDPRN PRN PRN Reason: Dry Skin Hold Vancomycin For (Level >20) 0 each FS .AT DIALYSIS [facility] Ondansetron HCl (Zofran Odt) 4 mg PO Q6H PRN PRN Reason: Nausea/Vomiting Ondansetron HCl (Zofran) 4 mg IVP Q6H PRN PRN Reason: Nausea/Vomiting Phenol (Chloraseptic [place] 180 Ml Bot) 0 ml PO PRN PRN PRN Reason: Sore Throat Sacubitril/Valsartan (Entresto 24.5 Mg-25.5 Mg Tablet) 1 tab PO BID [facility] Last Admin: 12/18/17 20:27 Dose: 1 tab Senna (Senokot) 2 tab PO HSPRN PRN PRN Reason: Constipation Sodium Chloride ([place] Nasal [place] 0.65%) 0 ml EA NARE QIDPRN PRN PRN Reason: Nasal Congestion Sodium Chloride (Flush - Normal Saline) 10 ml IVF Q12HR [facility] Last Admin: 12/18/17 20:30 Dose: 10 ml Sodium Chloride (Flush - Normal Saline) 10 ml IVF PRN PRN PRN Reason: Saline Flush Tamsulosin HCl (Flomax) 0.4 mg PO DAILY [facility] Tramadol HCl (Ultram) 50 mg PO BID [facility] Last Admin: 12/18/17 20:28 Dose: 50 mg Trazodone HCl (Desyrel) 200 mg PO HS PRN PRN Reason: Insomnia Last Admin: 12/18/17 21:29 Dose: 200 mg Vitamin B Complex/Vit C/Folic Acid (Nephro-Rigo Tablet) 1 tab PO DAILY [facility] Zolpidem Tartrate (Ambien) 5 mg PO HSPRN PRN PRN Reason: Insomnia
[2017-12-19] MEDS: Aspirin 325 MG TAB PO SCH (11:05)
[2017-12-19] MEDS: FLUoxetine HCl 20 MG CAP PO SCH (11:05)
[2017-12-19] MEDS: Tamsulosin HCl 0.4 MG CAP PO SCH (11:05)
[2017-12-19] MEDS: Atorvastatin Calcium 20 MG TAB PO SCH (11:06)
[2017-12-19] MEDS: cloNIDine 0.1 MG TAB PO SCH ×2 (11:06→21:33)
[2017-12-19] MEDS: Folic Acid/Vit B Comp W-C PO SCH (11:06)
[2017-12-19] MEDS: Methocarbamol 500 MG TAB PO SCH ×2 (11:06→21:32)
[2017-12-19] MEDS: hydrALAZINE 25 MG TAB PO SCH ×3 (11:07→21:33)
[2017-12-19] MEDS: Sacubitril 24.5 MG/Valsartan 25.5 MG TABLET PO SCH ×2 (11:07→21:52)
[2017-12-19] MEDS: Famotidine 20 MG TAB PO SCH (11:07)
[2017-12-19] MEDS: traMADol HCl 50 MG TAB PO SCH ×2 (11:08→21:33)
[2017-12-19] MEDS: Heparin 5,000 UNITS/ML VIAL SC SCH ×2 (11:08→21:05)
[2017-12-19] MEDS: Ferrous Sulfate 325 MG TAB PO SCH (11:08)
[2017-12-19] MEDS: Metoclopramide HCl 10 MG TAB PO SCH ×3 (11:08→21:32)
[2017-12-19] MEDS: NPH, Human Insulin Isophane 300 UNIT/3 ML VIAL SC SCH (13:17)
[2017-12-19] MEDS: traZODone HCl 50 MG TAB PO PRN (21:37)
--- NOTE | 2017-12-19 22:52 | PRG ---
DATE OF SERVICE: 12/19/2017 SUBJECTIVE: Patient was seen and examined at bedside and overnight events noted. Patient denies shortness of breath or cramps or chest pain or palpitation. No Nausea or vomiting or diarrhea or fever or chills. OBJECTIVE: GENERAL: This is a well-built male in no apparent distress. VITAL SIGNS: Temperature 98.2, pulse 70, respiratory rate 18, blood pressure 110/69. Musculoskeletal : No tenderness, No edema HEENT: Atraumatic normocephalic Neck: Supple Cardiovascular: S1S2 heard, Rate and rhythm regular Respiratory: Clear to auscultation Gastrointestinal: Abdomen is soft Dermatologic : No skin rash Neurologic: Alert and awake and oriented X3 No focal neurologic deficits. Moving all the extremities. Psychiatric: Mood and affect normal. LABORATORY DATA: Potassium is 5.3, BUN is 30, creatinine is 5.6. ASSESSMENT AND PLAN: 1. End-stage renal disease on hemodialysis. 2. Hyperkalemia, better. 3. Anemia, stable. 4. Hypertension, stable. 5. Edema. Advised to limit fluid intake. The patient was advised to limit potassium and fluid intake. We will continue on dialysis as tolerated. MTDD
[2017-12-20] MEDS: Piperacillin/Tazobactam 2.25 GM in Sodium Chloride 0.9% 100 ML IVPB SCH ×2 (04:47→18:15)
[2017-12-20] MEDS: Carvedilol 25 MG TAB PO SCH ×2 (04:47→21:05)
[2017-12-20] MEDS: traMADol HCl 50 MG TAB PO SCH ×2 (10:07→21:06)
[2017-12-20] MEDS: Aspirin 325 MG TAB PO SCH (10:08)
[2017-12-20] MEDS: cloNIDine 0.1 MG TAB PO SCH ×2 (11:04→21:05)
[2017-12-20] MEDS: Heparin 5,000 UNITS/ML VIAL SC SCH ×2 (11:07→21:09)
[2017-12-20] MEDS: Methocarbamol 500 MG TAB PO SCH ×2 (11:08→21:06)
[2017-12-20] MEDS: hydrALAZINE 25 MG TAB PO SCH ×3 (11:08→21:05)
[2017-12-20] MEDS: Sacubitril 24.5 MG/Valsartan 25.5 MG TABLET PO SCH ×2 (11:08→21:06)
[2017-12-20] MEDS: Metoclopramide HCl 10 MG TAB PO SCH ×3 (11:08→21:06)
[2017-12-20] MEDS: Ferrous Sulfate 325 MG TAB PO SCH (14:09)
[2017-12-20] MEDS: Tamsulosin HCl 0.4 MG CAP PO SCH (14:09)
[2017-12-20] MEDS: FLUoxetine HCl 20 MG CAP PO SCH (14:09)
[2017-12-20] MEDS: Famotidine 20 MG TAB PO SCH (14:10)
[2017-12-20] MEDS: Atorvastatin Calcium 20 MG TAB PO SCH (14:10)
[2017-12-20] MEDS: Folic Acid/Vit B Comp W-C PO SCH (14:10)
[2017-12-20] MEDS: NPH, Human Insulin Isophane 300 UNIT/3 ML VIAL SC SCH (14:14)
[2017-12-20 15:11] LABS: Vancomycin, Random 7.5 ug/mL (See Comment)
--- NOTE | 2017-12-20 16:03 | PDOC.PN ---
- Subjective Encounter Start Date: 12/20/17 Encounter Start Time: 16:02 Subjective: feels well. not much pain in affected foot - Objective Resuscitation Status: Resuscitation Status FULL:Full Resuscitation MAR Reviewed: Yes Vital Signs & Weight: Vital Signs (12 hours) Temp Pulse Resp BP BP BP Pulse Ox 12/20/17 14:10 97.8 F 84 16 148/78 H 100 12/20/17 14:09 84 148/78 H 12/20/17 11:08 68 12/20/17 08:00 97.3 F L 68 16 97 12/20/17 07:32 97.3 F L 68 16 118/70 97 Weight Admit Weight 167 lb 1.6 oz Weight 167 lb 1.6 oz I&O: 12/19/17 12/20/17 12/21/17 06:59 06:59 06:59 Intake Total 480 1420 Output Total 0 Balance 480 1420 Result Diagrams: 12/19/17 03:35 12/19/17 03:35 Additional Labs: Accuchecks 12/20/17 12/20/17 12/19/17 14:16 04:27 19:46 POC Glucose 171 H 141 H 106 12/19/17 16:30 POC Glucose 130 H Laboratory Tests 12/17/17 21:57 B-Natriuretic Peptide 36813.2 H labs reviewed Phys Exam - Physical Examination Constitutional: NAD HEENT: PERRLA, moist MMs, sclera anicteric, oral pharynx no lesions Neck: no nodes, no JVD, supple, full ROM Respiratory: no wheezing, no rales, no rhonchi, clear to auscultation bilateral Cardiovascular: RRR, no significant murmur, no rub Gastrointestinal: soft, non-tender, no distention, positive bowel sounds Musculoskeletal: no edema, pulses present Neurological: non-focal, normal sensation, moves all 4 limbs Psychiatric: normal affect, A&O x 3 Skin: no rash Dx/Plan (1) Cellulitis of right foot Code(s): L03.115 - CELLULITIS OF RIGHT LOWER LIMB Status: Acute (2) PAD (peripheral artery disease) Code(s): I73.9 - PERIPHERAL VASCULAR DISEASE, UNSPECIFIED Status: Acute (3) Anemia of renal disease Code(s): D63.1 - ANEMIA IN CHRONIC KIDNEY DISEASE Status: Chronic (4) Anxiety and depression Code(s): F41.8 - OTHER SPECIFIED ANXIETY DISORDERS Status: Chronic (5) Asthma Code(s): J45.909 - UNSPECIFIED ASTHMA, UNCOMPLICATED Status: Chronic (6) BPH (benign prostatic hyperplasia) Code(s): N40.0 - BENIGN PROSTATIC HYPERPLASIA WITHOUT LOWER URINRY TRACT SYMP Status: Chronic (7) CAD (coronary artery disease), [place] coronary artery Code(s): I25.10 - ATHSCL HEART DISEASE OF [place] CORONARY ARTERY W/O ANG PCTRS Status: Chronic Qualifiers: (8) ESRD (end stage renal disease) on dialysis Code(s): N18.6 - END STAGE RENAL DISEASE; Z99.2 - DEPENDENCE ON RENAL DIALYSIS Status: Chronic (9) Elevated troponin Code(s): R74.8 - ABNORMAL LEVELS OF OTHER SERUM ENZYMES Status: Chronic (10) Hyperlipidemia Code(s): E78.5 - HYPERLIPIDEMIA, UNSPECIFIED Status: Chronic Qualifiers: (11) Hypertension Code(s): I10 - ESSENTIAL (PRIMARY) HYPERTENSION Status: Chronic Qualifiers: (12) Ischemic cardiomyopathy Code(s): I25.5 - ISCHEMIC CARDIOMYOPATHY Status: Chronic Comment: EF 20% by Echo 06/15; lost LifeVest that was rx in 06/15 On Entresto,BB,ASA,statin (13) Secondary hyperparathyroidism of renal origin Code(s): N25.81 - SECONDARY HYPERPARATHYROIDISM OF RENAL ORIGIN Status: Chronic - Plan continue antibiotics, PT/OT, out of bed/ambulate, DVT proph w/heparin check echo given severe ischemic cardiomyopathy Z& med non compliance -: Cont empiric IV ABx. -: angiogra, to assesss vacsular flow in lef will be tomorrow -: cont hemodialysis. hemodynamically stable. -: AM labs. * . Review of Systems - Review of Systems Constitutional: negative: fever, chills, sweats, weakness, malaise, other Respiratory: negative: Cough, Dry, Shortness of Breath, Hemoptysis, SOB with Excertion, Pleuritic Pain, Sputum, Wheezing Cardiovascular: negative: chest pain, palpitations, orthopnea, paroxysmal nocturnal dyspnea, edema, light headedness, other Gastrointestinal: negative: Nausea, Vomiting, Abdominal Pain, Diarrhea, Constipation, Melena, Hematochezia, Other Genitourinary: negative: Dysuria, Frequency, Incontinence, Hematuria, Retention , Other Musculoskeletal: negative: Neck Pain, Shoulder Pain, Arm Pain, Back Pain, Hand Pain, Leg Pain, Foot Pain, Other Skin: negative: Rash, Lesions, Yovani, Bruising, Other Neurological: negative: Weakness, Numbness, Incoordination, Change in Speech, Confusion, Seizures, Other - Medications/Allergies Allergies/Adverse Reactions: Allergies Allergy/AdvReac Type Severity Reaction Status Date / Time No Known Drug Allergies Allergy Verified 12/18/17 04:03 Medications: Current Medications Acetaminophen (Tylenol) 650 mg PO Q4H PRN PRN Reason: Headache/Fever or Mild Pain Hydrocodone Bitart/Acetaminophen ([place] 5/325) 1 tab PO Q4H PRN PRN Reason: Moderate Pain (4-6) Al Hydroxide/Mg Hydroxide (Maalox) 15 ml PO Q4H PRN PRN Reason: Heartburn or Indigestion Artificial Tears (Tears Renewed 15ml Bottle) 0 drop EA EYE PRN PRN PRN Reason: Dry Eyes Aspirin (Aspirin) 325 mg PO DAILY [facility] Last Admin: 12/20/17 10:08 Dose: Not Given Atorvastatin Calcium (Lipitor) 20 mg PO DAILY [facility] Last Admin: 12/20/17 14:10 Dose: 20 mg Carvedilol (Coreg) 12.5 mg PO BID [facility] Last Admin: 12/20/17 04:47 Dose: 12.5 mg Clonidine (Catapres) 0.1 mg PO BID [facility] Last Admin: 12/20/17 11:04 Dose: Not Given Dextrose/Water (Dextrose 50%) 25 gm IVP PRN PRN PRN Reason: HYPOGLYCEMIA PROTOCOL Famotidine (Pepcid) 20 mg PO DAILY [facility] Last Admin: 12/20/17 14:10 Dose: 20 mg Ferrous Sulfate (Feosol) 325 mg PO DAILY [facility] Last Admin: 12/20/17 14:09 Dose: 325 mg Fluoxetine HCl (Prozac) 40 mg PO DAILY [facility] Last Admin: 12/20/17 14:09 Dose: 40 mg Glucagon (Glucagon) 1 mg IM PRN PRN PRN Reason: HYPOGLYCEMIA PROTOCOL Guaifenesin (Robitussin Sf) 200 mg PO Q4H PRN PRN Reason: Cough Heparin Sodium (Porcine) (Heparin) 5,000 units SC BID [facility] Last Admin: 12/20/17 11:07 Dose: Not Given Hydralazine HCl (Apresoline) 10 mg SLOW IVP Q4H PRN PRN Reason: Systolic BP > 180 Hydralazine HCl (Apresoline) 50 mg PO TID [facility] Last Admin: 12/20/17 14:09 Dose: 50 mg Dextrose/Water (D5w) 1,000 mls @ 0 mls/hr IV INF PRN; As Directed PRN Reason: HYPOGLYCEMIA PROTOCOL Piperacillin Sod/Tazobactam (Sod 2.25 gm/ Sodium Chloride) 100 mls @ 200 mls/ hr IVPB 0600,1800 [facility] Last Admin: 12/20/17 04:47 Dose: 100 mls Vancomycin HCl 1.25 gm/ Sodium (Chloride) 250 mls @ 166.667 mls/hr IVPB [facility]CALL [facility] Vancomycin HCl 1 gm/ Device 200 mls @ 200 mls/hr IVPB [facility] Vancomycin HCl 750 mg/ Sodium (Chloride) 250 mls @ 250 mls/hr IVPB [facility] Vancomycin HCl 500 mg/ Sodium (Chloride) 100 mls @ 100 mls/hr IVPB [facility] Insulin Human NPH (Humulin N) 10 unit SC DAILY [facility] Last Admin: 12/20/17 14:14 Dose: 10 unit Insulin Human Regular (Humulin R) 0 units SC .MILD SLIDING PRN; Protocol PRN Reason: MILD SLIDING SCALE Isosorbide Mononitrate (Imdur Er) 30 mg PO DAILY [facility] Last Admin: 12/20/17 14:10 Dose: 30 mg Labetalol HCl (Normodyne) 20 mg SLOW IVP Q4H PRN PRN Reason: Systolic BP > 180 Loperamide HCl (Imodium) 2 mg PO PRN PRN PRN Reason: Diarrhea/Loose Stools Loratadine (Claritin) 10 mg PO DAILYPRN PRN PRN Reason: Sinus Symptoms Lorazepam (Ativan) 0.5 mg PO Q6H PRN PRN Reason: Anxiety Last Admin: 12/18/17 16:53 Dose: 0.5 mg Magnesium Hydroxide (Milk Of Magnesium) 30 ml PO DAILYPRN PRN PRN Reason: Constipation Methocarbamol (Robaxin) 750 mg PO BID [facility] Last Admin: 12/20/17 11:08 Dose: Not Given Metoclopramide HCl (Reglan) 10 mg PO TID [facility] Last Admin: 12/20/17 14:09 Dose: 10 mg Mineral Oil/White Petrolatum (Eucerin Cream) 0 gm TOP BIDPRN PRN PRN Reason: Dry Skin Hold Vancomycin For (Level >20) 0 each FS .AT DIALYSIS [facility] Ondansetron HCl (Zofran Odt) 4 mg PO Q6H PRN PRN Reason: Nausea/Vomiting Ondansetron HCl (Zofran) 4 mg IVP Q6H PRN PRN Reason: Nausea/Vomiting Phenol (Chloraseptic [place] 180 Ml Bot) 0 ml PO PRN PRN PRN Reason: Sore Throat Sacubitril/Valsartan (Entresto 24.5 Mg-25.5 Mg Tablet) 1 tab PO BID [facility] Last Admin: 12/20/17 11:08 Dose: Not Given Senna (Senokot) 2 tab PO HSPRN PRN PRN Reason: Constipation Sodium Chloride ([place] Nasal [place] 0.65%) 0 ml EA NARE QIDPRN PRN PRN Reason: Nasal Congestion Sodium Chloride (Flush - Normal Saline) 10 ml IVF Q12HR [facility] Last Admin: 12/20/17 14:11 Dose: 10 ml Sodium Chloride (Flush - Normal Saline) 10 ml IVF PRN PRN PRN Reason: Saline Flush Last Admin: 12/19/17 17:41 Dose: 10 ml Tamsulosin HCl (Flomax) 0.4 mg PO DAILY [facility] Last Admin: 12/20/17 14:09 Dose: 0.4 mg Tramadol HCl (Ultram) 50 mg PO BID [facility] Last Admin: 12/20/17 10:07 Dose: Not Given Trazodone HCl (Desyrel) 200 mg PO HS PRN PRN Reason: Insomnia Last Admin: 12/19/17 21:37 Dose: 200 mg Vitamin B Complex/Vit C/Folic Acid (Nephro-Rigo Tablet) 1 tab PO DAILY [facility] Last Admin: 12/20/17 14:10 Dose: 1 tab Zolpidem Tartrate (Ambien) 5 mg PO HSPRN PRN PRN Reason: Insomnia
--- NOTE | 2017-12-20 17:26 | PRG ---
DATE OF SERVICE: 12/20/2017 SUBJECTIVE: Patient was seen and examined at bedside and overnight events noted. Patient denies shortness of breath or cramps or chest pain or palpitation. No Nausea or vomiting or diarrhea or fever or chills. OBJECTIVE: GENERAL: This is a well-built male in no apparent distress. VITAL SIGNS: Temperature 97.8, pulse 84, respirations 18, blood pressure 148/ 78. Musculoskeletal : No tenderness, No edema HEENT: Atraumatic normocephalic Neck: Supple Cardiovascular: S1S2 heard, Rate and rhythm regular Respiratory: Clear to auscultation Gastrointestinal: Abdomen is soft Dermatologic : No skin rash Neurologic: Alert and awake and oriented X3 No focal neurologic deficits. Moving all the extremities. Psychiatric: Mood and affect normal LABORATORY DATA: There are no labs done. ASSESSMENT AND PLAN: 1. End-stage renal disease on dialysis. 2. Hyperkalemia, better. 3. Anemia, stable. 3. Hypertension, stable. 4. Edema, remove fluid with dialysis. Plan is to continue on dialysis as tolerated. [facility]
[2017-12-20] MEDS: Insulin Regular 300 UNITS/3 ML VIAL SC PRN (18:16)
[2017-12-21 04:06] LABS: #Basophils 0.1 thou/uL (0.0-0.2); #Eosinphils 0.3 thou/uL (0.0-0.7); #Lymphocytes 0.8 thou/uL (1.20-3.40); #Monocytes 0.5 thou/uL (0.11-0.59); #Neutrophils 2.5 thou/uL (1.40-6.50); %Basophils 1.6 % (0.0-1.0); %Eosinophils 8.3 % (0.0-10.0); %Lymphocytes 19.9 % (21.0-51.0); %Monocytes 11.6 % (0.0-10.0); %Neutrophils 58.6 % (42.0-75.0); Hemoglobin 10.9 g/dL (14.0-18.0); Mean Corpuscular Hemoglobin 30.8 pg (27.0-31.0); Mean Corpuscular Volume 96.3 fL (78.0-98.0); Platelet Count 132 thou/uL (130-400); RBC Distribution Width 16.1 % (11.5-14.5); Red Blood Cell (RBC) Count 3.53 mill/uL (4.70-6.10); White Blood Cell (WBC) Count 4.2 thou/uL (4.8-10.8)
[2017-12-21 04:26] LABS: Anion Gap 19 mmol/L (10-20); BUN (Urea Nitrogen) 33 mg/dL (8.4-25.7); Calc. Creatinine Clearance 13 mL/min (70-130); Calcium 8.5 mg/dL (7.8-10.44); Carbon Dioxide 28 mmol/L (23-31); Chloride 99 mmol/L (98-107); Estimated GFR-MDRD 10; Glucose 78 mg/dL (80-115); Potassium 5.2 mmol/L (3.5-5.1); Sodium 141 mmol/L (136-145)
[2017-12-21] MEDS: Piperacillin/Tazobactam 2.25 GM in Sodium Chloride 0.9% 100 ML IVPB SCH ×2 (05:28→18:05)
[2017-12-21] MEDS: Carvedilol 25 MG TAB PO SCH ×2 (05:31→21:08)
[2017-12-21] MEDS ORDERED: Lidocaine 1% (PF) 30 ML VIAL ONE (06:42)
[2017-12-21] MEDS: Heparin 5,000 UNITS/ML VIAL SC SCH ×2 (08:19→21:11)
[2017-12-21] MEDS: cloNIDine 0.1 MG TAB PO SCH ×2 (10:05→21:10)
[2017-12-21] MEDS: Folic Acid/Vit B Comp W-C PO SCH (10:16)
[2017-12-21] MEDS: FLUoxetine HCl 20 MG CAP PO SCH (10:16)
[2017-12-21] MEDS: Famotidine 20 MG TAB PO SCH (10:16)
[2017-12-21] MEDS: Aspirin 325 MG TAB PO SCH (10:17)
[2017-12-21] MEDS: Metoclopramide HCl 10 MG TAB PO SCH ×3 (10:17→21:08)
[2017-12-21] MEDS: hydrALAZINE 25 MG TAB PO SCH ×3 (10:17→21:08)
[2017-12-21] MEDS: Ferrous Sulfate 325 MG TAB PO SCH (10:17)
[2017-12-21] MEDS: Atorvastatin Calcium 20 MG TAB PO SCH (10:17)
[2017-12-21] MEDS: Tamsulosin HCl 0.4 MG CAP PO SCH (10:17)
[2017-12-21] MEDS: traMADol HCl 50 MG TAB PO SCH ×2 (10:18→21:07)
[2017-12-21] MEDS: Methocarbamol 500 MG TAB PO SCH ×2 (10:18→21:10)
[2017-12-21] MEDS: Sacubitril 24.5 MG/Valsartan 25.5 MG TABLET PO SCH ×2 (10:21→21:07)
--- NOTE | 2017-12-21 10:23 | OP ---
DATE OF PROCEDURE: 12/21/2017 POSTOPERATIVE DIAGNOSIS: Peripheral artery disease. PROCEDURE: Aortogram and iliofemoral runoff and right lower extremity runoff. SURGEON: Porfirio Gonzalez M.D. ANESTHESIA: 1% lidocaine. CONTRAST: 32 mL. FLUORO: 3.4 minutes. FINDINGS: The patient had moderate disease in his distal right posterior tibial artery with a rather poor flow into the foot, but patent anterior tibial and peroneal vessels into the foot. Ultimately a diagnosis of 80% distal posterior tibial artery stenosis x 2 with normal anterior tibial and peroneal, popliteal, femoral and aortoiliac segments. It was not felt that this diseased anterior tibial segment was contributing to the erythema of foot and lower leg ( not dependent rubor) PROCEDURE IN DETAIL: After prepping and draping the left groin, 1% lidocaine was used to infiltrate the skin. Ultrasound guided puncture of the artery was carried out, wire and 5 [place] dilator and sheath were placed. Contra catheter was advanced into the aorta where aortoiliac femoral injection was performed with as noted normal vessels. The Contra catheter was directed over into the iliac system on the right side and advanced into the superficial femoral artery after obtaining a common and deep femoral artery angios. Runoff of the right leg was then obtained. Contra catheter was removed over a wire as was the 5 [place] dilator and sheath and pressure was held. He tolerated the procedure well. [facility]
[2017-12-21] MEDS: Lorazepam 0.5 MG TAB PO PRN ×2 (10:29→22:00)
[2017-12-21] MEDS ORDERED: Iopamidol 370 76% 50 ML VIAL FS ONE (11:16)
--- NOTE | 2017-12-21 14:06 | PDOC.PN ---
- Subjective Encounter Start Date: 12/21/17 Encounter Start Time: 14:04 Subjective: feels tired.just cam eback from angiogram -: no discomfort. no new complaints.no foot pain - Objective Resuscitation Status: Resuscitation Status FULL:Full Resuscitation MAR Reviewed: Yes Vital Signs & Weight: Vital Signs (12 hours) Temp Pulse Resp BP BP BP Pulse Ox 12/21/17 11:18 97.7 F 74 16 118/67 97 12/21/17 10:17 67 129/78 12/21/17 09:25 97.7 F 74 16 97 12/21/17 04:49 97.7 F 65 18 112/69 94 L Weight Admit Weight 167 lb 1.6 oz Weight 167 lb 1.6 oz I&O: 12/20/17 12/21/17 12/22/17 06:59 06:59 06:59 Intake Total 1420 1420 Balance 1420 1420 Result Diagrams: 12/21/17 03:35 12/21/17 03:35 Additional Labs: Accuchecks 12/21/17 12/21/17 12/21/17 11:47 10:27 04:28 POC Glucose 123 H 106 84 12/20/17 12/20/17 12/20/17 21:52 17:04 14:16 POC Glucose 128 H 172 H 171 H labs reviewed Phys Exam - Physical Examination Constitutional: NAD HEENT: PERRLA, moist MMs, sclera anicteric, oral pharynx no lesions Neck: no nodes, no JVD, supple, full ROM Respiratory: no wheezing, no rales, no rhonchi, clear to auscultation bilateral Cardiovascular: RRR, no significant murmur, no rub Gastrointestinal: soft, non-tender, no distention, positive bowel sounds Musculoskeletal: no edema, pulses present foot erythem aimproved Neurological: non-focal, normal sensation, moves all 4 limbs Psychiatric: normal affect, A&O x 3 Skin: no rash Dx/Plan (1) Cellulitis of right foot Code(s): L03.115 - CELLULITIS OF RIGHT LOWER LIMB Status: Acute (2) PAD (peripheral artery disease) Code(s): I73.9 - PERIPHERAL VASCULAR DISEASE, UNSPECIFIED Status: Acute Comment: s/p angiogram 12/21/17 (3) Anemia of renal disease Code(s): D63.1 - ANEMIA IN CHRONIC KIDNEY DISEASE Status: Chronic (4) Anxiety and depression Code(s): F41.8 - OTHER SPECIFIED ANXIETY DISORDERS Status: Chronic (5) Asthma Code(s): J45.909 - UNSPECIFIED ASTHMA, UNCOMPLICATED Status: Chronic (6) BPH (benign prostatic hyperplasia) Code(s): N40.0 - BENIGN PROSTATIC HYPERPLASIA WITHOUT LOWER URINRY TRACT SYMP Status: Chronic (7) CAD (coronary artery disease), [place] coronary artery Code(s): I25.10 - ATHSCL HEART DISEASE OF [place] CORONARY ARTERY W/O ANG PCTRS Status: Chronic Qualifiers: (8) ESRD (end stage renal disease) on dialysis Code(s): N18.6 - END STAGE RENAL DISEASE; Z99.2 - DEPENDENCE ON RENAL DIALYSIS Status: Chronic (9) Elevated troponin Code(s): R74.8 - ABNORMAL LEVELS OF OTHER SERUM ENZYMES Status: Chronic (10) Hyperlipidemia Code(s): E78.5 - HYPERLIPIDEMIA, UNSPECIFIED Status: Chronic Qualifiers: (11) Hypertension Code(s): I10 - ESSENTIAL (PRIMARY) HYPERTENSION Status: Chronic Qualifiers: (12) Ischemic cardiomyopathy Code(s): I25.5 - ISCHEMIC CARDIOMYOPATHY Status: Chronic Comment: EF 20% by Echo 06/15; lost LifeVest that was rx in 06/15 On Entresto,BB,ASA,statin (13) Secondary hyperparathyroidism of renal origin Code(s): N25.81 - SECONDARY HYPERPARATHYROIDISM OF RENAL ORIGIN Status: Chronic - Plan continue antibiotics, PT/OT, out of bed/ambulate, DVT proph w/heparin, DVT proph w/SCDs cont hemodialysis . monitor renal Fx -: ECHO pending.will haris need AICD this admit if EF still low -: cont empiric antibiotics. cellulitis clinically improving -: will need scrpits of meds as he was not taking any meds at home -: am labs * . Review of Systems - Review of Systems Constitutional: negative: fever, chills, sweats, weakness, malaise, other ENT: negative: Ear Pain, Ear Discharge, Nose Pain, Nose Discharge, Nose Congestion, Mouth Pain, Mouth Swelling, Throat Pain, Throat Swelling, Other Respiratory: negative: Cough, Dry, Shortness of Breath, Hemoptysis, SOB with Excertion, Pleuritic Pain, Sputum, Wheezing Cardiovascular: negative: chest pain, palpitations, orthopnea, paroxysmal nocturnal dyspnea, edema, light headedness, other Gastrointestinal: negative: Nausea, Vomiting, Abdominal Pain, Diarrhea, Constipation, Melena, Hematochezia, Other Genitourinary: negative: Dysuria, Frequency, Incontinence, Hematuria, Retention , Other Musculoskeletal: negative: Neck Pain, Shoulder Pain, Arm Pain, Back Pain, Hand Pain, Leg Pain, Foot Pain, Other Skin: negative: Rash, Lesions, Yovani, Bruising, Other Neurological: negative: Weakness, Numbness, Incoordination, Change in Speech, Confusion, Seizures, Other - Medications/Allergies Allergies/Adverse Reactions: Allergies Allergy/AdvReac Type Severity Reaction Status Date / Time No Known Drug Allergies Allergy Verified 12/18/17 04:03 Medications: Current Medications Acetaminophen (Tylenol) 650 mg PO Q4H PRN PRN Reason: Headache/Fever or Mild Pain Hydrocodone Bitart/Acetaminophen ([place] 5/325) 1 tab PO Q4H PRN PRN Reason: Moderate Pain (4-6) Al Hydroxide/Mg Hydroxide (Maalox) 15 ml PO Q4H PRN PRN Reason: Heartburn or Indigestion Artificial Tears (Tears Renewed 15ml Bottle) 0 drop EA EYE PRN PRN PRN Reason: Dry Eyes Aspirin (Aspirin) 325 mg PO DAILY [facility] Last Admin: 12/21/17 10:17 Dose: 325 mg Atorvastatin Calcium (Lipitor) 20 mg PO DAILY [facility] Last Admin: 12/21/17 10:17 Dose: 20 mg Carvedilol (Coreg) 12.5 mg PO BID [facility] Last Admin: 12/21/17 05:31 Dose: 12.5 mg Clonidine (Catapres) 0.1 mg PO BID [facility] Last Admin: 12/20/17 21:05 Dose: 0.1 mg Dextrose/Water (Dextrose 50%) 25 gm IVP PRN PRN PRN Reason: HYPOGLYCEMIA PROTOCOL Famotidine (Pepcid) 20 mg PO DAILY [facility] Last Admin: 12/21/17 10:16 Dose: 20 mg Ferrous Sulfate (Feosol) 325 mg PO DAILY [facility] Last Admin: 12/21/17 10:17 Dose: 325 mg Fluoxetine HCl (Prozac) 40 mg PO DAILY [facility] Last Admin: 12/21/17 10:16 Dose: 40 mg Glucagon (Glucagon) 1 mg IM PRN PRN PRN Reason: HYPOGLYCEMIA PROTOCOL Guaifenesin (Robitussin Sf) 200 mg PO Q4H PRN PRN Reason: Cough Heparin Sodium (Porcine) (Heparin) 5,000 units SC BID [facility] Last Admin: 12/21/17 08:19 Dose: Not Given Hydralazine HCl (Apresoline) 10 mg SLOW IVP Q4H PRN PRN Reason: Systolic BP > 180 Hydralazine HCl (Apresoline) 50 mg PO TID [facility] Last Admin: 12/21/17 10:17 Dose: 50 mg Dextrose/Water (D5w) 1,000 mls @ 0 mls/hr IV INF PRN; As Directed PRN Reason: HYPOGLYCEMIA PROTOCOL Piperacillin Sod/Tazobactam (Sod 2.25 gm/ Sodium Chloride) 100 mls @ 200 mls/ hr IVPB 0600,1800 [facility] Last Admin: 12/21/17 05:28 Dose: 100 mls Vancomycin HCl 1.25 gm/ Sodium (Chloride) 250 mls @ 166.667 mls/hr IVPB WILLCALL [facility] Vancomycin HCl 1 gm/ Device 200 mls @ 200 mls/hr IVPB WILLCALL [facility] Vancomycin HCl 750 mg/ Sodium (Chloride) 250 mls @ 250 mls/hr IVPB WILLCALL [facility] Vancomycin HCl 500 mg/ Sodium (Chloride) 100 mls @ 100 mls/hr IVPB WILLCALL [facility] Insulin Human NPH (Humulin N) 10 unit SC DAILY [facility] Last Admin: 12/20/17 14:14 Dose: 10 unit Insulin Human Regular (Humulin R) 0 units SC .MILD SLIDING PRN; Protocol PRN Reason: MILD SLIDING SCALE Last Admin: 12/20/17 18:16 Dose: 2 units Isosorbide Mononitrate (Imdur Er) 30 mg PO DAILY [facility] Last Admin: 12/21/17 10:17 Dose: 30 mg Labetalol HCl (Normodyne) 20 mg SLOW IVP Q4H PRN PRN Reason: Systolic BP > 180 Loperamide HCl (Imodium) 2 mg PO PRN PRN PRN Reason: Diarrhea/Loose Stools Loratadine (Claritin) 10 mg PO DAILYPRN PRN PRN Reason: Sinus Symptoms Lorazepam (Ativan) 0.5 mg PO Q6H PRN PRN Reason: Anxiety Last Admin: 12/21/17 10:29 Dose: 0.5 mg Magnesium Hydroxide (Milk Of Magnesium) 30 ml PO DAILYPRN PRN PRN Reason: Constipation Methocarbamol (Robaxin) 750 mg PO BID [facility] Last Admin: 12/21/17 10:18 Dose: 750 mg Metoclopramide HCl (Reglan) 10 mg PO TID [facility] Last Admin: 12/21/17 10:17 Dose: 10 mg Mineral Oil/White Petrolatum (Eucerin Cream) 0 gm TOP BIDPRN PRN PRN Reason: Dry Skin Hold Vancomycin For (Level >20) 0 each FS .AT DIALYSIS [facility] Ondansetron HCl (Zofran Odt) 4 mg PO Q6H PRN PRN Reason: Nausea/Vomiting Ondansetron HCl (Zofran) 4 mg IVP Q6H PRN PRN Reason: Nausea/Vomiting Phenol (Chloraseptic [place] 180 Ml Bot) 0 ml PO PRN PRN PRN Reason: Sore Throat Sacubitril/Valsartan (Entresto 24.5 Mg-25.5 Mg Tablet) 1 tab PO BID [facility] Last Admin: 12/21/17 10:21 Dose: 1 tab Senna (Senokot) 2 tab PO HSPRN PRN PRN Reason: Constipation Sodium Chloride (Deary Nasal [place] 0.65%) 0 ml EA NARE QIDPRN PRN PRN Reason: Nasal Congestion Sodium Chloride (Flush - Normal Saline) 10 ml IVF Q12HR [facility] Last Admin: 12/21/17 10:22 Dose: 10 ml Sodium Chloride (Flush - Normal Saline) 10 ml IVF PRN PRN PRN Reason: Saline Flush Last Admin: 12/19/17 17:41 Dose: 10 ml Tamsulosin HCl (Flomax) 0.4 mg PO DAILY [facility] Last Admin: 12/21/17 10:17 Dose: 0.4 mg Tramadol HCl (Ultram) 50 mg PO BID [facility] Last Admin: 12/21/17 10:18 Dose: 50 mg Trazodone HCl (Desyrel) 200 mg PO HS PRN PRN Reason: Insomnia Last Admin: 12/19/17 21:37 Dose: 200 mg Vitamin B Complex/Vit C/Folic Acid (Nephro-Rigo Tablet) 1 tab PO DAILY [facility] Last Admin: 12/21/17 10:16 Dose: 1 tab Zolpidem Tartrate (Ambien) 5 mg PO HSPRN PRN PRN Reason: Insomnia
[2017-12-21] MEDS: NPH, Human Insulin Isophane 300 UNIT/3 ML VIAL SC SCH (15:05)
--- NOTE | 2017-12-21 16:34 | PRG ---
DATE OF SERVICE: 12/21/2017 DATE OF SERVICE: 11/19/2017 SUBJECTIVE: Patient was seen and examined at bedside and overnight events noted. Patient denies any shortness of breath or chest pain or palpitation. No history of nausea or vomitin g or diarrhea or fever or chills or cramps. OBJECTIVE: GENERAL: This is an elderly male, in no apparent distress. VITAL SIGNS: Temperature 97.7, pulse 74, respiratory rate , blood pressure 118/65. HEENT: Atraumatic, normocephalic. Oral mucosa is moist. NECK: Supple. CARDIOVASCULAR: S1 and S2 heard. Rate and rhythm regular. RESPIRATORY: Clear to auscultation. GASTROINTESTINAL: Abdomen is soft. MUSCULOSKELETAL: No tenderness. No edema. DERMATOLOGIC: No skin rash. NEUROLOGIC: Alert and awake and oriented x3. No focal neurologic deficits. Moving all the extremit ies. PSYCHIATRIC: Mood and affect normal. LABORATORY DATA: Potassium 5.2, BUN 33, creatinine 5.5. ASSESSMENT AND PLAN: 1. End-stage renal disease. Continue on hemodialysis as tolerated. 2. Hyperkalemia, better, 3. Anemia. 5. Hypertension. 4. Edema, controlled. Plan is to continue on dialysis as tolerated Monday, Monday, Monday.
[2017-12-21] MEDS: Insulin Regular 300 UNITS/3 ML VIAL SC PRN (16:37)
[2017-12-22 05:02] LABS: Anion Gap 19 mmol/L (10-20); BUN (Urea Nitrogen) 45 mg/dL (8.4-25.7); Calc. Creatinine Clearance 11 mL/min (70-130); Calcium 8.4 mg/dL (7.8-10.44); Carbon Dioxide 26 mmol/L (23-31); Chloride 98 mmol/L (98-107); Estimated GFR-MDRD 8; Glucose 179 mg/dL (80-115); Potassium 5.5 mmol/L (3.5-5.1); Sodium 137 mmol/L (136-145)
[2017-12-22] MEDS: Piperacillin/Tazobactam 2.25 GM in Sodium Chloride 0.9% 100 ML IVPB SCH ×2 (05:47→18:19)
[2017-12-22] MEDS: Insulin Regular 300 UNITS/3 ML VIAL SC PRN ×2 (05:52→18:19)
[2017-12-22] MEDS: Aspirin 325 MG TAB PO SCH (07:55)
[2017-12-22] MEDS: traMADol HCl 50 MG TAB PO SCH ×2 (07:55→20:54)
[2017-12-22] MEDS: cloNIDine 0.1 MG TAB PO SCH ×2 (07:55→20:53)
[2017-12-22] MEDS: Ferrous Sulfate 325 MG TAB PO SCH (07:56)
[2017-12-22] MEDS: Famotidine 20 MG TAB PO SCH (07:56)
[2017-12-22] MEDS: Carvedilol 25 MG TAB PO SCH ×2 (07:56→20:54)
[2017-12-22] MEDS: Heparin 5,000 UNITS/ML VIAL SC SCH ×2 (07:56→20:56)
[2017-12-22] MEDS: hydrALAZINE 25 MG TAB PO SCH ×3 (07:57→20:54)
[2017-12-22] MEDS: Methocarbamol 500 MG TAB PO SCH ×2 (07:57→20:55)
[2017-12-22] MEDS: Atorvastatin Calcium 20 MG TAB PO SCH (07:57)
[2017-12-22] MEDS: Tamsulosin HCl 0.4 MG CAP PO SCH (07:57)
[2017-12-22] MEDS: FLUoxetine HCl 20 MG CAP PO SCH (07:57)
[2017-12-22] MEDS: Folic Acid/Vit B Comp W-C PO SCH (07:57)
[2017-12-22] MEDS: Metoclopramide HCl 10 MG TAB PO SCH ×3 (08:00→20:53)
[2017-12-22] MEDS: NPH, Human Insulin Isophane 300 UNIT/3 ML VIAL SC SCH (08:01)
[2017-12-22] MEDS: Sacubitril 24.5 MG/Valsartan 25.5 MG TABLET PO SCH ×2 (08:06→20:59)
[2017-12-22] MEDS ORDERED: Metoclopramide HCl 10 MG TAB PO SCH (08:15)
[2017-12-22 08:35] LABS: Vancomycin, Random 6.6 ug/mL (See Comment)
--- NOTE | 2017-12-22 13:47 | PRG ---
DATE OF SERVICE: 12/22/2017 SUBJECTIVE: Patient was seen and examined at bedside and overnight events noted. Patient denies any shortness of breath or chest pain or palpitation. No history of nausea or vomiting or diarrhea or f ever or chills or cramps. OBJECTIVE: GENERAL: This is a thin-built male in no apparent distress. VITAL SIGNS: Temperature 97.3, pulse 77, respirations 16, blood pressure 113/80. HEENT: Atraumatic, normocephalic. Oral mucosa is moist. NECK: Supple. CARDIOVASCULAR: S1, S2 heard. Rate and rhythm regular. RESPIRATORY: Clear to auscultation. GASTROINTESTINAL: Abdomen is soft. MUSCULOSKELETAL: No tenderness, no edema. DERMATOLOGIC: No skin rash. NEUROLOGIC: Alert and awake and oriented x3. No focal neurologic deficits. Moving all the extremit ies. PSYCHIATRIC: Mood and affect normal. LABORATORY DATA: Potassium is 5.5, BUN is 45, creatinine is 6.9. ASSESSMENT AND PLAN: 1. End-stage renal disease, continue on hemodialysis Monday, Monday, and Monday. 2. Hyperkalemia. Limit potassium. 3. Anemia. 4. Hypertension. 5. Edema. We will remove fluid with dialysis as tolerated. Limit potassium in the diet. We will follow.
[2017-12-22] MEDS: Lorazepam 0.5 MG TAB PO PRN (17:03)
[2017-12-23 05:33] LABS: Anion Gap 16 mmol/L (10-20); BUN (Urea Nitrogen) 30 mg/dL (8.4-25.7); Calc. Creatinine Clearance 14 mL/min (70-130); Calcium 8.2 mg/dL (7.8-10.44); Carbon Dioxide 24 mmol/L (23-31); Chloride 102 mmol/L (98-107); Estimated GFR-MDRD 10; Glucose 260 mg/dL (80-115); Potassium 4.8 mmol/L (3.5-5.1); Sodium 137 mmol/L (136-145)
[2017-12-23] MEDS: Piperacillin/Tazobactam 2.25 GM in Sodium Chloride 0.9% 100 ML IVPB SCH (05:50)
[2017-12-23] MEDS: Insulin Regular 300 UNITS/3 ML VIAL SC PRN ×2 (05:51→21:43)
[2017-12-23] MEDS: Tamsulosin HCl 0.4 MG CAP PO SCH (08:33)
[2017-12-23] MEDS: FLUoxetine HCl 20 MG CAP PO SCH (08:33)
[2017-12-23] MEDS: Folic Acid/Vit B Comp W-C PO SCH (08:33)
[2017-12-23] MEDS: Carvedilol 25 MG TAB PO SCH ×2 (08:34→21:35)
[2017-12-23] MEDS: Famotidine 20 MG TAB PO SCH (08:34)
[2017-12-23] MEDS: Atorvastatin Calcium 20 MG TAB PO SCH (08:34)
[2017-12-23] MEDS: Ferrous Sulfate 325 MG TAB PO SCH (08:34)
[2017-12-23] MEDS: Metoclopramide HCl 10 MG TAB PO SCH ×3 (08:35→21:35)
[2017-12-23] MEDS: Methocarbamol 500 MG TAB PO SCH ×2 (08:35→21:36)
[2017-12-23] MEDS: Aspirin 325 MG TAB PO SCH (08:35)
[2017-12-23] MEDS: Sacubitril 24.5 MG/Valsartan 25.5 MG TABLET PO SCH ×2 (08:35→21:42)
[2017-12-23] MEDS: cloNIDine 0.1 MG TAB PO SCH ×2 (08:36→21:35)
[2017-12-23] MEDS: Heparin 5,000 UNITS/ML VIAL SC SCH ×2 (08:36→21:38)
[2017-12-23] MEDS: hydrALAZINE 25 MG TAB PO SCH ×3 (08:36→21:42)
[2017-12-23] MEDS: traMADol HCl 50 MG TAB PO SCH ×2 (08:37→21:36)
[2017-12-23] MEDS: NPH, Human Insulin Isophane 300 UNIT/3 ML VIAL SC SCH (08:37)
--- NOTE | 2017-12-23 13:11 | CON ---
DATE OF CONSULTATION: 12/23/2017 REASON FOR CONSULTATION: Worsening LVEF. HISTORY OF PRESENT ILLNESS: Mr. Ramirez is a 67-year-old gentleman who initially was seen and evaluat ed by Dr. Jeovanny Anguiano in 2014. He underwent coronary angiography and was found to have a moderate to s evere multivessel disease with heavy calcification. With Dr. Anguiano's opinion, patient was not eligibl e for percutaneous intervention due to heavy calcification or bypass surgery. He was then seen and evaluated by Dr. Edilson Thorpe in 04/2018 after Jeovanny Anguiano's absence. He also un derwent echo with Doppler dated 05/2017 with report noted José Antonio, but no report noted in [employer]. His LVEF at that time was 20%-25%. His most recent echo suggested LVEF of 15%-20% which is no signi ficant change from previous echo. Mr. Ramirez denies chest pain, pressure or associated symptoms. He recently was seen and evaluated for severe PVD and was evaluated by Dr. Porfirio Gonzalez. He has been di agnosed with cellulitis. No chest pain, pressure or shortness of breath. PAST MEDICAL HISTORY: Severe PVD, end-stage renal disease, noncompliance, CVA, hyperlipidemia, diabe marcel mellitus and hypertension. HOME MEDICATIONS: Include trazodone, tramadol, hydralazine, clonidine, tamsulosin, sacubitril/valsar luther, NPH, metoclopramide, methocarbamol, isosorbide, folic acid, iron, famotidine, levofloxacin, carv edilol, atorvastatin, and aspirin. REVIEW OF SYSTEMS: Ten-point review of systems is reviewed as above, otherwise negative. PHYSICAL EXAMINATION: GENERAL: Patient is a pleasant male who is in no acute distress. He does appear elder than stated a ge. VITAL SIGNS: Blood pressure 136/84, pulse 77, respirations 20. NEUROLOGIC: The patient is alert and oriented times 3 with no focal neurologic deficits. HEENT: Sclerae without icterus. Mouth has moist mucous membranes with normal pallor. NECK: No JVD. Carotid upstroke brisk. No bruits bilaterally. LUNGS: Clear to auscultation with unlabored respirations. BACK: No scoliosis or kyphosis. CARDIAC: Regular rate and rhythm with normal S1 and S2. No S3 or S4 noted. No significant rubs, murmurs, thrills, or gallops noted throughout the precordium. PMI is not displa tiffany. There is no parasternal heave. ABDOMEN: Soft, nontender, nondistended. No peritoneal signs present. No hepatosplenomegaly. No ab normal striae. EXTREMITIES: 2+ femoral and 2+ dorsalis pedis pulses bilaterally. No cyanosis, clubbing, or edema. SKIN: No gross abnormalities. PERTINENT LABORATORY DATA: Hemoglobin 10.9, creatinine 5.48, sodium 137. IMAGING DATA: Echo with Doppler as above. IMPRESSION: 1. Severe coronary artery disease. 2. Chronic systolic heart failure with LVEF 15%-20%. 3. End-stage renal disease. 4. Severe peripheral vascular disease. 5. Cellulitis. RECOMMENDATIONS: Certainly difficult case. I discussed the findings of underlying coronary artery d isease and cardiomyopathy. The appeared shocked as of this was the first time she had heard thi s news. The patient appears ambivalent. We will discuss the case with Hospitalist. Certainly does not appear to be a good opportunity to place an ICD if he recently had cellulitis. May require a Lif eVest in the interim and follow up with Dr. Thorpe or with a [place] system. [facility] are amenable to [facility], but timing may be an issue. No current symptoms suggesting angina. We will also discuss with Dr. Porfirio Gonzalez.
--- NOTE | 2017-12-23 13:47 | EKG ---
Test Reason : Blood Pressure : / mmHG Vent. Rate : 077 BPM Atrial Rate : 077 BPM P-R Int : 214 ms QRS Dur : 100 ms QT Int : 408 ms P-R-T Axes : 060 -14 142 degrees QTc Int : 461 ms Sinus rhythm with 1st degree A-V block Cannot rule out Anterior infarct , age undetermined Abnormal ECG #1 Confirmed by YANETH HOLLINS MD ([id number]), editor book CARLITA CARLSON ([id number]) on 12/23/2017 1:47:26 PM Referred By: Confirmed By:YANETH HOLLINS MD
--- NOTE | 2017-12-23 13:48 | EKG ---
Test Reason : Blood Pressure : / mmHG Vent. Rate : 083 BPM Atrial Rate : 083 BPM P-R Int : 210 ms QRS Dur : 106 ms QT Int : 410 ms P-R-T Axes : 049 -17 135 degrees QTc Int : 481 ms Sinus rhythm with 1st degree A-V block Cannot rule out Anterior infarct , age undetermined Abnormal ECG #2 No changes Confirmed by YANETH HOLLINS MD ([id number]), loan expeditor CARLITA CARLSON ([id number]) on 12/23/2017 1:47:47 PM Referred By: Confirmed By:YANETH HOLLINS MD
--- NOTE | 2017-12-23 14:59 | PRG ---
DATE OF SERVICE: 12/23/2017 SUBJECTIVE: Patient was seen and examined at bedside and overnight events noted. Patient denies any shortness of breath or chest pain or palpitation. No history of nausea or vomiting or diarrhea or fever or chills or cramps. OBJECTIVE: GENERAL: This is a well-built male in no apparent distress. VITAL SIGNS: Temperature 97.5, pulse 77, respiratory rate 18, blood pressure __ ___. HEENT: Atraumatic, normocephalic. Oral mucosa is moist. NECK: Supple. CARDIOVASCULAR: S1, S2 heard. Rate and rhythm regular. RESPIRATORY: Clear to auscultation. GASTROINTESTINAL: Abdomen is soft. MUSCULOSKELETAL: No tenderness. No edema. DERMATOLOGIC: No skin rash. NEUROLOGIC: Alert and awake and oriented x3. No focal neurologic deficits. Moving all the extremities. PSYCHIATRIC: Mood and affect normal. LABORATORY DATA: Potassium 4.8, BUN 30, creatinine is 5.4. ASSESSMENT AND PLAN: 1. End-stage renal disease, continue on dialysis. 2. Hyperkalemia, better. Limit potassium in diet. 3. Anemia. 4. Hypertension. Continue dialysis on Monday, Monday, and Monday. [facility]
[2017-12-23] MEDS: Lorazepam 0.5 MG TAB PO PRN (18:38)
--- NOTE | 2017-12-23 20:41 | PDOC.PN ---
- Subjective Encounter Start Date: 12/22/17 Encounter Start Time: 11:00 Subjective: pt up in bed no complains - Objective Resuscitation Status: Resuscitation Status FULL:Full Resuscitation Vital Signs & Weight: Vital Signs (12 hours) Temp Pulse Resp BP BP BP Pulse Ox 12/23/17 20:00 97.8 F 72 20 131/76 97 12/23/17 17:06 120/55 L 12/23/17 15:30 68 126/77 12/23/17 15:28 97.5 F L 68 16 126/77 99 12/23/17 13:13 97.3 F L 63 16 129/70 97 Weight Admit Weight 167 lb 1.6 oz Weight 167 lb 1.6 oz I&O: 12/22/17 12/23/17 12/24/17 06:59 06:59 06:59 Intake Total 1400 1420 720 Balance 1400 1420 720 Result Diagrams: 12/21/17 03:35 12/23/17 04:41 Additional Labs: Accuchecks 12/23/17 12/23/17 12/22/17 11:14 04:54 20:09 POC Glucose 141 H 323 H 111 H Phys Exam - Physical Examination HEENT: PERRLA, moist MMs, sclera anicteric, TM's clear, oral pharynx no lesions , 2+ tonsils Neck: no nodes, no JVD, supple, full ROM Respiratory: no wheezing, no rales, no rhonchi, wheezing present, clear to auscultation bilateral Cardiovascular: RRR, no significant murmur, no rub, gallop, irregular Gastrointestinal: soft, non-tender, no distention, positive bowel sounds Musculoskeletal: no edema mild discoloration noted to right lower ext Dx/Plan (1) Cellulitis of right foot Code(s): L03.115 - CELLULITIS OF RIGHT LOWER LIMB Status: Acute (2) CAD (coronary artery disease), [place] coronary artery Code(s): I25.10 - ATHSCL HEART DISEASE OF [place] CORONARY ARTERY W/O ANG PCTRS Status: Chronic Qualifiers: (3) PAD (peripheral artery disease) Code(s): I73.9 - PERIPHERAL VASCULAR DISEASE, UNSPECIFIED Status: Acute Comment: s/p angiogram 12/21/17 (4) Diabetes type 2, controlled Code(s): E11.9 - TYPE 2 DIABETES MELLITUS WITHOUT COMPLICATIONS Status: Chronic (5) Noncompliance of patient with renal dialysis Code(s): Z91.15 - PATIENT'S NONCOMPLIANCE WITH RENAL DIALYSIS Status: Chronic - Plan pt had aortogram indicated anterior segment of tibial not contributing -: to his erythema. ef is low will consult cardio for possible aicd * . Review of Systems - Review of Systems ENT: negative: Ear Pain, Ear Discharge, Nose Pain, Nose Discharge, Nose Congestion, Mouth Pain, Mouth Swelling, Throat Pain, Throat Swelling, Other Respiratory: negative: Cough, Dry, Shortness of Breath, Hemoptysis, SOB with Excertion, Pleuritic Pain, Sputum, Wheezing Cardiovascular: negative: chest pain, palpitations, orthopnea, paroxysmal nocturnal dyspnea, edema, light headedness, other Gastrointestinal: negative: Nausea, Vomiting, Abdominal Pain, Diarrhea, Constipation, Melena, Hematochezia, Other Genitourinary: negative: Dysuria, Frequency, Incontinence, Hematuria, Retention , Other - Medications/Allergies Allergies/Adverse Reactions: Allergies Allergy/AdvReac Type Severity Reaction Status Date / Time No Known Drug Allergies Allergy Verified 12/18/17 04:03 Medications: Current Medications Acetaminophen (Tylenol) 650 mg PO Q4H PRN PRN Reason: Headache/Fever or Mild Pain Hydrocodone Bitart/Acetaminophen ([place] 5/325) 1 tab PO Q4H PRN PRN Reason: Moderate Pain (4-6) Al Hydroxide/Mg Hydroxide (Maalox) 15 ml PO Q4H PRN PRN Reason: Heartburn or Indigestion Artificial Tears (Tears Renewed 15ml Bottle) 0 drop EA EYE PRN PRN PRN Reason: Dry Eyes Aspirin (Aspirin) 325 mg PO DAILY [facility] Last Admin: 12/23/17 08:35 Dose: 325 mg Atorvastatin Calcium (Lipitor) 20 mg PO DAILY [facility] Last Admin: 12/23/17 08:34 Dose: 20 mg Carvedilol (Coreg) 12.5 mg PO BID [facility] Last Admin: 12/23/17 08:34 Dose: 12.5 mg Clonidine (Catapres) 0.1 mg PO BID [facility] Last Admin: 12/23/17 08:36 Dose: 0.1 mg Dextrose/Water (Dextrose 50%) 25 gm IVP PRN PRN PRN Reason: HYPOGLYCEMIA PROTOCOL Doxycycline Hyclate (Vibramycin) 100 mg PO BID [facility] Famotidine (Pepcid) 20 mg PO DAILY [facility] Last Admin: 12/23/17 08:34 Dose: 20 mg Ferrous Sulfate (Feosol) 325 mg PO DAILY [facility] Last Admin: 12/23/17 08:34 Dose: 325 mg Fluoxetine HCl (Prozac) 40 mg PO DAILY [facility] Last Admin: 12/23/17 08:33 Dose: 40 mg Glucagon (Glucagon) 1 mg IM PRN PRN PRN Reason: HYPOGLYCEMIA PROTOCOL Guaifenesin (Robitussin Sf) 200 mg PO Q4H PRN PRN Reason: Cough Heparin Sodium (Porcine) (Heparin) 5,000 units SC BID [facility] Last Admin: 12/23/17 08:36 Dose: 5,000 units Hydralazine HCl (Apresoline) 10 mg SLOW IVP Q4H PRN PRN Reason: Systolic BP > 180 Hydralazine HCl (Apresoline) 50 mg PO TID [facility] Last Admin: 12/23/17 15:30 Dose: 50 mg Dextrose/Water (D5w) 1,000 mls @ 0 mls/hr IV INF PRN; As Directed PRN Reason: HYPOGLYCEMIA PROTOCOL Insulin Human NPH (Humulin N) 10 unit SC DAILY [facility] Last Admin: 12/23/17 08:37 Dose: 10 unit Insulin Human Regular (Humulin R) 0 units SC .MILD SLIDING PRN; Protocol PRN Reason: MILD SLIDING SCALE Last Admin: 12/23/17 05:51 Dose: 5 units Isosorbide Mononitrate (Imdur Er) 30 mg PO DAILY [facility] Last Admin: 12/23/17 08:33 Dose: 30 mg Labetalol HCl (Normodyne) 20 mg SLOW IVP Q4H PRN PRN Reason: Systolic BP > 180 Loperamide HCl (Imodium) 2 mg PO PRN PRN PRN Reason: Diarrhea/Loose Stools Loratadine (Claritin) 10 mg PO DAILYPRN PRN PRN Reason: Sinus Symptoms Lorazepam (Ativan) 0.5 mg PO Q6H PRN PRN Reason: Anxiety Last Admin: 12/23/17 18:38 Dose: 0.5 mg Magnesium Hydroxide (Milk Of Magnesium) 30 ml PO DAILYPRN PRN PRN Reason: Constipation Methocarbamol (Robaxin) 750 mg PO BID [facility] Last Admin: 07/28/18 08:35 Dose: 750 mg Metoclopramide HCl (Reglan) 10 mg PO TID [facility] Last Admin: 12/23/17 15:30 Dose: 10 mg Mineral Oil/White Petrolatum (Eucerin Cream) 0 gm TOP BIDPRN PRN PRN Reason: Dry Skin Ondansetron HCl (Zofran Odt) 4 mg PO Q6H PRN PRN Reason: Nausea/Vomiting Ondansetron HCl (Zofran) 4 mg IVP Q6H PRN PRN Reason: Nausea/Vomiting Phenol (Chloraseptic [place] 180 Ml Bot) 0 ml PO PRN PRN PRN Reason: Sore Throat Sacubitril/Valsartan (Entresto 24.5 Mg-25.5 Mg Tablet) 1 tab PO BID [facility] Last Admin: 12/23/17 08:35 Dose: 1 tab Senna (Senokot) 2 tab PO HSPRN PRN PRN Reason: Constipation Sodium Chloride ([place] Nasal [place] 0.65%) 0 ml EA NARE QIDPRN PRN PRN Reason: Nasal Congestion Sodium Chloride (Flush - Normal Saline) 10 ml IVF Q12HR [facility] Last Admin: 12/23/17 08:37 Dose: 10 ml Sodium Chloride (Flush - Normal Saline) 10 ml IVF PRN PRN PRN Reason: Saline Flush Last Admin: 12/22/17 18:21 Dose: 10 ml Tamsulosin HCl (Flomax) 0.4 mg PO DAILY [facility] Last Admin: 12/23/17 08:33 Dose: 0.4 mg Tramadol HCl (Ultram) 50 mg PO BID [facility] Last Admin: 12/23/17 08:37 Dose: 50 mg Trazodone HCl (Desyrel) 200 mg PO HS PRN PRN Reason: Insomnia Last Admin: 12/19/17 21:37 Dose: 200 mg Vitamin B Complex/Vit C/Folic Acid (Nephro-Rgio Tablet) 1 tab PO DAILY [facility] Last Admin: 12/23/17 08:33 Dose: 1 tab Zolpidem Tartrate (Ambien) 5 mg PO HSPRN PRN PRN Reason: Insomnia
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
[2017-12-23] MEDS: Doxycycline 100 MG CAP PO SCH (21:35)
[2017-12-23] MEDS: Zolpidem Tartrate 5 MG TAB PO PRN (21:48)
[2017-12-24 06:49] LABS: Anion Gap 19 mmol/L (10-20); BUN (Urea Nitrogen) 39 mg/dL (8.4-25.7); Calc. Creatinine Clearance 11 mL/min (70-130); Calcium 8.3 mg/dL (7.8-10.44); Carbon Dioxide 23 mmol/L (23-31); Chloride 102 mmol/L (98-107); Estimated GFR-MDRD 8; Glucose 79 mg/dL (80-115); Potassium 5.1 mmol/L (3.5-5.1); Sodium 139 mmol/L (136-145)
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
[2017-12-24] MEDS: Sacubitril 24.5 MG/Valsartan 25.5 MG TABLET PO SCH ×2 (09:04→20:31)
[2017-12-24] MEDS: FLUoxetine HCl 20 MG CAP PO SCH (09:04)
[2017-12-24] MEDS: Folic Acid/Vit B Comp W-C PO SCH (09:04)
[2017-12-24] MEDS: Methocarbamol 500 MG TAB PO SCH ×2 (09:04→20:31)
[2017-12-24] MEDS: Famotidine 20 MG TAB PO SCH (09:04)
[2017-12-24] MEDS: Metoclopramide HCl 10 MG TAB PO SCH ×3 (09:05→20:33)
[2017-12-24] MEDS: Tamsulosin HCl 0.4 MG CAP PO SCH (09:05)
[2017-12-24] MEDS: Doxycycline 100 MG CAP PO SCH ×2 (09:05→20:34)
[2017-12-24] MEDS: cloNIDine 0.1 MG TAB PO SCH ×2 (09:05→20:35)
[2017-12-24] MEDS: Aspirin 325 MG TAB PO SCH (09:05)
[2017-12-24] MEDS: Atorvastatin Calcium 20 MG TAB PO SCH (09:06)
[2017-12-24] MEDS: hydrALAZINE 25 MG TAB PO SCH ×3 (09:06→20:32)
[2017-12-24] MEDS: Ferrous Sulfate 325 MG TAB PO SCH (09:06)
[2017-12-24] MEDS: Carvedilol 25 MG TAB PO SCH ×2 (09:06→20:32)
[2017-12-24] MEDS: NPH, Human Insulin Isophane 300 UNIT/3 ML VIAL SC SCH (09:07)
[2017-12-24] MEDS: Heparin 5,000 UNITS/ML VIAL SC SCH ×2 (09:07→20:36)
[2017-12-24] MEDS: traMADol HCl 50 MG TAB PO SCH ×2 (09:08→20:33)
[2017-12-24] MEDS: Lorazepam 0.5 MG TAB PO PRN ×2 (10:29→20:33)
[2017-12-24] MEDS: Insulin Regular 300 UNITS/3 ML VIAL SC PRN (12:07)
--- NOTE | 2017-12-24 12:44 | PDOC.PN ---
- Subjective Encounter Start Date: 12/24/17 Encounter Start Time: 10:30 Subjective: pt up in bed no complains - Objective Resuscitation Status: Resuscitation Status FULL:Full Resuscitation Vital Signs & Weight: Vital Signs (12 hours) Temp Pulse Resp BP BP BP Pulse Ox 12/24/17 11:00 97.6 F 64 18 106/62 99 12/24/17 09:06 75 155/80 H 12/24/17 09:05 155/80 H 12/24/17 09:00 97.7 F 72 18 98 12/24/17 08:00 97.9 F 75 18 155/80 H 98 Weight Admit Weight 167 lb 1.6 oz Weight 167 lb 1.6 oz I&O: 12/23/17 12/24/17 12/25/17 06:59 06:59 06:59 Intake Total 1420 720 Balance 1420 720 Result Diagrams: 12/21/17 03:35 12/24/17 05:35 Additional Labs: Accuchecks 12/24/17 12/24/17 12/23/17 11:28 04:30 20:10 POC Glucose 179 H 92 261 H 12/23/17 17:01 POC Glucose 97 Phys Exam - Physical Examination HEENT: PERRLA, moist MMs, sclera anicteric, TM's clear, oral pharynx no lesions , 2+ tonsils Neck: no nodes, no JVD, supple, full ROM Respiratory: no wheezing, no rales, no rhonchi, wheezing present, clear to auscultation bilateral Cardiovascular: RRR, no significant murmur, no rub, gallop, irregular Gastrointestinal: soft, non-tender, no distention, positive bowel sounds right foot mild discoloation, edema and erythema has improved Dx/Plan (1) Cellulitis of right foot Code(s): L03.115 - CELLULITIS OF RIGHT LOWER LIMB Status: Acute (2) CAD (coronary artery disease), [place] coronary artery Code(s): I25.10 - ATHSCL HEART DISEASE OF [place] CORONARY ARTERY W/O ANG PCTRS Status: Chronic Qualifiers: (3) PAD (peripheral artery disease) Code(s): I73.9 - PERIPHERAL VASCULAR DISEASE, UNSPECIFIED Status: Acute Comment: s/p angiogram 12/21/17 (4) Diabetes type 2, controlled Code(s): E11.9 - TYPE 2 DIABETES MELLITUS WITHOUT COMPLICATIONS Status: Chronic (5) Noncompliance of patient with renal dialysis Code(s): Z91.15 - PATIENT'S NONCOMPLIANCE WITH RENAL DIALYSIS Status: Chronic - Plan continue keflex -: will need to be evaluated for AICD -: Had a long conversation with and pt about his overall medical -: issues. * . Review of Systems - Review of Systems Respiratory: negative: Cough, Dry, Shortness of Breath, Hemoptysis, SOB with Excertion, Pleuritic Pain, Sputum, Wheezing Cardiovascular: negative: chest pain, palpitations, orthopnea, paroxysmal nocturnal dyspnea, edema, light headedness, other Gastrointestinal: negative: Nausea, Vomiting, Abdominal Pain, Diarrhea, Constipation, Melena, Hematochezia, Other Genitourinary: negative: Dysuria, Frequency, Incontinence, Hematuria, Retention , Other - Medications/Allergies Allergies/Adverse Reactions: Allergies Allergy/AdvReac Type Severity Reaction Status Date / Time No Known Drug Allergies Allergy Verified 12/18/17 04:03 Medications: Current Medications Acetaminophen (Tylenol) 650 mg PO Q4H PRN PRN Reason: Headache/Fever or Mild Pain Hydrocodone Bitart/Acetaminophen ([place] 5/325) 1 tab PO Q4H PRN PRN Reason: Moderate Pain (4-6) Al Hydroxide/Mg Hydroxide (Maalox) 15 ml PO Q4H PRN PRN Reason: Heartburn or Indigestion Artificial Tears (Tears Renewed 15ml Bottle) 0 drop EA EYE PRN PRN PRN Reason: Dry Eyes Aspirin (Aspirin) 325 mg PO DAILY [facility] Last Admin: 12/24/17 09:05 Dose: 325 mg Atorvastatin Calcium (Lipitor) 20 mg PO DAILY [facility] Last Admin: 12/24/17 09:06 Dose: 20 mg Carvedilol (Coreg) 12.5 mg PO BID [facility] Last Admin: 12/24/17 09:06 Dose: 12.5 mg Clonidine (Catapres) 0.1 mg PO BID [facility] Last Admin: 12/24/17 09:05 Dose: 0.1 mg Dextrose/Water (Dextrose 50%) 25 gm IVP PRN PRN PRN Reason: HYPOGLYCEMIA PROTOCOL Doxycycline Hyclate (Vibramycin) 100 mg PO BID [facility] Last Admin: 12/24/17 09:05 Dose: 100 mg Famotidine (Pepcid) 20 mg PO DAILY [facility] Last Admin: 12/24/17 09:04 Dose: 20 mg Ferrous Sulfate (Feosol) 325 mg PO DAILY [facility] Last Admin: 12/24/17 09:06 Dose: 325 mg Fluoxetine HCl (Prozac) 40 mg PO DAILY [facility] Last Admin: 12/24/17 09:04 Dose: 40 mg Glucagon (Glucagon) 1 mg IM PRN PRN PRN Reason: HYPOGLYCEMIA PROTOCOL Guaifenesin (Robitussin Sf) 200 mg PO Q4H PRN PRN Reason: Cough Heparin Sodium (Porcine) (Heparin) 5,000 units SC BID [facility] Last Admin: 12/24/17 09:07 Dose: 5,000 units Hydralazine HCl (Apresoline) 10 mg SLOW IVP Q4H PRN PRN Reason: Systolic BP > 180 Hydralazine HCl (Apresoline) 50 mg PO TID [facility] Last Admin: 12/24/17 09:06 Dose: 50 mg Dextrose/Water (D5w) 1,000 mls @ 0 mls/hr IV INF PRN; As Directed PRN Reason: HYPOGLYCEMIA PROTOCOL Insulin Human NPH (Humulin N) 10 unit SC DAILY [facility] Last Admin: 12/24/17 09:07 Dose: 10 unit Insulin Human Regular (Humulin R) 0 units SC .MILD SLIDING PRN; Protocol PRN Reason: MILD SLIDING SCALE Last Admin: 12/24/17 12:07 Dose: 2 units Isosorbide Mononitrate (Imdur Er) 30 mg PO DAILY [facility] Last Admin: 12/24/17 09:05 Dose: 30 mg Labetalol HCl (Normodyne) 20 mg SLOW IVP Q4H PRN PRN Reason: Systolic BP > 180 Loperamide HCl (Imodium) 2 mg PO PRN PRN PRN Reason: Diarrhea/Loose Stools Loratadine (Claritin) 10 mg PO DAILYPRN PRN PRN Reason: Sinus Symptoms Lorazepam (Ativan) 0.5 mg PO Q6H PRN PRN Reason: Anxiety Last Admin: 12/24/17 10:29 Dose: 0.5 mg Magnesium Hydroxide (Milk Of Magnesium) 30 ml PO DAILYPRN PRN PRN Reason: Constipation Methocarbamol (Robaxin) 750 mg PO BID [facility] Last Admin: 12/24/17 09:04 Dose: 750 mg Metoclopramide HCl (Reglan) 10 mg PO TID [facility] Last Admin: 12/24/17 09:05 Dose: 10 mg Mineral Oil/White Petrolatum (Eucerin Cream) 0 gm TOP BIDPRN PRN PRN Reason: Dry Skin Ondansetron HCl (Zofran Odt) 4 mg PO Q6H PRN PRN Reason: Nausea/Vomiting Ondansetron HCl (Zofran) 4 mg IVP Q6H PRN PRN Reason: Nausea/Vomiting Phenol (Chloraseptic [place] 180 Ml Bot) 0 ml PO PRN PRN PRN Reason: Sore Throat Sacubitril/Valsartan (Entresto 24.5 Mg-25.5 Mg Tablet) 1 tab PO BID [facility] Last Admin: 12/24/17 09:04 Dose: 1 tab Senna (Senokot) 2 tab PO HSPRN PRN PRN Reason: Constipation Sodium Chloride ([place] Nasal [place] 0.65%) 0 ml EA NARE QIDPRN PRN PRN Reason: Nasal Congestion Sodium Chloride (Flush - Normal Saline) 10 ml IVF Q12HR [facility] Last Admin: 12/24/17 09:08 Dose: 10 ml Sodium Chloride (Flush - Normal Saline) 10 ml IVF PRN PRN PRN Reason: Saline Flush Last Admin: 12/22/17 18:21 Dose: 10 ml Tamsulosin HCl (Flomax) 0.4 mg PO DAILY [facility] Last Admin: 12/24/17 09:05 Dose: 0.4 mg Tramadol HCl (Ultram) 50 mg PO BID [facility] Last Admin: 12/24/17 09:08 Dose: Not Given Trazodone HCl (Desyrel) 200 mg PO HS PRN PRN Reason: Insomnia Last Admin: 12/19/17 21:37 Dose: 200 mg Vitamin B Complex/Vit C/Folic Acid (Nephro-Rigo Tablet) 1 tab PO DAILY [facility] Last Admin: 12/24/17 09:04 Dose: 1 tab Zolpidem Tartrate (Ambien) 5 mg PO HSPRN PRN PRN Reason: Insomnia Last Admin: 12/23/17 21:48 Dose: 5 mg
--- NOTE | 2017-12-24 13:55 | PRG ---
DATE OF SERVICE: 12/24/2017 SUBJECTIVE: Patient was seen and examined at bedside and overnight events noted. Patient denies any shortness of breath or chest pain or palpitation. No history of nausea or vomiting or diarrhea or f ever or chills or cramps. OBJECTIVE: General: This is a well-built male in no apparent distress. Vital Signs: Temperature 97.7, pulse 70, respiratory rate 18, and blood pressure 155/80. HEENT: Atraumatic, normocephalic, Oral mucosa is moist. Neck: Supple. Cardiovascular: S1 and S2 heard. Rate and rhythm regular. Respiratory: Clear to auscultation. Gastrointestinal: Abdomen is soft. Musculoskeletal: No tenderness, No edema. Dermatologic: No skin rash. Neurologic: Alert and awake and oriented x3. No focal neurologic deficits. Moving all the extremit ies. Psychiatric: Mood and affect normal. LABORATORY DATA: Potassium is , BUN is 39, creatinine is 7.1. ASSESSMENT AND PLAN: 1. End-stage renal disease. Continue dialysis Monday . 2. Hyperkalemia, better. 3. Anemia. 4. Hypertension, stable. 5. Cardiorenal syndrome with poor EF, follow with Cardiology.
[2017-12-25] MEDS: Zolpidem Tartrate 5 MG TAB PO PRN ×2 (00:03→20:51)
[2017-12-25 06:17] LABS: Anion Gap 20 mmol/L (10-20); BUN (Urea Nitrogen) 50 mg/dL (8.4-25.7); Calc. Creatinine Clearance 9 mL/min (70-130); Calcium 8.5 mg/dL (7.8-10.44); Carbon Dioxide 20 mmol/L (23-31); Chloride 102 mmol/L (98-107); Estimated GFR-MDRD 7; Glucose 122 mg/dL (80-115); Potassium 5.7 mmol/L (3.5-5.1); Sodium 136 mmol/L (136-145)
[2017-12-25] MEDS: Metoclopramide HCl 10 MG TAB PO SCH ×3 (09:10→20:48)
[2017-12-25] MEDS: traMADol HCl 50 MG TAB PO SCH ×2 (09:10→20:49)
[2017-12-25] MEDS: NPH, Human Insulin Isophane 300 UNIT/3 ML VIAL SC SCH (09:10)
[2017-12-25] MEDS: Lorazepam 0.5 MG TAB PO PRN (09:17)
[2017-12-25] MEDS ORDERED: CEFAZOLIN/Water 2 GM/20 ML SYRINGE SLOW IVP SCH (10:15)
--- NOTE | 2017-12-25 10:48 | PRG ---
DATE OF SERVICE: 12/25/2017. SUBJECTIVE: This is a 67-year-old gentleman being seen for end-stage renal disease. The patient bibiana erating dialysis well. Denies any nausea, vomiting, or chest pain. PHYSICAL EXAMINATION: GENERAL: Patient is awake, alert. VITAL SIGNS: Pulse 71, breathing 16, blood pressure 142/82. OBJECTIVE: See above. Awake, alert, in no acute distress. GENERAL APPEARANCE AND MENTAL STATUS: Fair. HEAD/NECK: Normocephalic. Atraumatic. EYES: EOMI. No deformity. EARS: Clear. No ulcers. NOSE: Intact. No lesions. MOUTH: Clear. No discharge. THROAT: Clear. No exudate. LUNGS: Clear. No crackles. CARDIAC: S1, S2. No rub. ABDOMEN: Benign. BS+. GENITALIA/RECTUM: Singer absent. BACK/EXTREMITIES: Edema 0+ Ulcer- NEUROLOGICAL: Alert and motor intact. SKIN: Rash- Bruise- LYMPHATICS: Edema- Ulcer- LABORATORY: Hemoglobin 10.9, potassium 5.7. ASSESSMENT AND RECOMMENDATIONS: 1. Stage 6 chronic kidney disease, continue hemodialysis. 2. Hypertension, stable. 3. Anemia, stable. 4. Medications based on glomerular filtration rate are appropriate. 5. Hyperkalemia, plan dialysis.
[2017-12-25] MEDS: Heparin 5,000 UNITS/ML VIAL SC SCH ×2 (10:51→20:51)
[2017-12-25] MEDS: Aspirin 325 MG TAB PO SCH ×2 (10:51→13:36)
[2017-12-25] MEDS ORDERED: Iopamidol 370 76% 50 ML VIAL FS ONE (11:13)
[2017-12-25] MEDS: Tamsulosin HCl 0.4 MG CAP PO SCH (11:26)
[2017-12-25] MEDS: Atorvastatin Calcium 20 MG TAB PO SCH (11:26)
[2017-12-25] MEDS: hydrALAZINE 25 MG TAB PO SCH ×3 (11:26→20:50)
[2017-12-25] MEDS: FLUoxetine HCl 20 MG CAP PO SCH (11:26)
[2017-12-25] MEDS: cloNIDine 0.1 MG TAB PO SCH ×2 (11:27→20:50)
[2017-12-25] MEDS: Folic Acid/Vit B Comp W-C PO SCH (11:27)
[2017-12-25] MEDS: Ferrous Sulfate 325 MG TAB PO SCH (11:27)
[2017-12-25] MEDS: Famotidine 20 MG TAB PO SCH (11:27)
[2017-12-25] MEDS: Carvedilol 25 MG TAB PO SCH ×2 (11:27→20:47)
[2017-12-25] MEDS: Doxycycline 100 MG CAP PO SCH ×2 (11:28→20:47)
[2017-12-25] MEDS: Methocarbamol 500 MG TAB PO SCH ×2 (11:28→20:47)
[2017-12-25 11:50] LABS: #Eosinphils 0.2 thou/uL (0.0-0.7); #Lymphocytes 0.6 thou/uL (1.20-3.40); #Monocytes 0.3 thou/uL (0.11-0.59); #Neutrophils 2.3 thou/uL (1.40-6.50); %Basophils 0.6 % (0.0-1.0); %Eosinophils 6.1 % (0.0-10.0); %Lymphocytes 17.6 % (21.0-51.0); %Monocytes 8.6 % (0.0-10.0); %Neutrophils 67.2 % (42.0-75.0); Hemoglobin 11.5 g/dL (14.0-18.0); Mean Corpuscular HGB CONC 31.7 g/dL (32.0-36.0); Mean Corpuscular Hemoglobin 29.7 pg (27.0-31.0); Mean Corpuscular Volume 93.8 fL (78.0-98.0); Mean Platelet Volume 7.4 fL (7.4-10.4); Platelet Count 109 thou/uL (130-400); Red Blood Cell (RBC) Count 3.88 mill/uL (4.70-6.10); White Blood Cell (WBC) Count 3.5 thou/uL (4.8-10.8)
[2017-12-25 12:22] LABS: Anion Gap 19 mmol/L (10-20); BUN (Urea Nitrogen) 22 mg/dL (8.4-25.7); Calc. Creatinine Clearance 17 mL/min (70-130); Calcium 9.5 mg/dL (7.8-10.44); Carbon Dioxide 26 mmol/L (23-31); Chloride 99 mmol/L (98-107); Estimated GFR-MDRD 13; Glucose 97 mg/dL (80-115); Sodium 140 mmol/L (136-145)
[2017-12-25] MEDS: Sacubitril 24.5 MG/Valsartan 25.5 MG TABLET PO SCH ×2 (13:37→20:52)
[2017-12-25] MEDS ORDERED: CEFAZOLIN/Water 2 GM/20 ML SYRINGE ONE (13:51)
[2017-12-25] MEDS ORDERED: Propofol 500 MG/50 ML VIAL ONE ×2 (14:07→14:54)
[2017-12-25] MEDS ORDERED: PROPOFOL 200 MG/20 ML VIAL ONE (14:53)
[2017-12-25] MEDS ORDERED: Promethazine HCl 25 MG/ML VIAL IM PRN (15:55)
[2017-12-25] MEDS ORDERED: Promethazine HCl 25 MG/ML VIAL SLOW IVP PRN (15:55)
[2017-12-25] MEDS ORDERED: Ondansetron HCl/PF 4 MG/2 ML Vial IVP PRN (15:55)
[2017-12-25] MEDS ORDERED: Fentanyl 100 MCG/2 ML VIAL ONE (16:31)
[2017-12-25] MEDS: Acetaminophen 325 MG TAB PO PRN (20:47)
--- NOTE | 2017-12-25 20:53 | CON ---
DATE OF CONSULTATION: 12/25/2017 REFERRING PHYSICIAN: Dr. Rui Issa. I am seeing Mr. Ramirez at our [facility] telemetry floor as an electrophysiology data migration consultant. His problems are: 1. Chronic systolic congestive heart failure with ischemic cardiomyopathy. A. Prior history of reduced LV function at 20% to 25% in 05/2017. B. A followup echocardiogram at this admission is 15% to 20%. C. History of left heart catheterization in the past shows moderate to severe multivessel disease, h eavy calcification on medical management. 2. Severe peripheral vascular disease. 3. History of cerebrovascular accident. 4. History of end-stage renal disease on hemodialysis, left upper extremity AV shunt. 5. Risk factors including diabetes, hypertension, hyperlipidemia. ALLERGIES: None noted. MEDICATIONS AT HOME: Included Lipitor, methocarbamol, trazodone, tramadol, tamsulosin, fluoxetine, a spirin, Pepcid, valsartan, hydralazine, clonidine, NPH insulin, ferrous sulfate, vitamin B complex, m etoclopramide, carvedilol, and isosorbide mononitrate. SUBJECTIVE: Mr. Ramirez is here with symptoms of fluid overload. He also had nausea, vomiting, abdom inal pain, and diarrhea. He was initially admitted on the , and also was treated for right foot cellulitis, arthrodesis was suspected and Dr. Gonzalez evaluated the patient consideration for low er extremity angiogram was entertained. On the , underwent angiogram and 80% distal posterior ti bial artery stenosis was noted. Anterior tibial segment also. Currently denies dizziness, loss of consciousness. He has no stroke-like symptoms, no neurological d eficits, no fever, chills, cough, no PND or orthopnea. Rest of 12-point system otherwise unremarkabl e. OBJECTIVE: VITAL SIGNS: Blood pressure is 160/82, heart rate 88, respiration 16, temperature 97.9 degrees Fahre nheit. GENERAL: He is alert and oriented man in no apparent distress. NECK: Supple. Jugular veins not distended. CHEST: Coarse without crackles. CARDIOVASCULAR: Heart sounds are regular to rate and rhythm. No murmur or gallop. ABDOMEN: Benign. Bowel sounds positive. EXTREMITIES: Lower extremity resolving swelling. NEUROLOGIC: Patient nonfocal. MUSCULOSKELETAL: No joint swelling or deformities. SKIN: Without rash. LABORATORY DATA: White count 3.5, hemoglobin 11.5, platelet count is 109. Sodium 140, potassium 4.0 , BUN is 22, creatinine is 4.42. The EKG was sinus rhythm, narrow QRS. ASSESSMENT AND PLAN: Mr. Ramirez is a pleasant 67-year-old man with prior history of advanced coronar y disease with ischemic cardiomyopathy, severely reduced LV function. He is high risk for future maile tricular arrhythmias. We discussed pros and cons about prophylactic ICD implant and a sense of somew hat higher chance of infection in view of his surgical disease and recent now resolving cellulitis is sues. On the other hand is currently afebrile and his white cell counts are trending down. single chamber prophylactic ICD implantation. Risks and benefits detailed. He is willing to p roceed. We will schedule him in near date.
[2017-12-25] MEDS: Insulin Regular 300 UNITS/3 ML VIAL SC PRN (20:54)
--- NOTE | 2017-12-25 22:39 | EKG ---
Test Reason : PREOP Blood Pressure : / mmHG Vent. Rate : 086 BPM Atrial Rate : 086 BPM P-R Int : 210 ms QRS Dur : 108 ms QT Int : 406 ms P-R-T Axes : 066 -18 133 degrees QTc Int : 485 ms Sinus rhythm with 1st degree A-V block Cannot rule out Anterior infarct (cited on or before 17-DEC-2017) Abnormal ECG When compared with ECG of 18-DEC-2017 00:33, Serial changes of Anterior infarct Present Confirmed by Vanessa JORDAN ([id number]) on 12/25/2017 10:38:33 PM Referred By: [facility] Confirmed By:Vanessa JORDAN
[2017-12-26] MEDS: HYDROcodone/Acetaminophen 5/325 mg Tablet PO PRN ×2 (00:27→06:07)
[2017-12-26] MEDS: Lorazepam 0.5 MG TAB PO PRN ×3 (00:27→23:37)
[2017-12-26 05:51] LABS: Anion Gap 17 mmol/L (10-20); BUN (Urea Nitrogen) 29 mg/dL (8.4-25.7); Calc. Creatinine Clearance 12 mL/min (70-130); Calcium 8.5 mg/dL (7.8-10.44); Carbon Dioxide 26 mmol/L (23-31); Chloride 101 mmol/L (98-107); Estimated GFR-MDRD 9; Glucose 155 mg/dL (80-115); Potassium 4.7 mmol/L (3.5-5.1); Sodium 139 mmol/L (136-145)
--- NOTE | 2017-12-26 06:51 | PDOC.PN ---
- Subjective Encounter Start Date: 12/25/17 - Objective Resuscitation Status: Resuscitation Status FULL:Full Resuscitation Vital Signs & Weight: Vital Signs (12 hours) Temp Pulse Resp BP BP BP Pulse Ox 12/26/17 03:35 97.8 F 71 15 135/73 95 12/26/17 00:00 98.6 F 78 15 146/74 H 98 12/25/17 20:54 97.3 F L 76 16 12/25/17 20:50 143/74 H Weight Admit Weight 167 lb 1.6 oz Weight 167 lb 1.6 oz I&O: 12/24/17 12/25/17 12/26/17 06:59 06:59 06:59 Intake Total 720 240 10 Output Total 3500 Balance 720 240 -3490 Result Diagrams: 12/25/17 11:32 12/26/17 04:33 Additional Labs: Accuchecks 12/26/17 12/25/17 12/25/17 05:48 13:37 11:19 POC Glucose 160 H 100 101 12/25/17 04:56 POC Glucose 147 H Dx/Plan (1) Cellulitis of right foot Code(s): L03.115 - CELLULITIS OF RIGHT LOWER LIMB Status: Acute (2) CAD (coronary artery disease), [place] coronary artery Code(s): I25.10 - ATHSCL HEART DISEASE OF [place] CORONARY ARTERY W/O ANG PCTRS Status: Chronic Qualifiers: (3) PAD (peripheral artery disease) Code(s): I73.9 - PERIPHERAL VASCULAR DISEASE, UNSPECIFIED Status: Acute Comment: s/p angiogram 12/21/17 (4) Diabetes type 2, controlled Code(s): E11.9 - TYPE 2 DIABETES MELLITUS WITHOUT COMPLICATIONS Status: Chronic (5) Noncompliance of patient with renal dialysis Code(s): Z91.15 - PATIENT'S NONCOMPLIANCE WITH RENAL DIALYSIS Status: Chronic - Plan * .
--- NOTE | 2017-12-26 09:31 | RAD ---
CHEST ONE VIEW: Comparison: 12-17-17 History: Dyspnea. FINDINGS: Single view chest demonstrates a right sided single lead defibrillator with lead position incompletel y evaluated. The heart is enlarged. The pulmonary vessels are slightly prominent. Right costophrenic angle is slightly blunted. Left costophrenic angle is clear. Patchy interstitial opacity in the right lung. No pneumothorax or osseous abnormalities. IMPRESSION: 1. Pulmonary vascular prominence and interstitial prominence. Correlate for volume overload/edema. 2. No pneumothorax. POS: BRODIE
[2017-12-26] MEDS: cloNIDine 0.1 MG TAB PO SCH ×2 (09:48→20:51)
[2017-12-26] MEDS: hydrALAZINE 25 MG TAB PO SCH ×3 (09:49→20:50)
[2017-12-26] MEDS: Aspirin 325 MG TAB PO SCH (09:49)
[2017-12-26] MEDS: Doxycycline 100 MG CAP PO SCH ×2 (09:49→20:50)
[2017-12-26] MEDS: FLUoxetine HCl 20 MG CAP PO SCH (09:50)
[2017-12-26] MEDS: Atorvastatin Calcium 20 MG TAB PO SCH (09:50)
[2017-12-26] MEDS: Folic Acid/Vit B Comp W-C PO SCH (09:50)
[2017-12-26] MEDS: Carvedilol 25 MG TAB PO SCH ×2 (09:51→20:51)
[2017-12-26] MEDS: Famotidine 20 MG TAB PO SCH (09:51)
[2017-12-26] MEDS: Methocarbamol 500 MG TAB PO SCH ×2 (09:51→20:51)
[2017-12-26] MEDS: Ferrous Sulfate 325 MG TAB PO SCH (09:51)
[2017-12-26] MEDS: traMADol HCl 50 MG TAB PO SCH ×2 (09:51→20:49)
[2017-12-26] MEDS: Tamsulosin HCl 0.4 MG CAP PO SCH (09:52)
[2017-12-26] MEDS: Metoclopramide HCl 10 MG TAB PO SCH ×3 (09:52→20:51)
[2017-12-26] MEDS: Heparin 5,000 UNITS/ML VIAL SC SCH ×2 (09:53→20:51)
[2017-12-26] MEDS: Sacubitril 24.5 MG/Valsartan 25.5 MG TABLET PO SCH ×2 (09:53→20:52)
--- NOTE | 2017-12-26 09:54 | PRG ---
DATE OF SERVICE: 12/26/2017. SUBJECTIVE: Mr. Ramirez is resting in bed, no complaints. PHYSICAL EXAMINATION: VITAL SIGNS: Blood pressure 135/73, pulse 71, regular. LUNGS: Clear. CARDIAC: Normal S1, normal S2. ABDOMEN: Soft, nontender. EXTREMITIES: No clubbing or cyanosis, no edema. ASSESSMENT: 1. Severely depressed left ventricular function. 2. Severe inoperable coronary artery disease. 3. End-stage renal disease. 4. Status post defibrillator implantation. 5. Mild peripheral vascular disease. PLAN: 1. The patient is on Entresto. 2. He is on Carvedilol. 3. Aspirin. 4. Statin. 5. He does have inoperable coronary artery disease. The long-term prognosis in view of all these pr oblems would appear to be guarded to poor. Hopefully, with the medications, the prognosis could impr ove to some degree. I read Dr. Issa's note about the family being surprised about the diagnosis . There is no family available here this morning to talk too. I discussed it again with the patient . Unfortunately again with these multiple problems, the long-term prognosis is likely poor. The pat ient is being treated with medications as outlined above.
[2017-12-26] MEDS: NPH, Human Insulin Isophane 300 UNIT/3 ML VIAL SC SCH (10:16)
[2017-12-26] MEDS: Acetaminophen 325 MG TAB PO PRN ×2 (12:10→17:33)
--- NOTE | 2017-12-26 12:47 | PRG ---
DATE OF SERVICE: 12/26/2017 SUBJECTIVE: A 67-year-old male being seen for end-stage renal disease. Patient denies any nausea, v omiting or chest pain. PHYSICAL EXAMINATION: GENERAL: Patient is awake, alert. VITAL SIGNS: Afebrile, pulse 80, breathing 16, blood pressure 135/73. OBJECTIVE: See above. Awake, alert, in no acute distress. GENERAL APPEARANCE AND MENTAL STATUS: Fair. HEAD/NECK: Normocephalic. Atraumatic. EYES: EOMI. No deformity. EARS: Clear. No ulcers. NOSE: Intact. No lesions. MOUTH: Clear. No discharge. THROAT: Clear. No exudate. LUNGS: Clear. No crackles. CARDIAC: S1, S2. No rub. ABDOMEN: Benign. BS+. GENITALIA/RECTUM: Singer absent. BACK/EXTREMITIES: Edema 0+ Ulcer- NEUROLOGICAL: Alert and motor intact. SKIN: Rash- Bruise- LYMPHATICS: Edema- Ulcer- LABORATORY DATA: Hemoglobin 11.5, potassium 4.7. ASSESSMENT AND RECOMMENDATIONS: 1. Stage 6 chronic kidney disease, stable. 2. Hypertension, stable. 3. Anemia, stable. 4. Hyperkalemia, stable. No indication for dialysis today.
[2017-12-26] MEDS ORDERED: Sodium Bicarb 50 MEQ/50 ML VIAL ONE (21:55)
[2017-12-26] MEDS ORDERED: Sodium Chloride 0.9% 10 ML ONE (23:41)
[2017-12-27] MEDS: HYDROcodone/Acetaminophen 5/325 mg Tablet PO PRN ×2 (02:48→11:08)
[2017-12-27] MEDS ORDERED: Fentanyl 100 MCG/2 ML VIAL SLOW IVP PRN (03:41)
[2017-12-27 05:11] LABS: Anion Gap 18 mmol/L (10-20); BUN (Urea Nitrogen) 42 mg/dL (8.4-25.7); Calc. Creatinine Clearance 10 mL/min (70-130); Calcium 8.3 mg/dL (7.8-10.44); Carbon Dioxide 24 mmol/L (23-31); Chloride 101 mmol/L (98-107); Estimated GFR-MDRD 7; Glucose 93 mg/dL (80-115); Potassium 4.9 mmol/L (3.5-5.1); Sodium 138 mmol/L (136-145)
--- NOTE | 2017-12-27 07:15 | PDOC.PN ---
- Subjective Encounter Start Date: 12/26/17 Encounter Start Time: 10:00 Subjective: pt up in bed no complains - Objective Resuscitation Status: Resuscitation Status FULL:Full Resuscitation Vital Signs & Weight: Vital Signs (12 hours) Temp Pulse Resp BP BP Pulse Ox 12/27/17 03:44 97.7 F 69 14 122/69 97 12/26/17 23:32 98 F 72 13 111/63 99 12/26/17 20:51 125/66 12/26/17 20:50 75 125/66 12/26/17 20:14 98 F 72 13 98 Weight Admit Weight 167 lb 1.6 oz Weight 154 lb 1.6 oz I&O: 12/26/17 12/27/17 12/28/17 06:59 06:59 06:59 Intake Total 10 590 Output Total 3500 Balance -3490 590 Result Diagrams: 12/25/17 11:32 12/27/17 04:35 Additional Labs: Accuchecks 12/26/17 12/26/17 12/26/17 20:47 16:46 13:39 POC Glucose 202 H 112 H 167 H 12/26/17 12/26/17 12/25/17 10:42 08:46 20:44 POC Glucose 256 H 149 H 252 H Phys Exam - Physical Examination HEENT: PERRLA, moist MMs, sclera anicteric, TM's clear, oral pharynx no lesions , 2+ tonsils Neck: no nodes, no JVD, supple, full ROM Respiratory: no wheezing, no rales, no rhonchi, wheezing present, clear to auscultation bilateral Cardiovascular: RRR, no significant murmur, no rub, gallop, irregular Gastrointestinal: soft, non-tender, no distention, positive bowel sounds Dx/Plan (1) Cellulitis of right foot Code(s): L03.115 - CELLULITIS OF RIGHT LOWER LIMB Status: Acute (2) CAD (coronary artery disease), [place] coronary artery Code(s): I25.10 - ATHSCL HEART DISEASE OF [place] CORONARY ARTERY W/O ANG PCTRS Status: Chronic Qualifiers: (3) PAD (peripheral artery disease) Code(s): I73.9 - PERIPHERAL VASCULAR DISEASE, UNSPECIFIED Status: Acute Comment: s/p angiogram 12/21/17 (4) Diabetes type 2, controlled Code(s): E11.9 - TYPE 2 DIABETES MELLITUS WITHOUT COMPLICATIONS Status: Chronic (5) Noncompliance of patient with renal dialysis Code(s): Z91.15 - PATIENT'S NONCOMPLIANCE WITH RENAL DIALYSIS Status: Chronic - Plan pt up in bed no complains -: pt going for icd placement -: esrd on dialysis * . Review of Systems - Review of Systems ENT: negative: Ear Pain, Ear Discharge, Nose Pain, Nose Discharge, Nose Congestion, Mouth Pain, Mouth Swelling, Throat Pain, Throat Swelling, Other Respiratory: negative: Cough, Dry, Shortness of Breath, Hemoptysis, SOB with Excertion, Pleuritic Pain, Sputum, Wheezing Cardiovascular: negative: chest pain, palpitations, orthopnea, paroxysmal nocturnal dyspnea, edema, light headedness, other Gastrointestinal: negative: Nausea, Vomiting, Abdominal Pain, Diarrhea, Constipation, Melena, Hematochezia, Other Genitourinary: negative: Dysuria, Frequency, Incontinence, Hematuria, Retention , Other - Medications/Allergies Allergies/Adverse Reactions: Allergies Allergy/AdvReac Type Severity Reaction Status Date / Time No Known Drug Allergies Allergy Verified 12/18/17 04:03 Medications: Current Medications Acetaminophen (Tylenol) 650 mg PO Q4H PRN PRN Reason: Headache/Fever or Mild Pain Last Admin: 12/26/17 17:33 Dose: 650 mg Hydrocodone Bitart/Acetaminophen ([place] 5/325) 1 tab PO Q4H PRN PRN Reason: Moderate Pain (4-6) Last Admin: 12/27/17 02:48 Dose: 1 tab Al Hydroxide/Mg Hydroxide (Maalox) 15 ml PO Q4H PRN PRN Reason: Heartburn or Indigestion Artificial Tears (Tears Renewed 15ml Bottle) 0 drop EA EYE PRN PRN PRN Reason: Dry Eyes Aspirin (Aspirin) 325 mg PO DAILY [facility] Last Admin: 12/26/17 09:49 Dose: 325 mg Atorvastatin Calcium (Lipitor) 20 mg PO DAILY [facility] Last Admin: 12/26/17 09:50 Dose: 20 mg Carvedilol (Coreg) 12.5 mg PO BID [facility] Last Admin: 12/26/17 20:51 Dose: 12.5 mg Cefazolin Sodium (Ancef) 2 gm SLOW IVP WILLCALL [facility] Clonidine (Catapres) 0.1 mg PO BID [facility] Last Admin: 12/26/17 20:51 Dose: 0.1 mg Dextrose/Water (Dextrose 50%) 25 gm IVP PRN PRN PRN Reason: HYPOGLYCEMIA PROTOCOL Doxycycline Hyclate (Vibramycin) 100 mg PO BID [facility] Last Admin: 12/26/17 20:50 Dose: 100 mg Famotidine (Pepcid) 20 mg PO DAILY [facility] Last Admin: 12/26/17 09:51 Dose: 20 mg Fentanyl (Sublimaze) 25 mcg SLOW IVP Q10MIN PRN PRN Reason: Severe Pain (7-10) Ferrous Sulfate (Feosol) 325 mg PO DAILY [facility] Last Admin: 12/26/17 09:51 Dose: 325 mg Fluoxetine HCl (Prozac) 40 mg PO DAILY [facility] Last Admin: 12/26/17 09:50 Dose: 40 mg Glucagon (Glucagon) 1 mg IM PRN PRN PRN Reason: HYPOGLYCEMIA PROTOCOL Guaifenesin (Robitussin Sf) 200 mg PO Q4H PRN PRN Reason: Cough Heparin Sodium (Porcine) (Heparin) 5,000 units SC BID [facility] Last Admin: 12/26/17 20:51 Dose: 5,000 units Hydralazine HCl (Apresoline) 10 mg SLOW IVP Q4H PRN PRN Reason: Systolic BP > 180 Hydralazine HCl (Apresoline) 50 mg PO TID [facility] Last Admin: 12/26/17 20:50 Dose: 50 mg Dextrose/Water (D5w) 1,000 mls @ 0 mls/hr IV INF PRN; As Directed PRN Reason: HYPOGLYCEMIA PROTOCOL Insulin Human NPH (Humulin N) 10 unit SC DAILY [facility] Last Admin: 12/26/17 10:16 Dose: 10 unit Insulin Human Regular (Humulin R) 0 units SC .MILD SLIDING PRN; Protocol PRN Reason: MILD SLIDING SCALE Last Admin: 12/25/17 20:54 Dose: 4 units Isosorbide Mononitrate (Imdur Er) 30 mg PO DAILY [facility] Last Admin: 12/26/17 09:50 Dose: 30 mg Labetalol HCl (Normodyne) 20 mg SLOW IVP Q4H PRN PRN Reason: Systolic BP > 180 Loperamide HCl (Imodium) 2 mg PO PRN PRN PRN Reason: Diarrhea/Loose Stools Last Admin: 12/24/17 18:57 Dose: 2 mg Loratadine (Claritin) 10 mg PO DAILYPRN PRN PRN Reason: Sinus Symptoms Lorazepam (Ativan) 0.5 mg PO Q6H PRN PRN Reason: Anxiety Last Admin: 12/26/17 23:37 Dose: 0.5 mg Magnesium Hydroxide (Milk Of Magnesium) 30 ml PO DAILYPRN PRN PRN Reason: Constipation Methocarbamol (Robaxin) 750 mg PO BID [facility] Last Admin: 12/26/17 20:51 Dose: 750 mg Metoclopramide HCl (Reglan) 10 mg PO TID [facility] Last Admin: 12/26/17 20:51 Dose: 10 mg Mineral Oil/White Petrolatum (Eucerin Cream) 0 gm TOP BIDPRN PRN PRN Reason: Dry Skin Ondansetron HCl (Zofran Odt) 4 mg PO Q6H PRN PRN Reason: Nausea/Vomiting Ondansetron HCl (Zofran) 4 mg IVP Q6H PRN PRN Reason: Nausea/Vomiting Phenol (Chloraseptic [place] 180 Ml Bot) 0 ml PO PRN PRN PRN Reason: Sore Throat Sacubitril/Valsartan (Entresto 24.5 Mg-25.5 Mg Tablet) 1 tab PO BID [facility] Last Admin: 12/26/17 20:52 Dose: 1 tab Senna (Senokot) 2 tab PO HSPRN PRN PRN Reason: Constipation Sodium Chloride ([place] Nasal [place] 0.65%) 0 ml EA NARE QIDPRN PRN PRN Reason: Nasal Congestion Sodium Chloride (Flush - Normal Saline) 10 ml IVF Q12HR [facility] Last Admin: 12/26/17 20:52 Dose: 10 ml Sodium Chloride (Flush - Normal Saline) 10 ml IVF PRN PRN PRN Reason: Saline Flush Last Admin: 12/22/17 18:21 Dose: 10 ml Tamsulosin HCl (Flomax) 0.4 mg PO DAILY [facility] Last Admin: 12/26/17 09:52 Dose: 0.4 mg Tramadol HCl (Ultram) 50 mg PO BID [facility] Last Admin: 12/26/17 20:49 Dose: 50 mg Trazodone HCl (Desyrel) 200 mg PO HS PRN PRN Reason: Insomnia Last Admin: 12/19/17 21:37 Dose: 200 mg Vitamin B Complex/Vit C/Folic Acid (Nephro-Rigo Tablet) 1 tab PO DAILY [facility] Last Admin: 12/26/17 09:50 Dose: 1 tab Zolpidem Tartrate (Ambien) 5 mg PO HSPRN PRN PRN Reason: Insomnia Last Admin: 12/25/17 20:51 Dose: 5 mg
[2017-12-27] MEDS: traMADol HCl 50 MG TAB PO SCH ×2 (08:53→20:32)
[2017-12-27] MEDS: Metoclopramide HCl 10 MG TAB PO SCH ×3 (08:56→20:32)
[2017-12-27] MEDS: Doxycycline 100 MG CAP PO SCH ×2 (08:56→20:31)
[2017-12-27] MEDS: Heparin 5,000 UNITS/ML VIAL SC SCH (08:56)
[2017-12-27] MEDS: NPH, Human Insulin Isophane 300 UNIT/3 ML VIAL SC SCH (08:57)
--- NOTE | 2017-12-27 10:06 | PRG ---
DATE OF SERVICE: 12/27/2017 HISTORY: Mr. Ramirez is doing well. No chest pain or pressure. PHYSICAL EXAMINATION: VITAL SIGNS: Blood pressure 155/72, pulse 80. LUNGS: Clear. CARDIAC: Normal S1 and S2. ABDOMEN: Soft, nontender. EXTREMITIES: There is no edema. ASSESSMENT: 1. Severely depressed left ventricular function. 2. Inoperable three-vessel coronary artery disease. 3. End-stage renal disease. 4. Status post defibrillator implantation. PLAN: 1. He is to go home on the current medical regimen. 2. He can come see us in the office in a month. 3. He will be contacted by the corporate sales representative for defibrillator follow up. I again discussed the patient's situation and prognosis with the patient which is an unfavorable long -term prognosis. Again, the patient's is not in the room. The patient states that his is with "walking around [place] now". Yesterday she was not in the room either. She has been informed about his poor prognosis by the hospital physician.
--- NOTE | 2017-12-27 11:14 | PRG ---
DATE OF SERVICE: 12/27/2017 SUBJECTIVE: This is a 67-year-old gentleman being seen for end-stage renal disease. The patient den ies any nausea, vomiting or chest pain. PHYSICAL EXAMINATION: GENERAL: Patient is awake, alert. VITAL SIGNS: Afebrile, pulse 75, breathing 16, blood pressure was 155/70. OBJECTIVE: See above. Awake, alert, in no acute distress. GENERAL APPEARANCE AND MENTAL STATUS: Fair. HEAD/NECK: Normocephalic. Atraumatic. EYES: EOMI. No deformity. EARS: Clear. No ulcers. NOSE: Intact. No lesions. MOUTH: Clear. No discharge. THROAT: Clear. No exudate. LUNGS: Clear. No crackles. CARDIAC: S1, S2. No rub. ABDOMEN: Benign. BS+. GENITALIA/RECTUM: Singer absent. BACK/EXTREMITIES: Edema 0+ Ulcer- NEUROLOGICAL: Alert and motor intact. SKIN: Rash- Bruise- LYMPHATICS: Edema- Ulcer- LABORATORY: Hemoglobin 8.5. ASSESSMENT AND PLAN: 1. Stage 6 chronic kidney disease, plan dialysis. 2. Hypertension, stable. 3. Anemia, stable. 4. Hyperkalemia, stable. Discharge planning is in progress.
[2017-12-27] MEDS: hydrALAZINE 25 MG TAB PO SCH ×3 (11:28→20:32)
[2017-12-27] MEDS: Methocarbamol 500 MG TAB PO SCH ×2 (15:31→20:31)
[2017-12-27] MEDS: Carvedilol 25 MG TAB PO SCH ×2 (15:31→20:32)
[2017-12-27] MEDS: Sacubitril 24.5 MG/Valsartan 25.5 MG TABLET PO SCH ×2 (15:31→20:31)
[2017-12-27] MEDS: cloNIDine 0.1 MG TAB PO SCH ×2 (15:31→20:30)
[2017-12-27] MEDS: Famotidine 20 MG TAB PO SCH (16:19)
[2017-12-27] MEDS: Folic Acid/Vit B Comp W-C PO SCH (16:19)
[2017-12-27] MEDS: FLUoxetine HCl 20 MG CAP PO SCH (16:19)
[2017-12-27] MEDS: Aspirin 325 MG TAB PO SCH (16:19)
[2017-12-27] MEDS: Tamsulosin HCl 0.4 MG CAP PO SCH (16:19)
[2017-12-27] MEDS: Atorvastatin Calcium 20 MG TAB PO SCH (16:20)
[2017-12-27] MEDS: Ferrous Sulfate 325 MG TAB PO SCH (16:20)
[2017-12-27] MEDS: Lorazepam 0.5 MG TAB PO PRN (16:33)
--- NOTE | 2017-12-27 19:14 | PRG ---
DATE OF SERVICE: 12/27/2017 ELECTROPHYSIOLOGY FOLLOWUP NOTE SUBJECTIVE: Mr. Ramirez is doing well. Discomfort at the ICD insertion site is noted. There is some swelling. OBJECTIVE DATA: VITAL SIGNS: Blood pressure 156/82, heart rate 81, respirations 18. GENERAL: Alert and oriented man, in no apparent distress. NECK: Supple. Jugular veins not distended. CHEST: Coarse. No crackles. ABDOMEN: Benign. Bowel sounds positive. EXTREMITIES: Lower extremities without edema, clubbing or cyanosis. SKIN: The right precordial pacemaker site has significant hematoma. LABORATORY DATA: White cell count 3.5, hemoglobin 11.5, platelet count is 109,000. Sodium 138, pota ssium 4.9, BUN is 42, creatinine 7.47. The ICD interrogation reveals adequate function from yesterday ____ single chamber ICD ____ impedance 418 ohms, sensing 5.4 millivolts, capture threshold 0.5 volts at 0.4 milliseconds. Chest x-rays rev ealed no pneumothorax. ASSESSMENT: Mr. Ramirez is a 67-year-old man who has a history of significant chronic left ventricula r dysfunction, severe range. He underwent a prophylactic ICD implantation. He seems to be doing wel l after device implant, but he has a sizable hematoma at the site. No hemoglobin drop detected of si gnificance. PLAN: 1. At this point, we are treating conservatively. A pressure dressing will be applied. Routine mon itoring in the office will be requested. 2. We will stop any anticoagulation. 3. Wound check in the office in 2 weeks. Continue antibiotic for 1 week from discharge.
[2017-12-27] MEDS: Zolpidem Tartrate 5 MG TAB PO PRN (20:31)
[2017-12-27] MEDS ORDERED: Pravastatin Sodium 20 MG TAB PO SCH (21:00)
[2017-12-27] MEDS ORDERED: Simvastatin 5 MG TAB PO SCH (21:00)
[2017-12-27] MEDS: traZODone HCl 50 MG TAB PO PRN (22:42)
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
[2017-12-28] MEDS: HYDROcodone/Acetaminophen 5/325 mg Tablet PO PRN (06:27)
[2017-12-28 06:44] LABS: Anion Gap 19 mmol/L (10-20); BUN (Urea Nitrogen) 28 mg/dL (8.4-25.7); Calc. Creatinine Clearance 12 mL/min (70-130); Calcium 8.2 mg/dL (7.8-10.44); Carbon Dioxide 23 mmol/L (23-31); Chloride 99 mmol/L (98-107); Estimated GFR-MDRD 10; Glucose 91 mg/dL (80-115); Potassium 4.3 mmol/L (3.5-5.1); Sodium 137 mmol/L (136-145)
[2017-12-28] MEDS: Tamsulosin HCl 0.4 MG CAP PO SCH (08:32)
[2017-12-28] MEDS: Carvedilol 25 MG TAB PO SCH (08:32)
[2017-12-28] MEDS: Methocarbamol 500 MG TAB PO SCH (08:32)
[2017-12-28] MEDS: Folic Acid/Vit B Comp W-C PO SCH (08:32)
[2017-12-28] MEDS: Atorvastatin Calcium 20 MG TAB PO SCH (08:32)
[2017-12-28] MEDS: Metoclopramide HCl 10 MG TAB PO SCH (08:32)
[2017-12-28] MEDS: Doxycycline 100 MG CAP PO SCH (08:33)
[2017-12-28] MEDS: Aspirin 325 MG TAB PO SCH (08:33)
[2017-12-28] MEDS: cloNIDine 0.1 MG TAB PO SCH (08:33)
[2017-12-28] MEDS: traMADol HCl 50 MG TAB PO SCH (08:34)
[2017-12-28] MEDS: hydrALAZINE 25 MG TAB PO SCH (08:34)
[2017-12-28] MEDS: Ferrous Sulfate 325 MG TAB PO SCH (08:35)
[2017-12-28] MEDS: Famotidine 20 MG TAB PO SCH (08:35)
[2017-12-28] MEDS: FLUoxetine HCl 20 MG CAP PO SCH (08:35)
[2017-12-28] MEDS: NPH, Human Insulin Isophane 300 UNIT/3 ML VIAL SC SCH (08:40)
--- NOTE | 2017-12-28 09:05 | PRG ---
DATE OF SERVICE: 12/28/2017 Mr. Ramirez has no chest pain or pressure, no shortness of breath. He says he has some discomfort in his abdominal area. PHYSICAL EXAMINATION: VITAL SIGNS: Blood pressure is 157/84, but it was earlier 106/57, pulse 74. LUNGS: Clear. CARDIAC: Normal S1, normal S2. ASSESSMENT: 1. Severe three-vessel coronary artery disease, inoperable. 2. Depressed left ventricular function. 3. End-stage renal disease. 4. Status post defibrillator implantation. PLAN: The patient is able to be released home at this time from a cardiac standpoint. I will sign o ff. Please reconsult if needed. The patient can be seen in the office in approximately 1 month. Lo ng-term prognosis obviously is guarded to poor with these multiple problems. The patient's is n ot here today. For the last 3 days she has not been here. I would be glad to speak to the abou t the prognosis and the situation, but she has not been present on either of the last 3 days.
[2017-12-28 09:13] VITALS: BP 125/64; TEMP 98.2
[2017-12-28] MEDS: Sacubitril 24.5 MG/Valsartan 25.5 MG TABLET PO SCH (09:38)
--- NOTE | 2017-12-28 11:36 | PRG ---
DATE OF SERVICE: 12/28/2017 SUBJECTIVE: A 67-year-old gentleman being seen for end-stage renal disease. The patient denies any nausea, vomiting or chest pain. PHYSICAL EXAMINATION: GENERAL: Patient is awake, alert. VITAL SIGNS: Afebrile, pulse 75, breathing at 16, blood pressure 106/57. GENERAL APPEARANCE AND MENTAL STATUS: Fair. HEAD/NECK: Normocephalic. Atraumatic. EYES: EOMI. No deformity. EARS: Clear. No ulcers. NOSE: Intact. No lesions. MOUTH: Clear. No discharge. THROAT: Clear. No exudate. LUNGS: Clear. No crackles. CARDIAC: S1, S2. No rub. ABDOMEN: Benign. BS+. GENITALIA/RECTUM: Singer absent. BACK/EXTREMITIES: Edema 0+ Ulcer-. NEUROLOGICAL: Alert and motor intact. SKIN: Rash- Bruise- LYMPHATICS: Edema- Ulcer-. ASSESSMENT AND RECOMMENDATIONS: 1. Stage 6 chronic kidney disease. We will plan hemodialysis Monday, Monday, and Monday. 2. Hypertension, stable. 3. Anemia, stable. The patient will follow up with Dr. Anna. I will sign off.
--- NOTE | 2017-12-28 12:32 | PRG ---
DATE OF SERVICE: 12/28/2017 I am seeing Mr. Ramirez at our [facility] telemetry floor as a followup. SUBJECTIVE: He seems to be doing well, discomfort at the ICD site is noted. OBJECTIVE DATA: VITAL SIGNS: Blood pressure is 157/74, heart rate 74, respirations 18, temperature 98.2 degrees Fahr enheit. GENERAL: Alert and oriented man in no apparent distress. NECK: Supple. Jugular veins not distended. CHEST: Coarse without crackles. CARDIOVASCULAR: Heart sounds are regular to rate and rhythm. No murmur or gallop. Right precordial ICD insertion site is with hematoma. DATABASE: The telemetry strips reveals sinus rhythm. ASSESSMENT AND PLAN: Mr. Ramirez is a 67-year-old man with history of congestive heart failure, ische rainer cardiomyopathy with severely reduced left ventricular systolic function. He underwent a single c hamber ICD implantation 3 days ago and did well post-procedure. He does have though a somewhat tense hematoma at the pacemaker site, but somewhat improved since yesterday. At this point, we will treat it conservatively with a pressure dressing in place. He is to continue his antibiotics. Routine fo llowup in 10 days will be requested for a wound check.
== END 2017-12-28 10:33 | disposition home health service (06) | DRG 981 ==
LOC: ERS 21:22 → T4-A 12-18 01:30 → 2NO 12-25 18:13
PROVIDERS: ADMIT Hospitalist; ATTEND Hospitalist
PROC: B41D1ZZ Fluoroscopy of Aorta and Bilateral Lower Extremity Arteries using Low Osmolar Contrast (ICD-10-PCS; 2017-12-21)
PROC: 0JH608Z Insertion of Defibrillator Generator into Chest Subcutaneous Tissue and Fascia, Open Approach (ICD-10-PCS; principal; 2017-12-25)
PROC: 02HK3KZ Insertion of Defibrillator Lead into Right Ventricle, Percutaneous Approach (ICD-10-PCS; 2017-12-25)
PROC: 5A1D70Z Performance of Urinary Filtration, Intermittent, Less than 6 Hours Per Day (ICD-10-PCS; 2017-12-27)
DX: L03.115 Cellulitis of right lower limb (principal); N18.6 End stage renal disease; I13.2 Hypertensive heart and chronic kidney disease with heart failure and with stage 5 chronic kidney disease, or end stage renal disease; I50.42 Chronic combined systolic (congestive) and diastolic (congestive) heart failure; N25.81 Secondary hyperparathyroidism of renal origin; E11.43 Type 2 diabetes mellitus with diabetic autonomic (poly)neuropathy; K31.84 Gastroparesis; E78.5 Hyperlipidemia, unspecified; Z99.2 Dependence on renal dialysis; E11.22 Type 2 diabetes mellitus with diabetic chronic kidney disease; I25.10 Atherosclerotic heart disease of native coronary artery without angina pectoris; J45.909 Unspecified asthma, uncomplicated; Z86.73 Personal history of transient ischemic attack (TIA), and cerebral infarction without residual deficits; F41.9 Anxiety disorder, unspecified; F32.9 Major depressive disorder, single episode, unspecified; Z79.82 Long term (current) use of aspirin; Z79.4 Long term (current) use of insulin; E87.5 Hyperkalemia; D63.1 Anemia in chronic kidney disease; R79.89 Other specified abnormal findings of blood chemistry; K21.9 Gastro-esophageal reflux disease without esophagitis; I70.201 Unspecified atherosclerosis of native arteries of extremities, right leg; I25.5 Ischemic cardiomyopathy; N40.0 Benign prostatic hyperplasia without lower urinary tract symptoms; G89.29 Other chronic pain; M54.5 Low back pain; R74.8 Abnormal levels of other serum enzymes; Z91.15 Patient's noncompliance with renal dialysis
CPT/HCPCS: 33240; 36005; 36415; 36416; 71045; 71046; 75630; 75710; 75820; 76942; 80048; 80053; 80069; 80202; 82553; 83690; 83880; 84484; 85025; 85730; 90471; 90670; 90935; 93005; 93010; 93306; 93641; 93923; 96365; 96375; A4216; C1722; C1769; C1777; G0009; G0257; J1644; J1815; J2001; J2270; J2543; J2704; J3010; J3370; J3490; J7050; Q0162

== ENCOUNTER 2018-01-03 18:49 | Observation (INO) | payer MEDICARE, SELFPAY ==
[2018-01-03 20:14] LABS: #Basophils 0.1 thou/uL (0.0-0.2); #Neutrophils 10.3 thou/uL (1.40-6.50); %Basophils 0.9 % (0.0-1.0); %Monocytes 7.9 % (0.0-10.0); %Neutrophils 83.1 % (42.0-75.0); Mean Corpuscular HGB CONC 33.3 g/dL (32.0-36.0); Mean Platelet Volume 7.7 fL (7.4-10.4); Platelet Count 156 thou/uL (130-400); RBC Distribution Width 16.4 % (11.5-14.5); Red Blood Cell (RBC) Count 3.56 mill/uL (4.70-6.10); White Blood Cell (WBC) Count 12.4 thou/uL (4.8-10.8)
[2018-01-03 20:36] LABS: ALT (SGPT) 70 U/L (8-55); AST (SGOT) 167 U/L (5-34); Albumin 4.7 g/dL (3.4-4.8); Alkaline Phosphatase 103 U/L (40-150); Anion Gap 30 mmol/L (10-20); BUN (Urea Nitrogen) 51 mg/dL (8.4-25.7); Bilirubin, Total 1.4 mg/dL (0.2-1.2); CK (CPK) 105 U/L (30-200); Calc. Creatinine Clearance 0 mL/min (70-130); Calcium 9.8 mg/dL (7.8-10.44); Carbon Dioxide 19 mmol/L (23-31); Chloride 92 mmol/L (98-107); Estimated GFR-MDRD 7; Globulin 3.1 g/dL (2.4-3.5); Glucose 180 mg/dL (80-115); Lipase 73 U/L (8-78); Potassium 6.1 mmol/L (3.5-5.1); Protein, Total 7.8 g/dL (5.8-8.1); Sodium 135 mmol/L (136-145)
[2018-01-03 20:38] LABS: CKMB 2.5 ng/mL (0-6.6); Troponin I 0.105 ng/mL (< 0.028)
--- NOTE | 2018-01-03 20:42 | RAD ---
CHEST ONE VIEW PORTABLE: 01/03/18 INDICATION: Status post cardiac device placement. IMPRESSION: Moderate cardiomegaly is stable. Single lead AICD is unchanged in position. No consolidation, pleural effusion, or pneumothorax is present. POS: BRODIE
[2018-01-03] MEDS ORDERED: Calcium Gluc 4.6 MEQ/10 ML (100 MG/ML) SLOW IVP SCH (22:15)
[2018-01-03] MEDS ORDERED: Nitroglycerin 0.4 MG TAB (25 Tab Bottle) ONE (23:14)
[2018-01-03 23:28] LABS: CKMB 2.2 ng/mL (0-6.6); Troponin I 0.121 ng/mL (< 0.028)
[2018-01-04 00:06] LABS: HBSAg Index 0.18 S/CO (0-0.99); Hep B Surf AB Non-Reactive (NonReactive); Hep B Surf Ag Non-Reactive S/CO (NonReactive)
[2018-01-04] MEDS ORDERED: Enoxaparin Sodium 40 MG/0.4 ML SYRINGE ONE (01:56)
[2018-01-04] MEDS ORDERED: Enoxaparin Sodium 30 MG/0.3 ML SYRINGE ONE (01:56)
[2018-01-04 02:57] VITALS: BMI 23.6
[2018-01-04 03:30] LABS: Troponin I 0.138 ng/mL (< 0.028)
[2018-01-04] MEDS ORDERED: Acetaminophen 325 MG TAB PO PRN ×2 (04:13→04:39)
[2018-01-04] MEDS ORDERED: Ondansetron HCl/PF 4 MG/2 ML Vial IVP PRN ×2 (04:39→07:25)
[2018-01-04] MEDS ORDERED: Ondansetron ODT 4 MG TAB SL PRN (04:39)
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
[2018-01-04] MEDS ORDERED: HYDROcodone/Acetaminophen 5/325 mg Tablet PO PRN (07:25)
[2018-01-04] MEDS ORDERED: hydrALAZINE 20 MG/ML VIAL SLOW IVP PRN (07:25)
[2018-01-04] MEDS ORDERED: Diabetic Tussin 200 MG/10 ML UDCUP PO PRN (07:25)
[2018-01-04] MEDS ORDERED: Artificial Tears 18 DROP/0.9 ML EA EYE PRN (07:25)
[2018-01-04] MEDS ORDERED: Ondansetron ODT 4 MG TAB PO PRN (07:25)
[2018-01-04] MEDS ORDERED: Temazepam 15 MG CAP PO PRN (07:25)
[2018-01-04] MEDS ORDERED: Loratadine 10 MG TAB PO PRN (07:25)
[2018-01-04] MEDS ORDERED: Loperamide HCl 2 MG CAP PO PRN (07:25)
[2018-01-04] MEDS ORDERED: Eucerin (Mineral Oil/Petrolatum,White) 30 gm Jar TOP PRN (07:25)
[2018-01-04] MEDS ORDERED: Milk Of Magnesia 30 ML UDCUP PO PRN (07:25)
[2018-01-04] MEDS ORDERED: Chloraseptic Spray 180 ml Bottle PO PRN (07:25)
[2018-01-04] MEDS ORDERED: Senokot 8.6 MG TAB PO PRN (07:25)
[2018-01-04] MEDS ORDERED: Sodium Chloride 0.65% Nasal 44 ML BOT EA NARE PRN (07:25)
[2018-01-04] MEDS ORDERED: Calcium Carbonate 500 MG ChewTAB PO PRN (07:25)
[2018-01-04] MEDS ORDERED: Nitroglycerin 0.4 MG TAB (25 Tab Bottle) SL PRN (07:25)
[2018-01-04] MEDS ORDERED: Metoclopramide HCl 10 MG/2 ML VIAL IVP PRN (07:25)
[2018-01-04] MEDS: Carvedilol 6.25 MG TAB PO SCH ×2 (09:11→20:27)
[2018-01-04] MEDS: Aspirin 325 MG TAB PO SCH (09:11)
[2018-01-04] MEDS: Atorvastatin Calcium 20 MG TAB PO SCH (09:11)
[2018-01-04] MEDS: cloNIDine 0.1 MG TAB PO SCH ×2 (09:11→20:25)
[2018-01-04] MEDS: Ferrous Sulfate 325 MG TAB PO SCH (09:12)
[2018-01-04] MEDS: hydrALAZINE 25 MG TAB PO SCH ×3 (09:12→20:26)
[2018-01-04] MEDS: FLUoxetine HCl 20 MG CAP PO SCH (09:12)
[2018-01-04] MEDS: Folic Acid/Vit B Comp W-C PO SCH (09:12)
[2018-01-04] MEDS: Famotidine 20 MG TAB PO SCH (09:12)
[2018-01-04] MEDS: Methocarbamol 500 MG TAB PO SCH ×2 (09:13→20:25)
[2018-01-04] MEDS: Tamsulosin HCl 0.4 MG CAP PO SCH (09:14)
[2018-01-04] MEDS: Sacubitril 24.5 MG/Valsartan 25.5 MG TABLET PO SCH ×2 (09:14→21:00)
[2018-01-04] MEDS: NPH, Human Insulin Isophane 300 UNIT/3 ML VIAL SC SCH (09:50)
[2018-01-04] MEDS: Cephalexin 250 MG/5 ML Oral Suspension PO SCH ×2 (09:52→20:27)
--- NOTE | 2018-01-04 11:31 | DIS ---
DATE OF ADMISSION: 01/04/2018 DATE OF DISCHARGE: Pending. PRIMARY CARE PHYSICIAN: [facility]. PRIMARY DISCHARGE DIAGNOSES: 1. Chest pain, local musculoskeletal at AICD site. 2. AICD site surrounding hematoma. 3. Hyperkalemia due to decreased renal excretion. 4. Volume overload, status post dialysis. SECONDARY DISCHARGE DIAGNOSES: Secondary hyperparathyroidism of renal origin, peripheral arterial di sease, noncompliance with dialysis, ischemic cardiomyopathy, recent AICD placement, hypertension, dys lipidemia, end-stage renal disease on hemodialysis, chronically elevated troponin, diabetes, gastropa resis, diabetes type 2, chronic low back pain, chronic combined systolic and diastolic heart failure, coronary artery disease, benign enlargement of prostate, asthma, anxiety, depression, anemia of gagan l disease. PRIMARY PROCEDURE/OPERATION: Maintenance hemodialysis while in hospital. RADIOLOGICAL INVESTIGATION: Chest x-ray on admission reported as cardiomegaly, AICD in place. SIGNIFICANT LABORATORY DATA: WBC 12.4, hemoglobin 11.0, platelet 156. Sodium 135, potassium 6.1, BU N 51, creatinine 8.02, calcium 9.8, troponin 0.121, BNP greater than 25,000. Albumin 4.7, AST 167, A LT 70, alkaline phosphatase is 103, hepatitis B surface antigen negative. DISCHARGE MEDICATIONS: The patient will continue all his previous home medications, ferrous sulfate 325 mg p.o. daily, Prozac 40 mg p.o. daily, Nephro-Rigo one tablet daily, methocarbamol 750 mg p.o. b .i.d., Humulin N 10 units subcu daily, Keflex 500 mg p.o. q.6 hourly, finish course which was prescri bed recently, aspirin 325 mg p.o. daily, Lipitor 20 mg p.o. daily, Coreg 12.5 mg p.o. b.i.d., clonidi ne 0.1 mg p.o. b.i.d., hydralazine 50 mg p.o. t.i.d., Imdur 30 mg p.o. daily, Entresto one tablet twi ce daily, Flomax 0.4 mg p.o. daily, tramadol 50 mg p.o. t.i.d. CONTRAINDICATIONS: None. CODE STATUS: FULL CODE. INPATIENT CONSULTANTS: Dr. Olivia Christianson was consulted while in hospital. TEST RESULTS PENDING ON DISCHARGE: None. ALLERGIES: No known drug allergy. DISCHARGE PLAN: Post hospital, patient is instructed to follow up with primary care physician. HOSPITAL COURSE: A 67-year-old male who was admitted by Dr. Albarran. Please see his H&P for further details. The patient was having chest pain around ICD side. His ICD site is slightly swollen witho ut any fluctuance. He does have resolving hematoma over AICD site. He was complaining of pain over there, he was also complaining of shortness of breath. On admission, he had hyperkalemia, hyponatrem ia. He is noncompliant with his dialysis and that is why Nephrology was consulted and they did the d ialysis. He was complaining of chest pain, but it was local, musculoskeletal related. He has chroni gila elevated troponin. Currently, patient is on room air, saturating normal. His chest x-ray is a lso unremarkable. Patient only had low grade fever. Dr. Olivia Christianson was consulted and he recommende d to continue Keflex for another 5-7 days. The patient is seen and examined at bedside today. Old records from admission reviewed. Review of systems reviewed with the patient and negative. PHYSICAL EXAMINATION: VITAL SIGNS: Currently, temperature 97.6, pulse 92, respiratory rate 20, saturation 97% on room air, blood pressure 139/80, weight 150 pounds. GENERAL: The patient is currently alert, awake, no obvious acute distress. HEAD: Normocephalic, atraumatic. EYES: Pupils round and reactive to light. Extraocular muscle intact. ENT: Oropharynx within normal limits. Moist mucous membranes. No oral lesion, no pharyngeal erythe ma, no exudate. NECK: Supple, no JVD, no thyromegaly, no carotid bruit. LUNGS: Clear to auscultation without any rhonchi or rales. NEUROLOGIC: Nonfocal examination. The patient is admitted as observation, his date of admission was 01/04/2018 at 02:49 a.m. The patie nt will be discharged home later on today with oral antibiotic therapy. He is under observation stat us. Patient was admitted and discharged on the same day. Please see HPI per Dr. Albarran's H&P. He mainl y came to hospital with chest discomfort which I described in my hospital course. He does not have a ny cardiac etiology for his chest discomfort. He received his dialysis. I ordered a repeat CBC and CMP before discharge, that result is pending. REVIEW OF SYSTEMS: The following complete review of systems was negative, unless otherwise mentioned in the HPI or below: Constitutional: Weight loss or gain, ability to conduct usual activities. Skin: Rash, itching. Eyes: Double vision, pain. ENT/Mouth: Nose bleeding, neck stiffness, pain, tenderness. Cardiovascular: Palpitations, dyspnea on exertion, orthopnea. Respiratory: Shortness of breath, wheezing, cough, hemoptysis, fever or night sweats. Gastrointestinal: Poor appetite, abdominal pain, heartburn, nausea, vomiting, constipation, or diarr hea. Genitourinary: Urgency, frequency, dysuria, nocturia. Musculoskeletal: Pain, swelling. Neurologic/Psychiatric: Anxiety, depression. Allergy/Immunologic: Skin rash, bleeding tendency. PAST MEDICAL HISTORY: ESRD on hemodialysis Monday, Monday, Monday, anemia of renal disease, anxie ty, depression, asthma, benign enlargement of prostate, coronary artery disease, combined systolic an d diastolic heart failure with AICD, chronic low back pain, diabetes type 2, diabetic gastroparesis, chronically elevated troponin, hypertension, dyslipidemia, ischemic cardiomyopathy, noncompliance wit h dialysis, peripheral arterial disease, secondary hyperparathyroidism of renal origin. PAST SURGICAL HISTORY: Left upper extremity AV fistula, AICD placement. PAST PSYCHIATRIC HISTORY: Anxiety and depression. FAMILY HISTORY: No strong family history of premature coronary artery disease, stroke or cancer. ALLERGIES: No known drug allergy. CURRENT HOME MEDICATIONS: Please see my discharge medication for his home medications. PHYSICAL EXAMINATION: Please see findings above. The patient was admitted and discharged on the same day.
--- NOTE | 2018-01-04 11:56 | CON ---
DATE OF CONSULTATION: 01/03/2018 NEPHROLOGY CONSULT CONSULTING PHYSICIAN: Dr. Stein. REASON FOR CONSULTATION: End-stage renal disease, evaluation and care. REASON FOR ADMISSION: Chest pain is unstable. HISTORY OF PRESENT ILLNESS: This is a 67-year-old male with history of hypertension, hyperlipidemia, coronary artery disease, end-stage renal disease, who came to the hospital with chest pain and is be ing evaluated by Nephrology consult, maintenance hemodialysis. Potassium was found to be 6.1. He ge ts dialysis Monday, Monday, Monday, and missed dialysis this morning, also BNP was more than 25,00 0. No nausea or vomiting reported. PAST MEDICAL HISTORY: Positive for type 2 diabetes, hypertension, hyperlipidemia, coronary artery di sease, CVA. PAST SURGICAL HISTORY: Left arm fistula placement, defibrillator placement. HOME MEDICATIONS: Tramadol, hydralazine, Flomax, Coumadin, Imdur, Nephro-Rigo Prozac, Keflex, Lipito r, Coreg. ALLERGIES: No known drug allergies. SOCIAL HISTORY: No smoking, alcohol, or illicit drug abuse. FAMILY HISTORY: No history of any kidney disease. REVIEW OF SYSTEMS: The following complete review of systems was negative, unless otherwise mentioned in the HPI or below: Constitutional: Weight loss or gain, ability to conduct usual activities. Sk in: Rash, itching. Eyes: Double vision, pain. ENT/Mouth: Nose bleeding, neck stiffness, pain, te nderness. Cardiovascular: Palpitations, dyspnea on exertion, orthopnea. Respiratory: Shortness of breath, wheezing, cough, hemoptysis, fever, or night sweats. Gastrointestinal: Poor appetite, abdo baldemar pain, heartburn, nausea, vomiting, constipation, or diarrhea. Genitourinary: Urgency, frequen cy, dysuria, nocturia. Musculoskeletal: Pain, swelling. Neurologic/Psychiatric: Anxiety, depressi on. Allergy/Immunologic: Skin rash, bleeding tendency. PHYSICAL EXAMINATION: GENERAL: This is a well-built male in no apparent distress. VITAL SIGNS: Temperature 96.6, pulse 78, respiratory rate 18, blood pressure 136/83. HEENT: Atraumatic, normocephalic. Oral mucosa is moist. NECK: Supple. CARDIOVASCULAR: S1, S2 heard. Rate and rhythm regular. RESPIRATORY: Clear. ABDOMEN: Soft. MUSCULOSKELETAL: 1+ edema. DERMATOLOGIC: No skin rash. NEUROLOGIC: Alert, awake. PSYCHIATRIC: Normal mood and affect. LABORATORY DATA: Hemoglobin is 7.0, potassium 6.1, BUN is 51, creatinine 8.2. ASSESSMENT AND PLAN: 1. End-stage renal disease. We will have dialysis. 2. Hyperkalemia. Limit-potassium diet. Plan is to have dialysis. 3. Metabolic acidosis. 4. Hyponatremia. 5. Edema, controlled. 6. Cardiorenal syndrome. We will remove fluid with dialysis. 7. Anemia, mild. 8. Elevated BUN, we will remove fluid. Plan is to have dialysis at least for 2 hours for hyperkalemia and fluid removal and then continue di alysis on Monday, Monday, and Monday as tolerated. Limit fluid intake, limit potassium intake. Thank you for the consult.
[2018-01-04 12:13] LABS: ALT (SGPT) 249 U/L (8-55); AST (SGOT) 538 U/L (5-34); Albumin 3.9 g/dL (3.4-4.8); Alkaline Phosphatase 90 U/L (40-150); Anion Gap 23 mmol/L (10-20); BUN (Urea Nitrogen) 44 mg/dL (8.4-25.7); Calc. Creatinine Clearance 10 mL/min (70-130); Calcium 9.4 mg/dL (7.8-10.44); Carbon Dioxide 24 mmol/L (23-31); Chloride 94 mmol/L (98-107); Estimated GFR-MDRD 9; Globulin 2.6 g/dL (2.4-3.5); Glucose 213 mg/dL (80-115); Potassium 4.7 mmol/L (3.5-5.1); Protein, Total 6.5 g/dL (5.8-8.1); Sodium 136 mmol/L (136-145)
--- NOTE | 2018-01-04 12:15 | PDOC.PN ---
- Subjective Encounter Start Date: 01/04/18 Encounter Start Time: 08:40 -: old records requested/rev Patient seen and examined. No overnight events - Objective Resuscitation Status: Resuscitation Status FULL:Full Resuscitation MAR Reviewed: Yes Vital Signs & Weight: Vital Signs (12 hours) Temp Pulse Resp BP BP Pulse Ox 01/04/18 08:59 97.6 F 92 20 139/80 97 01/04/18 02:47 99.7 F H 87 18 151/96 H 99 Weight Weight 150 lb 6.4 oz Result Diagrams: 01/03/18 20:04 01/04/18 11:40 Additional Labs: Accuchecks 01/04/18 05:54 POC Glucose 114 H Radiology Reviewed by me: Yes (chest xray reviewed) EKG Reviewed by me: Yes (nsr) Phys Exam - Physical Examination Constitutional: NAD HEENT: PERRLA, moist MMs, sclera anicteric Neck: no JVD, supple Respiratory: no wheezing, no rales, no rhonchi Cardiovascular: RRR, no significant murmur, no rub ICD site mild hematomoa but does not clinical sign of infection Gastrointestinal: soft, non-tender, no distention, positive bowel sounds Musculoskeletal: no edema, pulses present Neurological: non-focal, normal sensation, moves all 4 limbs Psychiatric: normal affect, A&O x 3 Skin: no rash, normal turgor Dx/Plan (1) Chest pain Code(s): R07.9 - CHEST PAIN, UNSPECIFIED Status: Acute (2) Hyperkalemia, diminished renal excretion Code(s): E87.5 - HYPERKALEMIA Status: Acute (3) Anemia of renal disease Code(s): D63.1 - ANEMIA IN CHRONIC KIDNEY DISEASE Status: Chronic (4) Anxiety and depression Code(s): F41.8 - OTHER SPECIFIED ANXIETY DISORDERS Status: Chronic (5) Asthma Code(s): J45.909 - UNSPECIFIED ASTHMA, UNCOMPLICATED Status: Chronic (6) BPH (benign prostatic hyperplasia) Code(s): N40.0 - BENIGN PROSTATIC HYPERPLASIA WITHOUT LOWER URINRY TRACT SYMP Status: Chronic (7) CAD (coronary artery disease), [place] coronary artery Code(s): I25.10 - ATHSCL HEART DISEASE OF [place] CORONARY ARTERY W/O ANG PCTRS Status: Chronic Qualifiers: (8) Chronic combined systolic and diastolic CHF (congestive heart failure) Code(s): I50.42 - CHRONIC COMBINED SYSTOLIC AND DIASTOLIC HRT FAIL Status: Chronic (9) Chronic low back pain Code(s): M54.5 - LOW BACK PAIN; G89.29 - OTHER CHRONIC PAIN Status: Chronic (10) Diabetes type 2, controlled Code(s): E11.9 - TYPE 2 DIABETES MELLITUS WITHOUT COMPLICATIONS Status: Chronic (11) Diabetic gastroparesis Code(s): E11.43 - TYPE 2 DIABETES W DIABETIC AUTONOMIC (POLY)NEUROPATHY; K31.84 - GASTROPARESIS Status: Chronic (12) ESRD (end stage renal disease) on dialysis Code(s): N18.6 - END STAGE RENAL DISEASE; Z99.2 - DEPENDENCE ON RENAL DIALYSIS Status: Chronic (13) Elevated troponin Code(s): R74.8 - ABNORMAL LEVELS OF OTHER SERUM ENZYMES Status: Chronic (14) Hyperlipidemia Code(s): E78.5 - HYPERLIPIDEMIA, UNSPECIFIED Status: Chronic Qualifiers: (15) Hypertension Code(s): I10 - ESSENTIAL (PRIMARY) HYPERTENSION Status: Chronic Qualifiers: (16) Ischemic cardiomyopathy Code(s): I25.5 - ISCHEMIC CARDIOMYOPATHY Status: Chronic Comment: EF 20% by Echo 06/15; lost LifeVest that was rx in 06/15 On Entresto,BB,ASA,statin (17) Noncompliance of patient with renal dialysis Code(s): Z91.15 - PATIENT'S NONCOMPLIANCE WITH RENAL DIALYSIS Status: Chronic (18) PAD (peripheral artery disease) Code(s): I73.9 - PERIPHERAL VASCULAR DISEASE, UNSPECIFIED Status: Chronic Comment: s/p angiogram 12/21/17 (19) Secondary hyperparathyroidism of renal origin Code(s): N25.81 - SECONDARY HYPERPARATHYROIDISM OF RENAL ORIGIN Status: Chronic - Plan cont current plan of care, continue antibiotics * EP consulted * will give prophylactic keflex * medication reviewed as below * symptomatic treatment. History of Present Illnes - Past Medical History Cardiac: CHF, HTN Pulmonary: Asthma Musculoskeletal: Chronic low back pain Renal/: Chronic renal failure Endocrine: Diabetes - Past Family History Family History: None - Past Social History Smoke: No, Quit Alcohol: None Drugs: None Lives: With Family Domestic Violence: Negative
[2018-01-04 12:30] LABS: #Lymphocytes 0.7 thou/uL (1.20-3.40); #Monocytes 0.8 thou/uL (0.11-0.59); #Neutrophils 6.5 thou/uL (1.40-6.50); %Basophils 0.1 % (0.0-1.0); %Eosinophils 0.1 % (0.0-10.0); %Lymphocytes 9.1 % (21.0-51.0); %Monocytes 10.1 % (0.0-10.0); %Neutrophils 80.6 % (42.0-75.0); MDiff Complete? YES; Mean Platelet Volume 8.1 fL (7.4-10.4); PLT Morphology Comment Appears Decreased; Platelet Count 113 thou/uL (130-400); Polychromasia SLIGHT = 2-3 cells (100X) (0-2/hpf); RBC Distribution Width 16.3 % (11.5-14.5); White Blood Cell (WBC) Count 8.1 thou/uL (4.8-10.8)
--- NOTE | 2018-01-04 15:45 | ULT ---
SONOGRAM RIGHT UPPER QUADRANT 01/04/18 HISTORY: Abnormal liver function tests. FINDINGS: Small gallbladder wall polyp. No shadowing stones. Common duct is 0.5 cm. Small amount of free fluid in the right pleural space and throughout the abdomen. Right renal cyst is partially visualized. IMPRESSION: Ascites. Right pleural fluid. Cause is not apparent. No focal liver mass. No evidence of acute biliary obstruction. Small gallbladder wall polyp. POS: [facility]
--- NOTE | 2018-01-04 21:34 | PRG ---
DATE OF SERVICE: 01/04/2018 SUBJECTIVE: Patient was seen and examined at bedside and overnight events noted. Patient denies any shortness of breath or chest pain or palpitation. No history of nausea or vomiting or diarrhea or f ever or chills or cramps. OBJECTIVE: GENERAL: This is a well-built male in no apparent distress. VITAL SIGNS: Temperature 97.8, pulse 71, respiratory rate 18, blood pressure 122/69. HEENT: Atraumatic, normocephalic. Oral mucosa is moist. NECK: Supple. CARDIOVASCULAR: S1, S2 heard. Rate and rhythm regular. RESPIRATORY: Clear to auscultation. GASTROINTESTINAL: Abdomen is soft. MUSCULOSKELETAL: No tenderness. No edema. DERMATOLOGIC: No skin rash. NEUROLOGIC: Alert and awake and oriented x3. No focal neurologic deficits. Moving all the extremiti es. PSYCHIATRIC: Mood and affect normal. LABORATORY DATA: Potassium 4.7, BUN 44, creatinine 6.5. ASSESSMENT AND PLAN: 1. End-stage renal disease. We will continue on dialysis. Plan is to have extra session of dialysi s for 3 hours with ultrafiltration. 2. Hyperkalemia, better. 3. Metabolic acidosis. 4. Edema, . Overall, tolerating dialysis well. Continue on dialysis.
[2018-01-05 05:46] LABS: ALT (SGPT) 249 U/L (8-55); AST (SGOT) 326 U/L (5-34); Albumin 3.4 g/dL (3.4-4.8); Alkaline Phosphatase 87 U/L (40-150); Anion Gap 13 mmol/L (10-20); BUN (Urea Nitrogen) 30 mg/dL (8.4-25.7); Bilirubin, Total 0.9 mg/dL (0.2-1.2); Calc. Creatinine Clearance 14 mL/min (70-130); Calcium 8.8 mg/dL (7.8-10.44); Carbon Dioxide 31 mmol/L (23-31); Chloride 98 mmol/L (98-107); Estimated GFR-MDRD 12; Globulin 2.3 g/dL (2.4-3.5); Glucose 152 mg/dL (80-115); Potassium 3.6 mmol/L (3.5-5.1); Protein, Total 5.7 g/dL (5.8-8.1); Sodium 138 mmol/L (136-145)
[2018-01-05] MEDS: Atorvastatin Calcium 20 MG TAB PO SCH (09:09)
[2018-01-05] MEDS: Aspirin 325 MG TAB PO SCH (09:09)
[2018-01-05] MEDS: Carvedilol 6.25 MG TAB PO SCH (09:09)
[2018-01-05] MEDS: Cephalexin 250 MG/5 ML Oral Suspension PO SCH (09:10)
[2018-01-05] MEDS: Famotidine 20 MG TAB PO SCH (09:10)
[2018-01-05] MEDS: Ferrous Sulfate 325 MG TAB PO SCH (09:10)
[2018-01-05] MEDS: cloNIDine 0.1 MG TAB PO SCH (09:10)
[2018-01-05] MEDS: Folic Acid/Vit B Comp W-C PO SCH (09:11)
[2018-01-05] MEDS: FLUoxetine HCl 20 MG CAP PO SCH (09:11)
[2018-01-05] MEDS: Methocarbamol 500 MG TAB PO SCH (09:11)
[2018-01-05] MEDS: hydrALAZINE 25 MG TAB PO SCH ×2 (09:11→16:27)
[2018-01-05] MEDS: NPH, Human Insulin Isophane 300 UNIT/3 ML VIAL SC SCH (09:12)
[2018-01-05] MEDS: Tamsulosin HCl 0.4 MG CAP PO SCH (09:13)
[2018-01-05] MEDS: Sacubitril 24.5 MG/Valsartan 25.5 MG TABLET PO SCH (09:13)
--- NOTE | 2018-01-05 10:59 | PRG ---
DATE OF SERVICE: 01/05/2018 SUBJECTIVE: Patient was seen and examined at bedside and overnight events noted. Patient denies any shortness of breath or chest pain or palpitation. No history of nausea or vomiting or diarrhea or f ever or chills or cramps. OBJECTIVE: GENERAL: This is a well-built male in no apparent distress. VITAL SIGNS: Temperature 98.0, pulse 65, respiratory rate 18, blood pressure 122/63. HEENT: Atraumatic, normocephalic. Oral mucosa is moist. NECK: Supple. CARDIOVASCULAR: S1, S2 heard. Rate and rhythm regular. RESPIRATORY: Clear to auscultation. GASTROINTESTINAL: Abdomen is soft. MUSCULOSKELETAL: No tenderness. No edema. DERMATOLOGIC: No skin rash. NEUROLOGIC: Alert and awake and oriented x3. No focal neurologic deficits. Moving all the extremiti es. PSYCHIATRIC: Mood and affect normal. LABORATORY DATA: Potassium 3.6, BUN , creatinine is 4.6. ASSESSMENT AND PLAN: 1. End-stage renal disease. Continue dialysis Monday, Monday, and Monday. We will have dialysis . 2. Hyperkalemia, better. 3. anemia. 4. Continue on dialysis as tolerated.
--- NOTE | 2018-01-05 11:52 | PDOC.PN ---
- Subjective Encounter Start Date: 01/05/18 Encounter Start Time: 08:15 Patient seen and examined. No new complaints. No overnight events - Objective Resuscitation Status: Resuscitation Status FULL:Full Resuscitation MAR Reviewed: Yes Vital Signs & Weight: Vital Signs (12 hours) Temp Pulse Resp BP Pulse Ox 01/05/18 07:51 98 F 65 18 122/63 97 01/05/18 03:35 98.2 F 66 18 121/64 94 L Weight Weight 148 lb 6 oz I&O: 01/04/18 01/05/18 01/06/18 06:59 06:59 06:59 Intake Total 1500 Output Total 0 Balance 1500 Result Diagrams: 01/04/18 11:40 01/05/18 05:11 Additional Labs: Accuchecks 01/05/18 01/05/18 01/04/18 11:12 06:24 20:43 POC Glucose 190 H 143 H 126 H 01/04/18 01/04/18 17:08 10:37 POC Glucose 121 H 304 H EKG Reviewed by me: Yes Phys Exam - Physical Examination Constitutional: NAD HEENT: PERRLA, moist MMs, sclera anicteric Neck: no JVD, supple Respiratory: no wheezing, no rales, no rhonchi Cardiovascular: RRR, no significant murmur, no rub Gastrointestinal: soft, non-tender, no distention, positive bowel sounds Musculoskeletal: no edema, pulses present Neurological: non-focal, normal sensation, moves all 4 limbs Psychiatric: normal affect, A&O x 3 Skin: no rash, normal turgor Dx/Plan (1) Chest pain Code(s): R07.9 - CHEST PAIN, UNSPECIFIED Status: Acute (2) Hyperkalemia, diminished renal excretion Code(s): E87.5 - HYPERKALEMIA Status: Acute (3) Anemia of renal disease Code(s): D63.1 - ANEMIA IN CHRONIC KIDNEY DISEASE Status: Chronic (4) Anxiety and depression Code(s): F41.8 - OTHER SPECIFIED ANXIETY DISORDERS Status: Chronic (5) Asthma Code(s): J45.909 - UNSPECIFIED ASTHMA, UNCOMPLICATED Status: Chronic (6) BPH (benign prostatic hyperplasia) Code(s): N40.0 - BENIGN PROSTATIC HYPERPLASIA WITHOUT LOWER URINRY TRACT SYMP Status: Chronic (7) CAD (coronary artery disease), [place] coronary artery Code(s): I25.10 - ATHSCL HEART DISEASE OF [place] CORONARY ARTERY W/O ANG PCTRS Status: Chronic Qualifiers: (8) Chronic combined systolic and diastolic CHF (congestive heart failure) Code(s): I50.42 - CHRONIC COMBINED SYSTOLIC AND DIASTOLIC HRT FAIL Status: Chronic (9) Chronic low back pain Code(s): M54.5 - LOW BACK PAIN; G89.29 - OTHER CHRONIC PAIN Status: Chronic (10) Diabetes type 2, controlled Code(s): E11.9 - TYPE 2 DIABETES MELLITUS WITHOUT COMPLICATIONS Status: Chronic (11) Diabetic gastroparesis Code(s): E11.43 - TYPE 2 DIABETES W DIABETIC AUTONOMIC (POLY)NEUROPATHY; K31.84 - GASTROPARESIS Status: Chronic (12) ESRD (end stage renal disease) on dialysis Code(s): N18.6 - END STAGE RENAL DISEASE; Z99.2 - DEPENDENCE ON RENAL DIALYSIS Status: Chronic (13) Elevated troponin Code(s): R74.8 - ABNORMAL LEVELS OF OTHER SERUM ENZYMES Status: Chronic (14) Hyperlipidemia Code(s): E78.5 - HYPERLIPIDEMIA, UNSPECIFIED Status: Chronic Qualifiers: (15) Hypertension Code(s): I10 - ESSENTIAL (PRIMARY) HYPERTENSION Status: Chronic Qualifiers: (16) Ischemic cardiomyopathy Code(s): I25.5 - ISCHEMIC CARDIOMYOPATHY Status: Chronic Comment: EF 20% by Echo 06/15; lost LifeVest that was rx in 06/15 On Entresto,BB,ASA,statin (17) Noncompliance of patient with renal dialysis Code(s): Z91.15 - PATIENT'S NONCOMPLIANCE WITH RENAL DIALYSIS Status: Chronic (18) PAD (peripheral artery disease) Code(s): I73.9 - PERIPHERAL VASCULAR DISEASE, UNSPECIFIED Status: Chronic Comment: s/p angiogram 12/21/17 (19) Secondary hyperparathyroidism of renal origin Code(s): N25.81 - SECONDARY HYPERPARATHYROIDISM OF RENAL ORIGIN Status: Chronic - Plan cont current plan of care * medication reviewed as below * supportive treatment * stable for discharge after HD. Review of Systems - Review of Systems Eyes: negative: Pain, Vision Change, Conjunctivae Inflammation, Eyelid Inflammation, Redness, Other ENT: negative: Ear Pain, Ear Discharge, Nose Pain, Nose Discharge, Nose Congestion, Mouth Pain, Mouth Swelling, Throat Pain, Throat Swelling, Other Respiratory: negative: Cough, Dry, Shortness of Breath, Hemoptysis, SOB with Excertion, Pleuritic Pain, Sputum, Wheezing Cardiovascular: negative: chest pain, palpitations, orthopnea, paroxysmal nocturnal dyspnea, edema, light headedness, other Gastrointestinal: negative: Nausea, Vomiting, Abdominal Pain, Diarrhea, Constipation, Melena, Hematochezia, Other Genitourinary: negative: Dysuria, Frequency, Incontinence, Hematuria, Retention , Other Musculoskeletal: negative: Neck Pain, Shoulder Pain, Arm Pain, Back Pain, Hand Pain, Leg Pain, Foot Pain, Other Skin: negative: Rash, Lesions, [place], Bruising, Other - Medications/Allergies Allergies/Adverse Reactions: Allergies Allergy/AdvReac Type Severity Reaction Status Date / Time No Known Drug Allergies Allergy Verified 01/04/18 02:55 Medications: Current Medications Acetaminophen (Tylenol) 650 mg PO Q4H PRN PRN Reason: Headache/Fever or Pain Hydrocodone Bitart/Acetaminophen ([place] 5/325) 1 tab PO Q4H PRN PRN Reason: Moderate Pain (4-6) Last Admin: 01/04/18 20:35 Dose: 1 tab Artificial Tears (Tears Naturale) 0 drop EA EYE PRN PRN PRN Reason: Dry Eyes Aspirin (Aspirin) 325 mg PO DAILY [facility] Last Admin: 01/05/18 09:09 Dose: 325 mg Atorvastatin Calcium (Lipitor) 20 mg PO DAILY [facility] Last Admin: 01/05/18 09:09 Dose: 20 mg Calcium Carbonate (Tums) 1,000 mg PO Q4H PRN PRN Reason: Heartburn or Indigestion Carvedilol (Coreg) 12.5 mg PO BID [facility] Last Admin: 01/05/18 09:09 Dose: 12.5 mg Cephalexin (Keflex) 500 mg PO BID [facility] Stop: 01/14/18 09:31 Last Admin: 01/05/18 09:10 Dose: 500 mg Clonidine (Catapres) 0.1 mg PO BID [facility] Last Admin: 01/05/18 09:10 Dose: 0.1 mg Famotidine (Pepcid) 20 mg PO DAILY [facility] Last Admin: 01/05/18 09:10 Dose: 20 mg Ferrous Sulfate (Feosol) 325 mg PO DAILY [facility] Last Admin: 01/05/18 09:10 Dose: 325 mg Fluoxetine HCl (Prozac) 40 mg PO DAILY [facility] Last Admin: 01/05/18 09:11 Dose: 40 mg Guaifenesin (Robitussin Sf) 200 mg PO Q4H PRN PRN Reason: Cough Hydralazine HCl (Apresoline) 10 mg SLOW IVP Q4H PRN PRN Reason: Systolic BP > 180 Hydralazine HCl (Apresoline) 50 mg PO TID [facility] Last Admin: 01/05/18 09:11 Dose: 50 mg Insulin Human NPH (Humulin N) 10 unit SC DAILY [facility] Last Admin: 01/05/18 09:12 Dose: 10 unit Isosorbide Mononitrate (Imdur Er) 30 mg PO DAILY [facility] Last Admin: 01/05/18 09:11 Dose: 30 mg Loperamide HCl (Imodium) 2 mg PO PRN PRN PRN Reason: Diarrhea/Loose Stools Loratadine (Claritin) 10 mg PO DAILYPRN PRN PRN Reason: Sinus Symptoms Magnesium Hydroxide (Milk Of Magnesium) 30 ml PO DAILYPRN PRN PRN Reason: Constipation Methocarbamol (Robaxin) 750 mg PO BID [facility] Last Admin: 01/05/18 09:11 Dose: 750 mg Metoclopramide HCl (Reglan) 5 mg IVP Q4H PRN PRN Reason: Nausea Mineral Oil/White Petrolatum (Eucerin Cream) 0 gm TOP BIDPRN PRN PRN Reason: Dry Skin Nitroglycerin (Nitrostat) 0.4 mg SL Q5MIN PRN PRN Reason: Chest Pain Ondansetron HCl (Zofran Odt) 4 mg PO Q6H PRN PRN Reason: Nausea/Vomiting Ondansetron HCl (Zofran) 4 mg IVP Q6H PRN PRN Reason: Nausea/Vomiting Phenol (Chloraseptic [place] 180 Ml Bot) 0 ml PO PRN PRN PRN Reason: Sore Throat Sacubitril/Valsartan (Entresto 24.5 Mg-25.5 Mg Tablet) 1 tab PO BID [facility] Last Admin: 01/05/18 09:13 Dose: 1 tab Senna (Senokot) 2 tab PO HSPRN PRN PRN Reason: Constipation Sodium Chloride ([place] Nasal [place] 0.65%) 0 ml EA NARE QIDPRN PRN PRN Reason: Nasal Congestion Tamsulosin HCl (Flomax) 0.4 mg PO DAILY [facility] Last Admin: 01/05/18 09:13 Dose: 0.4 mg Temazepam (Restoril) 15 mg PO HSPRN PRN PRN Reason: Insomnia Vitamin B Complex/Vit C/Folic Acid (Nephro-Rigo Tablet) 1 tab PO DAILY [facility] Last Admin: 01/05/18 09:11 Dose: 1 tab
--- NOTE | 2018-01-05 13:48 | ADD-DIS ---
ADDENDUM Please see my discharge summary dictated yesterday. Yesterday, we were planning to discharge him, bu t we noted that his LFT was abnormal. Subsequently, we did abdominal ultrasound that was unremarkabl e. His gallbladder was normal other than mild polyp in his gallbladder. We suspected his abnormal L FT related with passive congestion from fluid overload. He also has ascites. While in the hospital, we did a dialysis on the day of admission as well as we did dialysis today. His LFTs also improving and he does not have any tenderness in right upper quadrant. He is feeling clinically much better. This patient is continued to be high risk for readmission because of his ongoing noncompliance. 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
[2018-01-05 16:27] VITALS: BP 129/64; TEMP 98
== END 2018-01-05 16:52 | disposition home or self-care (01) ==
LOC: ERS 18:49 → 2NO 01-04 02:49 → INTOOBSV 01-04 02:49
PROVIDERS: ADMIT Internal Medicine; ATTEND Internal Medicine
DX: R07.89 Other chest pain (principal); I13.2 Hypertensive heart and chronic kidney disease with heart failure and with stage 5 chronic kidney disease, or end stage renal disease; E11.22 Type 2 diabetes mellitus with diabetic chronic kidney disease; N18.6 End stage renal disease; I50.42 Chronic combined systolic (congestive) and diastolic (congestive) heart failure; D63.1 Anemia in chronic kidney disease; E78.5 Hyperlipidemia, unspecified; I25.10 Atherosclerotic heart disease of native coronary artery without angina pectoris; E87.5 Hyperkalemia; E87.2 Acidosis; E87.1 Hypo-osmolality and hyponatremia; F41.9 Anxiety disorder, unspecified; F32.9 Major depressive disorder, single episode, unspecified; E11.51 Type 2 diabetes mellitus with diabetic peripheral angiopathy without gangrene; I25.5 Ischemic cardiomyopathy; N40.0 Benign prostatic hyperplasia without lower urinary tract symptoms; G89.29 Other chronic pain; M54.5 Low back pain; E11.43 Type 2 diabetes mellitus with diabetic autonomic (poly)neuropathy; K31.84 Gastroparesis; Z91.15 Patient's noncompliance with renal dialysis; N25.81 Secondary hyperparathyroidism of renal origin; R18.8 Other ascites; R94.5 Abnormal results of liver function studies; Z86.73 Personal history of transient ischemic attack (TIA), and cerebral infarction without residual deficits; Z95.810 Presence of automatic (implantable) cardiac defibrillator; Z79.01 Long term (current) use of anticoagulants; Z79.4 Long term (current) use of insulin; Z79.899 Other long term (current) drug therapy; Z99.2 Dependence on renal dialysis
CPT/HCPCS: 36415; 36416; 71045; 76705; 80053; 82553; 83690; 83880; 84484; 85025; 86706; 87340; 90935; 93005; 96374; G0257; G0378; J1650; J1815

== ENCOUNTER 2018-01-21 14:35 | Emergency (ER) | payer MEDICARE ==
[2018-01-21] MEDS ORDERED: Nitroglycerin 0.4 MG TAB (25 Tab Bottle) ONE (15:28)
[2018-01-21 15:31] LABS: #Basophils 0.1 thou/uL (0.0-0.2); #Eosinphils 0.2 thou/uL (0.0-0.7); #Lymphocytes 0.9 thou/uL (1.20-3.40); #Monocytes 0.4 thou/uL (0.11-0.59); #Neutrophils 3.3 thou/uL (1.40-6.50); %Basophils 1.3 % (0.0-1.0); %Eosinophils 3.2 % (0.0-10.0); %Lymphocytes 19.7 % (21.0-51.0); %Monocytes 7.3 % (0.0-10.0); %Neutrophils 68.4 % (42.0-75.0); Mean Corpuscular Volume 93.9 fL (78.0-98.0); Mean Platelet Volume 7.3 fL (7.4-10.4); Platelet Count 145 thou/uL (130-400); RBC Distribution Width 18.3 % (11.5-14.5); Red Blood Cell (RBC) Count 3.56 mill/uL (4.70-6.10); White Blood Cell (WBC) Count 4.8 thou/uL (4.8-10.8)
--- NOTE | 2018-01-21 15:48 | RAD ---
TWO VIEW CHEST: HISTORY: Chest pain. COMPARISON: 12/17/2017 FINDINGS: There is cardiomegaly with vascular congestion. There may be small effusions present. There may be mild interstitial edema. A single lead AICD device is noted in place, via the right subclavian vein. IMPRESSION: Cardiomegaly and mild congestive change. POS: [facility]
[2018-01-21 15:54] LABS: ALT (SGPT) 19 U/L (8-55); AST (SGOT) 15 U/L (5-34); Albumin 4.1 g/dL (3.4-4.8); Alkaline Phosphatase 106 U/L (40-150); Anion Gap 20 mmol/L (10-20); BUN (Urea Nitrogen) 59 mg/dL (8.4-25.7); Bilirubin, Total 0.9 mg/dL (0.2-1.2); CK (CPK) 70 U/L (30-200); Calc. Creatinine Clearance 0 mL/min (70-130); Calcium 8.5 mg/dL (7.8-10.44); Carbon Dioxide 27 mmol/L (23-31); Chloride 95 mmol/L (98-107); Estimated GFR-MDRD 5; Globulin 2.8 g/dL (2.4-3.5); Glucose 207 mg/dL (80-115); Potassium 4.3 mmol/L (3.5-5.1); Protein, Total 6.9 g/dL (5.8-8.1); Sodium 138 mmol/L (136-145)
[2018-01-21 15:58] LABS: CKMB 2.3 ng/mL (0-6.6); Troponin I 0.074 ng/mL (< 0.028)
--- NOTE | 2018-01-24 13:46 | EKG ---
Test Reason : ERSPPG Blood Pressure : / mmHG Vent. Rate : 076 BPM Atrial Rate : 076 BPM P-R Int : 190 ms QRS Dur : 094 ms QT Int : 440 ms P-R-T Axes : 060 -18 139 degrees QTc Int : 495 ms Normal sinus rhythm Abnormal ECG Confirmed by ALVARO BALDWIN, MISHA ([id number]), sports editor DENISE DOMINIQUE ([id number]) on 01/24/2018 1:45:35 PM Referred By: Confirmed By:MISHA JOHN MD
== END 2018-01-21 16:58 | disposition home or self-care (01) ==
LOC: ERS 14:35
DX: R07.9 Chest pain, unspecified (principal); E78.5 Hyperlipidemia, unspecified; I25.10 Atherosclerotic heart disease of native coronary artery without angina pectoris; E11.9 Type 2 diabetes mellitus without complications; I10 Essential (primary) hypertension; J45.909 Unspecified asthma, uncomplicated; Z86.73 Personal history of transient ischemic attack (TIA), and cerebral infarction without residual deficits; Z99.2 Dependence on renal dialysis; F41.9 Anxiety disorder, unspecified; Z79.899 Other long term (current) drug therapy; Z79.82 Long term (current) use of aspirin
CPT/HCPCS: 71046; 80053; 82553; 84484; 85025; 93005

== ENCOUNTER 2018-01-29 12:04 | Emergency (ER) | payer MEDICARE ==
[2018-01-29 13:19] LABS: ALT (SGPT) 14 U/L (8-55); AST (SGOT) 18 U/L (5-34); Albumin 3.6 g/dL (3.4-4.8); Alkaline Phosphatase 99 U/L (40-150); Anion Gap 28 mmol/L (10-20); BUN (Urea Nitrogen) 62 mg/dL (8.4-25.7); Bilirubin, Total 0.7 mg/dL (0.2-1.2); Calc. Creatinine Clearance 0 mL/min (70-130); Calcium 8.5 mg/dL (7.8-10.44); Carbon Dioxide 15 mmol/L (23-31); Chloride 100 mmol/L (98-107); Estimated GFR-MDRD 5; Globulin 2.5 g/dL (2.4-3.5); Glucose 283 mg/dL (80-115); Potassium 6.3 mmol/L (3.5-5.1); Protein, Total 6.1 g/dL (5.8-8.1); Sodium 137 mmol/L (136-145)
[2018-01-29 13:21] LABS: CKMB 3.2 ng/mL (0-6.6); Troponin I 0.054 ng/mL (< 0.028)
[2018-01-29 13:24] LABS: #Eosinphils 0.3 thou/uL (0.0-0.7); #Lymphocytes 0.8 thou/uL (1.20-3.40); #Monocytes 0.4 thou/uL (0.11-0.59); #Neutrophils 3.6 thou/uL (1.40-6.50); %Basophils 0.4 % (0.0-1.0); %Eosinophils 5.6 % (0.0-10.0); %Lymphocytes 16.2 % (21.0-51.0); %Monocytes 7.2 % (0.0-10.0); %Neutrophils 70.6 % (42.0-75.0); Hemoglobin 10.4 g/dL (14.0-18.0); Mean Corpuscular HGB CONC 33.3 g/dL (32.0-36.0); Mean Corpuscular Hemoglobin 31.5 pg (27.0-31.0); Mean Corpuscular Volume 94.5 fL (78.0-98.0); Mean Platelet Volume 7.8 fL (7.4-10.4); Platelet Count 84 thou/uL (130-400); RBC Distribution Width 18.4 % (11.5-14.5); Red Blood Cell (RBC) Count 3.29 mill/uL (4.70-6.10); White Blood Cell (WBC) Count 5.1 thou/uL (4.8-10.8)
--- NOTE | 2018-01-29 13:30 | RAD ---
AP VIEW OF THE CHEST: INDICATION: Chest pain. COMPARISON: Prior exam dated 01/21/18. FINDINGS: There is moderate cardiomegaly with mild pulmonary vascular congestion that appears stable to the edmond or exam. AICD is unchanged. There is a suggestion of small bilateral pleural effusions. IMPRESSION: Findings suggesting congestive heart failure mildly worsened since the comparison dated 01/21/18. POS: [facility]
[2018-01-29 13:32] LABS: Anisocytosis SLIGHT = 6-15 cells (100X) (0-5/hpf); PLT Morphology Comment Appears Decreased; Poikilocytosis SLIGHT = 6-15 cells (100X) (0-5/hpf)
[2018-01-29] MEDS ORDERED: Insulin Regular 300 UNITS/3 ML VIAL ONE (13:34)
[2018-01-29] MEDS ORDERED: Sodium Bicarbonate 2.5 MEQ/5 ML VIAL ONE (13:34)
[2018-01-29] MEDS ORDERED: Dextrose 50% Abboject 50 ML SYRINGE ONE (13:34)
[2018-01-29] MEDS ORDERED: Calcium Gluc 4.6 MEQ/10 ML (100 MG/ML) ONE (13:34)
[2018-01-29] MEDS ORDERED: Sodium Bicarb 50 MEQ/50 ML Abboject 8.4% SYRINGE ONE (13:36)
--- NOTE | 2018-01-30 12:58 | CON ---
DATE OF CONSULTATION: 01/29/2018 at 12:00 noon. REASON FOR CONSULTATION: Hyperkalemia. HISTORY OF PRESENT ILLNESS: This is a very pleasant 67-year-old gentleman with a history of noncompl iance, who presented to the hospital after missing dialysis. The patient denies headache, numbness, tingling or weakness. Denies any nausea, vomiting or chest pain. The patient's potassium was 5.8, s o I was consulted for dialysis. PAST MEDICAL HISTORY: Significant for hypertension, diabetes mellitus, noncompliance, atrial fibrill ation, CVA, AV fistula, tunneled dialysis catheter. SOCIAL AND ECONOMIC HISTORY: No alcohol or IV drug abuse. FAMILY HISTORY: Negative for end-stage renal disease. ALLERGIES: Reviewed HOME MEDICATIONS: List reviewed. REVIEW OF SYSTEMS: A 15 point review of systems was performed and was negative except for positives noted above. GENERAL: Weakness-. HEAD: Headache-. NECK: No swelling or lumps. NOSE: No epistaxis or discharge. EYES: No diplopia or pain. RESPIRATORY: Dyspnea-. CARDIOVASCULAR: Chest pain-. GASTROINTESTINAL: Nausea-. /ICT TRAINER: Hematuria-. MUSCULOSKELETAL: No joint pain. NEUROPSYCHIATIC SYSTEMS: No suicidal ideation. No ideation. SKIN: Denies any rash or ulcer. CONSTITUTIONAL: No fever or chills. PHYSICAL EXAMINATION: GENERAL: Patient is awake, alert. VITAL SIGNS: Afebrile, pulse 75, breathing at 16, blood pressure 170/90. GENERAL APPEARANCE AND MENTAL STATUS: Fair. HEAD/NECK: Normocephalic. Atraumatic. EYES: EOMI. No deformity. EARS: Clear. No ulcers. NOSE: Intact. No lesions. MOUTH: Clear. No discharge. THROAT: Clear. No exudate. LUNGS: Clear. No crackles. CARDIAC: S1, S2. No rub. ABDOMEN: Benign. BS+. GENITALIA/RECTUM: Singer absent. BACK/EXTREMITIES: Edema 0+ Ulcer-. NEUROLOGICAL: Alert and motor intact. SKIN: Rash- Bruise- LYMPHATICS: Edema- Ulcer-. LABORATORY DATA: Show potassium 5.8. ASSESSMENT AND RECOMMENDATIONS: 1. Stage 6 chronic kidney disease. We will plan dialysis. 2. Hyperkalemia. We will plan dialysis. 3. Anemia. We will plan dialysis. Overall, prognosis is poor. Dialysis service was called.
== END 2018-01-29 19:45 | disposition home or self-care (01) ==
LOC: ERS 12:04
DX: E11.22 Type 2 diabetes mellitus with diabetic chronic kidney disease (principal); I12.0 Hypertensive chronic kidney disease with stage 5 chronic kidney disease or end stage renal disease; N18.6 End stage renal disease; E87.5 Hyperkalemia; I25.10 Atherosclerotic heart disease of native coronary artery without angina pectoris; F32.9 Major depressive disorder, single episode, unspecified; F41.9 Anxiety disorder, unspecified; J45.909 Unspecified asthma, uncomplicated; Z91.19 Patient's noncompliance with other medical treatment and regimen; Z79.899 Other long term (current) drug therapy; Z79.82 Long term (current) use of aspirin; Z79.891 Long term (current) use of opiate analgesic
CPT/HCPCS: 36415; 71045; 80053; 82553; 84484; 85025; 93005; 96374; 96375; J1815

== ENCOUNTER 2018-02-06 05:21 | Emergency (ER) | payer MEDICARE, OTHER ==
[2018-02-06 10:37] LABS: ALT (SGPT) 17 U/L (8-55); AST (SGOT) 22 U/L (5-34); Albumin 4.2 g/dL (3.4-4.8); Alkaline Phosphatase 92 U/L (40-150); Anion Gap 24 mmol/L (10-20); BUN (Urea Nitrogen) 42 mg/dL (8.4-25.7); Bilirubin, Total 1.3 mg/dL (0.2-1.2); Calc. Creatinine Clearance 0 mL/min (70-130); Calcium 9.4 mg/dL (7.8-10.44); Carbon Dioxide 21 mmol/L (23-31); Chloride 96 mmol/L (98-107); Estimated GFR-MDRD 6; Globulin 2.6 g/dL (2.4-3.5); Glucose 198 mg/dL (80-115); Hemoglobin 12.3 g/dL (14.0-18.0); Mean Corpuscular HGB CONC 32.8 g/dL (32.0-36.0); Mean Corpuscular Hemoglobin 31.5 pg (27.0-31.0); Mean Corpuscular Volume 96.1 fL (78.0-98.0); Mean Platelet Volume 8.3 fL (7.4-10.4); Platelet Count 136 thou/uL (130-400); Potassium 5.4 mmol/L (3.5-5.1); Protein, Total 6.8 g/dL (5.8-8.1); RBC Distribution Width 18.4 % (11.5-14.5); Red Blood Cell (RBC) Count 3.91 mill/uL (4.70-6.10); Sodium 136 mmol/L (136-145); White Blood Cell (WBC) Count 10.3 thou/uL (4.8-10.8)
[2018-02-06 11:02] LABS: CKMB 2.3 ng/mL (0-6.6); Troponin I 0.085 ng/mL (< 0.028)
[2018-02-06 11:19] LABS: Hypochromia SLIGHT = 6-15 cells (100X) (0-5/hpf); Lymphocytes 8 % (21-51); MDiff Complete? YES; Monocytes 10 % (0-10); Neutrophil 82 % (42-75); PLT Morphology Comment Appears Decreased; Polychromasia SLIGHT = 2-3 cells (100X) (0-2/hpf)
--- NOTE | 2018-02-06 11:23 | RAD ---
PORTABLE CHEST Date: 02-06-18 Provided Clinical History: Chest pain. FINDINGS: Comparison 01-29-18. Evaluation is limited due to rotation of the examination and cardiac generator overlying the right ch est. Cardiac and mediastinal silhouette demonstrates no significant interval change in appearance. No focal consolidation, pleural fluid or pneumothorax apparent. IMPRESSION: No evidence for an acute cardiopulmonary process. POS: [facility]
--- NOTE | 2018-02-06 12:51 | RAD ---
PORTABLE CHEST 1 VIEW: Date: 02/06/18 Time: 0826 hours HISTORY: Weakness. COMPARISON: 01/21/18. FINDINGS/IMPRESSION: Right-sided pacemaker device remains in place. The heart size is enlarged. The aorta is tortuous. The re is mild pulmonary vascular congestion. No lobar consolidation, pneumothoraces, or pleural effusion s are seen. POS: [facility]
== END 2018-02-06 09:50 | disposition home or self-care (01) ==
LOC: ERS 05:21
DX: E87.5 Hyperkalemia (principal); R53.81 Other malaise; E78.5 Hyperlipidemia, unspecified; I25.10 Atherosclerotic heart disease of native coronary artery without angina pectoris; E11.9 Type 2 diabetes mellitus without complications; I10 Essential (primary) hypertension; Z86.73 Personal history of transient ischemic attack (TIA), and cerebral infarction without residual deficits; J45.909 Unspecified asthma, uncomplicated; Z99.2 Dependence on renal dialysis; F41.9 Anxiety disorder, unspecified; F32.9 Major depressive disorder, single episode, unspecified; Z79.899 Other long term (current) drug therapy; Z79.82 Long term (current) use of aspirin
CPT/HCPCS: 36415; 36416; 71045; 80053; 82553; 83880; 84484; 85025; 93005; 94760

== ENCOUNTER 2018-02-06 19:42 | Emergency (ER) | payer MEDICARE ==
[2018-02-06 20:12] LABS: #Lymphocytes 0.9 thou/uL (1.20-3.40); #Monocytes 0.6 thou/uL (0.11-0.59); #Neutrophils 9.8 thou/uL (1.40-6.50); %Lymphocytes 7.6 % (21.0-51.0); %Monocytes 5.4 % (0.0-10.0); Hemoglobin 13.1 g/dL (14.0-18.0); Mean Corpuscular HGB CONC 32.2 g/dL (32.0-36.0); Mean Corpuscular Hemoglobin 31.4 pg (27.0-31.0); Mean Corpuscular Volume 97.6 fL (78.0-98.0); Mean Platelet Volume 8.7 fL (7.4-10.4); Platelet Count 135 thou/uL (130-400); RBC Distribution Width 18.4 % (11.5-14.5); Red Blood Cell (RBC) Count 4.18 mill/uL (4.70-6.10); White Blood Cell (WBC) Count 11.3 thou/uL (4.8-10.8)
[2018-02-06 20:37] LABS: ALT (SGPT) 67 U/L (8-55); AST (SGOT) 99 U/L (5-34); Albumin 4.4 g/dL (3.4-4.8); Alkaline Phosphatase 98 U/L (40-150); Anion Gap 35 mmol/L (10-20); BUN (Urea Nitrogen) 54 mg/dL (8.4-25.7); Bilirubin, Total 1.7 mg/dL (0.2-1.2); CK (CPK) 100 U/L (30-200); Calc. Creatinine Clearance 0 mL/min (70-130); Calcium 9.7 mg/dL (7.8-10.44); Carbon Dioxide 15 mmol/L (23-31); Chloride 95 mmol/L (98-107); Estimated GFR-MDRD 5; Globulin 2.8 g/dL (2.4-3.5); Glucose 224 mg/dL (80-115); Lipase 21 U/L (8-78); Potassium 5.7 mmol/L (3.5-5.1); Protein, Total 7.2 g/dL (5.8-8.1); Sodium 139 mmol/L (136-145)
[2018-02-06 20:41] LABS: CKMB 3.4 ng/mL (0-6.6); Troponin I 0.079 ng/mL (< 0.028)
--- NOTE | 2018-02-06 22:10 | RAD ---
SINGLE VIEW OF THE CHEST: 02/06/18 COMPARISON: 02/06/18 HISTORY: Dyspnea. FINDINGS: Single view of the chest shows an enlarged but stable cardiomediastinal silhouette. The pacemaker is unchanged in position. There is no evidence of consolidation, mass, or pleural effusion. IMPRESSION: Cardiomegaly without evidence of acute cardiopulmonary disease. POS: [facility]
[2018-02-07 02:04] LABS: HBSAg Index 0.16 S/CO (0-0.99); Hep B Surf Ag Non-Reactive S/CO (NonReactive)
== END 2018-02-07 05:55 | disposition home or self-care (01) ==
LOC: ERS 19:42
DX: I12.0 Hypertensive chronic kidney disease with stage 5 chronic kidney disease or end stage renal disease (principal); N18.6 End stage renal disease; Z99.2 Dependence on renal dialysis; E78.5 Hyperlipidemia, unspecified; I25.10 Atherosclerotic heart disease of native coronary artery without angina pectoris; E11.9 Type 2 diabetes mellitus without complications; J45.909 Unspecified asthma, uncomplicated; Z86.73 Personal history of transient ischemic attack (TIA), and cerebral infarction without residual deficits; F41.9 Anxiety disorder, unspecified; F32.9 Major depressive disorder, single episode, unspecified; Z79.899 Other long term (current) drug therapy; Z79.82 Long term (current) use of aspirin
CPT/HCPCS: 36415; 71045; 83690; 83880; 87340; 90935; 93005; G0257

== ENCOUNTER 2018-03-12 12:24 | Emergency (ER) | payer MEDICARE, OTHER ==
--- NOTE | 2018-03-12 13:05 | RAD ---
PORTABLE CHEST: History: Dyspnea. Comparison: 02-06-18 FINDINGS: Heart size is enlarged. Lungs show some chronic appearing change without signs of overt failure. Pace maker device is present. IMPRESSION: Cardiomegaly with chronic appearing lung change, stable exam. POS: [facility]
== END 2018-03-12 13:13 | disposition home or self-care (01) ==
LOC: ERS 12:24
DX: R06.02 Shortness of breath (principal); E78.5 Hyperlipidemia, unspecified; I25.10 Atherosclerotic heart disease of native coronary artery without angina pectoris; E11.9 Type 2 diabetes mellitus without complications; I10 Essential (primary) hypertension; J45.909 Unspecified asthma, uncomplicated; Z86.73 Personal history of transient ischemic attack (TIA), and cerebral infarction without residual deficits; Z99.2 Dependence on renal dialysis; Z79.899 Other long term (current) drug therapy; Z79.82 Long term (current) use of aspirin; F41.9 Anxiety disorder, unspecified; F32.9 Major depressive disorder, single episode, unspecified
CPT/HCPCS: 71045; 93005; 94760

== ENCOUNTER 2018-03-16 16:04 | Emergency (ER) | payer MEDICARE, OTHER ==
[2018-03-16 16:43] LABS: #Eosinphils 0.3 thou/uL (0.0-0.7); #Monocytes 0.5 thou/uL (0.11-0.59); #Neutrophils 6.5 thou/uL (1.40-6.50); %Basophils 0.6 % (0.0-1.0); %Lymphocytes 11.8 % (21.0-51.0); %Monocytes 5.4 % (0.0-10.0); %Neutrophils 78.3 % (42.0-75.0); Hemoglobin 10.4 g/dL (14.0-18.0); Mean Corpuscular HGB CONC 32.1 g/dL (32.0-36.0); Mean Corpuscular Hemoglobin 29.9 pg (27.0-31.0); Mean Corpuscular Volume 93.2 fL (78.0-98.0); Mean Platelet Volume 7.9 fL (7.4-10.4); Platelet Count 186 thou/uL (130-400); RBC Distribution Width 17.4 % (11.5-14.5); Red Blood Cell (RBC) Count 3.46 mill/uL (4.70-6.10); White Blood Cell (WBC) Count 8.3 thou/uL (4.8-10.8)
[2018-03-16 17:01] LABS: ALT (SGPT) 24 U/L (8-55); AST (SGOT) 21 U/L (5-34); Albumin 3.8 g/dL (3.4-4.8); Alkaline Phosphatase 179 U/L (40-150); Anion Gap 21 mmol/L (10-20); BUN (Urea Nitrogen) 51 mg/dL (8.4-25.7); Calc. Creatinine Clearance 0 mL/min (70-130); Calcium 9.5 mg/dL (7.8-10.44); Carbon Dioxide 26 mmol/L (23-31); Chloride 90 mmol/L (98-107); Estimated GFR-MDRD 7; Globulin 3.4 g/dL (2.4-3.5); Glucose 288 mg/dL (80-115); Potassium 4.1 mmol/L (3.5-5.1); Protein, Total 7.2 g/dL (5.8-8.1); Sodium 133 mmol/L (136-145)
--- NOTE | 2018-03-16 18:26 | RAD ---
UPRIGHT PORTABLE CHEST ONE VIEW: 03/16/18 HISTORY: 68-year-old male with history of dyspnea, dizziness and shortness of breath, skipped dialysis. COMPARISON: 03/12/18. FINDINGS: Monitor leads overlie the chest. Right ICD. Cardiomegaly with bilateral vascular congestion and minim al interstitial edema and probable small pleural effusions. The vascular congestion appears slightly more prominent than on the prior study. No new confluent pneumonia. IMPRESSION: Slightly more prominent bilateral vascular congestion. POS: [facility]
[2018-03-16 19:20] LABS: HBSAg Index 0.22 S/CO (0-0.99); Hep B Surf AB Non-Reactive (NonReactive); Hep B Surf Ag Non-Reactive S/CO (NonReactive)
--- NOTE | 2018-03-17 02:49 | CON ---
DATE OF CONSULTATION: 03/16/2018 CONSULTING PHYSICIAN: ER provider. REASON FOR CONSULTATION: End-stage renal disease evaluation and care. REASON FOR ADMISSION: Shortness of breath . HISTORY OF PRESENT ILLNESS: This is a 67-year-old male with history of end-stage renal disease on di alysis Monday, Monday, and Monday, due for dialysis today, hyperlipidemia, coronary artery disease , diabetes, hypertension, asthma, CHF, peripheral vascular disease, who came to the hospital with kwame rtness of breath. Patient was due for dialysis today. The patient reports that he did not have devan y to call taxi and started having shortness of breath. Since he could not go to dialysis, his shortn ess of breath was severe that he called ambulance and was brought to the ER. Patient was found to be mildly fluid overloaded with mild hyperkalemia. Nephrology consult for dialysis. Patient is gettin g dialysis. Patient was seen during dialysis, tolerating well. He is feeling slightly better. I be lieve plan is to discharge him home after dialysis to be stable from ER. No nausea, vomiting, no rose[address] st pain, palpitation, no fever or chills. No skin rash. PAST MEDICAL HISTORY: Positive for end-stage renal disease, noncompliance, hyperlipidemia, coronary artery disease, type 2 diabetes, hypertension, asthma, CVA, anxiety, depression. PAST SURGICAL HISTORY: AICD placement, fistula placement. HOME MEDICATIONS: List includes tramadol, hydralazine, Flomax, Entresto, Humulin, methocarbamol, Imd ur, Nephro-Rigo, Prozac, Keflex, Coreg, Lipitor, aspirin. ALLERGIES: No known drug allergies. SOCIAL HISTORY: No smoking, alcohol. FAMILY HISTORY: No history of kidney disease. REVIEW OF SYSTEMS: The following complete review of systems was negative, unless otherwise mentioned in the HPI or below: Constitutional: Weight loss or gain, ability to conduct usual activities. Sk in: Rash, itching. Eyes: Double vision, pain. ENT/Mouth: Nose bleeding, neck stiffness, pain, te nderness. Cardiovascular: Palpitations, dyspnea on exertion, orthopnea. Respiratory: Shortness of breath, wheezing, cough, hemoptysis, fever or night sweats. Gastrointestinal: Poor appetite, abdom inal pain, heartburn, nausea, vomiting, constipation, or diarrhea. Genitourinary: Urgency, frequenc y, dysuria, nocturia. Musculoskeletal: Pain, swelling. Neurologic/Psychiatric: Anxiety, depressio n. Allergy/Immunologic: Skin rash, bleeding tendency. PHYSICAL EXAMINATION: GENERAL: This is a well-built male in no apparent distress. VITAL SIGNS: Temperature 98.7, pulse 87, respiratory rate 18, blood pressure 148/78. HEENT: Atraumatic, normocephalic. Oral mucosa is moist. NECK: Supple, no masses. CARDIOVASCULAR: S1, S2 heard. Rate and rhythm regular. RESPIRATORY: Clear. GASTROINTESTINAL: Abdomen is soft. MUSCULOSKELETAL: 1+ edema. DERMATOLOGIC: No rash. NEUROLOGIC: Alert, awake. PSYCHIATRIC: Mood and affect normal. LABORATORY DATA: Hemoglobin is 10.4, potassium is 4.1, BUN is 51, creatinine is 7.9. ASSESSMENT AND PLAN: 1. End-stage renal disease. The patient hemodialysis, tolerating well. We will continue on d ialysis. 2. Edema, but no fluid. 3. Fluid overload. 4. Hypertension. 5. Anemia. 6. Noncompliance, counseled. The patient was seen during dialysis, tolerating well. We will continue on dialysis as tolerated. Thank you for the consult.
--- NOTE | 2018-03-18 08:36 | EKG ---
Test Reason : SOB Blood Pressure : / mmHG Vent. Rate : 081 BPM Atrial Rate : 081 BPM P-R Int : 210 ms QRS Dur : 114 ms QT Int : 430 ms P-R-T Axes : 061 -21 145 degrees QTc Int : 499 ms Sinus rhythm with 1st degree A-V block Prolonged QT Abnormal ECG Confirmed by MICHAEL RIDER ([id number]) on 03/18/2018 8:36:34 AM Referred By: Confirmed By:MICHAEL RIDER
== END 2018-03-16 23:05 | disposition home or self-care (01) ==
LOC: ERS 16:04
DX: E87.70 Fluid overload, unspecified (principal); E78.5 Hyperlipidemia, unspecified; I25.10 Atherosclerotic heart disease of native coronary artery without angina pectoris; E11.9 Type 2 diabetes mellitus without complications; I10 Essential (primary) hypertension; J45.909 Unspecified asthma, uncomplicated; Z99.2 Dependence on renal dialysis; Z86.73 Personal history of transient ischemic attack (TIA), and cerebral infarction without residual deficits; F41.9 Anxiety disorder, unspecified; F32.9 Major depressive disorder, single episode, unspecified; Z79.899 Other long term (current) drug therapy; Z79.82 Long term (current) use of aspirin
CPT/HCPCS: 36415; 71045; 80053; 85025; 86706; 87340; 93005; 94760

== ENCOUNTER 2018-04-27 18:46 | Emergency (ER) | payer OTHER ==
[2018-04-27 19:25] LABS: #Eosinphils 0.7 thou/uL (0.0-0.7); #Lymphocytes 0.8 thou/uL (1.20-3.40); #Monocytes 0.6 thou/uL (0.11-0.59); #Neutrophils 3.6 thou/uL (1.40-6.50); %Basophils 0.8 % (0.0-1.0); %Lymphocytes 13.7 % (21.0-51.0); %Monocytes 10.5 % (0.0-10.0); %Neutrophils 63.1 % (42.0-75.0); Hemoglobin 10.3 g/dL (14.0-18.0); Mean Corpuscular HGB CONC 32.5 g/dL (32.0-36.0); Mean Corpuscular Hemoglobin 31.4 pg (27.0-31.0); Mean Corpuscular Volume 96.6 fL (78.0-98.0); Mean Platelet Volume 7.1 fL (7.4-10.4); Platelet Count 193 thou/uL (130-400); RBC Distribution Width 18.5 % (11.5-14.5); Red Blood Cell (RBC) Count 3.28 mill/uL (4.70-6.10); White Blood Cell (WBC) Count 5.8 thou/uL (4.8-10.8)
[2018-04-27 19:57] LABS: ALT (SGPT) 14 U/L (8-55); AST (SGOT) 15 U/L (5-34); Alkaline Phosphatase 190 U/L (40-150); Anion Gap 23 mmol/L (10-20); BUN (Urea Nitrogen) 69 mg/dL (8.4-25.7); Bilirubin, Total 0.9 mg/dL (0.2-1.2); Calc. Creatinine Clearance 0 mL/min (70-130); Calcium 8.9 mg/dL (7.8-10.44); Carbon Dioxide 22 mmol/L (23-31); Chloride 97 mmol/L (98-107); Estimated GFR-MDRD 7; Globulin 3.6 g/dL (2.4-3.5); Glucose 194 mg/dL (80-115); Magnesium 2.6 mg/dL (1.6-2.6); Potassium 4.8 mmol/L (3.5-5.1); Protein, Total 7.6 g/dL (5.8-8.1); Sodium 137 mmol/L (136-145)
--- NOTE | 2018-04-27 21:32 | RAD ---
SINGLE VIEW OF THE CHEST: 04/27/18 COMPARISON: 03/06/18 HISTORY: Generalized weakness and shortness of breath. FINDINGS: Single view of the chest shows a normal sized cardiomediastinal silhouette. The pacemaker is unchange d in position. There is no evidence of consolidation, mass, or pleural effusion. Increased interstiti al markings are present. IMPRESSION: No evidence of acute cardiopulmonary disease. POS: [facility]
== END 2018-04-27 21:12 | disposition home or self-care (01) ==
LOC: ERS 18:46
DX: R53.1 Weakness (principal); E78.5 Hyperlipidemia, unspecified; I25.10 Atherosclerotic heart disease of native coronary artery without angina pectoris; E11.9 Type 2 diabetes mellitus without complications; I10 Essential (primary) hypertension; J45.909 Unspecified asthma, uncomplicated; F41.9 Anxiety disorder, unspecified; F32.9 Major depressive disorder, single episode, unspecified; Z79.899 Other long term (current) drug therapy; Z79.82 Long term (current) use of aspirin; Z86.73 Personal history of transient ischemic attack (TIA), and cerebral infarction without residual deficits
CPT/HCPCS: 71045; 80053; 83605; 83735; 83880; 85025; 93005

== ENCOUNTER 2018-05-06 16:48 | Emergency (ER) | payer MEDICARE, OTHER ==
[2018-05-06 17:35] LABS: Hemoglobin 10.7 g/dL (14.0-18.0); Mean Corpuscular HGB CONC 31.1 g/dL (32.0-36.0); Mean Corpuscular Hemoglobin 30.6 pg (27.0-31.0); Mean Corpuscular Volume 98.5 fL (78.0-98.0); Platelet Count 200 thou/uL (130-400); RBC Distribution Width 18.7 % (11.5-14.5); Red Blood Cell (RBC) Count 3.48 mill/uL (4.70-6.10)
[2018-05-06 17:53] LABS: #Eosinphils 0.5 thou/uL (0.0-0.7); #Monocytes 0.7 thou/uL (0.11-0.59); #Neutrophils 5.8 thou/uL (1.40-6.50); %Basophils 0.6 % (0.0-1.0); %Eosinophils 5.7 % (0.0-10.0); %Lymphocytes 12.4 % (21.0-51.0); %Monocytes 8.6 % (0.0-10.0); %Neutrophils 72.8 % (42.0-75.0); Anisocytosis SLIGHT = 6-15 cells (100X) (0-5/hpf); MDiff Complete? YES; PLT Morphology Comment Appears Adequate; Poikilocytosis SLIGHT = 6-15 cells (100X) (0-5/hpf)
[2018-05-06 17:54] LABS: ALT (SGPT) 16 U/L (8-55); AST (SGOT) 17 U/L (5-34); Albumin 4.4 g/dL (3.4-4.8); Alkaline Phosphatase 186 U/L (40-150); Anion Gap 26 mmol/L (10-20); BUN (Urea Nitrogen) 88 mg/dL (8.4-25.7); Bilirubin, Total 0.9 mg/dL (0.2-1.2); Calc. Creatinine Clearance 0 mL/min (70-130); Calcium 8.7 mg/dL (7.8-10.44); Carbon Dioxide 16 mmol/L (23-31); Chloride 100 mmol/L (98-107); Estimated GFR-MDRD 6; Globulin 3.6 g/dL (2.4-3.5); Glucose 258 mg/dL (80-115); Lipase 248 U/L (8-78); Potassium 6.4 mmol/L (3.5-5.1); Sodium 136 mmol/L (136-145)
[2018-05-06 18:10] LABS: INR-International Normal Ratio 1.2; PTT 35.4 SEC (22.9-36.1); Prothrombin Time 15.5 SEC (12.0-14.7)
[2018-05-06] MEDS ORDERED: Bupivacaine 0.5% 10 ML VIAL ONE (21:44)
[2018-05-06] MEDS ORDERED: Bupivacaine 0.25% 10 ML VIAL ONE (21:44)
[2018-05-06] MEDS ORDERED: Lidocaine 1% (PF) 30 ML VIAL ONE (21:44)
[2018-05-06] MEDS ORDERED: Lidocaine 2% PF 5 ML VIAL ONE (21:45)
[2018-05-06] MEDS ORDERED: Lidocaine 1% PF 5 ML VIAL ONE (21:46)
[2018-05-06 23:51] LABS: HBSAg Index 0.19 S/CO (0-0.99); Hep B Surf Ag Non-Reactive S/CO (NonReactive)
--- NOTE | 2018-05-07 00:21 | CON ---
DATE OF CONSULTATION: NEPHROLOGY CONSULT REASON FOR CONSULTATION: Hyperkalemia. HISTORY OF PRESENT ILLNESS: This is a 68-year-old noncompliant gentleman, who missed dialysis for 4 days, presented to the hospital with bloody stools. The patient was noted to have a potassium of 6.4. The patient denies headache, numbness, tingling, or weakness. Denies any nausea, vomiting, or chest pain. PAST MEDICAL HISTORY: Significant for diabetes mellitus, hypertension, anemia, CKD, GI bleed, history of noncompliance, coronary artery disease, CVA, AICD, AV fistula placement. MEDICATIONS: Home medications list reviewed. Hospital medications list reviewed. ALLERGIES: REVIEWED. REVIEW OF SYSTEMS: Fifteen-point review of systems was performed and negative except for positives noted above. NECK: No swelling or lumps. NOSE: No epistaxis or discharge. EYES: No diplopia or pain. MUSCULOSKELETAL: No joint pain. NEUROPSYCHIATIC SYSTEMS: No suicidal ideation. No ideation. SKIN: Denies any rash or ulcer. CONSTITUTIONAL: No fever or chills. PHYSICAL EXAMINATION: GENERAL: The patient is awake and alert. VITAL SIGNS: Afebrile, pulse 87, breathing 16, and blood pressure 130/70. GENERAL APPEARANCE AND MENTAL STATUS: Fair. HEAD/NECK: Normocephalic. Atraumatic. EYES: EOMI. No deformity. EARS: Clear. No ulcers. NOSE: Intact. No lesions. MOUTH: Clear. No discharge. THROAT: Clear. No exudate. LUNGS: Clear. No crackles. CARDIAC: S1, S2. No rub. ABDOMEN: Benign. Bowel sounds positive. GENITALIA/RECTUM: Singer absent. BACK/EXTREMITIES: Edema 0+. NEUROLOGICAL: Alert and motor intact. LABORATORY DATA: Labs showed potassium 6.4 and bicarb 16. ASSESSMENT AND PLAN: 1. Stage 3 chronic kidney disease, plan hemodialysis. 2. Hypertension, stable. 3. Anemia, stable. 4. Medications based on GFR are appropriate. Compliance was discussed with the patient. Job ID: [id number]
== END 2018-05-07 03:06 | disposition home or self-care (01) ==
LOC: ERS 16:48
DX: K92.1 Melena (principal); E87.6 Hypokalemia; Z99.2 Dependence on renal dialysis; E11.22 Type 2 diabetes mellitus with diabetic chronic kidney disease; I12.9 Hypertensive chronic kidney disease with stage 1 through stage 4 chronic kidney disease, or unspecified chronic kidney disease; N18.9 Chronic kidney disease, unspecified
CPT/HCPCS: 36415; 80053; 82274; 83690; 85025; 85610; 85730; 87340; 90935; 99284; G0257; J2001; J3490; S0020

== ENCOUNTER 2018-05-12 23:05 | Emergency (ER) | payer OTHER ==
--- NOTE | 2018-05-12 23:46 | RAD ---
PORTABLE CHEST: 05/12/18 HISTORY: Shortness of breath. Cardiomegaly. Mild vascular congestion. No focal infiltrate. I cannot exclude small effusions. Single lead pacemaker device again noted. ' IMPRESSION: Cardiomegaly with mild vascular congestion. POS: [facility]
[2018-05-12 23:49] LABS: #Eosinphils 0.4 thou/uL (0.0-0.7); #Lymphocytes 0.9 thou/uL (1.20-3.40); #Monocytes 0.6 thou/uL (0.11-0.59); #Neutrophils 4.1 thou/uL (1.40-6.50); %Basophils 0.8 % (0.0-1.0); %Eosinophils 7.3 % (0.0-10.0); %Lymphocytes 14.1 % (21.0-51.0); %Monocytes 9.9 % (0.0-10.0); Hemoglobin 10.6 g/dL (14.0-18.0); Mean Corpuscular HGB CONC 32.5 g/dL (32.0-36.0); Mean Corpuscular Hemoglobin 31.9 pg (27.0-31.0); Mean Platelet Volume 8.4 fL (7.4-10.4); Platelet Count 155 thou/uL (130-400); RBC Distribution Width 17.4 % (11.5-14.5); Red Blood Cell (RBC) Count 3.34 mill/uL (4.70-6.10); White Blood Cell (WBC) Count 6.1 thou/uL (4.8-10.8)
[2018-05-12 23:51] LABS: INR-International Normal Ratio 1.1; Prothrombin Time 14.7 SEC (12.0-14.7)
[2018-05-13 00:04] LABS: ALT (SGPT) 14 U/L (8-55); AST (SGOT) 23 U/L (5-34); Albumin 4.4 g/dL (3.4-4.8); Alkaline Phosphatase 138 U/L (40-150); Anion Gap 29 mmol/L (10-20); BUN (Urea Nitrogen) 79 mg/dL (8.4-25.7); Bilirubin, Total 0.8 mg/dL (0.2-1.2); Calc. Creatinine Clearance 0 mL/min (70-130); Calcium 9.3 mg/dL (7.8-10.44); Carbon Dioxide 18 mmol/L (23-31); Chloride 98 mmol/L (98-107); Estimated GFR-MDRD 5; Globulin 3.9 g/dL (2.4-3.5); Glucose 274 mg/dL (80-115); Potassium 5.9 mmol/L (3.5-5.1); Protein, Total 8.3 g/dL (5.8-8.1); Sodium 139 mmol/L (136-145)
[2018-05-13 00:19] LABS: Phosphorus 10.5 mg/dL (2.3-4.7)
[2018-05-13] MEDS ORDERED: Insulin Regular 300 UNITS/3 ML VIAL ONE (01:13)
[2018-05-13] MEDS ORDERED: Dextrose 50% Abboject 50 ML SYRINGE ONE ×3 (01:13→04:16)
== END 2018-05-13 05:48 | disposition home or self-care (01) ==
LOC: ERS 23:05
DX: E87.5 Hyperkalemia (principal); N19 Unspecified kidney failure; I25.10 Atherosclerotic heart disease of native coronary artery without angina pectoris; E11.9 Type 2 diabetes mellitus without complications; E78.5 Hyperlipidemia, unspecified; I10 Essential (primary) hypertension; J45.909 Unspecified asthma, uncomplicated; F41.9 Anxiety disorder, unspecified; F32.9 Major depressive disorder, single episode, unspecified; Z86.73 Personal history of transient ischemic attack (TIA), and cerebral infarction without residual deficits; Z79.82 Long term (current) use of aspirin
CPT/HCPCS: 36416; 71045; 80053; 82553; 83735; 83880; 84100; 84484; 85025; 85610; 93005; 96374; 96375; 96376; J1815

== ENCOUNTER 2018-05-13 22:38 | Emergency (ER) | payer MEDICARE, OTHER ==
--- NOTE | 2018-05-13 23:46 | RAD ---
PORTABLE CHEST: History: Dyspnea. Comparison: 05-12-18 FINDINGS: Cardiomegaly again noted. Single lead ICD lead is unchanged. The lungs remain clear. Mild vascular en gorgement is stable. Possible small effusion. IMPRESSION: Stable chest findings from yesterday. POS: [facility]
[2018-05-14 00:11] LABS: Anion Gap 22 mmol/L (10-20); BUN (Urea Nitrogen) 55 mg/dL (8.4-25.7); Calc. Creatinine Clearance 0 mL/min (70-130); Calcium 9.2 mg/dL (7.8-10.44); Carbon Dioxide 23 mmol/L (23-31); Chloride 99 mmol/L (98-107); Estimated GFR-MDRD 7; Glucose 163 mg/dL (80-115); Potassium 4.7 mmol/L (3.5-5.1); Sodium 139 mmol/L (136-145)
[2018-05-14 00:33] LABS: CKMB 4.4 ng/mL (0-6.6)
== END 2018-05-14 00:47 | disposition home or self-care (01) ==
LOC: ERS 22:38
DX: R06.02 Shortness of breath (principal); E78.5 Hyperlipidemia, unspecified; I25.10 Atherosclerotic heart disease of native coronary artery without angina pectoris; E11.9 Type 2 diabetes mellitus without complications; I10 Essential (primary) hypertension; J45.909 Unspecified asthma, uncomplicated; F41.9 Anxiety disorder, unspecified; F32.9 Major depressive disorder, single episode, unspecified; Z86.73 Personal history of transient ischemic attack (TIA), and cerebral infarction without residual deficits; Z79.82 Long term (current) use of aspirin; Z79.899 Other long term (current) drug therapy
CPT/HCPCS: 36415; 71045; 80048; 82553; 84484; 93005

== ENCOUNTER 2018-08-05 01:01 | Inpatient (IN) | payer MEDICARE, OTHER ==
[2018-08-05 01:41] LABS: #Lymphocytes 0.6 thou/uL (1.20-3.40); #Monocytes 0.8 thou/uL (0.11-0.59); #Neutrophils 12.2 thou/uL (1.40-6.50); %Basophils 0.2 % (0.0-1.0); %Eosinophils 0.2 % (0.0-10.0); %Lymphocytes 4.7 % (21.0-51.0); %Monocytes 5.6 % (0.0-10.0); %Neutrophils 89.5 % (42.0-75.0); Hemoglobin 9.3 g/dL (14.0-18.0); Mean Corpuscular HGB CONC 31.5 g/dL (32.0-36.0); Mean Corpuscular Volume 95.2 fL (78.0-98.0); Mean Platelet Volume 8.1 fL (7.4-10.4); Platelet Count 93 thou/uL (130-400); RBC Distribution Width 16.1 % (11.5-14.5); Red Blood Cell (RBC) Count 3.09 mill/uL (4.70-6.10); White Blood Cell (WBC) Count 13.6 thou/uL (4.8-10.8)
[2018-08-05 01:59] LABS: ALT (SGPT) 16 U/L (8-55); AST (SGOT) 33 U/L (5-34); Albumin 3.8 g/dL (3.4-4.8); Alkaline Phosphatase 98 U/L (40-150); Bilirubin, Total 0.7 mg/dL (0.2-1.2); Calc. Creatinine Clearance 0 mL/min (70-130); Calcium 7.2 mg/dL (7.8-10.44); Chloride 105 mmol/L (98-107); Estimated GFR-MDRD 2; Globulin 2.8 g/dL (2.4-3.5); Glucose 92 mg/dL (80-115); Potassium 6.5 mmol/L (3.5-5.1); Protein, Total 6.6 g/dL (5.8-8.1); Sodium 138 mmol/L (136-145)
[2018-08-05 03:02] LABS: Carbon Dioxide Less than 8 mmol/L (23-31)
[2018-08-05 03:12] LABS: BUN (Urea Nitrogen) 130 mg/dL (8.4-25.7)
[2018-08-05] MEDS ORDERED: Ondansetron ODT 4 MG TAB ONE (03:41)
[2018-08-05] MEDS ORDERED: Calcium Chloride 1 GM in Sodium Chloride 0.9% 100 ML IVP SCH (05:00)
[2018-08-05] MEDS ORDERED: HYDROcodone/Acetaminophen 5/325 mg Tablet PO PRN ×2 (05:00)
[2018-08-05] MEDS ORDERED: Ondansetron PF 4 MG/2 ML Vial IVP PRN (05:00)
[2018-08-05] MEDS ORDERED: Ondansetron ODT 4 MG TAB SL PRN (05:00)
--- NOTE | 2018-08-05 08:31 | RAD ---
SINGLE VIEW OF THE CHEST: COMPARISON: 05/13/2018. HISTORY: Dialysis patient with shortness of breath. The patient has not had dialysis in a few days. FINDINGS: A single view of the chest shows an enlarged but stable cardiomediastinal silhouette. The pacemaker is unchanged in position. There is no evidence of consolidation, mass, or pleural effusion. IMPRESSION: Stable cardiomegaly without evidence of acute cardiopulmonary disease. POS: [facility]
--- NOTE | 2018-08-05 08:43 | RAD ---
THREE VIEWS RIGHT FOOT: COMPARISON: None. HISTORY: Painful black right great toe. Gangrene. FINDINGS: Three views of the right foot show no evidence of acute fracture or dislocation. Vascular calcificat ions are seen. No osseous erosions are present. IMPRESSION: No evidence of acute osseous abnormality. POS: [facility]
[2018-08-05 09:37] LABS: HBSAB Concentration 1.69 mIU/mL; HBSAg Index 0.23 S/CO (0-0.99); Hep B Core Total Ab Non-Reactive (NonReactive); Hep B Core Total Index 0.04 S/CO (0-0.79); Hep B Surf AB Non-Reactive (NonReactive); Hep B Surf Ag Non-Reactive S/CO (NonReactive); Hep C IgG Ab Non-Reactive (NonReactive); Hep C Index 0.11 S/CO (0-0.79)
--- NOTE | 2018-08-05 12:32 | PDOC.EVN ---
Event Note - Event Note Event Note: Discussed the case with Ranjit Angel, reviewed record and eval'd patient. He is currently in dialysis. He appears a little encephalopathic. He denies pain except in his right great toe. He appears jaundice. He has a difficult time remaining still and moves about the bed constantly. He will answer questions, but is not otherwise conversant. Heart is regular, lungs are clear. Abd soft, NT, ND, NABS. Extr - Right great to with dry gangrene and black discoloration. Pulses are not palpable. He looks to have volume overload and uremia. Getting HD now. This may improve the apparent encephalopathy. Surgery to evaluate the toe. Will cover with abx until it clear that the encephalopathy is not from infection.
[2018-08-05] MEDS ORDERED: Vancomycin HCl 750 MG in Sodium Chloride 0.9% 250 ML 250 ML IVPB SCH (12:45)
[2018-08-05] MEDS ORDERED: Vancomycin HCl 1.5 GM in Sodium Chloride 0.9% 250 ML 300 ML IVPB SCH (12:45)
[2018-08-05] MEDS ORDERED: Vancomycin HCl 500 MG in Sodium Chloride 0.9% 100 ML IVPB SCH (12:45)
[2018-08-05] MEDS ORDERED: Vancomycin HCl 250 MG in Sodium Chloride 0.9% 100 ML IVPB SCH (12:45)
[2018-08-05] MEDS ORDERED: HOLD VANCOMYCIN FOR LEVEL >20 FS SCH (12:45)
[2018-08-05] MEDS ORDERED: Vancomycin HCl 1 GM in Premix Bag 1 BAG IVPB SCH (12:45)
[2018-08-05] MEDS ORDERED: Vancomycin Sliding Scale 1 EACH FS ONE (12:45)
--- NOTE | 2018-08-05 14:26 | HP ---
PRIMARY CARE PHYSICIAN[facility] [place]. CHIEF COMPLAINT: Shortness of breath. HISTORY OF PRESENT ILLNESS: Mr. Ramirez is a 68-year-old male with past medical history of CAD, ischemic cardiomyopathy, severely reduced systolic heart failure along with diastolic heart failure, end-stage renal disease on dialysis, history of CVA back in 2016 with right-sided deficits, hyperlipidemia, hypertension, and diabetes mellitus, comes in for shortness of breath, nausea, and diarrhea. The patient reports symptoms started just 2 days ago, he had reported losing his local bed for dialysis. He states he was recently discharged from the hospital in [place] last , where he had spent several weeks undergoing hemodialysis. He states that his last round was on . He had denied any fever, chills, any dizziness or any lightheadedness. He had denied any chest pain or palpitations. He was also noted to have likely gangrene of his right big toe. Chest x-ray was performed; however, did not show any osseous abnormality. Chest x-ray was also performed and showed stable cardiomegaly without evidence of acute cardiopulmonary disease. The patient's initial lab work showed a creatinine of 19.41, BUN of 130 with an estimated GFR of 2. He appeared to be acidotic with carbon dioxide of less than 8 and a potassium of 6.5. Nephrology Services, Dr. Anna was consulted for further evaluation and for further management with dialysis. The patient was then taken for emergent dialysis at that time. His white count was elevated at 13.6; however, did not show any elevated fevers. He was started on IV Zosyn and also vancomycin for pharmacy to dose and blood cultures were drawn for further evaluation. It was determined the patient be admitted under observation for further workup and further dialysis for his end-stage renal disease. Further changes to the antibiotics will be made pending further recommendations from General Surgery along with blood culture results. REVIEW OF SYSTEMS: All other systems reviewed and found to be negative unless mentioned in the HPI. PAST MEDICAL HISTORY: Significant for end-stage renal disease on dialysis, coronary artery disease, chronic systolic and diastolic heart failure with an ejection fraction of about 15%, history of ischemic cardiomyopathy, hyperlipidemia, hypertension, diabetes mellitus, and CVA in 2016. PAST SURGICAL HISTORY: Left upper extremity fistula and AICD placement. PSYCHIATRIC HISTORY: Does report some anxiety and depression and had a previous admission to inpatient psychiatric facility in [place] in the past. SOCIAL HISTORY: Denies any alcohol, tobacco, or illicit drug use. The patient lives at home with his spouse. KNOWN ALLERGIES: None. CURRENT HOME MEDICATIONS: The patient was unable to verify home medications. Therefore, we will reach out to [place] [facility] [place] to verify. PHYSICAL EXAMINATION: VITAL SIGNS: BP 115/82, pulse 74, respirations 20, temperature 98.1 degrees Fahrenheit, and O2 saturations 93% on room air. GENERAL: The patient is awake, alert, and oriented x3. He is in mild acute distress noted due to abdominal pain and nausea. HEENT: Atraumatic and normocephalic. Pupils are round and reactive to light. Extraocular muscles intact. Moist mucous membranes noted. Oropharynx is clear without exudates or erythema. NECK: Soft and supple. No JVD. Trachea midline. CARDIOVASCULAR: Positive S1 and S2. Regular rate and rhythm. No murmur auscultated. RESPIRATORY: Clear to auscultation bilaterally. No wheezes, rales, or rhonchi. ABDOMEN: Soft, mild tenderness in the left lower quadrant and left upper quadrant. Normal bowel sounds heard. MUSCULOSKELETAL: Strength 5+ bilaterally in upper and lower extremities. Moves all extremities equally. The patient noted to have dark black and also gangrenous right big toe with a decreased warmth and also sensation. AV fistula noted in left upper extremity. Good thrill and bruit noted. NEUROLOGIC: Cranial nerves 2 through 12 grossly intact. No focal deficits noted. Speech intact and normal. Gait not assessed. SKIN: As above findings to right big toe. PSYCHIATRIC: Good mood and affect. LABORATORY DATA: WBC 13.6, RBC 3.09, hemoglobin 9.3, and platelet 93. Sodium 138, potassium 6.5, carbon dioxide less than 8, BUN 130, creatinine 19.41, lactic acid 1.4, and glucose 70. Hepatitis panel nonreactive. DIAGNOSTIC IMAGING: Chest x-ray shows stable cardiomegaly without evidence of acute cardiopulmonary disease. Three-view right foot x-ray shows no evidence of acute osseous abnormality. ASSESSMENT AND PLAN: 1. End-stage renal disease, consult Nephrology Services for dialysis, and continue dialysis as needed during hospital course. The patient has lost his bed as outpatient, therefore, we will need case management to assist in further bed placement prior to discharge. Recheck BMP post dialysis. 2. Right big toe gangrene, start the patient on IV vancomycin and Zosyn with pharmacy to dose and await further blood cultures. X-ray showing no osseous involvement. Consult placed for General Surgery for further evaluation and possible amputation in the near future. 3. Leukocytosis, likely secondary to above. Continue IV antibiotics for now and recheck CBC and monitor closely. Further adjustments to the antibiotic regimen based of General Surgery recommendations and also blood culture results. 4. Coronary artery disease. Place the patient back on his home medications once they are verified. 5. History of ischemic cardiomyopathy as above. Place the patient on his home medications once they are verified. 6. Diabetes mellitus. Continue with Accu-Cheks and place on insulin sliding scale along with his home medications. 7. Hypertension, stable. Monitor vital signs closely and place the patient on home medications once verified. 8. Deep venous thrombosis and gastrointestinal prophylaxis. 9. Code status. Full code. 10. Surrogate decision maker is the patient's , Shelly Ramirez. 11. Disposition pending further workup and clinical findings. Job ID: [id number]
[2018-08-05] MEDS ORDERED: Piperacillin/Tazobactam 3.375 GM in Sodium Chloride 0.9% 100 ML IVPB SCH (15:00)
--- NOTE | 2018-08-05 23:34 | PDOC.EVN ---
Event Note - Event Note Event Note: RN called - Patient had 6 beats of NSVT. Will continue to monitor. AM labs added. Cardiology consultation per AM .
--- NOTE | 2018-08-05 23:58 | CON ---
DATE OF CONSULTATION: 08/05/2018 REASON FOR CONSULT: End-stage renal disease evaluation and care. REASON FOR ADMISSION: Shortness of breath. HISTORY OF PRESENT ILLNESS: This is a 68-year-old male with history of end-stage renal disease on hemodialysis, CHF, hypertension, cardiomyopathy, noncompliance, came to the hospital with above complaints. Nephrology was consulted. The patient was found to be hyperkalemic and acidotic. PAST MEDICAL HISTORY: Positive for end-stage renal disease, hypertension, CHF, noncompliance, type 2 diabetes, CVA. PAST SURGICAL HISTORY: Left upper extremity fistula and AICD placement. HOME MEDICATIONS: Reviewed. ALLERGIES: NO KNOWN DRUG ALLERGIES. SOCIAL HISTORY: No smoking, alcohol or drug abuse. FAMILY HISTORY: No history of any kidney disease. REVIEW OF SYSTEMS: CONSTITUTIONAL: Negative for weight loss or gain, ability to conduct usual activities. SKIN: Negative for rash, itching. EYES: Negative for double vision, pain. ENT/MOUTH: Negative for nose bleeding, neck stiffness, pain, tenderness. CARDIOVASCULAR: Negative for palpitations, dyspnea on exertion, orthopnea. RESPIRATORY: Negative for shortness of breath, wheezing, cough, hemoptysis, fever or night sweats. GASTROINTESTINAL: Negative for poor appetite, abdominal pain, heartburn, nausea, vomiting, constipation, or diarrhea. GENITOURINARY: Negative for urgency, frequency, dysuria, nocturia. MUSCULOSKELETAL: Negative for pain, swelling. NEUROLOGIC/PSYCHIATRIC: Negative for anxiety, depression. ALLERGY/IMMUNOLOGIC: Negative for skin rash, bleeding tendency. PHYSICAL EXAMINATION: GENERAL: Reveals a well-built male, in no apparent distress. VITAL SIGNS: Temperature 97.8, pulse 86, respiratory rate 25, blood pressure 123/78. HEENT: Atraumatic and normocephalic. Oral mucosa is moist. NECK: Supple. CVS: S1 and S2 heard. Regular rate and rhythm. RESPIRATORY: Clear. GASTROINTESTINAL: Abdomen is soft. MUSCULOSKELETAL: No tenderness. DERMATOLOGIC: No skin rash. NEUROLOGIC: Alert and awake. PSYCHIATRIC: Normal mood and affect. LABORATORY DATA: Hemoglobin is 9.3, potassium is 6.5, bicarb is less than 8, BUN 130, creatinine is 19.1. ASSESSMENT: 1. End-stage renal disease, will have emergency dialysis. 2. Hyperkalemia. 3. Acidosis. 4. Azotemia. 5. Anemia, chronic. PLAN: 1. Plan is to have emergency dialysis. Patient was seen during dialysis, tolerating well. We will continue on dialysis as tolerated. Plan is to have dialysis today and then Monday, Monday, and Monday as tolerated. 2. We will recommend case management consult for outpatient placement since the patient is reestablishing Nephrology care at our town. Thank you for the consult. Job ID: [id number]
[2018-08-06] MEDS ORDERED: traMADol HCl 50 MG TAB PO PRN (00:20)
[2018-08-06] MEDS: Piperacillin/Tazobactam 2.25 GM in Sodium Chloride 0.9% 100 ML IVPB SCH ×2 (03:35→18:47)
--- NOTE | 2018-08-06 04:42 | PDOC.EVN ---
Event Note - Event Note Event Note: RN called - Tele monitoring showed bigeminy with bradycardia. STAT labs ordered. Will continue to monitor.
[2018-08-06 06:09] LABS: #Lymphocytes 0.6 thou/uL (1.20-3.40); #Neutrophils 9.7 thou/uL (1.40-6.50); %Basophils 0.1 % (0.0-1.0); %Eosinophils 0.4 % (0.0-10.0); %Lymphocytes 5.5 % (21.0-51.0); %Neutrophils 85.1 % (42.0-75.0); Hemoglobin 8.6 g/dL (14.0-18.0); Mean Corpuscular HGB CONC 30.5 g/dL (32.0-36.0); Mean Corpuscular Hemoglobin 29.5 pg (27.0-31.0); Mean Corpuscular Volume 96.9 fL (78.0-98.0); Mean Platelet Volume 8.6 fL (7.4-10.4); Platelet Count 95 thou/uL (130-400); Red Blood Cell (RBC) Count 2.92 mill/uL (4.70-6.10); White Blood Cell (WBC) Count 11.4 thou/uL (4.8-10.8)
[2018-08-06 06:17] LABS: Anion Gap 30 mmol/L (10-20); BUN (Urea Nitrogen) 115 mg/dL (8.4-25.7); Calc. Creatinine Clearance 4 mL/min (70-130); Calcium 7.5 mg/dL (7.8-10.44); Chloride 105 mmol/L (98-107); Estimated GFR-MDRD 3; Glucose 86 mg/dL (80-115); Potassium 5.7 mmol/L (3.5-5.1); Sodium 137 mmol/L (136-145)
[2018-08-06 06:23] LABS: Carbon Dioxide 8 mmol/L (23-31)
[2018-08-06] MEDS ORDERED: Sodium Bicarb 50 MEQ/50 ML Abboject 8.4% SYRINGE IVP SCH (06:30)
[2018-08-06 09:08] LABS: Vancomycin, Random 32.4 ug/mL (See Comment)
--- NOTE | 2018-08-06 13:08 | PRG ---
DATE OF SERVICE: 08/06/2018 SUBJECTIVE: A 68-year-old gentleman being seen for end-stage kidney disease. The patient denies nausea, vomiting, or chest pain. OBJECTIVE: GENERAL: On examination, the patient is awake and alert. VITAL SIGNS: Afebrile, pulse 75, breathing 16, blood pressure was 106/52. GENERAL APPEARANCE AND MENTAL STATUS: Fair. HEAD/NECK: Normocephalic. Atraumatic. EYES: EOMI. No deformity. EARS: Clear. No ulcers. NOSE: Intact. No lesions. MOUTH: Clear. No discharge. THROAT: Clear. No exudate. LUNGS: Clear. No crackles. CARDIAC: S1, S2. No rub. ABDOMEN: Benign. Bowel sounds positive. GENITALIA/RECTUM: Singer absent. BACK/EXTREMITIES: Edema 0+. NEUROLOGICAL: Alert and motor intact. SKIN: LYMPHATICS: LABORATORY DATA: Reviewed. ASSESSMENT: 1. Stage 6 chronic kidney disease. Plan dialysis. 2. Hypertension, stable. 3. Anemia, stable. PLAN: Medication based on GFR appropriate. Job ID: [id number]
[2018-08-06] MEDS: Acetaminophen 500 MG TAB PO PRN (15:09)
[2018-08-06 15:43] LABS: Vancomycin, Trough 30.8 ug/mL
[2018-08-06] MEDS: Piperacillin/Tazobactam 0.75 GM in Sodium Chloride 0.9% 100 ML IVPB SCH (18:48)
--- NOTE | 2018-08-06 19:40 | PRG ---
DATE OF SERVICE: 08/06/2018 SUBJECTIVE: The patient is a 68-year-old male with past medical history significant for ischemic cardiomyopathy; end-stage renal disease, on dialysis, and history of noncompliance, who presented to the hospital with complaints of shortness of breath, nausea, and diarrhea. He has been admitted with dry gangrene of the right great toe along with uremia secondary to presumed noncompliance with dialysis. The patient is seen in dialysis today. He is answering some questions appropriately. He does appear to be alert and oriented x3. His main complaint is pain from his right toe. He denies chest pain or shortness of breath. He denies any nausea or vomiting at this time. OBJECTIVE: VITAL SIGNS: Blood pressure 104/56, temperature 96.8, pulse 74, respirations 20, and O2 saturation 96% on room air. GENERAL: A very thin, somewhat ill-appearing man with jaundice, resting in bed, receiving dialysis. NECK: Supple. No JVD. No lymphadenopathy. CV: S1 and S2, no appreciable murmurs, rubs, or gallops. Positive ectopy noted. LUNGS: Regular respiratory rate pattern, coarse breath sounds throughout. ABDOMEN: Positive bowel sounds. Soft and nontender. MUSCULOSKELETAL: Strength 5+ bilaterally in upper and lower extremities. Right great toe shows positive changes for dry gangrene, both lower extremities are warm; however, no palpable pulses are noted. NEUROLOGIC: No focal deficits noted. LABORATORY DATA: White blood cell count 11.4, hemoglobin 8.6, and hematocrit 28.2. Sodium 137, potassium 5.7, anion gap 30, BUN 115, creatinine 16.26, and calcium is 7.5. Serology for hepatitis B and hepatitis C are negative. ASSESSMENT: 1. End-stage renal disease with apparent noncompliance with dialysis, resulting in uremia. 2. Dry gangrene of the right toe. No osseous involvement per x-ray. 3. Bigeminal premature ventricular contractions, asymptomatic at this time, likely metabolic. 4. Type 2 diabetes mellitus. 5. Leukocytosis. 6. Peripheral vascular disease. 7. Ischemic cardiomyopathy with last ejection fraction 20% to 25%. 8. Anemia of chronic disease. 9. Hyperkalemia. PLAN: Nephrology has been consulted. We will need daily dialysis to resolve metabolic issues of uremia and hyperkalemia. We will continue to monitor his rhythm per telemetry and consult Cardiology if PVCs continue. Will restart Coreg and statin for now. General Surgery has been consulted, and vascular surgery as well, no surgery at this time until the patient is improved from acute encephalopathy and metabolic issues; . We will continue empiric antibiotic coverage with vancomycin and Zosyn, pharmacy to dose. Further recommendations based on hospital course. Job ID: [id number] [id number]
--- NOTE | 2018-08-07 01:25 | CON ---
DATE OF CONSULTATION: 08/06/2018 CONSULTING PHYSICIAN: Dr. Albarran. REASON FOR CONSULTATION: Right great toe gangrene. HISTORY OF PRESENT ILLNESS: The patient is a 68-year-old male with a history of coronary artery disease; ischemic cardiomyopathy; end-stage renal disease, on dialysis; diabetes mellitus. He was admitted to the hospital yesterday secondary to shortness of breath. He apparently had been dialyzed in some period of time and had severe laboratory derangements including a BUN of 130 and a creatinine of 19. He was admitted to the hospital and dialysis was initiated. The patient was also noted to have a gangrenous and painful right great toe. Neither the patient nor his is useful in terms of telling me the history of this, either when it became black, when it began weeping, or when it became painful. He has been started empirically on IV antibiotics. He tells me that he does still ambulate. PAST MEDICAL HISTORY: 1. End-stage renal disease, on dialysis. 2. Coronary artery disease. 3. Ischemic cardiomyopathy with cardiac ejection fraction of 15% to 20%. 4. Hyperlipidemia. 5. Diabetes mellitus. 6. Hypertension. 7. Cerebrovascular accident in 2016. PAST SURGICAL HISTORY: 1. Left upper extremity AV fistula placement. 2. AICD placement. MEDICATIONS: I do not have a current list of his outpatient medications, but currently inpatient, he is receiving piperacillin, vancomycin, and tramadol. ALLERGIES: NO KNOWN DRUG ALLERGIES. PERSONAL AND SOCIAL HISTORY: He denies tobacco use or alcohol use. His is present at bedside. REVIEW OF SYSTEMS: Otherwise, unremarkable. FAMILY HISTORY: Noncontributory. PHYSICAL EXAMINATION: VITAL SIGNS: Temperature is 97.7, pulse 74, blood pressure has generally been low with his most recent pressure being 93/53. GENERAL: He is an alert, thin male, appearing older than stated age. He is alert and oriented x3. is present at bedside. HEAD, EYES, EARS, NOSE, AND THROAT: Unremarkable. NECK: Supple. LUNGS: Clear to auscultation. CARDIAC: Regular rate and rhythm. ABDOMEN: Benign, nontender. EXTREMITIES: He has easily palpable femoral pulses bilaterally. His legs are both quite thin. There are numerous cutaneous lesions (almost appearing like insect bites) extending down both legs, down onto his feet. He has a gangrenous-appearing right great toe. The skin off the plantar aspect of this avulsed easily. There is a little bit of unpleasant smell, but nothing consistent with wet gangrene. He has tenderness with examination of the foot whenever I move any of his right toes. I am unable to palpate either the dorsalis pedis or posterior tibial pulse. I believe I am palpating calcified arteries in both of these locations. Examination of his left foot reveals no obvious lesions, but again, no palpable pulses. LABORATORY DATA: His white blood cell count is slightly elevated to 11.4 with a hemoglobin of 8.6, platelet count is 95. Chemistry profile reveals normal liver function tests and albumin level. Severe electrolyte abnormalities consistent with end-stage renal disease. His potassium is still elevated. ASSESSMENT: The patient with some combination of problems leading to arterial insufficiency. He has cardiomyopathy and severe atherosclerosis. X-ray of his foot demonstrates calcific cast of both the dorsalis pedis and posterior tibial arteries. I am concerned that any local amputation such as a digital amputation on this foot would fail secondary to ischemia. It was recognized that the patient had right lower leg angiograms performed this past year by Dr. Gonzalez. I will consult Cardiothoracic Surgery for a vascular evaluation and their recommendations. For now, he requires no acute surgical intervention as he is certainly not septic from this and there is no ascending infectious process. Continue his current antibiotics and dressing changes on the toe as necessary. Job ID: [id number]
--- NOTE | 2018-08-07 01:52 | CON ---
DATE OF CONSULTATION: HISTORY OF PRESENT ILLNESS: Mr. Ramirez is a 68-year-old patient with end-stage renal disease, on hemodialysis. He was admitted with gangrene in his right great toe. I was asked to see him for vascular evaluation. PAST MEDICAL HISTORY: 1. Peripheral vascular disease, status post angiography in 11/2017. 2. End-stage renal disease, on dialysis. 3. Coronary artery disease. 4. Congestive heart failure. 5. Ischemic cardiomyopathy. 6. Dyslipidemia. 7. Hypertension. 8. Diabetes mellitus. 9. History of cerebral vascular accident in 2016. PAST SURGICAL HISTORY: Fistula in AICD placement. ALLERGIES: NONE. MEDICATIONS: Noted. PHYSICAL EXAMINATION: GENERAL: This is a chronically ill-appearing gentleman. VITAL SIGNS: His height 5 feet 7 inches, weight is 145 pounds, BSA is 1.77, temperature is 96.6, pulse is 97 and regular, blood pressure is 114/61. LUNGS: Clear bilaterally. HEART: Rhythm is regular. ABDOMEN: Soft and nontender. EXTREMITIES: He has gangrene of his right great toe. VASCULAR: Palpable carotid, radial, and femoral pulses bilaterally. I think I can palpate both popliteal pulses. Dorsalis pedis and posterior tibial areas are nonpalpable and nondopplerable. LABORATORY DATA: I have reviewed Dr. Gonzalez's angiography from November of 2017, which shows patent femoral, popliteal, and proximal tibial arteries without significant luminal encroachment from atherosclerotic disease. At the level of the ankle, both dorsalis pedis and posterior tibial arteries are occluded in collateral vessels which do not supply very much of the foot. ASSESSMENT AND PLAN: I am concerned that he will not heal any procedure on his foot. He may require below-knee amputation for healing purposes. Job ID: [id number] [facility]
[2018-08-07] MEDS: Piperacillin/Tazobactam 2.25 GM in Sodium Chloride 0.9% 100 ML IVPB SCH ×2 (03:35→14:07)
[2018-08-07] MEDS: Acetaminophen 500 MG TAB PO PRN (03:35)
[2018-08-07 06:14] LABS: Anion Gap 22 mmol/L (10-20); BUN (Urea Nitrogen) 79 mg/dL (8.4-25.7); Calc. Creatinine Clearance 6 mL/min (70-130); Calcium 7.6 mg/dL (7.8-10.44); Carbon Dioxide 19 mmol/L (23-31); Chloride 102 mmol/L (98-107); Estimated GFR-MDRD 4; Glucose 132 mg/dL (80-115); Potassium 4.4 mmol/L (3.5-5.1); Sodium 139 mmol/L (136-145)
[2018-08-07 06:23] LABS: Vancomycin, Random 26.7 ug/mL (See Comment)
[2018-08-07 06:30] LABS: Band 10 % (5-11); Hemoglobin 8.2 g/dL (14.0-18.0); Lymphocytes 12 % (21-51); MDiff Complete? YES; Mean Corpuscular HGB CONC 32.3 g/dL (32.0-36.0); Mean Corpuscular Hemoglobin 29.8 pg (27.0-31.0); Mean Corpuscular Volume 92.1 fL (78.0-98.0); Mean Platelet Volume 8.1 fL (7.4-10.4); Monocytes 7 % (0-10); Neutrophil 71 % (42-75); Platelet Count 99 thou/uL (130-400); Platelet Morphology Comment Appears Decreased; RBC Distribution Width 16.1 % (11.5-14.5); Red Blood Cell (RBC) Count 2.77 mill/uL (4.70-6.10); White Blood Cell (WBC) Count 12.3 thou/uL (4.8-10.8)
--- NOTE | 2018-08-07 10:20 | PRG ---
DATE OF SERVICE: 08/07/2018 SUBJECTIVE: A 68-year-old gentleman being seen for end-stage renal disease. The patient denies nausea, vomiting, or chest pain. OBJECTIVE: GENERAL: The patient is awake and alert. VITAL SIGNS: Afebrile, pulse 79, breathing 16, and blood pressure 120/60. GENERAL APPEARANCE AND MENTAL STATUS: Fair. HEAD/NECK: Normocephalic. Atraumatic. EYES: EOMI. No deformity. EARS: Clear. No ulcers. NOSE: Intact. No lesions. MOUTH: Clear. No discharge. THROAT: Clear. No exudate. LUNGS: Clear. No crackles. CARDIAC: S1, S2. No rub. ABDOMEN: Benign. Bowel sounds positive. GENITALIA/RECTUM: Singer absent. BACK/EXTREMITIES: Edema 0+. NEUROLOGICAL: Alert and motor intact. LABORATORY DATA: Reviewed. ASSESSMENT: 1. Stage 6 chronic kidney disease, start hemodialysis. 2. Hypertension, stable. 3. Anemia, stable. 4. Hyperkalemia, stable. Discharge planning is in progress. Job ID: [id number]
[2018-08-07] MEDS ORDERED: Tuberculin PPD 0.1 ML VIAL I-DERMAL SCH (12:00)
--- NOTE | 2018-08-07 12:04 | ULT ---
RIGHT LOWER EXTREMITY ARTERIAL DOPPLER EXAM: History: Gangrene of right great toe. FINDINGS: Vessel Velocity (cm/sec) Peak systolic velocity: Common femoral artery 50 Profunda femoral 41 Proximal superficial femoral 45 Mid 56 Distal 38 Popliteal 39 Anterior tibial 48 Posterior tibial 54 Dorsalis pedis 88 IMPRESSION: Reduced velocities in the common femoral artery and superficial femoral arteries. This would suggest proximal aortoiliac disease and CT angiography may be helpful in assessment of this. POS: TPC
--- NOTE | 2018-08-07 16:11 | PRG ---
DATE OF SERVICE: 08/07/2018 Mr. Ramirez was seen yesterday in regard to a gangrenous right great toe. At that time, I had requested cardiovascular evaluation. Dr. Gilmore saw the patient and reviewed angiograms that were obtained this past November. There is essentially normal blood flow down to the level of the ankle, but no outflow into the foot. The patient has severely calcified vessels with no dopplerable signals. He is fairly sleepy today, but he is arousable and I spoke with both the patient and his and explained the situation. He has a gangrenous right great toe, significant pain of that toe and the rest of his foot and evidence of severe ischemia. I would recommend proceeding with a right below-knee amputation. His laboratory studies show that he still is uremic with a BUN of 79, although, it is down from 130 when he presented. He did not have dialysis today, but is scheduled for this tomorrow. I would recommend proceeding with his right below-knee amputation on , August 09, and he will be scheduled for this procedure. He will certainly be at increased risk because of his underlying multiple medical comorbidities and cardiac problems. Job ID: [id number]
[2018-08-07] MEDS: Carvedilol 3.125 MG TAB PO SCH (18:17)
[2018-08-07] MEDS ORDERED: Dextrose 50% Abboject 50 ML SYRINGE SLOW IVP PRN (19:19)
[2018-08-07] MEDS ORDERED: Dextrose 5% in Water 1,000 ML IV PRN (19:19)
--- NOTE | 2018-08-07 20:32 | PRG ---
DATE OF SERVICE: 08/07/2018 SUBJECTIVE: The patient is a 68-year-old male with past medical history significant for ischemic cardiomyopathy with EF of 20% to 25%, end-stage renal disease, on dialysis, with history of noncompliance, who initially presented to the hospital with complaints of shortness of breath, nausea, and diarrhea. He has been admitted with dry gangrene of the right great toe along with uremia secondary to presumed noncompliance with dialysis. The patient is seen today in his room with his at the bedside. Regarding his mentation, he is much improved. He is conversing. He is alert, awake, and oriented x3. He denies any chest pain or shortness of breath. He denies any nausea or vomiting. He was able to eat his meal and has a good appetite. His only complaint at this time is pain from his right lower extremity and right great toe. OBJECTIVE: VITAL SIGNS: Blood pressure 119/67, pulse 87, respirations 18, O2 saturation 100% on room air, temperature 98. GENERAL: Very thin, jaundiced appearing man, resting in bed. No acute distress. NECK: Supple. No JVD. No lymphadenopathy. CV: S1, S2. No appreciable murmurs, rubs, or gallops. Regular rate and rhythm. LUNGS: Regular respiratory rate and pattern. Coarse breath sounds throughout. ABDOMEN: Positive bowel sounds. Soft and nontender. MUSCULOSKELETAL: Strength 5+ bilaterally in upper and lower extremities. Right great toe shows positive change for dry gangrene. Both lower extremities are warm. No palpable pulses are noted. NEUROLOGIC: No focal deficit. LABORATORY DATA: White blood cell count 12.3, hemoglobin 8.2, hematocrit 25.5, platelet count 99. Sodium 139, potassium 4.4, chloride 102, BUN 79, creatinine 11.47, calcium 7.6. ASSESSMENT: 1. End-stage renal disease with apparent noncompliance with dialysis, resulting in altered mental status and uremia, much improved today. 2. Dry gangrene of the right toe. No osseous involvement per x-ray. 3. Premature ventricular contractions, bigeminal, resolved per telemetry review. The patient continues to have occasional multifocal premature ventricular contractions. 4. Type-2 diabetes mellitus. 5. Peripheral vascular disease, lower extremity angiogram performed in November 2017 showed moderate disease in the right distal posterior tibial artery with rather poor flow into the foot with normal anterior tibial, peroneal, popliteal, femoral, and aortoiliac segments at that time. 6. Ischemic cardiomyopathy with ejection fraction of 20% to 25%. 7. Anemia of chronic disease. 8. Hyperkalemia, now resolved. PLAN: Continue dialysis per Nephrology recommendations. Regarding his gangrenous right foot, CV Surgery has been consulted and the patient's best chance for healing seems to be [id number] amputation on the right, which is now scheduled for morning. Continue empiric antibiotic coverage. Add sliding scale insulin. Further recommendations based on hospital course. Care discussed with Dr. Albarran. Job ID: [id number] [facility]
[2018-08-07] MEDS: Atorvastatin Calcium 20 MG TAB PO SCH (21:18)
[2018-08-07] MEDS ORDERED: Diabetic Tussin 200 MG/10 ML UDCUP PO SCH (23:45)
[2018-08-08] MEDS: Acetaminophen 500 MG TAB PO PRN (02:43)
[2018-08-08] MEDS: Piperacillin/Tazobactam 2.25 GM in Sodium Chloride 0.9% 100 ML IVPB SCH ×2 (02:44→17:31)
[2018-08-08 06:27] LABS: #Eosinphils 0.1 thou/uL (0.0-0.7); #Lymphocytes 0.8 thou/uL (1.20-3.40); #Monocytes 0.9 thou/uL (0.11-0.59); #Neutrophils 11.2 thou/uL (1.40-6.50); %Eosinophils 0.7 % (0.0-10.0); %Lymphocytes 6.4 % (21.0-51.0); Hemoglobin 7.7 g/dL (14.0-18.0); Mean Corpuscular HGB CONC 32.5 g/dL (32.0-36.0); Mean Corpuscular Hemoglobin 30.7 pg (27.0-31.0); Mean Corpuscular Volume 94.6 fL (78.0-98.0); Mean Platelet Volume 7.8 fL (7.4-10.4); Platelet Count 92 thou/uL (130-400); RBC Distribution Width 16.1 % (11.5-14.5); Red Blood Cell (RBC) Count 2.51 mill/uL (4.70-6.10)
[2018-08-08 06:45] LABS: Anion Gap 25 mmol/L (10-20); BUN (Urea Nitrogen) 83 mg/dL (8.4-25.7); Calc. Creatinine Clearance 6 mL/min (70-130); Calcium 7.1 mg/dL (7.8-10.44); Carbon Dioxide 15 mmol/L (23-31); Chloride 101 mmol/L (98-107); Estimated GFR-MDRD 4; Glucose 183 mg/dL (80-115); Potassium 4.5 mmol/L (3.5-5.1); Sodium 136 mmol/L (136-145)
[2018-08-08 08:48] LABS: Vancomycin, Random 25.3 ug/mL (See Comment)
--- NOTE | 2018-08-08 09:17 | PRG ---
DATE OF SERVICE: 08/08/2018 SUBJECTIVE: Mr. Ramirez has been hospitalized here since the . He is now hospital day #4. He had been dialyzed for a lengthy period of time before he presented and he is still in the process of resolving his uremia. He was also recognized to have a gangrenous right great toe at the time of presentation. Yesterday when I saw him, I explained to him and his that I would recommend a right below-knee amputation as I do not believe any distal level of amputation will heal in light of his angiograms and the vascular surgery consultation per Dr. Gilmore. Yesterday when I spoke to him, he was very sleepy and lethargic and I was not certain that he understood. I therefore reviewed this all with him again today with his present. They both understand. He did not appear to be significantly upset at the recommendation of a below-knee amputation, he did however appear to understand what i was saying. OBJECTIVE: VITAL SIGNS: Today, he is afebrile. Vitals are normal. LABORATORY DATA: Labs reveal that his white blood cell count is 13, hemoglobin is 7.7. Chemistries reveal a BUN of 83 and creatinine of 12. His potassium level is normal now. ASSESSMENT: The patient with wet gangrene of his right great toe. Recommend right below-knee amputation. I have discussed the operation in detail with the patient and his . They understand and agree to proceed. This has been scheduled for tomorrow. He will receive dialysis today and will be n.p.o. after midnight. I would anticipate he will be in the hospital for few days after this and will require either home health nursing or stay in the rehabilitation facility to help improve mobility before he is ready to go home. Job ID: [id number]
[2018-08-08] MEDS: Carvedilol 3.125 MG TAB PO SCH ×2 (09:47→18:10)
[2018-08-08] MEDS: HumaLOG 300 UNITS/3 ML VIAL SC PRN ×2 (09:49→12:30)
--- NOTE | 2018-08-08 11:47 | PRG ---
DATE OF SERVICE: 08/08/2018 SUBJECTIVE: A 68-year-old gentleman being seen for end-stage renal disease. The patient denies nausea, vomiting, or chest pain. OBJECTIVE: GENERAL: The patient is awake and alert. VITAL SIGNS: Afebrile. Pulse 81, breathing 16, blood pressure 111/71. GENERAL APPEARANCE AND MENTAL STATUS: Fair. HEAD/NECK: Normocephalic. Atraumatic. EYES: EOMI. No deformity. EARS: Clear. No ulcers. NOSE: Intact. No lesions. MOUTH: Clear. No discharge. THROAT: Clear. No exudate. LUNGS: Clear. No crackles. CARDIAC: S1, S2. No rub. ABDOMEN: Benign. Bowel sounds positive. GENITALIA/RECTUM: Singer absent. BACK/EXTREMITIES: Edema 0+. NEUROLOGICAL: Alert and motor intact. SKIN: LYMPHATICS: LABORATORY STUDIES: Labs show hemoglobin 7.7. ASSESSMENT AND RECOMMENDATIONS: 1. Stage 6 chronic kidney disease. Continue hemodialysis. 2. Hypertension, stable. 3. Anemia. Plan and recommend transfusion. 4. Medication based on GFR appropriate. Job ID: [id number]
--- NOTE | 2018-08-08 12:15 | PQF ---
CLINICAL DOCUMENTATION IMPROVEMENT CLARIFICATION FORM: ICD-10 Updated PLEASE DO AN ADDENDUM TO THE PROGRESS NOTE WITH ANY DOCUMENTATION UPDATES OR ADDITIONS AND CARRY THROUGH TO DC SUMMARY. THANK YOU. DATE: 08/08/2018; 08/09/2018 ATTN: Shannen Gee PA-C/ Dr. Matos Please exercise your independent, professional judgment in responding to the clarification form. Clinical indicators are provided on the bottom of this form for your review Please check appropriate box(s): [ ] Encephalopathy: Etiology: [ ] Metabolic [ ] Toxic [ ] Other (please specify) [ ] Other diagnosis [ ] Unable to determine In addition, please specify: Present on Admission (POA): [ ] Yes [ ] No [ ] Unable to determine For continuity of documentation, please document condition throughout progress notes and discharge summary. Thank You. CLINICAL INDICATORS - SIGNS / SYMPTOMS / LABS PN 08/06: no surgery at this time until the pt is improved from acute encephalopathy and metabolic issues. PN 08/07: He is alert, awake, and oriented x3. End-stage renal disease with apparent noncompliance with dialysis, resulting in altered mental status and uremia, much improved today. Hyperkalemia, now resolved RISKS: PN 08/07: End-stage renal disease with apparent noncompliance with dialysis, resulting in altered mental status and uremia. Type 2 DM. TREATMENT: 08/06: Plan: Nephrology has been consulted. will need daily dialysis to resolve metabolic issues of uremia and hyperkalemia. Thank you, Chanel (This form is maintained as a part of the permanent medical record) 2014 [employer] All Rights Reserved Chanel Enciso RN, BSN [email or web address] Office: [phone] [facility] HOSPITALElizabeth
--- NOTE | 2018-08-08 12:16 | PRG ---
DATE OF SERVICE: 08/08/2018 SUBJECTIVE: The patient is a doing okay today, has no specific complaints. He is more awake and alert. Says he is eating a little bit. Understands surgery is planned for tomorrow. OBJECTIVE: VITAL SIGNS: Temperature 98.3, pulse 81, respirations 18, O2 saturation 98% on room air, and BP 111/71. GENERAL APPEARANCE: Age-appropriate male, slightly grayish discoloration of the skin. He is a little bit somnolent, but does awaken and converse. HEART: Regular without murmurs. LUNGS: Clear bilaterally. ABDOMEN: Soft, nontender, and nondistended. EXTREMITIES: Have no cyanosis or clubbing. Right great toe is appropriately dressed. LABORATORY DATA: White count 13.0, hemoglobin 7.7, and platelets 92. CO2 is 15, BUN is 83, creatinine is 12.05, glucose 183, and calcium 7.1. Blood culture from 08/05 showing some coag-negative staph and gram-negative rods, appears to be a contaminant. IMPRESSION AND PLAN: 1. Wet gangrene, right great toe. The patient has severe peripheral vascular disease and plan is for below-knee amputation tomorrow. He will have dialysis and transfusion today in preparation. We will continue vancomycin and Zosyn. 2. Uremia. The patient has been encephalopathic secondary to uremia. It is getting slightly better, although his BUN remains at 83. He has been more awake and able a bit more. 3. End-stage renal disease. Continue with the dialysis. I spoke with Dr. Morales. He will get dialyzed today to be dry for his surgery tomorrow. 4. Anemia likely just related to his chronic kidney disease. He will get transfused 1 to 2 units today with dialysis. 5. Mild thrombocytopenia. 6. Diabetes mellitus. Blood sugars running between 150 to 200. 7. Severe peripheral vascular disease. I am going with the below-knee amputation for appropriate healing. 8. Ischemic cardiomyopathy, ejection fraction 20% to 25%, should be on the dry side after dialysis today and stable for the surgery. Continue with Coreg. Job ID: [id number]
[2018-08-08] MEDS: Piperacillin/Tazobactam 0.75 GM in Sodium Chloride 0.9% 100 ML IVPB SCH (18:10)
[2018-08-08] MEDS: Atorvastatin Calcium 20 MG TAB PO SCH (20:19)
[2018-08-09] MEDS: Piperacillin/Tazobactam 2.25 GM in Sodium Chloride 0.9% 100 ML IVPB SCH ×2 (04:06→15:06)
[2018-08-09 08:26] LABS: #Eosinphils 0.1 thou/uL (0.0-0.7); #Lymphocytes 0.9 thou/uL (1.20-3.40); #Monocytes 0.9 thou/uL (0.11-0.59); %Eosinophils 0.9 % (0.0-10.0); %Lymphocytes 7.1 % (21.0-51.0); %Monocytes 6.9 % (0.0-10.0); %Neutrophils 85.1 % (42.0-75.0); Hemoglobin 8.8 g/dL (14.0-18.0); Mean Corpuscular HGB CONC 32.7 g/dL (32.0-36.0); Mean Corpuscular Hemoglobin 30.4 pg (27.0-31.0); Mean Platelet Volume 8.2 fL (7.4-10.4); Platelet Count 100 thou/uL (130-400); RBC Distribution Width 15.9 % (11.5-14.5); Red Blood Cell (RBC) Count 2.88 mill/uL (4.70-6.10)
[2018-08-09 08:48] LABS: Anion Gap 22 mmol/L (10-20); BUN (Urea Nitrogen) 62 mg/dL (8.4-25.7); Calc. Creatinine Clearance 8 mL/min (70-130); Calcium 7.4 mg/dL (7.8-10.44); Carbon Dioxide 20 mmol/L (23-31); Chloride 99 mmol/L (98-107); Estimated GFR-MDRD 6; Glucose 153 mg/dL (80-115); Potassium 4.1 mmol/L (3.5-5.1); Sodium 137 mmol/L (136-145)
[2018-08-09] MEDS: Carvedilol 3.125 MG TAB PO SCH ×2 (09:18→17:00)
--- NOTE | 2018-08-09 12:04 | PRG ---
DATE OF SERVICE: 08/09/2018 SUBJECTIVE: A 68-year-old gentleman being seen for end-stage renal disease. The patient denies nausea, vomiting, or chest pain. OBJECTIVE: See above. CONSTITUTIONAL: Awake, alert, in no acute distress. VITAL SIGNS: Afebrile. Pulse 87, breathing 16, blood pressure 126/82. GENERAL APPEARANCE AND MENTAL STATUS: Fair. HEAD/NECK: Normocephalic. Atraumatic. EYES: EOMI. No deformity. EARS: Clear. No ulcers. NOSE: Intact. No lesions. MOUTH: Clear. No discharge. THROAT: Clear. No exudate. LUNGS: Clear. No crackles. CARDIAC: S1, S2. No rub. ABDOMEN: Benign. Bowel sounds positive. GENITALIA/RECTUM: Singer absent. BACK/EXTREMITIES: Edema 0+. NEUROLOGICAL: Alert and motor intact. SKIN: LYMPHATICS: LABORATORY STUDIES: Lab showed . ASSESSMENT AND PLAN: 1. Stage 6 chronic kidney disease. Continue hemodialysis. 2. Hypertension, stable. 3. Anemia, stable. 4. Medication based on GFR, appropriate. Job ID: [id number]
[2018-08-09] MEDS ORDERED: Fentanyl 100 MCG/2 ML VIAL ONE (13:14)
[2018-08-09] MEDS ORDERED: Midazolam HCl 2 mg/2 ml Vial ONE (13:14)
[2018-08-09] MEDS: READ PPD TEST SITE PO SCH (13:56)
--- NOTE | 2018-08-09 18:09 | PDOC.PN ---
- Subjective Encounter Start Date: 08/09/18 Encounter Start Time: 12:30 Patient seen and examined for ESRD/Gangrene. No new complaints. No overnight events - Objective MAR Reviewed: Yes Vital Signs & Weight: Vital Signs (12 hours) Temp Pulse Resp BP BP Pulse Ox 08/09/18 15:30 97.7 F 80 16 110/65 94 L 08/09/18 14:00 87 18 08/09/18 11:20 98.7 F 83 12 118/70 96 08/09/18 08:00 99.1 F 87 12 126/82 98 Weight Admit Weight 154 lb Weight 152 lb I&O: 08/08/18 08/09/18 08/10/18 06:59 06:59 06:59 Intake Total 650 350 Output Total 200 Balance 450 350 Result Diagrams: 08/09/18 07:52 08/09/18 07:52 Additional Labs: Accuchecks 08/09/18 08/09/18 08/09/18 17:00 10:25 06:10 POC Glucose 187 H 175 H 169 H 08/08/18 20:51 POC Glucose 274 H EKG Reviewed by me: Yes (Tele SR) Phys Exam - Physical Examination Constitutional: NAD Respiratory: no wheezing, no rhonchi Cardiovascular: RRR, no rub Gastrointestinal: soft, non-tender, positive bowel sounds Musculoskeletal: no edema Rt foot dressing + Neurological: moves all 4 limbs Dx/Plan - Plan 1. Toxic Metabolic Encephalopathy due to Uremia 2. Rt big toe infection/gangrene 3. ESRD on dialysis 4. Anemia due to CKD s/p 1 unit PRBC 5. PVD/CAD 6. DM2 7. HTN/Thrombocytopenia 8. Other issues per previous notes PLAN: Amputation today Cont current meds as below Cont Vanc/Zosyn Monitor Vancomycin level Add low dose ASA AM labs Review of Systems - Review of Systems Cardiovascular: negative: chest pain, palpitations, orthopnea, paroxysmal nocturnal dyspnea, edema, light headedness, other Gastrointestinal: negative: Nausea, Vomiting, Abdominal Pain, Diarrhea, Constipation, Melena, Hematochezia, Other - Medications/Allergies Allergies/Adverse Reactions: Allergies Allergy/AdvReac Type Severity Reaction Status Date / Time No Known Drug Allergies Allergy Verified 04/17/18 09:49 Medications: Current Medications Acetaminophen (Tylenol) 1,000 mg PO Q6H PRN PRN Reason: Mild Pain (1-3) Last Admin: 08/08/18 02:43 Dose: 1,000 mg Atorvastatin Calcium (Lipitor) 20 mg PO HS [facility] Last Admin: 08/08/18 20:19 Dose: 20 mg Carvedilol (Coreg) 3.125 mg PO BID-WM [facility] Last Admin: 08/09/18 17:00 Dose: 3.125 mg Dextrose/Water (Dextrose 50%) 25 gm SLOW IVP PRN PRN PRN Reason: Hypoglycemia Glucagon (Glucagon) 1 mg IM PRN PRN PRN Reason: Hypoglycemia Guaifenesin (Robitussin Sf) 300 mg PO Q4H PRN PRN Reason: Cough Vancomycin HCl 1 gm/ Device 200 mls @ 200 mls/hr IVPB WILLCALL TRACI Vancomycin HCl 750 mg/ Sodium (Chloride) 250 mls @ 250 mls/hr IVPB WILLCALL [facility]ACI Vancomycin HCl 500 mg/ Sodium (Chloride) 100 mls @ 100 mls/hr IVPB WILLCALL [facility] Vancomycin HCl 250 mg/ Sodium (Chloride) 100 mls @ 100 mls/hr IVPB WILLCALL [facility] Piperacillin Sod/Tazobactam (Sod 2.25 gm/ Sodium Chloride) 100 mls @ 200 mls/ hr IVPB 0300,1500 [facility] Last Admin: 08/09/18 15:06 Dose: 100 mls Piperacillin Sod/Tazobactam (Sod 0.75 gm/ Sodium Chloride) 100 mls @ 200 mls/ hr IVPB MoWeFr [facility] Last Admin: 08/08/18 18:10 Dose: 100 mls Dextrose/Water (D5w) 1,000 mls @ 0 mls/hr IV .Q0M PRN PRN Reason: Hypoglycemia Insulin Human Lispro (Humalog) 0 units SC .MILD SLIDING SCALE PRN PRN Reason: Mild Correctional Scale Last Admin: 08/08/18 12:30 Dose: 3 units Miscellaneous Medication (Pharmacy To Dose) 0 each IVPB .DOSE VANCO PRN PRN Reason: LABS Miscellaneous Medication (Pharmacy To Dose) 0 each IVPB .DOSE PIP-SAMANTHA PRN PRN Reason: LABS Hold Vancomycin For (Level >20) 0 each FS .AT DIALYSIS [facility] Read Ppd Test Site 0 each PO 1200 [facility] Stop: 08/10/18 12:01 Last Admin: 08/09/18 13:56 Dose: Not Given
[2018-08-09] MEDS: HumaLOG 300 UNITS/3 ML VIAL SC PRN (18:15)
[2018-08-09] MEDS: Atorvastatin Calcium 20 MG TAB PO SCH (19:46)
[2018-08-09] MEDS: Diabetic Tussin 200 MG/10 ML UDCUP PO PRN (19:46)
[2018-08-10] MEDS ORDERED: Clopidogrel Bisulfate 75 MG TAB ONE (02:35)
[2018-08-10] MEDS ORDERED: Sodium Chloride 0.9% 10 ML ONE (02:39)
[2018-08-10] MEDS: Piperacillin/Tazobactam 2.25 GM in Sodium Chloride 0.9% 100 ML IVPB SCH ×2 (02:53→16:34)
[2018-08-10] MEDS: Carvedilol 3.125 MG TAB PO SCH ×2 (08:48→16:35)
[2018-08-10 09:26] LABS: Vancomycin, Random 20.4 ug/mL (See Comment)
[2018-08-10] MEDS ORDERED: Heparin 10,000 UNITS/ 10 ML VIAL ONE (09:35)
[2018-08-10] MEDS: Aspirin 81 mg Enteric Coated Tablet PO SCH (10:03)
[2018-08-10] MEDS ORDERED: Fentanyl 100 MCG/2 ML VIAL ONE ×2 (12:14→12:31)
[2018-08-10] MEDS ORDERED: Famotidine/PF 20 mg/2ml Vial ONE (12:25)
[2018-08-10] MEDS ORDERED: Midazolam HCl 2 mg/2 ml Vial ONE ×2 (12:31→13:01)
[2018-08-10] MEDS ORDERED: Ketamine 50 MG/ML (10ML VIAL) ONE (13:01)
[2018-08-10] MEDS ORDERED: Ondansetron HCl/PF 4 MG/2 ML Vial IVP PRN (13:31)
[2018-08-10] MEDS ORDERED: Promethazine HCl 25 MG/ML VIAL IM PRN (13:31)
[2018-08-10] MEDS ORDERED: Promethazine HCl 25 MG/ML VIAL SLOW IVP PRN (13:31)
[2018-08-10] MEDS: READ PPD TEST SITE PO SCH (14:22)
[2018-08-10] MEDS ORDERED: Bupivacaine HCl 0.5%/Epinephrine 1:200,000/PF 30 ml Vial ONE (16:35)
--- NOTE | 2018-08-10 16:54 | PRG ---
DATE OF SERVICE: 08/10/2018 SUBJECTIVE: A 68-year-old gentleman, being seen for end-stage renal disease. The patient denied nausea, vomiting, or chest pain. OBJECTIVE: CONSTITUTIONAL: The patient is awake and alert. VITAL SIGNS: Afebrile, pulse 77, breathing 16, blood pressure 130/86. GENERAL APPEARANCE AND MENTAL STATUS: Fair. HEAD/NECK: Normocephalic. Atraumatic. EYES: EOMI. No deformity. EARS: Clear. No ulcers. NOSE: Intact. No lesions. MOUTH: Clear. No discharge. THROAT: Clear. No exudate. LUNGS: Clear. No crackles. CARDIAC: S1, S2. No rub. ABDOMEN: Benign. Bowel sounds positive. GENITALIA/RECTUM: Singer absent. BACK/EXTREMITIES: Edema 0+. NEUROLOGICAL: Alert and motor intact. SKIN: LYMPHATICS: LABORATORY DATA: Reviewed. IMPRESSION: 1. Stage 6 chronic kidney disease, plan dialysis. 2. Hypertension, stable. 3. Anemia, stable. 4. Medication based on GFR, appropriate. Job ID: [id number]
[2018-08-10] MEDS ORDERED: Ondansetron PF 4 MG/2 ML Vial ONE (16:58)
--- NOTE | 2018-08-10 20:49 | PDOC.PN ---
- Subjective Encounter Start Date: 08/10/18 Encounter Start Time: 13:00 Patient in surgery - Objective MAR Reviewed: Yes Vital Signs & Weight: Vital Signs (12 hours) Temp Pulse Resp BP Pulse Ox 08/10/18 11:57 97.8 F 77 18 130/83 100 Weight Admit Weight 154 lb Weight 2.37 oz I&O: 08/09/18 08/10/18 08/11/18 06:59 06:59 06:59 Intake Total 350 1540 Balance 350 1540 Result Diagrams: 08/09/18 07:52 08/09/18 07:52 Additional Labs: Accuchecks 08/10/18 08/10/18 08/09/18 11:10 05:34 21:05 POC Glucose 158 H 154 H 194 H Dx/Plan - Plan DVT proph w/heparin 1. Toxic Metabolic Encephalopathy due to Uremia - improving 2. Rt big toe infection/gangrene - for amputation today 3. ESRD on dialysis 4. Anemia due to CKD s/p 1 unit PRBC 5. PVD/CAD 6. DM2 7. HTN/Thrombocytopenia 8. Other issues per previous notes PLAN: Cont current meds as below Cont Vanc/Zosyn Monitor Vancomycin level AM labs Review of Systems - Medications/Allergies Allergies/Adverse Reactions: Allergies Allergy/AdvReac Type Severity Reaction Status Date / Time No Known Drug Allergies Allergy Verified 04/17/18 09:49 Medications: Current Medications Acetaminophen (Tylenol) 1,000 mg PO Q6H PRN PRN Reason: Mild Pain (1-3) Last Admin: 08/08/18 02:43 Dose: 1,000 mg Aspirin (Ecotrin) 81 mg PO DAILY [facility] Last Admin: 08/10/18 10:03 Dose: Not Given Atorvastatin Calcium (Lipitor) 20 mg PO HS [facility] Last Admin: 08/09/18 19:46 Dose: 20 mg Carvedilol (Coreg) 3.125 mg PO BID-WM [facility] Last Admin: 08/10/18 16:35 Dose: Not Given Dextrose/Water (Dextrose 50%) 25 gm SLOW IVP PRN PRN PRN Reason: Hypoglycemia Glucagon (Glucagon) 1 mg IM PRN PRN PRN Reason: Hypoglycemia Guaifenesin (Robitussin Sf) 300 mg PO Q4H PRN PRN Reason: Cough Last Admin: 08/09/18 19:46 Dose: 300 mg Vancomycin HCl 1 gm/ Device 200 mls @ 200 mls/hr IVPB WILLCALL [facility] Vancomycin HCl 750 mg/ Sodium (Chloride) 250 mls @ 250 mls/hr IVPB WILLCALL [facility] Vancomycin HCl 500 mg/ Sodium (Chloride) 100 mls @ 100 mls/hr IVPB [facility] Vancomycin HCl 250 mg/ Sodium (Chloride) 100 mls @ 100 mls/hr IVPB [facility] Piperacillin Sod/Tazobactam (Sod 2.25 gm/ Sodium Chloride) 100 mls @ 200 mls/ hr IVPB 0300,1500 [facility] Last Admin: 08/10/18 16:34 Dose: Not Given Piperacillin Sod/Tazobactam (Sod 0.75 gm/ Sodium Chloride) 100 mls @ 200 mls/ hr IVPB MoWeFr [facility] Last Admin: 08/08/18 18:10 Dose: 100 mls Dextrose/Water (D5w) 1,000 mls @ 0 mls/hr IV .Q0M PRN PRN Reason: Hypoglycemia Insulin Human Lispro (Humalog) 0 units SC .MILD SLIDING SCALE PRN PRN Reason: Mild Correctional Scale Last Admin: 08/09/18 18:15 Dose: 2 units Miscellaneous Medication (Pharmacy To Dose) 0 each IVPB .DOSE VANCO PRN PRN Reason: LABS Miscellaneous Medication (Pharmacy To Dose) 0 each IVPB .DOSE PIP-SAMANTHA PRN PRN Reason: LABS Hold Vancomycin For (Level >20) 0 each FS .AT DIALYSIS [facility]
[2018-08-10] MEDS: traMADol HCl 50 MG TAB PO PRN (21:11)
[2018-08-10] MEDS: Atorvastatin Calcium 20 MG TAB PO SCH (21:11)
[2018-08-10] MEDS: Piperacillin/Tazobactam 0.75 GM in Sodium Chloride 0.9% 100 ML IVPB SCH (21:12)
[2018-08-11] MEDS ORDERED: Morphine 4 MG/ML VIAL SLOW IVP SCH (02:15)
[2018-08-11] MEDS: Piperacillin/Tazobactam 2.25 GM in Sodium Chloride 0.9% 100 ML IVPB SCH ×2 (02:25→16:17)
[2018-08-11 06:42] LABS: Hemoglobin 8.5 g/dL (14.0-18.0); Platelet Count 117 thou/uL (130-400)
[2018-08-11 06:43] LABS: Anion Gap 20 mmol/L (10-20); BUN (Urea Nitrogen) 62 mg/dL (8.4-25.7); Calc. Creatinine Clearance 8 mL/min (70-130); Calcium 7.5 mg/dL (7.8-10.44); Carbon Dioxide 22 mmol/L (23-31); Chloride 99 mmol/L (98-107); Estimated GFR-MDRD 7; Glucose 267 mg/dL (80-115); Potassium 3.9 mmol/L (3.5-5.1); Sodium 137 mmol/L (136-145)
[2018-08-11] MEDS: Acetaminophen 500 MG TAB PO PRN ×2 (06:46→18:55)
[2018-08-11] MEDS: Carvedilol 3.125 MG TAB PO SCH ×2 (07:47→16:17)
[2018-08-11] MEDS: Aspirin 81 mg Enteric Coated Tablet PO SCH (07:47)
--- NOTE | 2018-08-11 08:07 | CT ---
CT HEAD NONCONTRAST: Date: 08/11/18 INDICATION: Head injury related to fall. FINDINGS: Reference made to 08/09/17 exam. There is generalized mild global atrophy with compensatory dilatation of the ventricular system. Ther e is a cavum septum pellucidum et vergae. Interval cavitary lacunar infarction involves the anterior left gomes radiata, which is superimposed upon microvascular ischemic disease. No intracranial hemor rhage, mass effect, or midline shift. No depressed calvarial fracture or pneumocephalus. IMPRESSION: 1. No acute intracranial hemorrhage or mass effect. 2. Interval age-indeterminate cavitary lacunar infarction of anterior left gomes radiata superimpos ed upon microvascular ischemic disease. POS: [facility]
--- NOTE | 2018-08-11 09:09 | RAD ---
EXAM: RIGHT RIBS TWO VIEWS, CHEST ONE VIEW: History: Injury following a fall. FINDINGS: There is cardiomegaly. Right ICD. There are multiple right rib deformities, evidence for healed fract ures. In addition, there appear to be nondisplaced acute fractures through the right 10th and 11th ri bs. There is some bilateral vascular congestion with some patchy parenchymal changes throughout the r ight lung and perihilar region with small right pleural effusion which appear to be new when compared to the prior study. Bony demineralization. IMPRESSION: Some vascular congestion and possible mild perihilar interstitial changes raising concern for minimal edema or atypical pneumonia or pneumonitis with a small right pleural effusion. Multiple old healed right rib fractures. Nondisplaced fractures of the right 10th and 11th ribs. No pneumothorax. POS: [facility]
[2018-08-11] MEDS ORDERED: Haloperidol Lactate 5 MG/ML VIAL IM SCH (10:15)
--- NOTE | 2018-08-11 11:12 | PRG ---
DATE OF SERVICE: 08/11/2018 SUBJECTIVE: A 68-year-old gentleman, being seen for end-stage renal disease. The patient denied nausea, vomiting, or chest pain. OBJECTIVE: CONSTITUTIONAL: The patient is awake and alert. VITAL SIGNS: Afebrile, pulse 77, breathing 16, blood pressure 121/77. GENERAL APPEARANCE AND MENTAL STATUS: Fair. HEAD/NECK: Normocephalic. Atraumatic. EYES: EOMI. No deformity. EARS: Clear. No ulcers. NOSE: Intact. No lesions. MOUTH: Clear. No discharge. THROAT: Clear. No exudate. LUNGS: Clear. No crackles. CARDIAC: S1, S2. No rub. ABDOMEN: Benign. Bowel sounds positive. GENITALIA/RECTUM: Singer absent. BACK/EXTREMITIES: Edema 0+. NEUROLOGICAL: Alert and motor intact. SKIN: LYMPHATICS: LABORATORY DATA: Lab show hemoglobin 8.5. IMPRESSION: 1. Stage 6 chronic kidney disease, plan dialysis on Monday. 2. Hypertension, stable. 3. Anemia, stable. 4. Medication based on GFR, appropriate. Job ID: [id number]
--- NOTE | 2018-08-11 12:52 | PDOC.PN ---
- Subjective Encounter Start Date: 08/11/18 Encounter Start Time: 07:40 Pt seen for followup re: acute metabolic encephalopathy. DEnies chest pain, shortness of breath, fevers or chills. - Objective Vital Signs & Weight: Vital Signs (12 hours) Temp Pulse Resp BP BP Pulse Ox 08/11/18 08:00 96.8 F L 77 16 121/77 100 08/11/18 05:40 90 18 114/67 100 08/11/18 04:00 98.7 F 76 18 91/64 94 L Weight Admit Weight 154 lb Weight 153 lb I&O: 08/10/18 08/11/18 08/12/18 06:59 06:59 06:59 Intake Total 1540 620 Balance 1540 620 Result Diagrams: 08/11/18 05:26 08/11/18 05:26 Additional Labs: Accuchecks 08/11/18 08/10/18 05:34 21:08 POC Glucose 296 H 119 H Phys Exam - Physical Examination Constitutional: NAD HEENT: moist MMs Neck: supple Respiratory: clear to auscultation bilateral Cardiovascular: RRR Gastrointestinal: soft s/p R BKA Neurological: non-focal Psychiatric: normal affect Dx/Plan (1) Acute metabolic encephalopathy Code(s): G93.41 - METABOLIC ENCEPHALOPATHY Status: Acute Comment: Improving , likely secondary to uremia (2) Diabetic foot infection Code(s): E11.628 - TYPE 2 DIABETES MELLITUS WITH OTHER SKIN COMPLICATIONS; L08.9 - LOCAL INFECTION OF THE SKIN AND SUBCUTANEOUS TISSUE, UNSP Status: Acute Comment: s/p R BKA (3) Anxiety and depression Code(s): F41.8 - OTHER SPECIFIED ANXIETY DISORDERS Status: Chronic Comment: mild, stable (4) BPH (benign prostatic hyperplasia) Code(s): N40.0 - BENIGN PROSTATIC HYPERPLASIA WITHOUT LOWER URINRY TRACT SYMP Status: Chronic Comment: stable (5) CAD (coronary artery disease), [place] coronary artery Code(s): I25.10 - ATHSCL HEART DISEASE OF [place] CORONARY ARTERY W/O ANG PCTRS Status: Chronic Qualifiers: Comment: stable (6) Diabetes type 2, controlled Code(s): E11.9 - TYPE 2 DIABETES MELLITUS WITHOUT COMPLICATIONS Status: Chronic Comment: continue accuchecks, insulin (7) Hypertension Code(s): I10 - ESSENTIAL (PRIMARY) HYPERTENSION Status: Chronic Qualifiers: Comment: controlled (8) ESRD (end stage renal disease) on dialysis Code(s): N18.6 - END STAGE RENAL DISEASE; Z99.2 - DEPENDENCE ON RENAL DIALYSIS Status: Chronic Comment: nephrology following - Plan * . Review of Systems - Review of Systems Respiratory: negative: Cough, Shortness of Breath, SOB with Excertion, Pleuritic Pain, Wheezing Cardiovascular: negative: chest pain, palpitations, orthopnea, paroxysmal nocturnal dyspnea, edema, light headedness - Medications/Allergies Allergies/Adverse Reactions: Allergies Allergy/AdvReac Type Severity Reaction Status Date / Time No Known Drug Allergies Allergy Verified 04/17/18 09:49 Medications: Current Medications Acetaminophen (Tylenol) 1,000 mg PO Q6H PRN PRN Reason: Mild Pain (1-3) Last Admin: 08/11/18 06:46 Dose: 1,000 mg Aspirin (Ecotrin) 81 mg PO DAILY [facility] Last Admin: 08/11/18 07:47 Dose: 81 mg Atorvastatin Calcium (Lipitor) 20 mg PO HS [facility] Last Admin: 08/10/18 21:11 Dose: 20 mg Carvedilol (Coreg) 3.125 mg PO BID-WM [facility] Last Admin: 08/11/18 07:47 Dose: 3.125 mg Dextrose/Water (Dextrose 50%) 25 gm SLOW IVP PRN PRN PRN Reason: Hypoglycemia Glucagon (Glucagon) 1 mg IM PRN PRN PRN Reason: Hypoglycemia Guaifenesin (Robitussin Sf) 300 mg PO Q4H PRN PRN Reason: Cough Last Admin: 08/09/18 19:46 Dose: 300 mg Vancomycin HCl 1 gm/ Device 200 mls @ 200 mls/hr IVPB WILLCALL [facility] Vancomycin HCl 750 mg/ Sodium (Chloride) 250 mls @ 250 mls/hr IVPB WILLCALL [facility] Vancomycin HCl 500 mg/ Sodium (Chloride) 100 mls @ 100 mls/hr IVPB [facility]CALL [facility] Vancomycin HCl 250 mg/ Sodium (Chloride) 100 mls @ 100 mls/hr IVPB [facility]CALL [facility] Piperacillin Sod/Tazobactam (Sod 2.25 gm/ Sodium Chloride) 100 mls @ 200 mls/ hr IVPB 0300,1500 [facility] Last Admin: 08/11/18 02:25 Dose: 100 mls Piperacillin Sod/Tazobactam (Sod 0.75 gm/ Sodium Chloride) 100 mls @ 200 mls/ hr IVPB MoWeFr [facility] Last Admin: 08/10/18 21:12 Dose: Not Given Dextrose/Water (D5w) 1,000 mls @ 0 mls/hr IV .Q0M PRN PRN Reason: Hypoglycemia Insulin Human Lispro (Humalog) 0 units SC .MILD SLIDING SCALE PRN PRN Reason: Mild Correctional Scale Last Admin: 08/09/18 18:15 Dose: 2 units Miscellaneous Medication (Pharmacy To Dose) 0 each IVPB .DOSE VANCO PRN PRN Reason: LABS Miscellaneous Medication (Pharmacy To Dose) 0 each IVPB .DOSE PIP-SAMANTHA PRN PRN Reason: LABS Hold Vancomycin For (Level >20) 0 each FS .AT DIALYSIS [facility] Tramadol HCl (Ultram) 50 mg PO Q12H PRN PRN Reason: Mild-Moderate Pain (1-5) Tramadol HCl (Ultram) 100 mg PO Q12H PRN PRN Reason: Moderate to Severe Pain (6-10) Last Admin: 08/10/18 21:11 Dose: 100 mg
[2018-08-11] MEDS: traMADol HCl 50 MG TAB PO PRN (14:42)
[2018-08-11] MEDS: HumaLOG 300 UNITS/3 ML VIAL SC PRN ×2 (17:44→22:25)
[2018-08-11] MEDS ORDERED: Nitroglycerin 0.4 MG TAB (25 Tab Bottle) ONE (20:36)
[2018-08-11] MEDS: Nitroglycerin 0.4 MG TAB (25 Tab Bottle) SL PRN ×2 (20:50→20:59)
[2018-08-11] MEDS: Atorvastatin Calcium 20 MG TAB PO SCH (20:58)
[2018-08-11] MEDS ORDERED: Lidocaine 5% Patch TD SCH (21:00)
[2018-08-11 21:14] LABS: Troponin I 0.258 ng/mL (< 0.028)
[2018-08-11] MEDS ORDERED: FLUoxetine HCl 20 MG CAP PO SCH (21:45)
[2018-08-11] MEDS: Lorazepam 0.5 MG TAB PO PRN (22:26)
[2018-08-12 02:53] LABS: Troponin I 0.265 ng/mL (< 0.028)
[2018-08-12] MEDS ORDERED: Sodium Chloride 0.9% 10 ML ONE (03:28)
[2018-08-12] MEDS: Piperacillin/Tazobactam 2.25 GM in Sodium Chloride 0.9% 100 ML IVPB SCH ×3 (03:39→17:09)
[2018-08-12] MEDS: traMADol HCl 50 MG TAB PO PRN (03:54)
[2018-08-12] MEDS: Carvedilol 3.125 MG TAB PO SCH ×2 (08:01→16:10)
[2018-08-12] MEDS: Aspirin 81 mg Enteric Coated Tablet PO SCH (08:01)
[2018-08-12 08:30] LABS: Troponin I 0.284 ng/mL (< 0.028)
[2018-08-12] MEDS ORDERED: Lidocaine Patch Removal 1 EACH TOP SCH (09:00)
--- NOTE | 2018-08-12 13:39 | PDOC.PN ---
- Subjective Encounter Start Date: 08/12/18 Encounter Start Time: 08:20 Pt seen for followup re; acute metabolic encephalopathy. More alert today, denies chest pain or shortness of breath. - Objective MAR Reviewed: Yes Vital Signs & Weight: Vital Signs (12 hours) Temp Pulse Resp BP Pulse Ox 08/12/18 11:40 97.3 F L 90 16 112/75 97 08/12/18 08:00 99 08/12/18 07:56 98.8 F 92 16 125/81 99 08/12/18 04:00 98.5 F 94 18 127/83 100 Weight Admit Weight 154 lb Weight 144 lb 13.499 oz I&O: 08/11/18 08/12/18 08/13/18 06:59 06:59 06:59 Intake Total 620 Balance 620 Result Diagrams: 08/11/18 05:26 08/11/18 05:26 Additional Labs: Accuchecks 08/12/18 08/12/18 08/11/18 11:01 04:37 20:14 POC Glucose 186 H 130 H 220 H 08/11/18 16:44 POC Glucose 332 H EKG Reviewed by me: Yes (Tele: NSR) Phys Exam - Physical Examination Constitutional: NAD HEENT: moist MMs Neck: supple Respiratory: clear to auscultation bilateral Cardiovascular: RRR Gastrointestinal: soft s/p R BKA Neurological: moves all 4 limbs Psychiatric: normal affect Dx/Plan (1) Acute metabolic encephalopathy Code(s): G93.41 - METABOLIC ENCEPHALOPATHY Status: Acute Comment: Improving , likely secondary to uremia and infection (2) Diabetic foot infection Code(s): E11.628 - TYPE 2 DIABETES MELLITUS WITH OTHER SKIN COMPLICATIONS; L08.9 - LOCAL INFECTION OF THE SKIN AND SUBCUTANEOUS TISSUE, UNSP Status: Acute Comment: s/p R BKA (3) Anxiety and depression Code(s): F41.8 - OTHER SPECIFIED ANXIETY DISORDERS Status: Chronic Comment: mild, stable (4) BPH (benign prostatic hyperplasia) Code(s): N40.0 - BENIGN PROSTATIC HYPERPLASIA WITHOUT LOWER URINRY TRACT SYMP Status: Chronic Comment: nil acute (5) CAD (coronary artery disease), [place] coronary artery Code(s): I25.10 - ATHSCL HEART DISEASE OF [place] CORONARY ARTERY W/O ANG PCTRS Status: Chronic Qualifiers: Comment: Pt c/o chest pain yesterday, none today (6) Diabetes type 2, controlled Code(s): E11.9 - TYPE 2 DIABETES MELLITUS WITHOUT COMPLICATIONS Status: Chronic Comment: continue accuchecks, insulin sliding scale (7) Hypertension Code(s): I10 - ESSENTIAL (PRIMARY) HYPERTENSION Status: Chronic Qualifiers: Comment: controlled (8) ESRD (end stage renal disease) on dialysis Code(s): N18.6 - END STAGE RENAL DISEASE; Z99.2 - DEPENDENCE ON RENAL DIALYSIS Status: Chronic Comment: nephrology following - Plan * . Review of Systems - Review of Systems Respiratory: negative: Cough, Shortness of Breath, SOB with Excertion, Pleuritic Pain, Wheezing Cardiovascular: negative: chest pain, palpitations, orthopnea, paroxysmal nocturnal dyspnea, edema, light headedness - Medications/Allergies Allergies/Adverse Reactions: Allergies Allergy/AdvReac Type Severity Reaction Status Date / Time No Known Drug Allergies Allergy Verified 04/17/18 09:49 Medications: Current Medications Acetaminophen (Tylenol) 1,000 mg PO Q6H PRN PRN Reason: Mild Pain (1-3) Last Admin: 08/11/18 18:55 Dose: 1,000 mg Aspirin (Ecotrin) 81 mg PO DAILY [facility] Last Admin: 08/12/18 08:01 Dose: 81 mg Atorvastatin Calcium (Lipitor) 20 mg PO HS [facility] Last Admin: 08/11/18 20:58 Dose: 20 mg Carvedilol (Coreg) 3.125 mg PO BID-[facility] Last Admin: 08/12/18 08:01 Dose: 3.125 mg Dextrose/Water (Dextrose 50%) 25 gm SLOW IVP PRN PRN PRN Reason: Hypoglycemia Fluoxetine HCl (Prozac) 20 mg PO 2100 [facility] Glucagon (Glucagon) 1 mg IM PRN PRN PRN Reason: Hypoglycemia Guaifenesin (Robitussin Sf) 300 mg PO Q4H PRN PRN Reason: Cough Last Admin: 08/09/18 19:46 Dose: 300 mg Vancomycin HCl 1 gm/ Device 200 mls @ 200 mls/hr IVPB WILLCALL [facility] Vancomycin HCl 750 mg/ Sodium (Chloride) 250 mls @ 250 mls/hr IVPB WILLCALL [facility] Vancomycin HCl 500 mg/ Sodium (Chloride) 100 mls @ 100 mls/hr IVPB WILLCALL [facility]ACI Vancomycin HCl 250 mg/ Sodium (Chloride) 100 mls @ 100 mls/hr IVPB [facility]CALL [facility] Piperacillin Sod/Tazobactam (Sod 2.25 gm/ Sodium Chloride) 100 mls @ 200 mls/ hr IVPB 0300,1500 [facility] Last Admin: 08/12/18 03:39 Dose: 100 mls Piperacillin Sod/Tazobactam (Sod 0.75 gm/ Sodium Chloride) 100 mls @ 200 mls/ hr IVPB MoWeFr [facility] Last Admin: 08/10/18 21:12 Dose: Not Given Dextrose/Water (D5w) 1,000 mls @ 0 mls/hr IV .Q0M PRN PRN Reason: Hypoglycemia Insulin Human Lispro (Humalog) 0 units SC .MILD SLIDING SCALE PRN PRN Reason: Mild Correctional Scale Last Admin: 08/11/18 22:25 Dose: 3 units Lorazepam (Ativan) 0.5 mg PO TID PRN PRN Reason: Anxiety/Agitation Last Admin: 08/11/18 22:26 Dose: 0.5 mg Miscellaneous Medication (Pharmacy To Dose) 0 each IVPB .DOSE VANCO PRN PRN Reason: LABS Miscellaneous Medication (Pharmacy To Dose) 0 each IVPB .DOSE PIP-SAMANTHA PRN PRN Reason: LABS Nitroglycerin (Nitrostat) 0.4 mg SL Q5MIN PRN PRN Reason: Chest Pain Last Admin: 08/11/18 20:59 Dose: 0.4 mg Hold Vancomycin For (Level >20) 0 each FS .AT DIALYSIS [facility] Tramadol HCl (Ultram) 50 mg PO Q12H PRN PRN Reason: Mild-Moderate Pain (1-5) Tramadol HCl (Ultram) 100 mg PO Q12H PRN PRN Reason: Moderate to Severe Pain (6-10) Last Admin: 08/12/18 03:54 Dose: 100 mg
--- NOTE | 2018-08-12 14:22 | PRG ---
DATE OF SERVICE: 08/12/2018 SUBJECTIVE: This is a 68-year-old gentleman, being seen for end-stage renal disease. The patient denied any nausea, vomiting, or chest pain. OBJECTIVE: GENERAL: The patient is awake and alert. VITAL SIGNS: Afebrile, pulse 70, breathing 16, and blood pressure 120/81. GENERAL APPEARANCE AND MENTAL STATUS: Fair. HEAD/NECK: Normocephalic. Atraumatic. EYES: EOMI. No deformity. EARS: Clear. No ulcers. NOSE: Intact. No lesions. MOUTH: Clear. No discharge. THROAT: Clear. No exudate. LUNGS: Clear. No crackles. CARDIAC: S1, S2. No rub. ABDOMEN: Benign. Bowel sounds positive. GENITALIA/RECTUM: Singer absent. BACK/EXTREMITIES: Edema 0+. NEUROLOGICAL: Alert and motor intact. SKIN: LYMPHATICS: LABORATORY DATA: Lab show hemoglobin 8.5. IMPRESSION AND PLAN: 1. Stage 6 chronic kidney disease. Plan, dialysis tomorrow. 2. Hypertension, stable. 3. Anemia, stable. 4. Medication based on GFR, appropriate. Job ID: [id number]
--- NOTE | 2018-08-12 15:54 | PRG ---
DATE OF SERVICE: 08/12/2018 SUBJECTIVE: Mr. 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 He has been stable on the telemetry floor since his surgery. He is resting in bed now and then tells me he is sleepy. His tells me that he has been very lethargic and sleepy, and she feels that he is depressed since his surgery. PHYSICAL EXAMINATION: VITAL SIGNS: He is afebrile, pulse is 90, and blood pressure 112/75. EXTREMITIES: His right lower extremity dressing is intact, and his knee immobilizer is in place. LABORATORY STUDIES: His hemoglobin yesterday was 8.5 down from 8.8 two days previously. It was not checked today. He has had no chemistry related labs either other than his troponin levels checked. ASSESSMENT: The patient is stable following right below-knee amputation. I would typically unwrap the extremity and examine the wound on postoperative day #3, which will be tomorrow. He will need physical therapy to help him with transfers. He will likely need rehabilitation placement until he is better transferring himself from bed to wheelchair. He has elsa that will need to be removed about 2 weeks out from surgery. He usually keeps the knee immobilizer in place for the first couple of weeks, except during times of physical therapy for range of motion exercises. Job ID: [id number]
[2018-08-12] MEDS: Atorvastatin Calcium 20 MG TAB PO SCH (20:14)
[2018-08-12] MEDS: FLUoxetine HCl 20 MG CAP PO SCH (20:14)
[2018-08-12] MEDS: HumaLOG 300 UNITS/3 ML VIAL SC PRN (20:14)
[2018-08-13] MEDS ORDERED: Nitroglycerin 2% Ointment 1 INCH/1 GM Packet TOP SCH (05:30)
[2018-08-13 06:10] LABS: #Monocytes 1.2 thou/uL (0.11-0.59); #Neutrophils 13.6 thou/uL (1.40-6.50); %Basophils 0.1 % (0.0-1.0); %Eosinophils 0.2 % (0.0-10.0); %Lymphocytes 6.3 % (21.0-51.0); %Monocytes 7.5 % (0.0-10.0); %Neutrophils 85.9 % (42.0-75.0); Hemoglobin 9.1 g/dL (14.0-18.0); Mean Corpuscular HGB CONC 31.8 g/dL (32.0-36.0); Mean Corpuscular Hemoglobin 30.3 pg (27.0-31.0); Mean Corpuscular Volume 95.3 fL (78.0-98.0); Mean Platelet Volume 8.8 fL (7.4-10.4); Platelet Count 154 thou/uL (130-400); RBC Distribution Width 16.4 % (11.5-14.5); Red Blood Cell (RBC) Count 2.99 mill/uL (4.70-6.10); White Blood Cell (WBC) Count 15.9 thou/uL (4.8-10.8)
[2018-08-13 06:27] LABS: Anion Gap 31 mmol/L (10-20); BUN (Urea Nitrogen) 79 mg/dL (8.4-25.7); Calc. Creatinine Clearance 7 mL/min (70-130); Calcium 7.7 mg/dL (7.8-10.44); Carbon Dioxide 14 mmol/L (23-31); Chloride 98 mmol/L (98-107); Estimated GFR-MDRD 5; Glucose 138 mg/dL (80-115); Potassium 5.7 mmol/L (3.5-5.1); Sodium 137 mmol/L (136-145)
[2018-08-13] MEDS: Lorazepam 0.5 MG TAB PO PRN (08:17)
[2018-08-13 08:34] LABS: Vancomycin, Random 14.9 ug/mL (See Comment)
[2018-08-13] MEDS: Carvedilol 3.125 MG TAB PO SCH ×2 (11:05→19:07)
[2018-08-13] MEDS: Aspirin 81 mg Enteric Coated Tablet PO SCH (11:05)
[2018-08-13] MEDS ORDERED: Heparin 1,000 UNITS/ML VIAL ONE (11:11)
--- NOTE | 2018-08-13 12:08 | PRG ---
DATE OF SERVICE: SUBJECTIVE: The patient is very confused today, not able to have good history. He does have crackles and fluid overload and was confused. OBJECTIVE: GENERAL: This is a confused male, in no apparent distress. VITAL SIGNS: Temperature blood pressure 123/78. HEENT: Atraumatic, normocephalic. NECK: Supple. CARDIOVASCULAR: S1 and S2 heard. RESPIRATORY: Crackles both sides. GASTROINTESTINAL: Abdomen is soft. MUSCULOSKELETAL: 1+ edema. DERMATOLOGIC: No skin rash. NEUROLOGIC: Confused. LABORATORY DATA: Hemoglobin is 9.1. Potassium is 5.7, BUN is 79, creatinine is . ASSESSMENT AND PLAN: 1. End-stage renal disease. The patient is very confused and was fighting with dialysis all night at the bed and he is on restraints and seems like dialysis access got clotted. I do not think he is stable to have IR intervention for declotting at this point. I called Dr. Fuentes to put a temporary femoral dialysis catheter at bedside and plan is to dialyse him to correct his uremia and also fluid overload and eventually get the IR to have declotting done. 2. Hypertension, stable. 3. Anemia, we will add Epogen. Plan is to continue dialysis as tolerated. Consult placed for Surgery. Job ID: [id number]
[2018-08-13] MEDS ORDERED: Furosemide 100 MG/10 ML VIAL SLOW IVP SCH (13:15)
[2018-08-13 14:26] LABS: Actual Bicarbonate (HCO3a) 11.6 mEq/L (22-28); Analyzer IN Cardio OR; Base Excess (BEa) -12.9 mEq/L (-2.0 to +3.0); CO2 Tension 22.9 mmHg (35.0-45.0); Calcium, Ionized 0.94 mmol/L (1.12-1.30); Carboxyhemoglobin (COHb) 0.5 gm% (0.0-3.0); Hemoglobin (Hb) 8.3 g/dL (14.0-18.0); O2 Tension (PaO2) 159.2 mmHg (> 70.0); Potassium - ABG Lab 5.87 mmol/L (3.70-5.30); pH, Arterial 7.32 (7.35-7.45)
[2018-08-13 14:27] LABS: ALV-art Gradient 40.335 (0-20); Puncture Site LRA
--- NOTE | 2018-08-13 16:04 | PDOC.PN ---
- Subjective Encounter Start Date: 08/13/18 Encounter Start Time: 14:00 Pt seen for followup re; respiratory distress. Pt breathing shallow. Denies chest pain. - Objective Vital Signs & Weight: Vital Signs (12 hours) Temp Pulse Resp BP Pulse Ox 08/13/18 14:52 98.9 F 08/13/18 12:00 96.0 F L 08/13/18 10:59 98.1 F 90 24 H 128/69 96 08/13/18 10:57 96 08/13/18 04:54 97.5 F L 102 H 18 136/88 91 L Weight Admit Weight 154 lb Weight 146 lb 12.8 oz I&O: 08/12/18 08/13/18 08/14/18 06:59 06:59 06:59 Intake Total 960 Balance 960 Result Diagrams: 08/13/18 05:53 08/13/18 05:53 Additional Labs: Accuchecks 08/13/18 08/13/18 08/12/18 11:01 05:41 20:14 POC Glucose 95 146 H 306 H 08/12/18 08/09/18 17:00 14:03 POC Glucose 222 H 163 H Phys Exam - Physical Examination Constitutional: NAD HEENT: moist MMs Neck: supple Noel crackles Cardiovascular: RRR Gastrointestinal: soft s/p R BKA Neurological: moves all 4 limbs Deviation from normal: appears anxious Dx/Plan (1) Respiratory distress Code(s): R06.03 - ACUTE RESPIRATORY DISTRESS Status: Acute Comment: Likely secondary to volume overload, pt transfered to [facility] for further management (2) Acute metabolic encephalopathy Code(s): G93.41 - METABOLIC ENCEPHALOPATHY Status: Acute Comment: Improving (3) Diabetic foot infection Code(s): E11.628 - TYPE 2 DIABETES MELLITUS WITH OTHER SKIN COMPLICATIONS; L08.9 - LOCAL INFECTION OF THE SKIN AND SUBCUTANEOUS TISSUE, UNSP Status: Acute Comment: s/p R BKA (4) Anxiety and depression Code(s): F41.8 - OTHER SPECIFIED ANXIETY DISORDERS Status: Chronic Comment: mild, stable (5) BPH (benign prostatic hyperplasia) Code(s): N40.0 - BENIGN PROSTATIC HYPERPLASIA WITHOUT LOWER URINRY TRACT SYMP Status: Chronic Comment: stable (6) CAD (coronary artery disease), [place] coronary artery Code(s): I25.10 - ATHSCL HEART DISEASE OF [place] CORONARY ARTERY W/O ANG PCTRS Status: Chronic Qualifiers: Comment: stable (7) Diabetes type 2, controlled Code(s): E11.9 - TYPE 2 DIABETES MELLITUS WITHOUT COMPLICATIONS Status: Chronic Comment: continue accuchecks, insulin sliding scale (8) Hypertension Code(s): I10 - ESSENTIAL (PRIMARY) HYPERTENSION Status: Chronic Qualifiers: Comment: controlled (9) ESRD (end stage renal disease) on dialysis Code(s): N18.6 - END STAGE RENAL DISEASE; Z99.2 - DEPENDENCE ON RENAL DIALYSIS Status: Chronic Comment: nephrology following; pt has AV fistula clotted; surgery consulted re: trialysis catheter - Plan plan discussed w/ family * . Review of Systems - Review of Systems Respiratory: Shortness of Breath, SOB with Excertion. negative: Cough, Dry, Hemoptysis, Pleuritic Pain, Sputum, Wheezing Cardiovascular: negative: chest pain, palpitations, orthopnea, paroxysmal nocturnal dyspnea, edema, light headedness - Medications/Allergies Allergies/Adverse Reactions: Allergies Allergy/AdvReac Type Severity Reaction Status Date / Time No Known Drug Allergies Allergy Verified 04/17/18 09:49 Medications: Current Medications Acetaminophen (Tylenol) 1,000 mg PO Q6H PRN PRN Reason: Mild Pain (1-3) Last Admin: 08/11/18 18:55 Dose: 1,000 mg Aspirin (Ecotrin) 81 mg PO DAILY [facility] Last Admin: 08/13/18 11:05 Dose: Not Given Atorvastatin Calcium (Lipitor) 20 mg PO HS [facility] Last Admin: 08/12/18 20:14 Dose: 20 mg Carvedilol (Coreg) 3.125 mg PO BID-WM [facility] Last Admin: 08/13/18 11:05 Dose: Not Given Dextrose/Water (Dextrose 50%) 25 gm SLOW IVP PRN PRN PRN Reason: Hypoglycemia Epoetin [place] (Procrit) 10,000 units IVP MoWeFr [facility] Fluoxetine HCl (Prozac) 20 mg PO 2100 [facility] Last Admin: 08/12/18 20:14 Dose: 20 mg Glucagon (Glucagon) 1 mg IM PRN PRN PRN Reason: Hypoglycemia Guaifenesin (Robitussin Sf) 300 mg PO Q4H PRN PRN Reason: Cough Last Admin: 03/14/19 19:46 Dose: 300 mg Dextrose/Water (D5w) 1,000 mls @ 0 mls/hr IV .Q0M PRN PRN Reason: Hypoglycemia Insulin Human Lispro (Humalog) 0 units SC .MILD SLIDING SCALE PRN PRN Reason: Mild Correctional Scale Last Admin: 08/12/18 20:14 Dose: 5 units Lorazepam (Ativan) 0.5 mg PO TID PRN PRN Reason: Anxiety/Agitation Last Admin: 08/13/18 08:17 Dose: 0.5 mg Nitroglycerin (Nitrostat) 0.4 mg SL Q5MIN PRN PRN Reason: Chest Pain Last Admin: 08/11/18 20:59 Dose: 0.4 mg Hold Vancomycin For (Level >20) 0 each FS .AT DIALYSIS [facility] Tramadol HCl (Ultram) 50 mg PO Q12H PRN PRN Reason: Mild-Moderate Pain (1-5) Tramadol HCl (Ultram) 100 mg PO Q12H PRN PRN Reason: Moderate to Severe Pain (6-10) Last Admin: 08/12/18 03:54 Dose: 100 mg
--- NOTE | 2018-08-13 16:12 | RAD ---
EXAM: CHEST ONE VIEW: History: Dyspnea. Comparison: 08-11-18 FINDINGS: Right ICD. Prominent cardiomegaly. Bilateral vascular congestion with some minimal interstitial and a lveolar changes, somewhat more prominent in the right perihilar region in the right lower lobe with s ome right pleural effusion. IMPRESSION: Prominent cardiomegaly with some vascular congestion and increased linear and interstitial markings i n the right lung with some right costophrenic angle blunting raising concern for asymmetric edema jennifer maurilio some right sided diffuse atypical pneumonia or pneumonitis. Stable appearing left upper chest. Co ntinued short term follow up. POS: [facility]
--- NOTE | 2018-08-13 16:57 | CON ---
DATE OF CONSULTATION: 08/13/2018 This is a 45 minutes of critical care time. CONSULTING PHYSICIAN: Dr. Hay from the Hospitalist group. REASON FOR CONSULTATION: Impending respiratory failure. HISTORY OF PRESENT ILLNESS: The patient is a 68-year-old male, who was admitted to the hospital by the Hospitalist group on 08/05/2018 for increasing shortness of breath. He has end-stage renal disease requiring maintenance hemodialysis. Apparently, he could not be dialyzed today because his fistula "clotted off." The patient was transferred back to the [facility] because he was too much to handle out of the floor according to the nursing staff. I am seeing him in the [facility], I find the patient to be quite tachypneic and in respiratory distress. PAST MEDICAL HISTORY: 1. End-stage renal disease requiring hemodialysis. 2. Peripheral vascular disease. 3. Coronary artery disease. 4. Congestive heart failure. 5. Ischemic cardiomyopathy. 6. Hyperlipidemia. 7. Hypertension. 8. Diabetes mellitus. 9. Stroke. PAST SURGICAL HISTORY: 1. Left arm fistula placement. 2. AICD placement. 3. Right below-knee amputation during this hospitalization for gangrene by General Surgery. ALLERGIES: NONE. CURRENT MEDICATIONS: 1. Tylenol. 2. Eccrine. 3. Lipitor. 4. Coreg. 5. Procrit. 6. Prozac. 7. Lasix. 8. Glucagon. 9. Lispro insulin. 10. Ativan. 11. Nitrostat. SOCIAL HISTORY: Does not smoke. Does not consume alcohol. I am not sure about substance use history in the past. REVIEW OF SYSTEMS: A 12-point review of systems cannot be obtained as the patient is not very communicative. PHYSICAL EXAMINATION: VITAL SIGNS: Temperature 96.0, pulse 90, respirations 30, blood pressure 120/69, and O2 saturation 96%. GENERAL: The patient has garbled speech. He appears to be in mild to moderate respiratory discomfort. HEENT: Pupils are reactive. Oropharynx, poor dentition. NECK: No JVD. LUNGS: Coarse rhonchi bilaterally consistent with pulmonary edema. CARDIOVASCULAR: S1 and S2. Regular. ABDOMEN: Soft and nontender. EXTREMITIES: Right below-knee amputation noted. LABORATORY DATA: White blood cell count 15.9, hematocrit 28.5, and platelet count 154. A pH of 7.32, pCO2 of 23, pO2 of 159, that is on 3 L. Sodium 137, potassium 5.7, chloride 98, CO2 of 14, BUN 79, creatinine 9.9, and glucose 138. Chest x-ray is pending. ASSESSMENT: 1. Profound fluid overload. This patient is fluid overloaded from being inadequately dialyzed due to lack of vascular access. 2. Acute hypoxic respiratory failure. 3. Metabolic acidosis secondary to his chronic kidney disease and being under dialyzed. RECOMMENDATION: 1. I will put him on BiPAP therapy to bridge his breathing until dialysis can be done. 2. The patient needs to be moved to CCU. 3. Dialysis access to be placed by Dr. Fuentes. 4. Further care per Hospitalist group. Job ID: [id number]
[2018-08-13] MEDS: Epoetin (ESRD) 10,000 UNITS/ML VIAL IVP SCH (20:24)
[2018-08-13] MEDS: Atorvastatin Calcium 20 MG TAB PO SCH (21:28)
[2018-08-13] MEDS: FLUoxetine HCl 20 MG CAP PO SCH (21:28)
--- NOTE | 2018-08-13 21:56 | OP ---
DATE OF PROCEDURE: 08/13/2018 PREOPERATIVE DIAGNOSIS: Thrombosed left arm Mita fistula, in need of ___ dialysis access status post right below-knee amputation. ANESTHESIA: 1% Xylocaine. DESCRIPTION OF PROCEDURE: With the patient at bedside, Seldinger technique was used to place a triple-lumen Trialysis catheter in left groin, removing the J-wire, securing the catheter with 3-0 nylon suture. Each port aspirated blood, flushed with heparinized saline solution. Sterile dressing was applied. The patient tolerated the procedure well. Fistulogram was ordered for in the morning, dialysis tonight and in the morning. Job ID: [id number] [facility]
[2018-08-14 05:28] LABS: Anion Gap 28 mmol/L (10-20); BUN (Urea Nitrogen) 47 mg/dL (8.4-25.7); Calc. Creatinine Clearance 9 mL/min (70-130); Calcium 8.5 mg/dL (7.8-10.44); Carbon Dioxide 18 mmol/L (23-31); Chloride 97 mmol/L (98-107); Estimated GFR-MDRD 9; Glucose 139 mg/dL (80-115); Potassium 4.5 mmol/L (3.5-5.1); Sodium 138 mmol/L (136-145)
[2018-08-14 06:18] LABS: #Lymphocytes 0.7 thou/uL (1.20-3.40); #Monocytes 0.8 thou/uL (0.11-0.59); #Neutrophils 14.4 thou/uL (1.40-6.50); %Eosinophils 0.1 % (0.0-10.0); %Lymphocytes 4.2 % (21.0-51.0); %Monocytes 5.2 % (0.0-10.0); %Neutrophils 90.4 % (42.0-75.0); Anisocytosis SLIGHT = 6-15 cells (100X) (0-5/hpf); Hemoglobin 9.4 g/dL (14.0-18.0); MDiff Complete? YES; Mean Corpuscular Hemoglobin 30.1 pg (27.0-31.0); Mean Corpuscular Volume 94.2 fL (78.0-98.0); Mean Platelet Volume 8.4 fL (7.4-10.4); Platelet Count 140 thou/uL (130-400); RBC Distribution Width 16.6 % (11.5-14.5); Red Blood Cell (RBC) Count 3.12 mill/uL (4.70-6.10); White Blood Cell (WBC) Count 15.9 thou/uL (4.8-10.8)
[2018-08-14] MEDS: Norepinephrine 8 MG/0.9% NS 250 ML IVPB PRN ×2 (08:07→16:43)
--- NOTE | 2018-08-14 08:14 | PRG ---
DATE OF SERVICE: 08/14/2018 SUBJECTIVE: The patient is confused. He was wearing BiPAP this morning. He did receive dialysis last night. OBJECTIVE: VITAL SIGNS: On exam, his temperature is 97.9, pulse 80, blood pressure ranging between 74/58 to 93/66, O2 saturation 100%. Intake 960 in and 2100 out by dialysis. HEENT: He has oropharyngeal noises. NECK: No JVD. CHEST: Coarse breath sounds. CARDIAC: S1, S2. Regular. ABDOMEN: Soft, nontender. EXTREMITIES: He has a left femoral Trialysis catheter in place. LABORATORY DATA: 1. White count 15.9, hematocrit 29.4, and platelet count 140. Sodium 138, potassium 4.5, chloride 97, CO2 of 18, BUN 47, creatinine 6.3, and glucose 139. ASSESSMENT: 1. Chronic renal failure. 2. Fluid overload, which is slightly improved compared to yesterday. 3. Acute hypoxic respiratory failure, which seems to be better. 4. Improved metabolic acidosis. 5. Improved hypoglycemia. PLAN: 1. Levophed p.r.n. to keep his blood pressure systolic above 90. 2. Interventional Radiology is going to try to declot his left forearm vascular access. 3. I will hold his Coreg today given his hypotension. 4. Further care per hospitalist service. Job ID: [id number]
--- NOTE | 2018-08-14 08:34 | ULT ---
RIGHT UPPER EXTREMITY VEIN MAPPING EXAM: INDICATION: End stage renal disease, right arm vein mapping for dialysis therapy. FINDINGS: RIGHT UPPER EXTREMITY: Brachial Artery 4.4 mm Radial Artery 1.8 mm Ulnar Artery 1.2 mm CEPHALIC VEIN: Proximal humerus 1.7 mm Mid humerus 1.2 mm Distal 1.5 mm Elbow 1.0 mm Proximal forearm 1.0 mm Distal aspect not visualized BASILIC VEIN: Proximal humerus 3.9 mm Mid humerus 1.5 mm Distal 1.2 mm Elbow 1.3 mm Proximal forearm 1.2 mm Distal aspect not visualized IMPRESSION: Right upper extremity vein mapping as above. POS: [facility]
[2018-08-14] MEDS ORDERED: Heparin 10,000 UNITS/ 10 ML VIAL ONE (09:00)
[2018-08-14] MEDS: Aspirin 81 mg Enteric Coated Tablet PO SCH (09:29)
--- NOTE | 2018-08-14 15:11 | PDOC.PN ---
- Subjective Encounter Start Date: 08/14/18 Encounter Start Time: 10:00 Pt seen for followup re; acute respiratory failure. Was on BiPAP overnight. Not speaking much, unable to complete ROS. - Objective MAR Reviewed: Yes Vital Signs & Weight: Vital Signs (12 hours) Temp Pulse Pulse Ox 08/14/18 08:00 97.5 F L 94 L 08/14/18 04:00 97.9 F 08/14/18 03:59 82 Weight Admit Weight 154 lb Weight 133 lb Most Recent Monitor Data Heart Rate from ECG 101 NIBP 103/71 NIBP BP-Mean 81 Respiration from ECG 26 SpO2 94 I&O: 08/13/18 08/14/18 08/15/18 06:59 06:59 06:59 Intake Total 960 0 60 Output Total 0 0 Balance 960 0 60 Result Diagrams: 08/14/18 04:50 08/14/18 04:50 Additional Labs: Accuchecks 08/14/18 08/14/18 08/13/18 12:06 02:15 22:37 POC Glucose 135 H 124 H 126 H 08/13/18 08/13/18 08/13/18 21:51 20:00 18:57 POC Glucose 54 L* 114 H Less than 35 L* 08/13/18 08/13/18 18:02 18:00 POC Glucose Less than 35 L* 36 L* EKG Reviewed by me: Yes (Tele: NSR) Phys Exam - Physical Examination Constitutional: NAD HEENT: moist MMs Neck: supple Noel crackles Cardiovascular: RRR Gastrointestinal: soft s/p R BKA Neurological: moves all 4 limbs Deviation from normal: Unable to assess Dx/Plan (1) Respiratory distress Code(s): R06.03 - ACUTE RESPIRATORY DISTRESS Status: Acute Comment: Improved after BiPAP; awaiting dialysis (2) Acute metabolic encephalopathy Code(s): G93.41 - METABOLIC ENCEPHALOPATHY Status: Acute Comment: Improving (3) Diabetic foot infection Code(s): E11.628 - TYPE 2 DIABETES MELLITUS WITH OTHER SKIN COMPLICATIONS; L08.9 - LOCAL INFECTION OF THE SKIN AND SUBCUTANEOUS TISSUE, UNSP Status: Acute Comment: s/p R BKA (4) Anxiety and depression Code(s): F41.8 - OTHER SPECIFIED ANXIETY DISORDERS Status: Chronic Comment: stable (5) BPH (benign prostatic hyperplasia) Code(s): N40.0 - BENIGN PROSTATIC HYPERPLASIA WITHOUT LOWER URINRY TRACT SYMP Status: Chronic Comment: stable (6) CAD (coronary artery disease), [place] coronary artery Code(s): I25.10 - ATHSCL HEART DISEASE OF [place] CORONARY ARTERY W/O ANG PCTRS Status: Chronic Qualifiers: Comment: stable (7) Diabetes type 2, controlled Code(s): E11.9 - TYPE 2 DIABETES MELLITUS WITHOUT COMPLICATIONS Status: Chronic Comment: on accuchecks, insulin sliding scale (8) Hypertension Code(s): I10 - ESSENTIAL (PRIMARY) HYPERTENSION Status: Chronic Qualifiers: Comment: controlled (9) ESRD (end stage renal disease) on dialysis Code(s): N18.6 - END STAGE RENAL DISEASE; Z99.2 - DEPENDENCE ON RENAL DIALYSIS Status: Chronic Comment: surgery consulted re: trialysis catheter - Plan * . Review of Systems - Medications/Allergies Allergies/Adverse Reactions: Allergies Allergy/AdvReac Type Severity Reaction Status Date / Time No Known Drug Allergies Allergy Verified 04/17/18 09:49 Medications: Current Medications Acetaminophen (Tylenol) 1,000 mg PO Q6H PRN PRN Reason: Mild Pain (1-3) Last Admin: 08/11/18 18:55 Dose: 1,000 mg Aspirin (Ecotrin) 81 mg PO DAILY [facility] Last Admin: 08/14/18 09:29 Dose: 81 mg Atorvastatin Calcium (Lipitor) 20 mg PO HS [facility] Last Admin: 08/13/18 21:28 Dose: Not Given Carvedilol (Coreg) 3.125 mg PO BID-WM [facility] Last Admin: 08/13/18 19:07 Dose: Not Given Dextrose/Water (Dextrose 50%) 25 gm SLOW IVP PRN PRN PRN Reason: Hypoglycemia Last Admin: 08/13/18 22:02 Dose: 25 gm Epoetin Arthur (Procrit) 10,000 units IVP MoWeFr [facility] Last Admin: 08/13/18 20:24 Dose: Not Given Fluoxetine HCl (Prozac) 20 mg PO 2100 [facility] Last Admin: 08/13/18 21:28 Dose: Not Given Glucagon (Glucagon) 1 mg IM PRN PRN PRN Reason: Hypoglycemia Last Admin: 08/13/18 19:14 Dose: 1 mg Guaifenesin (Robitussin Sf) 300 mg PO Q4H PRN PRN Reason: Cough Last Admin: 08/09/18 19:46 Dose: 300 mg Heparin Sodium (Porcine) (Heparin Lock Flush 100 Units/Ml) 500 units IV PRN PRN PRN Reason: Heparin Flush Last Admin: 08/14/18 05:00 Dose: 500 unit Dextrose/Water (D5w) 1,000 mls @ 0 mls/hr IV .Q0M PRN PRN Reason: Hypoglycemia Norepinephrine Bitartrate (Levophed) 250 mls @ 0 mls/hr IVPB INF PRN; Protocol PRN Reason: SBP less than 90 Last Admin: 08/14/18 08:07 Dose: 250 mls Insulin Human Lispro (Humalog) 0 units SC .MILD SLIDING SCALE PRN PRN Reason: Mild Correctional Scale Last Admin: 08/12/18 20:14 Dose: 5 units Nitroglycerin (Nitrostat) 0.4 mg SL Q5MIN PRN PRN Reason: Chest Pain Last Admin: 08/11/18 20:59 Dose: 0.4 mg Hold Vancomycin For (Level >20) 0 each FS .AT DIALYSIS [facility] Tramadol HCl (Ultram) 50 mg PO Q12H PRN PRN Reason: Mild-Moderate Pain (1-5) Tramadol HCl (Ultram) 100 mg PO Q12H PRN PRN Reason: Moderate to Severe Pain (6-10) Last Admin: 08/12/18 03:54 Dose: 100 mg
--- NOTE | 2018-08-14 18:22 | PRG ---
DATE OF SERVICE: 08/14/2018 SUBJECTIVE: The patient has remained confused today in the ICU. OBJECTIVE: GENERAL: This is a thin-built, male, confused. VITAL SIGNS: Temperature 97.9. Heart rate 121. Respiratory rate 28. Blood pressure 90/78. HEENT: Atraumatic and normocephalic. NECK: Supple. CARDIOVASCULAR: S1 and S2 heard. RESPIRATORY: Crackles. ABDOMEN: Soft. MUSCULOSKELETAL: 1+ edema. DERMATOLOGIC: No skin rash. NEUROLOGIC: Confused. LABORATORY DATA: Potassium is 4.5, BUN is 47, creatinine is 6.3. ASSESSMENT AND PLAN: 1. End-stage renal disease. The patient is not tolerating dialysis. The patient has remained confused and fluid overloaded, but not able to remove much fluid. The patient otherwise hypotensive even on Levophed. Prognosis is guarded. 2. Hypotension. 3. Anemia. 4. Edema with fluid overload. Prognosis is guarded. Not able to tolerate dialysis. We will continue to follow. Job ID: [id number]
[2018-08-14] MEDS: Atorvastatin Calcium 20 MG TAB PO SCH (21:23)
[2018-08-14] MEDS: FLUoxetine HCl 20 MG CAP PO SCH (21:24)
[2018-08-15 05:13] LABS: #Lymphocytes 0.8 thou/uL (1.20-3.40); #Monocytes 1.2 thou/uL (0.11-0.59); #Neutrophils 13.6 thou/uL (1.40-6.50); %Basophils 0.1 % (0.0-1.0); %Eosinophils 0.1 % (0.0-10.0); %Lymphocytes 5.3 % (21.0-51.0); %Monocytes 7.8 % (0.0-10.0); %Neutrophils 86.8 % (42.0-75.0); Hemoglobin 8.9 g/dL (14.0-18.0); Mean Corpuscular HGB CONC 31.6 g/dL (32.0-36.0); Mean Corpuscular Hemoglobin 30.3 pg (27.0-31.0); Mean Corpuscular Volume 95.9 fL (78.0-98.0); Mean Platelet Volume 8.1 fL (7.4-10.4); Platelet Count 162 thou/uL (130-400); Red Blood Cell (RBC) Count 2.94 mill/uL (4.70-6.10); White Blood Cell (WBC) Count 15.7 thou/uL (4.8-10.8)
[2018-08-15 05:30] LABS: Anion Gap 29 mmol/L (10-20); BUN (Urea Nitrogen) 53 mg/dL (8.4-25.7); Calc. Creatinine Clearance 10 mL/min (70-130); Calcium 9.1 mg/dL (7.8-10.44); Carbon Dioxide 17 mmol/L (23-31); Chloride 99 mmol/L (98-107); Estimated GFR-MDRD 10; Glucose 220 mg/dL (80-115); Sodium 140 mmol/L (136-145)
[2018-08-15] MEDS: HumaLOG 300 UNITS/3 ML VIAL SC PRN (06:48)
--- NOTE | 2018-08-15 08:09 | PRG ---
DATE OF SERVICE: 08/15/2018 SUBJECTIVE: The patient remains in the CCU. He is less confused than yesterday. Most of the questions asked and he can answer appropriately, but his speech is somewhat garbled. OBJECTIVE: VITAL SIGNS: On exam, his temperature is 97.7, pulse 106, blood pressure 116/73, but he is requiring 5 mcg/minute of Levophed to achieve an O2 saturation of 100%. Intake 394 mL, output 0. HEENT: Unremarkable. NECK: No JVD. LUNGS: Clear breath sounds. CARDIAC: S1, S2. Regular. ABDOMEN: Soft, nontender. EXTREMITIES: Right below-knee amputation. LABORATORY DATA: White blood cell count 15.7, hemoglobin 8.9, hematocrit 28.2, and platelet count 162. Sodium 140, potassium 5, chloride 99, CO2 of 17, BUN 53, creatinine 5.8, glucose 220. ASSESSMENT: 1. Persistent hypotension. I think this is probably volume related. However, need to rule out renal insufficiency, thyroid issues, etc. 2. End-stage renal disease requiring hemodialysis. 3. Protein-calorie malnutrition. 4. Hyperlipidemia. 5. History of hypertension. PLAN: 1. I will go ahead and hold his antihypertensives. 2. Start midodrine 5 mg t.i.d. to see, if that will improve his blood pressure. 3. Check cortisol level, TSH. 4. Continue to monitor labs. 5. Prognosis is very guarded. Job ID: [id number]
[2018-08-15 08:42] LABS: Free T4 (Free Thyroxine) 0.71 ng/dL (0.70-1.48); Thyroid Stimulating Hormone 0.548 uIU/mL (0.35-4.94)
[2018-08-15] MEDS: Aspirin 81 mg Enteric Coated Tablet PO SCH (10:28)
[2018-08-15] MEDS ORDERED: Albumin 25% 25 GM/100 ML BOT IVPB SCH (11:15)
[2018-08-15] MEDS: traMADol HCl 50 MG TAB PO PRN (11:19)
[2018-08-15] MEDS: Midodrine HCl 5 MG TAB PO SCH ×3 (12:43→20:47)
[2018-08-15] MEDS: Epoetin (ESRD) 10,000 UNITS/ML VIAL IVP SCH (14:28)
[2018-08-15] MEDS: Norepinephrine 8 MG/0.9% NS 250 ML IVPB PRN ×2 (15:01)
--- NOTE | 2018-08-15 17:11 | PRG ---
DATE OF SERVICE: 08/15/2018 SUBJECTIVE: Patient was seen and examined at bedside and overnight events noted. Patient denies any shortness of breath or chest pain or palpitation. No history of nausea or vomiting or diarrhea or fever or chills or cramps. OBJECTIVE: GENERAL: This is a well-built male, in no apparent distress. VITAL SIGNS: Temperature 97.9, pulse 87, respiratory rate 26, blood pressure 112/70. HEENT: Atraumatic, normocephalic. Oral mucosa is moist NECK: Supple. CARDIOVASCULAR: S1, S2 heard. Rate and rhythm regular. RESPIRATORY: Clear to auscultation. GASTROINTESTINAL: Abdomen is soft. MUSCULOSKELETAL: No tenderness. No edema. DERMATOLOGIC: No skin rash. NEUROLOGIC: Alert and awake and oriented X3. No focal neurologic deficits. Moving all the extremities. PSYCHIATRIC: Mood and affect normal. LABORATORY DATA: Potassium is 5.0, BUN is 53, creatinine is 5.8. ASSESSMENT AND PLAN: 1. End-stage renal disease, continue on hemodialysis as tolerated. 2. Hypotension. I agree with midodrine. Check cortisol, TSH level. 3. Anemia. 4. Edema with fluid overload. Plan is to have dialysis with pressors and albumin and also midodrine. We will follow. Job ID: [id number]
--- NOTE | 2018-08-15 18:22 | PDOC.PN ---
- Subjective Encounter Start Date: 08/15/18 Encounter Start Time: 11:00 Pt seen for followup re: acute metabolic encephalopathy. Pt attempting to say something, unable, could not complete ROS. - Objective Vital Signs & Weight: Vital Signs (12 hours) Temp Pulse Pulse BP BP Pulse Ox 08/15/18 17:00 98.2 F 08/15/18 16:43 87 86 112/72 104/65 08/15/18 14:00 97.9 F 08/15/18 12:00 98.7 F 08/15/18 08:00 98.9 F 92 L Weight Admit Weight 154 lb Weight 66 lb 3.2 oz Most Recent Monitor Data Heart Rate from ECG 95 NIBP 101/74 NIBP BP-Mean 83 Respiration from ECG 24 SpO2 99 I&O: 08/14/18 08/15/18 08/16/18 06:59 06:59 06:59 Intake Total 0 394 972 Output Total 0 0 Balance 0 394 972 Result Diagrams: 08/15/18 05:00 08/15/18 05:00 Additional Labs: Accuchecks 08/15/18 08/15/18 08/15/18 16:09 11:39 07:51 POC Glucose 97 189 H 123 H 08/14/18 08/14/18 23:48 19:53 POC Glucose 150 H 84 Phys Exam - Physical Examination malnourished HEENT: moist MMs Neck: supple Respiratory: clear to auscultation bilateral Cardiovascular: RRR Gastrointestinal: soft s/p R BKA Neurological: moves all 4 limbs Psychiatric: normal affect Dx/Plan (1) Acute metabolic encephalopathy Code(s): G93.41 - METABOLIC ENCEPHALOPATHY Status: Acute Comment: Improving (2) Respiratory distress Code(s): R06.03 - ACUTE RESPIRATORY DISTRESS Status: Acute Comment: Improved (3) Hypotension Status: Acute Comment: pt started on midodrine (on levophed drip as well) (4) Diabetic foot infection Code(s): E11.628 - TYPE 2 DIABETES MELLITUS WITH OTHER SKIN COMPLICATIONS; L08.9 - LOCAL INFECTION OF THE SKIN AND SUBCUTANEOUS TISSUE, UNSP Status: Acute Comment: s/p R BKA (5) Anxiety and depression Code(s): F41.8 - OTHER SPECIFIED ANXIETY DISORDERS Status: Chronic Comment: stable (6) BPH (benign prostatic hyperplasia) Code(s): N40.0 - BENIGN PROSTATIC HYPERPLASIA WITHOUT LOWER URINRY TRACT SYMP Status: Chronic Comment: stable (7) CAD (coronary artery disease), [place] coronary artery Code(s): I25.10 - ATHSCL HEART DISEASE OF [place] CORONARY ARTERY W/O ANG PCTRS Status: Chronic Qualifiers: Comment: stable (8) Diabetes type 2, controlled Code(s): E11.9 - TYPE 2 DIABETES MELLITUS WITHOUT COMPLICATIONS Status: Chronic Comment: on accuchecks, insulin sliding scale (9) Hypertension Code(s): I10 - ESSENTIAL (PRIMARY) HYPERTENSION Status: Chronic Qualifiers: Comment: controlled (10) ESRD (end stage renal disease) on dialysis Code(s): N18.6 - END STAGE RENAL DISEASE; Z99.2 - DEPENDENCE ON RENAL DIALYSIS Status: Chronic Comment: surgery consulted re: trialysis catheter (11) Severe protein-calorie malnutrition Code(s): E43 - UNSPECIFIED SEVERE PROTEIN-CALORIE MALNUTRITION Status: Chronic - Plan * . Review of Systems - Medications/Allergies Allergies/Adverse Reactions: Allergies Allergy/AdvReac Type Severity Reaction Status Date / Time No Known Drug Allergies Allergy Verified 04/17/18 09:49 Medications: Current Medications Acetaminophen (Tylenol) 1,000 mg PO Q6H PRN PRN Reason: Mild Pain (1-3) Last Admin: 08/11/18 18:55 Dose: 1,000 mg Albumin Human (Albumin 25%) 25 gm IVPB [facility] Stop: 08/15/18 21:00 Last Admin: 08/15/18 12:09 Dose: 25 gm Aspirin (Ecotrin) 81 mg PO DAILY [facility] Last Admin: 08/15/18 10:28 Dose: 81 mg Atorvastatin Calcium (Lipitor) 20 mg PO HS [facility] Last Admin: 08/14/18 21:23 Dose: Not Given Dextrose/Water (Dextrose 50%) 25 gm SLOW IVP PRN PRN PRN Reason: Hypoglycemia Last Admin: 08/13/18 22:02 Dose: 25 gm Epoetin Arthur (Procrit) 10,000 units IVP MoWeFr [facility] Last Admin: 08/15/18 14:28 Dose: 10,000 units Fluoxetine HCl (Prozac) 20 mg PO 2100 [facility] Last Admin: 08/14/18 21:24 Dose: Not Given Glucagon (Glucagon) 1 mg IM PRN PRN PRN Reason: Hypoglycemia Last Admin: 08/13/18 19:14 Dose: 1 mg Guaifenesin (Robitussin Sf) 300 mg PO Q4H PRN PRN Reason: Cough Last Admin: 08/09/18 19:46 Dose: 300 mg Heparin Sodium (Porcine) (Heparin Lock Flush 100 Units/Ml) 500 units IV PRN PRN PRN Reason: Heparin Flush Last Admin: 08/14/18 05:00 Dose: 500 unit Dextrose/Water (D5w) 1,000 mls @ 0 mls/hr IV .Q0M PRN PRN Reason: Hypoglycemia Norepinephrine Bitartrate (Levophed) 250 mls @ 0 mls/hr IVPB INF PRN; Protocol PRN Reason: SBP less than 90 Last Admin: 08/15/18 15:01 Dose: 250 mls Insulin Human Lispro (Humalog) 0 units SC .MILD SLIDING SCALE PRN PRN Reason: Mild Correctional Scale Last Admin: 08/15/18 06:48 Dose: 3 units Midodrine (Proamatine) 5 mg PO TID [facility] Last Admin: 08/15/18 15:01 Dose: 5 mg Nitroglycerin (Nitrostat) 0.4 mg SL Q5MIN PRN PRN Reason: Chest Pain Last Admin: 08/11/18 20:59 Dose: 0.4 mg Hold Vancomycin For (Level >20) 0 each FS .AT DIALYSIS [facility] Sodium Chloride (Flush - Normal Saline) 10 ml IVF Q12HR [facility] Last Admin: 08/15/18 11:10 Dose: 10 ml Sodium Chloride (Flush - Normal Saline) 10 ml IVF PRN PRN PRN Reason: Saline Flush Tramadol HCl (Ultram) 50 mg PO Q12H PRN PRN Reason: Mild-Moderate Pain (1-5) Tramadol HCl (Ultram) 100 mg PO Q12H PRN PRN Reason: Moderate to Severe Pain (6-10) Last Admin: 08/15/18 11:19 Dose: 100 mg
[2018-08-15] MEDS: FLUoxetine HCl 20 MG CAP PO SCH (20:47)
[2018-08-15] MEDS: Atorvastatin Calcium 20 MG TAB PO SCH (20:47)
--- NOTE | 2018-08-15 22:06 | PRG ---
DATE OF SERVICE: 08/15/2018 SUBJECTIVE: Mr. Ramirez is postoperative day #5 following right below-knee amputation for right foot gangrene. A couple of days ago, he was transferred to the intensive care unit secondary to respiratory insufficiency and he was briefly on BiPAP. He continues to be confused. He has had hemodynamic instability requiring pressor support. I have examined his stump twice since surgery, on postoperative day #3 and today. Although, this tip of the stump appears somewhat dusky, the skin incision is without any necrosis. He has substantially less discomfort today and has pretty good range of motion of the knee. He does remain confused and of course still on hemodialysis. ASSESSMENT: The patient who is stable following his below-knee amputation from a surgical standpoint. He has medical issues that persist of course. I will continue to follow the course of his stump during this hospitalization. Ronnie should not be removed until 2 to 3 weeks after surgery. He still has a stump immobilizer in place. Job ID: [id number]
--- NOTE | 2018-08-16 02:25 | OP ---
DATE OF PROCEDURE: 08/10/2018 PREOPERATIVE DIAGNOSES: Right foot gangrene with severe peripheral arterial disease. POSTOPERATIVE DIAGNOSES: Right foot gangrene with severe peripheral arterial disease. PROCEDURE PERFORMED: Right below-knee amputation. ANESTHESIA: General endotracheal anesthesia. INDICATIONS FOR PROCEDURE: The patient is a 68-year-old male. He has multiple comorbidities including a severe cardiomyopathy with between 15% and 20% ejection fraction, end-stage renal disease, and severe peripheral arterial disease. He presented to the hospital with a gangrenous, liquefying right great toe and severe right foot pain. He was evaluated by Vascular Surgery and found to have essentially no arterial runoff in his foot that would support a lower level of amputation. I therefore recommended below-knee amputation. DESCRIPTION OF PROCEDURE: Informed consent was obtained. The patient was taken to the operating room. Proximal nerve blocks were placed by Anesthesia. General anesthesia was then obtained as well. His right leg was prepped with ChloraPrep and draped in sterile fashion with exclusion of the ischemic/gangrenous foot. A skin incision was marked on the right lower leg with the proximal skin incision about 10 cm inferior to the tibial plateau. A partial circumferential incision was created at this level, and a long posterior flap was marked as well. Skin incisions were created with a scalpel. Dissection was carried deeply through subdermal tissue with electrocautery, going through the fascia at the same level. The muscles were divided in line with the skin incision on the anterior aspect. The tibia was cleared, and dissection was carried down to the fibula as well. The anterior tibial vessels were identified during the course of dissection and divided between clamps and 2-0 silk ties. The artery was severely calcified, but flow was preserved. The tibia was then dissected circumferentially. Periosteal elevators were used to clear it proximally. The tibia was then divided with a Gigli saw proximal to the level of the skin incision with anterior bevelling. The fibula was then dissected circumferentially and divided with rib fortino proximal to the level of the tibial transection. A posterior flap was initiated with electrocautery and completed with the [place] amputation knife. The knife transected both the peroneal and posterior tibial bundles. These were immediately grasped and clamped and subsequently ligated with 2-0 silk suture. All of these arteries were again densely calcified, but with preserved arterial flow. Hemostasis was obtained in the remainder of the flap using electrocautery as well as suture ligatures. The tibia was rasped smooth. The stump was irrigated. The posterior flap was then sutured to the anterior flap, initially using 2-0 Vicryl sutures to approximate the deep fascia to the anterior periosteum of the tibia. Subsequently, the superficial fascia of the two flaps was approximated with a series of interrupted sutures of 2-0 Vicryl. Subcutaneous tissue was approximated with a running suture of 3-0 Vicryl and the skin edges with skin elsa. A dressing was then fashioned using Xeroform gauze along with fluffed gauze and an Amaury wrap. Finally, a knee immobilizer was placed to prevent contracture. There were no complications. Blood loss was minimal. The patient tolerated the procedure well and was taken to recovery room in stable condition. Job ID: [id number]
[2018-08-16] MEDS: HumaLOG 300 UNITS/3 ML VIAL SC PRN ×2 (05:29→22:01)
[2018-08-16 05:46] LABS: Anion Gap 23 mmol/L (10-20); BUN (Urea Nitrogen) 52 mg/dL (8.4-25.7); Calc. Creatinine Clearance 11 mL/min (70-130); Calcium 8.3 mg/dL (7.8-10.44); Carbon Dioxide 21 mmol/L (23-31); Chloride 99 mmol/L (98-107); Estimated GFR-MDRD 10; Glucose 201 mg/dL (80-115); Potassium 3.8 mmol/L (3.5-5.1); Sodium 139 mmol/L (136-145)
[2018-08-16 05:59] LABS: #Lymphocytes 0.8 thou/uL (1.20-3.40); #Neutrophils 9.7 thou/uL (1.40-6.50); %Eosinophils 0.1 % (0.0-10.0); %Lymphocytes 7.1 % (21.0-51.0); %Monocytes 8.4 % (0.0-10.0); %Neutrophils 84.4 % (42.0-75.0); Hemoglobin 8.2 g/dL (14.0-18.0); Mean Corpuscular HGB CONC 31.8 g/dL (32.0-36.0); Mean Corpuscular Hemoglobin 30.4 pg (27.0-31.0); Mean Corpuscular Volume 95.5 fL (78.0-98.0); Mean Platelet Volume 8.1 fL (7.4-10.4); Platelet Count 140 thou/uL (130-400); RBC Distribution Width 17.4 % (11.5-14.5); Red Blood Cell (RBC) Count 2.71 mill/uL (4.70-6.10); White Blood Cell (WBC) Count 11.5 thou/uL (4.8-10.8)
--- NOTE | 2018-08-16 08:01 | PRG ---
DATE OF SERVICE: 08/16/2018 SUBJECTIVE: The patient remains in the CCU on a very low dose of Levophed. His mentation is definitely improved. His speech is now much more coherent, although he is not oriented to place or time. OBJECTIVE: VITAL SIGNS: On exam, his temperature is 97.7, pulse 77, blood pressure 121/85, and O2 sat 98%. A 24-hour intake 1103, output 2500 through dialysis. HEENT: Unremarkable. NECK: No adenopathy or JVD. LUNGS: Clear to auscultation anteriorly. CARDIAC: S1 and S2, regular. ABDOMEN: Soft. He has an umbilical hernia. EXTREMITIES: He has right lower extremity amputation. LABORATORY DATA: Sodium 139, potassium 3.8, chloride 99, CO2 of 21, BUN 52, creatinine 5.5, and glucose 201. His cortisol is 24.3. TSH 0.54. His T4 level is 0.71, which is lower limits of normal. White blood cell count 11.5, hematocrit 25.9, and platelet count 140. ASSESSMENT: 1. Encephalopathy, which has improved with raising the patient's blood pressure to the point where he is able to tolerate dialysis again. 2. Protein-calorie malnutrition. 3. Failure to thrive. PLAN: 1. We will try to wean off his Levophed with a goal systolic pressure greater than 100. 2. Continue midodrine. 3. He will be able to be transferred to the floor once he is off the Levophed. Prognosis remains guarded. Job ID: [id number]
[2018-08-16] MEDS: Midodrine HCl 5 MG TAB PO SCH ×3 (09:46→20:08)
[2018-08-16] MEDS: Aspirin 81 mg Enteric Coated Tablet PO SCH (09:46)
--- NOTE | 2018-08-16 09:53 | PDOC.PN ---
- Subjective Encounter Start Date: 08/16/18 Encounter Start Time: 09:51 Subjective: slow improvement in encephalopathy, oriented to person only - Objective MAR Reviewed: Yes Vital Signs & Weight: Vital Signs (12 hours) Temp 08/16/18 08:00 97.7 F 08/16/18 04:00 97.7 F 08/16/18 00:00 97.7 F Weight Admit Weight 154 lb Weight 136 lb 0.403 oz Most Recent Monitor Data Heart Rate from ECG 75 NIBP 110/67 NIBP BP-Mean 81 Respiration from ECG 18 SpO2 96 I&O: 08/15/18 08/16/18 08/17/18 06:59 06:59 06:59 Intake Total 394 1103 Output Total 0 Balance 394 1103 Result Diagrams: 08/16/18 05:15 08/16/18 05:15 Additional Labs: Accuchecks 08/15/18 08/15/18 08/15/18 22:09 16:09 11:39 POC Glucose 131 H 97 189 H Phys Exam - Physical Examination Neck: no JVD Respiratory: clear to auscultation bilateral Cardiovascular: RRR, no significant murmur Gastrointestinal: soft, positive bowel sounds Musculoskeletal: no edema Dx/Plan (1) Acute metabolic encephalopathy Code(s): G93.41 - METABOLIC ENCEPHALOPATHY Status: Acute Comment: Improving (2) Diabetic foot infection Code(s): E11.628 - TYPE 2 DIABETES MELLITUS WITH OTHER SKIN COMPLICATIONS; L08.9 - LOCAL INFECTION OF THE SKIN AND SUBCUTANEOUS TISSUE, UNSP Status: Acute Comment: s/p R BKA (3) Hypotension Status: Acute Qualifiers: Hypotension type: unspecified hypotension type Qualified Code(s): I95.9 - Hypotension, unspecified Comment: pt started on midodrine (on levophed drip as well) (4) Respiratory distress Code(s): R06.03 - ACUTE RESPIRATORY DISTRESS Status: Resolved Comment: Improved (5) Severe protein-calorie malnutrition Code(s): E43 - UNSPECIFIED SEVERE PROTEIN-CALORIE MALNUTRITION Status: Chronic (6) Hyperkalemia, diminished renal excretion Code(s): E87.5 - HYPERKALEMIA Status: Resolved (7) Anemia of renal disease Code(s): D63.1 - ANEMIA IN CHRONIC KIDNEY DISEASE Status: Chronic (8) ESRD (end stage renal disease) on dialysis Code(s): N18.6 - END STAGE RENAL DISEASE; Z99.2 - DEPENDENCE ON RENAL DIALYSIS Status: Chronic Comment: surgery consulted re: trialysis catheter (9) Hyperlipidemia Code(s): E78.5 - HYPERLIPIDEMIA, UNSPECIFIED Status: Chronic Qualifiers: (10) Hypertension Code(s): I10 - ESSENTIAL (PRIMARY) HYPERTENSION Status: Chronic Qualifiers: Comment: controlled (11) Ischemic cardiomyopathy Code(s): I25.5 - ISCHEMIC CARDIOMYOPATHY Status: Chronic Comment: EF 20% by Echo 06/15; lost LifeVest that was rx in 06/15 On Entresto,BB,ASA,statin (12) Noncompliance of patient with renal dialysis Code(s): Z91.15 - PATIENT'S NONCOMPLIANCE WITH RENAL DIALYSIS Status: Chronic (13) PAD (peripheral artery disease) Code(s): I73.9 - PERIPHERAL VASCULAR DISEASE, UNSPECIFIED Status: Chronic Comment: s/p angiogram 12/21/17 - Plan slowly being weaned off pressors -: HD per renal -: cont ASA. statin * .
[2018-08-16] MEDS ORDERED: Heparin 10,000 UNITS/ 10 ML VIAL ONE (12:00)
--- NOTE | 2018-08-16 12:19 | PRG ---
DATE OF SERVICE: 08/16/2018 SUBJECTIVE: Patient was seen and examined at bedside and overnight events noted. Patient denies any shortness of breath or chest pain or palpitation. No history of nausea or vomiting or diarrhea or fever or chills or cramps. OBJECTIVE: GENERAL: This is a well-built male in no apparent distress. VITAL SIGNS: Temperature 97.7. Heart rate 72. Respiratory rate 18. Blood pressure 109/63. HEENT: Atraumatic, normocephalic. Oral mucosa is moist NECK: Supple. CARDIOVASCULAR: S1, S2 heard. Rate and rhythm regular. RESPIRATORY: Clear to auscultation. GASTROINTESTINAL: Abdomen is soft. MUSCULOSKELETAL: No tenderness. No edema. DERMATOLOGIC: No skin rash. NEUROLOGIC: Alert and awake and oriented X3. No focal neurologic deficits. Moving all the extremities. PSYCHIATRIC: Mood and affect normal. LABORATORY DATA: Potassium is 3.8, BUN is 52, creatinine is 5.5. ASSESSMENT AND PLAN: 1. End-stage renal disease. Continue dialysis as tolerated. Plan is to have daily dialysis for least two more days. 2. Hypotension, stable on pressors. 3. Anemia. 4. Edema with fluid overload. Attempt to remove fluid with dialysis as tolerated. Job ID: [id number]
[2018-08-16] MEDS: Acetaminophen 500 MG TAB PO PRN ×2 (16:44→21:46)
[2018-08-16] MEDS: Atorvastatin Calcium 20 MG TAB PO SCH (20:08)
[2018-08-16] MEDS: FLUoxetine HCl 20 MG CAP PO SCH (20:08)
[2018-08-16] MEDS: traMADol HCl 50 MG TAB PO PRN (20:09)
[2018-08-17] MEDS: HumaLOG 300 UNITS/3 ML VIAL SC PRN ×4 (05:20→21:35)
[2018-08-17 05:30] LABS: #Eosinphils 0.1 thou/uL (0.0-0.7); #Lymphocytes 0.9 thou/uL (1.20-3.40); #Monocytes 1.1 thou/uL (0.11-0.59); #Neutrophils 7.3 thou/uL (1.40-6.50); %Basophils 0.5 % (0.0-1.0); %Eosinophils 0.6 % (0.0-10.0); %Lymphocytes 9.3 % (21.0-51.0); %Monocytes 11.5 % (0.0-10.0); %Neutrophils 78.1 % (42.0-75.0); Hemoglobin 8.2 g/dL (14.0-18.0); Mean Corpuscular HGB CONC 32.3 g/dL (32.0-36.0); Mean Corpuscular Volume 96.2 fL (78.0-98.0); Platelet Count 117 thou/uL (130-400); RBC Distribution Width 17.5 % (11.5-14.5); Red Blood Cell (RBC) Count 2.64 mill/uL (4.70-6.10); White Blood Cell (WBC) Count 9.3 thou/uL (4.8-10.8)
[2018-08-17 05:43] LABS: Anion Gap 16 mmol/L (10-20); BUN (Urea Nitrogen) 62 mg/dL (8.4-25.7); Calc. Creatinine Clearance 10 mL/min (70-130); Calcium 7.8 mg/dL (7.8-10.44); Carbon Dioxide 27 mmol/L (23-31); Chloride 98 mmol/L (98-107); Estimated GFR-MDRD 10; Glucose 259 mg/dL (80-115); Potassium 3.6 mmol/L (3.5-5.1); Sodium 137 mmol/L (136-145)
[2018-08-17] MEDS: Aspirin 81 mg Enteric Coated Tablet PO SCH (08:05)
[2018-08-17] MEDS: Midodrine HCl 5 MG TAB PO SCH ×3 (08:05→20:22)
[2018-08-17] MEDS: traMADol HCl 50 MG TAB PO PRN ×2 (08:58→17:08)
--- NOTE | 2018-08-17 10:10 | PRG ---
DATE OF SERVICE: 08/17/2018 SUBJECTIVE: He is awake. He is sitting up in a chair. He is much more alert than he has been. He continues on a Levophed drip. When it was decreased, his pressure dropped into the 80s. OBJECTIVE: VITAL SIGNS: At the current time, his temperature is 98.0, pulse 74, blood pressure 110/65, respiratory rate 12, O2 saturation 100%, currently on Levophed 2 mcg per minute. HEENT: Unremarkable. NECK: No JVD. CHEST: Clear to auscultation. CARDIAC: S1, S2. Regular. ABDOMEN: Soft, nontender. EXTREMITIES: There is right lower extremity amputation. LABORATORY DATA: White blood cell count 9.3, hematocrit 25.4, and platelet count 117. Sodium 137, potassium 3.6, chloride 98, CO2 of 27, BUN 62, creatinine 5.8, glucose 259. ASSESSMENT: 1. Persistent hypotension-not adrenally insufficient. Currently, on midodrine, but still requiring Levophed. 2. Chronic renal failure. 3. Altered mental status, which has improved. PLAN: 1. Continue attempts to wean off the Levophed. 2. May have to limit fluid removal with hemodialysis and just concentrate on ultrafiltration. Job ID: [id number]
[2018-08-17] MEDS ORDERED: Heparin 1,000 UNITS/ML VIAL ONE (11:11)
[2018-08-17] MEDS ORDERED: Polyethylene Glycol 3350 17 GM Packet PO PRN (11:44)
--- NOTE | 2018-08-17 13:18 | PDOC.PN ---
- Subjective Encounter Start Date: 08/17/18 Encounter Start Time: 12:00 Mr. Ramirez was seen today in follow-up of gangrene of the 1st toe on the right foot, s/p Right BKA. He does not have any complaints. - Objective MAR Reviewed: Yes Vital Signs & Weight: Vital Signs (12 hours) Temp Pulse Ox 08/17/18 11:00 97.8 F 08/17/18 08:00 99 08/17/18 07:00 98.0 F 08/17/18 04:00 97.5 F L Weight Admit Weight 154 lb Weight 129 lb 10.109 oz Most Recent Monitor Data Heart Rate from ECG 80 NIBP 144/76 NIBP BP-Mean 98 Respiration from ECG 15 SpO2 96 I&O: 08/16/18 08/17/18 08/18/18 06:59 06:59 06:59 Intake Total 1103 924.6 150 Output Total 50 0 Balance 1103 874.6 150 Result Diagrams: 08/17/18 05:12 08/17/18 05:12 Additional Labs: Accuchecks 08/16/18 08/16/18 08/16/18 22:01 15:59 05:15 POC Glucose 258 H 186 H 203 H Phys Exam - Physical Examination HEENT: PERRLA Respiratory: no wheezing, no rales, no rhonchi, clear to auscultation bilateral Cardiovascular: RRR, no significant murmur, no rub Gastrointestinal: soft, non-tender, no distention, positive bowel sounds Musculoskeletal: no edema Right BKA Dx/Plan (1) Diabetic foot infection Code(s): E11.628 - TYPE 2 DIABETES MELLITUS WITH OTHER SKIN COMPLICATIONS; L08.9 - LOCAL INFECTION OF THE SKIN AND SUBCUTANEOUS TISSUE, UNSP Status: Acute Comment: s/p R BKA (2) Severe protein-calorie malnutrition Code(s): E43 - UNSPECIFIED SEVERE PROTEIN-CALORIE MALNUTRITION Status: Chronic (3) Diabetes type 2, controlled Code(s): E11.9 - TYPE 2 DIABETES MELLITUS WITHOUT COMPLICATIONS Status: Chronic Comment: on accuchecks, insulin sliding scale (4) ESRD (end stage renal disease) on dialysis Code(s): N18.6 - END STAGE RENAL DISEASE; Z99.2 - DEPENDENCE ON RENAL DIALYSIS Status: Chronic Comment: surgery consulted re: trialysis catheter (5) Hyperlipidemia Code(s): E78.5 - HYPERLIPIDEMIA, UNSPECIFIED Status: Chronic Qualifiers: (6) Hypertension Code(s): I10 - ESSENTIAL (PRIMARY) HYPERTENSION Status: Chronic Qualifiers: Comment: controlled - Plan * Gangrene of the toe, s/p amputation- continue local wound care * Hypotension- ? etiology- continue pressor support and midodrine- wean Levophed as tolerated * DM- blood glucose is a bit elevated- will add a low dose scheduled insulin. * ESRD- continue dialysis as per Nephrology ( ultrfiltration primarily) * Continue PT/OT
[2018-08-17] MEDS ORDERED: Albumin 25% 25 GM/100 ML BOT IVPB SCH (14:00)
[2018-08-17] MEDS: Norepinephrine 8 MG/0.9% NS 250 ML IVPB PRN (14:00)
[2018-08-17] MEDS: Epoetin (ESRD) 10,000 UNITS/ML VIAL IVP SCH (14:06)
[2018-08-17 14:10] VITALS: BMI 20.2
--- NOTE | 2018-08-17 18:15 | PRG ---
DATE OF SERVICE: 08/17/2018 SUBJECTIVE: Patient was seen and examined at bedside and overnight events noted. Patient denies any shortness of breath or chest pain or palpitation. No history of nausea or vomiting or diarrhea or fever or chills or cramps. OBJECTIVE: GENERAL: This is a well-built male, in no apparent distress. VITAL SIGNS: Temperature 98.2, pulse 80, respiratory rate 16, blood pressure 108/72. HEENT: Atraumatic, normocephalic. Oral mucosa is moist NECK: Supple. CARDIOVASCULAR: S1, S2 heard. Rate and rhythm regular. RESPIRATORY: Clear to auscultation. GASTROINTESTINAL: Abdomen is soft. MUSCULOSKELETAL: No tenderness. No edema. DERMATOLOGIC: No skin rash. NEUROLOGIC: Alert and awake and oriented X3. No focal neurologic deficits. Moving all the extremities. PSYCHIATRIC: Mood and affect normal. LABORATORY DATA: Potassium is 3.6, BUN is 62, creatinine is 5.8 ASSESSMENT AND PLAN: 1. End-stage renal disease, continue on dialysis. 2. Hypotension. We will monitor. 3. Anemia. 4. Edema with fluid overload. 5. Plan is to have dialysis today as tolerated. Job ID: [id number]
[2018-08-17] MEDS: Diabetic Tussin 200 MG/10 ML UDCUP PO PRN (18:51)
[2018-08-17] MEDS: Acetaminophen 500 MG TAB PO PRN (20:22)
[2018-08-17] MEDS: Atorvastatin Calcium 20 MG TAB PO SCH (20:22)
[2018-08-17] MEDS: FLUoxetine HCl 20 MG CAP PO SCH (20:22)
[2018-08-18] MEDS: traMADol HCl 50 MG TAB PO PRN ×2 (02:47→10:10)
[2018-08-18 05:01] LABS: #Eosinphils 0.1 thou/uL (0.0-0.7); #Lymphocytes 1.1 thou/uL (1.20-3.40); #Monocytes 1.2 thou/uL (0.11-0.59); #Neutrophils 6.5 thou/uL (1.40-6.50); %Basophils 0.2 % (0.0-1.0); %Eosinophils 0.7 % (0.0-10.0); %Lymphocytes 12.7 % (21.0-51.0); %Monocytes 13.6 % (0.0-10.0); %Neutrophils 72.9 % (42.0-75.0); Hemoglobin 8.4 g/dL (14.0-18.0); Mean Corpuscular HGB CONC 32.5 g/dL (32.0-36.0); Mean Corpuscular Hemoglobin 30.9 pg (27.0-31.0); Mean Platelet Volume 8.5 fL (7.4-10.4); Platelet Count 124 thou/uL (130-400); RBC Distribution Width 17.7 % (11.5-14.5); Red Blood Cell (RBC) Count 2.72 mill/uL (4.70-6.10); White Blood Cell (WBC) Count 8.9 thou/uL (4.8-10.8)
[2018-08-18 05:07] LABS: Anion Gap 16 mmol/L (10-20); BUN (Urea Nitrogen) 34 mg/dL (8.4-25.7); Calc. Creatinine Clearance 16 mL/min (70-130); Carbon Dioxide 26 mmol/L (23-31); Chloride 100 mmol/L (98-107); Estimated GFR-MDRD 16; Glucose 164 mg/dL (80-115); Potassium 4.3 mmol/L (3.5-5.1); Sodium 138 mmol/L (136-145)
[2018-08-18] MEDS: Insulin Glargine 5 UNITS in Pre-Filled Syringe 1 EACH SC SCH (08:03)
[2018-08-18] MEDS: Aspirin 81 mg Enteric Coated Tablet PO SCH (08:03)
[2018-08-18] MEDS: Midodrine HCl 5 MG TAB PO SCH ×3 (08:03→21:16)
[2018-08-18] MEDS ORDERED: Bisacodyl 5 MG TAB PO PRN (10:00)
--- NOTE | 2018-08-18 10:25 | PRG ---
DATE OF SERVICE: 08/18/2018 SUBJECTIVE: The patient is actually doing fairly well. He was weaned off the Levophed this morning about 6:00 a.m. I am not sure whether or not he is undergoing dialysis today. OBJECTIVE: VITAL SIGNS: Temperature 98.4, pulse 86, blood pressure 103/62, O2 saturation is generally in the high 90s. Intake for the last 24 hours 330, output probably about 2300 by dialysis. HEENT: Unremarkable. NECK: No JVD. CHEST: Clear anteriorly. CARDIAC: S1, S2. Regular. ABDOMEN: Soft, nontender. EXTREMITIES: Right lower extremity amputation. LABORATORY DATA: White blood cell count 8.9, hematocrit 25.8, and platelet count 124. Sodium 138, potassium 4.3, chloride 100, CO2 of 26, BUN 34, creatinine 3.6, and glucose 164. ASSESSMENT: 1. Hypotension, which is somewhat improved. He is currently on midodrine and off the Levophed, but I am not sure whether he is going to be able to tolerate dialysis without the Levophed. 2. Chronic renal failure. 3. Altered mental status, which is improved. 4. Status post right lower extremity amputation. PLAN: I would leave him in here until his next dialysis session just to make sure that Levophed will not be needed. Job ID: [id number]
[2018-08-18] MEDS: HumaLOG 300 UNITS/3 ML VIAL SC PRN (11:29)
[2018-08-18 13:14] VITALS: BP 108/77
--- NOTE | 2018-08-18 14:38 | PRG ---
DATE OF SERVICE: 08/18/2018 SUBJECTIVE: Patient was seen and examined at bedside and overnight events noted. Patient denies any shortness of breath or chest pain or palpitation. No history of nausea or vomiting or diarrhea or fever or chills or cramps. OBJECTIVE: GENERAL: This is a well-built male, in no apparent distress. VITAL SIGNS: Temperature 98.2. Pulse 82. Respiratory rate 18. Blood pressure 102/62. HEENT: Atraumatic, normocephalic. Oral mucosa is moist. NECK: Supple. CARDIOVASCULAR: S1, S2 heard. Rate and rhythm regular. RESPIRATORY: Clear to auscultation. GASTROINTESTINAL: Abdomen is soft. MUSCULOSKELETAL: No tenderness. No edema. DERMATOLOGIC: No skin rash. NEUROLOGIC: Alert and awake and oriented X3. No focal neurologic deficits. Moving all the extremities. PSYCHIATRIC: Mood and affect normal. LABORATORY DATA: Potassium is 4.3, BUN is 34, and creatinine is 3.6. ASSESSMENT AND PLAN: 1. End-stage renal disease. We will continue on dialysis as tolerated. Plan is to hold dialysis today. The patient got off Levophed, seems to be clinically doing better. 2. Hypotension, off pressors. 3. Anemia, monitor. 4. Edema with fluid overload, seems to be better. Plan is to hold dialysis. Limit salt and fluid intake and we will follow. Job ID: [id number]
--- NOTE | 2018-08-18 16:39 | PDOC.PN ---
- Subjective Encounter Start Date: 08/18/18 Encounter Start Time: 16:37 Mr. Ramirez was seen today in follow-up of BKA due to gangrene. He is complaining of some abdominal pain. He says he feels the need to have a bowel movement. - Objective MAR Reviewed: Yes Vital Signs & Weight: Vital Signs (12 hours) Temp Pulse Pulse BP BP Pulse Ox 08/18/18 15:00 98.3 F 08/18/18 11:00 98.2 F 08/18/18 10:58 84 77 108/77 93/70 08/18/18 08:00 98 08/18/18 07:00 98.4 F Weight Admit Weight 154 lb Weight 131 lb 2.801 oz Most Recent Monitor Data Heart Rate from ECG 87 NIBP 110/77 NIBP BP-Mean 88 Respiration from ECG 20 SpO2 100 I&O: 08/17/18 08/18/18 08/19/18 06:59 06:59 06:59 Intake Total 924.6 330.4 280 Output Total 50 0 Balance 874.6 330.4 280 Result Diagrams: 08/18/18 04:22 08/18/18 04:22 Additional Labs: Accuchecks 08/18/18 08/18/18 08/18/18 16:07 11:24 04:23 POC Glucose 121 H 189 H 163 H 08/17/18 08/17/18 08/17/18 21:35 16:40 11:17 POC Glucose 220 H 176 H 144 H 08/17/18 08/17/18 07:49 05:12 POC Glucose 197 H 263 H Phys Exam - Physical Examination HEENT: PERRLA Respiratory: no wheezing, no rales, no rhonchi, clear to auscultation bilateral Cardiovascular: RRR, no significant murmur, no rub Gastrointestinal: soft, non-tender, no distention, positive bowel sounds Musculoskeletal: no edema, pulses present Dx/Plan (1) Diabetic foot infection Code(s): E11.628 - TYPE 2 DIABETES MELLITUS WITH OTHER SKIN COMPLICATIONS; L08.9 - LOCAL INFECTION OF THE SKIN AND SUBCUTANEOUS TISSUE, UNSP Status: Acute Comment: s/p R BKA (2) Severe protein-calorie malnutrition Code(s): E43 - UNSPECIFIED SEVERE PROTEIN-CALORIE MALNUTRITION Status: Chronic (3) Diabetes type 2, controlled Code(s): E11.9 - TYPE 2 DIABETES MELLITUS WITHOUT COMPLICATIONS Status: Chronic Comment: on accuchecks, insulin sliding scale (4) ESRD (end stage renal disease) on dialysis Code(s): N18.6 - END STAGE RENAL DISEASE; Z99.2 - DEPENDENCE ON RENAL DIALYSIS Status: Chronic Comment: surgery consulted re: trialysis catheter (5) Hyperlipidemia Code(s): E78.5 - HYPERLIPIDEMIA, UNSPECIFIED Status: Chronic Qualifiers: (6) Hypertension Code(s): I10 - ESSENTIAL (PRIMARY) HYPERTENSION Status: Chronic Qualifiers: Comment: controlled - Plan * Diabetic foot infection- he is post Right BKA * Hypotension- he has been off Levophed since this morning- continue Midodrine * DM- blood glucose is stable * ESRD- continue dialysis as per Nephrology * Awaiting out patient dialysis arrangements, and [facility] placement .
[2018-08-18] MEDS ORDERED: Ondansetron ODT 4 MG TAB PO PRN (19:58)
[2018-08-18] MEDS: Ondansetron PF 4 MG/2 ML Vial IVP PRN (20:12)
[2018-08-18] MEDS: Atorvastatin Calcium 20 MG TAB PO SCH (21:16)
[2018-08-18] MEDS: FLUoxetine HCl 20 MG CAP PO SCH (21:16)
[2018-08-19] MEDS: Insulin Glargine 5 UNITS in Pre-Filled Syringe 1 EACH SC SCH (10:09)
[2018-08-19] MEDS: Midodrine HCl 5 MG TAB PO SCH ×3 (10:10→20:36)
[2018-08-19] MEDS: Aspirin 81 mg Enteric Coated Tablet PO SCH (10:10)
--- NOTE | 2018-08-19 10:26 | PRG ---
DATE OF SERVICE: 08/19/2018 SUBJECTIVE: Mr. Ramirez is moaning, but voices no acute complaints when I talked to him. He continues to be off the Levophed, but is not scheduled to have dialysis until today, so we are not sure how well he is going to tolerate dialysis without the Levophed. OBJECTIVE: VITAL SIGNS: On exam; his temperature is 98, pulse 80, blood pressure 106/76, and O2 saturation 100% on room air. HEENT: Unremarkable. NECK: No JVD. CHEST: Clear to auscultation. CARDIAC: S1 and S2. Regular. ABDOMEN: Soft and nontender. EXTREMITIES: Severe muscle wasting. LABORATORY DATA: No new labs were done today. ASSESSMENT: 1. Hypotension, which appears to be stable off the Levophed. 2. Chronic renal failure. 3. Altered mental status. 4. Status post right lower extremity amputation. PLAN: We will see how he tolerates the dialysis. If he can stay off the Levophed, then we can transfer him to the floor. Job ID: [id number]
[2018-08-19] MEDS ORDERED: Heparin 1,000 UNITS/ML VIAL ONE (11:11)
[2018-08-19] MEDS: HumaLOG 300 UNITS/3 ML VIAL SC PRN (12:09)
[2018-08-19 16:28] LABS: Hemoglobin 8.7 g/dL (14.0-18.0); Mean Corpuscular Hemoglobin 32.8 pg (27.0-31.0); Mean Platelet Volume 8.3 fL (7.4-10.4); Platelet Count 142 thou/uL (130-400); RBC Distribution Width 23.6 % (11.5-14.5); Red Blood Cell (RBC) Count 2.65 mill/uL (4.70-6.10); White Blood Cell (WBC) Count 11.6 thou/uL (4.8-10.8)
[2018-08-19 16:37] LABS: Anion Gap 20 mmol/L (10-20); BUN (Urea Nitrogen) 66 mg/dL (8.4-25.7); Calc. Creatinine Clearance 11 mL/min (70-130); Calcium 7.9 mg/dL (7.8-10.44); Carbon Dioxide 25 mmol/L (23-31); Chloride 97 mmol/L (98-107); Estimated GFR-MDRD 11; Glucose 147 mg/dL (80-115); Potassium 5.7 mmol/L (3.5-5.1); Sodium 136 mmol/L (136-145)
[2018-08-19 16:56] LABS: Anisocytosis MODERATE=16-30 cells (100X) (0-5/hpf); Band 3 % (5-11); Lymphocytes 18 % (21-51); MDiff Complete? YES; Macrocytosis SLIGHT = 6-15 cells (100X) (0-5/hpf); Metamyelocyte 2 % (0-0); Monocytes 9 % (0-10); Neutrophil 68 % (42-75); Nucleated RBC 2 % (0); Ovalocytes SLIGHT = 2-5 cells (100X) (0-1/hpf); Platelet Morphology Comment Appears Adequate; Polychromasia MODERATE = 3-4 cells (100X) (0-2/hpf); Schistocytes SLIGHT = 2-5 cells (100X) (0-1/hpf)
[2018-08-19] MEDS: Ondansetron PF 4 MG/2 ML Vial IVP PRN (18:44)
--- NOTE | 2018-08-19 19:59 | PRG ---
DATE OF SERVICE: 08/19/2018 SUBJECTIVE: The patient was seen and examined at bedside and overnight events noted. The patient denies any shortness of breath or chest pain or palpitation. No history of nausea or vomiting or diarrhea or fever or chills or cramps. OBJECTIVE: GENERAL: This is a well-built male, in no apparent distress. VITAL SIGNS: Temperature 98.0, pulse 79, respiratory rate 18, blood pressure 112/81. HEENT: Atraumatic, normocephalic. Oral mucosa is moist NECK: Supple. CARDIOVASCULAR: S1, S2 heard. Rate and rhythm regular. RESPIRATORY: Clear to auscultation. GASTROINTESTINAL: Abdomen is soft. MUSCULOSKELETAL: No tenderness. No edema. DERMATOLOGIC: No skin rash. NEUROLOGIC: Alert and awake and oriented X3. No focal neurologic deficits. Moving all the extremities. PSYCHIATRIC: Mood and affect normal. LABORATORY DATA: Potassium is 5.7, BUN is 66, creatinine is 5.25. ASSESSMENT AND PLAN: 1. End-stage renal disease. We will continue dialysis as tolerated. 2. Hypotension, off pressors. 3. Anemia, we will monitor. 4. Edema, remove fluid if tolerated. 5. Hyperkalemia, limit potassium in the diet. Monitor closely. Job ID: [id number]
[2018-08-19 20:30] VITALS: TEMP 98
[2018-08-19] MEDS: Atorvastatin Calcium 20 MG TAB PO SCH (20:35)
[2018-08-19] MEDS: FLUoxetine HCl 20 MG CAP PO SCH (20:36)
--- NOTE | 2018-08-19 21:26 | PDOC.PN ---
- Subjective Encounter Start Date: 08/19/18 Encounter Start Time: 18:15 Subjective: f/u for ESRD currently receiving HD and s/p R BKA due to gangrene -: POD #9. No new complaints. Awaiting SNF approval and coordination -: for oupt HD. - Objective MAR Reviewed: Yes Vital Signs & Weight: Vital Signs (12 hours) Temp 08/19/18 20:00 98.0 F 08/19/18 12:00 98 F Weight Admit Weight 154 lb Weight 131 lb 2.801 oz Most Recent Monitor Data Heart Rate from ECG 89 NIBP 114/85 NIBP BP-Mean 94 Respiration from ECG 12 SpO2 100 I&O: 08/18/18 08/19/18 08/20/18 06:59 06:59 06:59 Intake Total 330.4 642 500 Output Total 0 Balance 330.4 642 500 Result Diagrams: 08/19/18 16:10 08/19/18 16:10 Additional Labs: Accuchecks 08/19/18 08/19/18 08/18/18 12:05 06:01 21:16 POC Glucose 191 H 77 133 H Microbiology 08/05/18 05:07 Venous blood - Right Hand Blood Culture - Final NO GROWTH IN 5 DAYS 08/05/18 04:23 Venous blood - Right Arm Blood Culture - Final Coagulase Neg Staphylococcus Eikenella corrodens Laboratory Tests 01/27/17 01/27/17 01/28/17 14:20 14:20 03:33 WBC Hgb Plt Count Potassium 6.4 H BUN 72 H Hemoglobin A1c Phosphorus 8.5 H Magnesium 2.2 Triglycerides 189 H Cholesterol 146 LDL Cholesterol, Calc 65 HDL Cholesterol 43 01/28/17 08/17/18 08/17/18 03:33 05:12 05:12 WBC 9.3 Hgb 8.2 L Plt Count 117 L Potassium 3.6 BUN Hemoglobin A1c 7.4 H Phosphorus Magnesium Triglycerides Cholesterol LDL Cholesterol, Calc HDL Cholesterol 08/18/18 08/18/18 04:22 04:22 WBC 8.9 Hgb 8.4 L Plt Count 124 L Potassium 4.3 BUN Hemoglobin A1c Phosphorus Magnesium Triglycerides Cholesterol LDL Cholesterol, Calc HDL Cholesterol EKG Reviewed by me: Yes (Tele - SR) Phys Exam - Physical Examination Constitutional: NAD HEENT: PERRLA, sclera anicteric, oral pharynx no lesions Neck: no nodes, no JVD, supple, full ROM Respiratory: no wheezing, no rales, no rhonchi, clear to auscultation bilateral S1, S2 Cardiovascular: RRR, no significant murmur, no rub, gallop Gastrointestinal: soft, non-tender, no distention, positive bowel sounds R BKA with stump intact Musculoskeletal: no edema, pulses present Neurological: normal sensation, moves all 4 limbs Skin: normal turgor, cap refill <2 seconds Dx/Plan (1) Acute metabolic encephalopathy Code(s): G93.41 - METABOLIC ENCEPHALOPATHY Status: Acute Comment: Multifactorial, improving, continue supportive mgmt (2) Diabetic foot infection Code(s): E11.628 - TYPE 2 DIABETES MELLITUS WITH OTHER SKIN COMPLICATIONS; L08.9 - LOCAL INFECTION OF THE SKIN AND SUBCUTANEOUS TISSUE, UNSP Status: Acute Comment: s/p R BKA 08/10/18, local WCT, pain control, PT/OT (3) Hypotension Status: Chronic Qualifiers: Hypotension type: unspecified hypotension type Qualified Code(s): I95.9 - Hypotension, unspecified Comment: Off pressor support, monitor serial BP trend, limit antihypertensive exposure, Midodrine (4) Severe protein-calorie malnutrition Code(s): E43 - UNSPECIFIED SEVERE PROTEIN-CALORIE MALNUTRITION Status: Chronic Comment: Continue Yannick BID (5) ESRD (end stage renal disease) on dialysis Code(s): N18.6 - END STAGE RENAL DISEASE; Z99.2 - DEPENDENCE ON RENAL DIALYSIS Status: Chronic Comment: HD per Renal service, CM assisting with outpt HD (6) Hyperkalemia, diminished renal excretion Code(s): E87.5 - HYPERKALEMIA Status: Acute Comment: Transient due to ESRD, HD completed today, serial K+ monitoring - Plan 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
[2018-08-20] MEDS ORDERED: Amiodarone 150 MG/3 ML VIAL ONE (05:00)
[2018-08-20] MEDS ORDERED: Dextrose 50% Abboject 50 ML SYRINGE ONE (05:00)
[2018-08-20] MEDS ORDERED: Magnesium 5 GM/10 ML Abboject SYRINGE ONE (05:00)
[2018-08-20] MEDS ORDERED: EPINEPHrine 1 MG/10 ML Abboject SYRINGE ONE (05:00)
[2018-08-20] MEDS ORDERED: Calcium Chloride 1 GM/10 ML Abboject SYRINGE ONE (05:00)
[2018-08-20] MEDS ORDERED: Sodium Bicarb 50 MEQ/50 ML Abboject 8.4% SYRINGE ONE (05:00)
--- NOTE | 2018-08-20 06:09 | PDOC.EVN ---
Event Note - Event Note Event Note: Residents and attending physician to bedside for avery de santiago for cardiopulmonary arrest. Per nursing staff patient w/ sinus bradycardia just prior to becoming unresponsive without a pulse. Avery de santiago was called at 0505. Mr Ramirez was initially in PEA with epinephrine, bicarbonate, calcium gluconate, and a bolus of NS given. Patient did regain his pulse with an organized rhythm briefly before losing his pulse and going into VTach. CPR was resumed with patient noted to be going in between VTach and VFib. Pt also with a short run of torsades as well during this time. Mr. Ramirez was successfully intubated with a 7.5 ET tube with placement confirmed with equal bilateral breath sounds on auscultation and color change capnography. The patient received multiple rounds of calcium, bicarb, and epinephrine. Defibrillation was performed x 4. And patient was given Mag x 1 for his run of torsades He also received 10 units of insulin, 1 amp of D50, and Amio x 2. Please refer to code sheet for exact numbers and timing of each medication given. The patient did not regain his pulse nor was any organized cardiac activity noted on monitoring. After approximately 37 minutes of CPR and multiple rounds of medications and defibrillation, ultrasound was brought to bedside to check for any cardiac motion. The heart was sucessfully visualized under ultrasound guidance and no cardiac activity was seen. CPR was subsequently discontinued and time of called at 0542. Addendum - Attending - Attending Attestation Date/Time: 08/20/18 0730 I personally evaluated the patient and discussed the management with Dr. Hicks. I agree with the History, Examination, Assessment and Plan documented above with any addition or exceptions noted below. Code called at 0505 due to worsening bradycardia with progression to PEA. ACLS algorithms run successively over the next 38 minutes including Epi, Mg, Bicarb, Calcium, and insulin given. Due to his history, suspected high liklihood of either severe acidemia, hyperkalemia, or possible PE from recent surgery. He progressed from PEA to Torsades and eventual Vtach and Vfib all without a pulse. Multiple defibrillations given, and patient intubated during the code. See code sheet for full details. At 0542, ultrasound used to visualize cardiac activity, and no organized activity or fibrillation noted. Code terminated at 0542 and patient .
--- NOTE | 2018-08-20 14:38 | DIS ---
DATE OF ADMISSION: 08/05/2018 DATE OF DISCHARGE: 08/20/2018 DATE OF : 08/20/2018. FINAL DIAGNOSES: 1. End-stage renal disease with hemodialysis. 2. Acute metabolic encephalopathy multifactorial including uremia. 3. Right great toe gangrene, status post right [id number]-[id number] amputation on 08/10/2018. 4. Hypotension, intermittent. 5. Severe protein-calorie malnutrition. 6. Hyperkalemia. 7. Peripheral arterial disease, severe. 8. Ischemic cardiomyopathy with ejection fraction of 15% to 20%. 9. Acute on chronic systolic and diastolic congestive heart failure with ejection fraction of 15% to 20%. 10. Coronary artery disease. 11. Diabetes mellitus type 2 with end-stage renal disease and peripheral vascular disease. CONSULTATIONS: 1. Dr. Soliman and Dr. Fuentes with General Surgery Service. 2. Dr. Anna with Nephrology Service. 3. Dr. Alexei Gilmore with Vascular Surgery Service. 4. Dr. Lopez with Pulmonology Critical Care Service. PERTINENT LAB AND X-RAY FINDINGS: Potassium ranged between 3.6 to 6.5. Creatinine ranged between 3.67 to 19.41. Magnesium level 2.0. TSH 0.55. Free T4 level 0.71. Lactic acid level 1.4. CBC showed a white blood cell count ranging between 8.9 to 15.9, hemoglobin ranged between 7.7 to 9.3. Hepatitis B and C panel negative 08/05/2018. Blood cultures showed 1/2 positive for coagulase-negative Staphylococcus aureus and Eikenella corrodens on 08/05/2018. Three views of the right foot dated 08/05/2018, showed no acute osseous abnormality. Lower extremity ultrasound dated 08/07/2018, showed reduced velocities in the common femoral artery and superficial femoral arteries. CT of the brain without contrast dated 08/11/2018, showed no acute intracranial process. Age indeterminate lacunar infarct in the anterior left gomes radiata with chronic microvascular ischemic changes. HOSPITAL COURSE: The patient was initially admitted after presenting with increased shortness of breath in the context of end-stage renal disease with volume overload. The patient was initiated on urgent hemodialysis after consultation with the Nephrology Service. The patient continued to receive hemodialysis throughout the prolonged hospital stay of 15 days. The patient underwent evaluation by the General Surgery Service with placement of a right femoral Trialysis hemodialysis catheter. The patient was also initially placed on broad-spectrum IV antibiotic therapy including Zosyn and vancomycin after concerned for right great toe gangrene. The patient was evaluated by the General Surgery Service and Vascular Surgery Service due to severe peripheral vascular disease and contemplating amputation of the great toe versus a [id number] amputation. The patient underwent vascular studies showing poor vascular supply to the foot with recommendations to proceed with right ajicg-qch-chex amputation, which was performed on 08/10/2018. The patient was noted with hypotension intermittently requiring vasopressor support in the Critical Care Unit. The patient continued to receive hemodialysis throughout the hospital course with plans for coordination for outpatient hemodialysis after discharge. The patient was also noted with severe protein-calorie malnutrition and advanced chronic medical comorbid conditions. Due to the patient's multiple comorbid status and end-stage renal disease, the patient was noted with encephalopathic changes and altered mentation due to likely uremia in the context of end-stage renal disease. The patient had intermittent improvement in mentation, however, remained severely deconditioned. The patient was noted by nursing personnel with sinus bradycardia on 08/20/2018, progressing to asystole. Code blue was called, and the patient was noted with sinus bradycardia, becoming unresponsive and pulseless. The patient received ACLS algorithms including epinephrine, bicarbonate, calcium gluconate, and intravenous normal saline. The patient also received CPR per protocol in addition to multiple defibrillation attempts. The patient also received magnesium due to short run of torsades without success. The patient had intermittent and transient return of pulses that were non-perfusing and code blue continued for approximately 38 minutes. The patient was unable to be resuscitated and cardiac activity was not identified by ultrasound at the bedside. A Code Blue was terminated and the patient at 5:42 a.m. Decedent affairs were notified. Job ID: [id number]
== END 2018-08-20 10:30 | disposition expired | DRG 239 ==
LOC: ERS 01:01 → OBSVTOIN 06:49 → 2SW 06:49 → 2NO 22:30 → IMCU/EMU 08-13 12:12 → CCU 08-13 16:26
PROVIDERS: ADMIT Internal Medicine; ATTEND Internal Medicine
PROC: 5A1D70Z Performance of Urinary Filtration, Intermittent, Less than 6 Hours Per Day (ICD-10-PCS; 2018-08-05)
PROC: 5A1D70Z Performance of Urinary Filtration, Intermittent, Less than 6 Hours Per Day (ICD-10-PCS; 2018-08-06)
PROC: 5A1D70Z Performance of Urinary Filtration, Intermittent, Less than 6 Hours Per Day (ICD-10-PCS; 2018-08-08)
PROC: 30233N1 Transfusion of Nonautologous Red Blood Cells into Peripheral Vein, Percutaneous Approach (ICD-10-PCS; 2018-08-08)
PROC: 0Y6H0Z1 Detachment at Right Lower Leg, High, Open Approach (ICD-10-PCS; principal; 2018-08-10)
PROC: 5A1D70Z Performance of Urinary Filtration, Intermittent, Less than 6 Hours Per Day (ICD-10-PCS; 2018-08-10)
PROC: 06HN33Z Insertion of Infusion Device into Left Femoral Vein, Percutaneous Approach (ICD-10-PCS; 2018-08-13)
PROC: 5A1D70Z Performance of Urinary Filtration, Intermittent, Less than 6 Hours Per Day (ICD-10-PCS; 2018-08-13)
PROC: 5A1D70Z Performance of Urinary Filtration, Intermittent, Less than 6 Hours Per Day (ICD-10-PCS; 2018-08-14)
PROC: 5A1D70Z Performance of Urinary Filtration, Intermittent, Less than 6 Hours Per Day (ICD-10-PCS; 2018-08-15)
PROC: 5A1D70Z Performance of Urinary Filtration, Intermittent, Less than 6 Hours Per Day (ICD-10-PCS; 2018-08-16)
PROC: 3E033XZ Introduction of Vasopressor into Peripheral Vein, Percutaneous Approach (ICD-10-PCS; 2018-08-16)
PROC: 5A1D70Z Performance of Urinary Filtration, Intermittent, Less than 6 Hours Per Day (ICD-10-PCS; 2018-08-19)
PROC: 5A12012 Performance of Cardiac Output, Single, Manual (ICD-10-PCS; 2018-08-20)
PROC: 5A2204Z Restoration of Cardiac Rhythm, Single (ICD-10-PCS; 2018-08-20)
PROC: 0BH17EZ Insertion of Endotracheal Airway into Trachea, Via Natural or Artificial Opening (ICD-10-PCS; 2018-08-20)
DX: E11.52 Type 2 diabetes mellitus with diabetic peripheral angiopathy with gangrene (principal); N18.6 End stage renal disease; J96.01 Acute respiratory failure with hypoxia; G93.41 Metabolic encephalopathy; E43 Unspecified severe protein-calorie malnutrition; I50.43 Acute on chronic combined systolic (congestive) and diastolic (congestive) heart failure; I13.2 Hypertensive heart and chronic kidney disease with heart failure and with stage 5 chronic kidney disease, or end stage renal disease; I70.261 Atherosclerosis of native arteries of extremities with gangrene, right leg; E87.2 Acidosis; I47.2 Ventricular tachycardia; T82.868A Thrombosis due to vascular prosthetic devices, implants and grafts, initial encounter; E11.22 Type 2 diabetes mellitus with diabetic chronic kidney disease; E87.5 Hyperkalemia; I95.9 Hypotension, unspecified; D63.1 Anemia in chronic kidney disease; I25.10 Atherosclerotic heart disease of native coronary artery without angina pectoris; D69.6 Thrombocytopenia, unspecified; I49.3 Ventricular premature depolarization; I25.5 Ischemic cardiomyopathy; E78.5 Hyperlipidemia, unspecified; F41.9 Anxiety disorder, unspecified; F32.9 Major depressive disorder, single episode, unspecified; R00.1 Bradycardia, unspecified; Z68.20 Body mass index [BMI] 20.0-20.9, adult; Z99.2 Dependence on renal dialysis; Z91.15 Patient's noncompliance with renal dialysis; Z79.4 Long term (current) use of insulin; Z79.82 Long term (current) use of aspirin; Z79.899 Other long term (current) drug therapy; Z95.810 Presence of automatic (implantable) cardiac defibrillator; Y83.2 Surgical operation with anastomosis, bypass or graft as the cause of abnormal reaction of the patient, or of later complication, without mention of misadventure at the time of the procedure
CPT/HCPCS: 36415; 36416; 36430; 70450; 71045; 80048; 80053; 80202; 82533; 82805; 83605; 83735; 84439; 84443; 84484; 85014; 85018; 85025; 85049; 86580; 86704; 86706; 86803; 86850; 86900; 86901; 87040; 87077; 87149; 87340; 88307; 88311; 90935; 92950; 93005; 93010; 93923; 93970; 94640; 94660; 96365; 96366; G0257; G0365; J0171; J0282; J0670; J1610; J1630; J1642; J1644; J1825; J2250; J2270; J2405; J2543; J3010; J3370; J3475; J7050; J7620; P9016; P9047; Q0162; Q4081; S0028